=== PATIENT | female | born 1955 | race Caucasian/White ===

== ENCOUNTER 2019-11-25 07:48 | Outpatient (REF) | payer OTHER, SELFPAY ==
[2019-11-25 09:05] LABS: Anion Gap 10 (12-20); Blood Urea Nitrogen 29 mg/dL (9-16); Calcium 9.4 mg/dL (8.4-10.2); Carbon Dioxide 30 mmol/L (22-29); Chloride 104 mmol/L (96-108); Estimated Glomerular Filt Rate 33; Glucose Random 148 mg/dL (60-115); Potassium 4.3 mmol/l (3.3-5.1); Sodium 140 mmol/L (135-145)
[2019-11-25 09:12] LABS: Estimated Average Glucose 186 mg/dL; Hemoglobin A1c % 8.1 %
[2019-11-25 09:17] LABS: Creatinine Urine 70.08 mg/dL; Microalbum/Creatinine Ratio Ur 473.7 ug/mg cr
== END 2019-11-25 07:49 | disposition home or self-care (01) ==
LOC: HO.LAB 07:48
PROVIDERS: PCP Internal Medicine; Visit Provider Internal Medicine
DX: I12.9 Hypertensive chronic kidney disease with stage 1 through stage 4 chronic kidney disease, or unspecified chronic kidney disease (principal); E11.22 Type 2 diabetes mellitus with diabetic chronic kidney disease; N18.9 Chronic kidney disease, unspecified
CPT/HCPCS: 80048; 82043; 83036

== ENCOUNTER 2019-12-22 10:55 | Outpatient (REF) | payer OTHER, SELFPAY ==
--- NOTE | 2019-12-22 11:48 | XR_ITS ---
EXAMINATION: XR ANKLE, RIGHT CLINICAL INFORMATION: Right ankle pain. COMPARISON: None TECHNIQUE: AP, lateral, and mortise views of the right ankle. FINDINGS: The ankle mortise and subtalar joints are normal. There are small enthesophytes along the medial malleolus. No fracture or dislocation. There are moderate sized calcaneal heel and retrocalcaneal enthesophytes. The soft tissues are normal. XR/XR ankle RT 2V IMPRESSION: Moderate enthesophytes along the calcaneal heel and retrocalcaneal enthesophytes and small osteophytes along the medial malleolus. These are likely related to previous injury. No visible acute fracture, dislocation or subluxation.
[2019-12-22 13:48] LABS: Anion Gap 14 (12-20); Blood Urea Nitrogen 24 mg/dL (9-16); C Reactive Protein 0.09 mg/dL (< or = 0.50); Carbon Dioxide 28 mmol/L (22-29); Chloride 104 mmol/L (96-108); Estimated Glomerular Filt Rate 37; Glucose Random 106 mg/dL (60-115); Potassium 4.5 mmol/l (3.3-5.1); Sodium 141 mmol/L (135-145)
[2019-12-22 13:50] LABS: Uric Acid 6.5 mg/dL (2.4-5.7)
== END 2019-12-22 10:56 | disposition home or self-care (01) ==
LOC: HO.LAB 10:55
PROVIDERS: PCP Internal Medicine; Visit Provider Internal Medicine
DX: M25.571 Pain in right ankle and joints of right foot (principal); E11.22 Type 2 diabetes mellitus with diabetic chronic kidney disease; I12.9 Hypertensive chronic kidney disease with stage 1 through stage 4 chronic kidney disease, or unspecified chronic kidney disease; N18.9 Chronic kidney disease, unspecified
CPT/HCPCS: 73600; 80048; 84550; 86140

== ENCOUNTER 2020-03-26 08:16 | Outpatient (REF) | payer OTHER, SELFPAY ==
[2020-03-26 09:41] LABS: Anion Gap 12 (12-20); Blood Urea Nitrogen 26 mg/dL (9-16); Calcium 9.1 mg/dL (8.4-10.2); Carbon Dioxide 29 mmol/L (22-29); Chloride 103 mmol/L (96-108); Estimated Glomerular Filt Rate 37; Glucose Random 164 mg/dL (60-115); Potassium 4.7 mmol/L (3.3-5.1); Sodium 139 mmol/L (135-145)
[2020-03-26 09:59] LABS: Creatinine Urine 114.78 mg/dL; Microalbum/Creatinine Ratio Ur 418.1 ug/mg cr
[2020-03-26 10:22] LABS: Estimated Average Glucose 157 mg/dL; Hemoglobin A1c % 7.1 %
== END 2020-03-26 08:17 | disposition home or self-care (01) ==
LOC: HO.LAB 08:16
PROVIDERS: PCP Internal Medicine; Visit Provider Internal Medicine
DX: I12.9 Hypertensive chronic kidney disease with stage 1 through stage 4 chronic kidney disease, or unspecified chronic kidney disease (principal); E11.22 Type 2 diabetes mellitus with diabetic chronic kidney disease; N18.9 Chronic kidney disease, unspecified
CPT/HCPCS: 36415; 80048; 82043; 83036

== ENCOUNTER → 2020-04-25 11:05 | Outpatient (BNVA) | payer OTHER, SELFPAY | PROVIDERS: PCP Internal Medicine; Visit Provider Internal Medicine | DX: S69.92XA Unspecified injury of left wrist, hand and finger(s), initial encounter (principal); X50.0XXA Overexertion from strenuous movement or load, initial encounter | CPT/HCPCS: 29130; 73140; 99203 ==

== ENCOUNTER → 2020-05-02 09:02 | Outpatient (BNVA) | payer OTHER, SELFPAY | PROVIDERS: PCP Internal Medicine; Visit Provider Physician Assistant | DX: S63.635A Sprain of interphalangeal joint of left ring finger, initial encounter (principal); X58.XXXA Exposure to other specified factors, initial encounter | CPT/HCPCS: 99213 ==

== ENCOUNTER 2020-05-16 17:10 | Outpatient (REF) | payer OTHER, SELFPAY ==
--- NOTE | ~2020-05-16 | XR_ITS ---
EXAMINATION: XR HAND, LEFT CLINICAL INFORMATION: Pain COMPARISON: Previous x-ray 04/25/2020 TECHNIQUE: PA, lateral, and oblique views of the left hand. FINDINGS: Bone alignment is normal. No acute fracture or dislocation is seen. There is arthritis at the IP joints with joint space narrowing and osteophyte formation. There is a faint soft tissue calcification or ossification adjacent to the volar DIP joint of the fourth finger. This is unchanged from previous exam and may be related to old trauma. XR/XR hand LT min 3V IMPRESSION: Arthritis. No acute fracture or dislocation seen.
== END 2020-05-16 17:11 | disposition home or self-care (01) ==
LOC: HO.HOSX 17:10
PROVIDERS: Visit Provider Orthopaedic Surgery
DX: M79.642 Pain in left hand (principal)
CPT/HCPCS: 73130

== ENCOUNTER → 2020-05-17 09:15 | Outpatient (BNVA) | payer OTHER, SELFPAY | PROVIDERS: PCP Internal Medicine; Visit Provider Orthopaedic Surgery | DX: M79.642 Pain in left hand (principal) ==

== ENCOUNTER → 2020-06-07 10:22 | Outpatient (BNVA) | payer OTHER, SELFPAY | PROVIDERS: PCP Internal Medicine; Visit Provider Orthopaedic Surgery | DX: S63.285D Dislocation of proximal interphalangeal joint of left ring finger, subsequent encounter (principal) | CPT/HCPCS: 99212 ==

== ENCOUNTER 2020-07-08 14:30 | Outpatient (RCR) | payer OTHER, SELFPAY ==
--- NOTE | 2020-05-05 15:36 | MHC.OT.OEV ---
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 Referred to [facility], x-rays done and (-) for acute fracture, she was placed in splint and referred to OT. 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 *currently working from home due to Covid Quarantine, will return Tuesday 05/09 Living Situation, Family and/or Social Support: Lives alone Current Level of Function and Occupation Self Care, Employment, Leisure: Still Ind w/ daily activities, difficulty w/ bimanual tasks, unable to sweep Sleep: Difficulty with positioning comfortably Driving: WFL, uses dominant right hand primarily Pain Assessment Pain Score: 6 Pain Scale Used: Numeric (0 - 10) Pain Location and Description: 2/10 resting aching pain in Left D4 dorsal-lateral PIP 6/10 sharp shooting pain w/ touch or flexion Aggravating Factors: Touch, use, digit flexion Alleviating Factors: Heat packs Skin and Soft Tissue Assessment Comments: Small palpable soft tissue nodule over Left D4 lateral PIP Sensory Assessment Comments: Denies sensory changes Edema Assessment Comments: D4 PIP R 6.4 L 6.7 prox phal R 6.1 L 6.7 Dexterity Assessment Comments: Avoiding use of ring finger w/ activities AROM(PROM) Strength Wrist Flexion: Extension: Ulnar Deviation: Radial Deviation: Comments: WFL Flexion: Extension: Ulnar Deviation: Radial Deviation: Comments: Thumb Thumb CMC Flexion: Thumb MCP Flexion: Thumb IP Flexion: Radial Abduction: Palmar Abduction: Pelham (Kapandji 0-10): Comments: WFL Digits Index MCP: PIP: DIP: Long MCP: PIP: DIP: Ring MCP: PIP: L 80 DIP: L 20 Small MCP: PIP: DIP: Comments: Gross Grasp: Lateral Pinch: Two-Point Pinch: Three-Jaw Lane: Comments: Deferred Patient Education Primary Language: Swiss Flash Ranging Crewmember Required: No Current Knowledge: Understands information with skills for self-management Teaching Method: Verbal Education Needs Identified on Evaluation: ADL's Disease Information Equipment Use Pain Safety How did patient/family demonstrate learning? Patient demonstrates Patient verbalizes Barriers to Learning: None Readiness for Learning: Accepting Who was educated? Patient Comments: Use of giorgio strap, safety w/ D4 protection Plan of Care Assessment: 65 yo female presents s/p left ring finger strain while working with a student who grabbed and twisted her hand. She was seen in [facility], placed in a digit ext splint, but reports it has been uncomfortable due to blocking MCP flex and has not been wearing consistently. On assessment, she has pain w/ active movement of ring finger, full extension but limited flexion, gross grasp deferred. She has palpable soft tissue nodule just proximal to lateral D3 PIP, this OT is questioning a lateral collateral ligament tear. I have placed her in a D3-D4 giorgio strap to protect joint while allowing for gentle AROM. I have placed call to [facility] for further assessment and will hold further OT until follow-up. 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
--- NOTE | 2020-07-08 15:06 | MHC.OT.DC ---
[address] [phone] F: [phone] Occupational Therapy Discharge Note Provider: Saira Guerra PA-c Diagnosis: Left middle finger sprain Date of Surgery: Date of Evaluation: 05/05/20 Date of Discharge: 07/08/20 Treatments to Date: 13 Cancellations to Date: No Shows to Date: Discharge Status: Improved Function Independent with HEP Discharge Summary: Minerva has done well s/p left ringer finger PIP sprain. She continues to have some PIP and DIP stiffness, but mild funcitonal limitations. She has good understanding of HEP and is able to progress to self management. Electronically Signed By: Bonnie Borrego OTR/L Reviewed/agree with student documentation: N/A Therapist: Please Sign and return to therapist, thank you for your referral.
== END 2020-07-08 15:07 | disposition other institution (70) ==
LOC: HO.OT 14:30
PROVIDERS: PCP Internal Medicine; Visit Provider Physician Assistant
DX: S63.613A Unspecified sprain of left middle finger, initial encounter (principal)
CPT/HCPCS: 29130; 97035; 97110; 97140; 97166; 97760

== ENCOUNTER 2020-08-26 15:40 | Emergency (ER) | payer OTHER, SELFPAY ==
--- NOTE | ~2020-08-26 | CT_ITS ---
EXAMINATION: CT ABDOMEN AND PELVIS WITHOUT CONTRAST CLINICAL INFORMATION: Right-sided pain COMPARISON: No recent imaging TECHNIQUE: Multidetector volumetric imaging was performed from the superior aspect of the liver through the pubic symphysis. Sagittal and coronal reformatted images were obtained on the technologist's workstation. This CT examination was performed using dose optimization techniques as appropriate, variously including the following: *Automated exposure control *Adjustment of mA and/or kV according to patient size (this includes techniques or standardized protocols for targeted exams where dose is matched to indication/reason for exam; i.e. extremities or head) *Use of iterative reconstruction technique DLP: 761 mGy-cm FINDINGS: LUNG BASES: The visualized lung bases are unremarkable. LIVER, GALLBLADDER, AND BILIARY TREE: The liver is normal in size, shape, and attenuation. No focal hepatic lesion or biliary ductal dilatation is present. The gallbladder is unremarkable with no evidence of radiopaque gallstones, gallbladder wall thickening, or obvious pericholecystic inflammatory changes. PANCREAS: Unremarkable. SPLEEN: Unremarkable. ADRENAL GLANDS: Unremarkable. KIDNEYS AND URETERS: Right kidney is asymmetrically enlarged and edematous with perinephric stranding. Collecting system is notable distended down to the level the bladder. No definite stone is demonstrated. No gross bladder lesion is demonstrated although the bladder is limited in distention. No passed stone is demonstrated. No left-sided abnormality. BLADDER: As above GASTROINTESTINAL TRACT: The small and large bowel are unremarkable. The appendix is unremarkable. ABDOMINAL WALL: No significant hernia is appreciated. LYMPH NODES: Normal. VASCULAR: Unremarkable. PELVIC VISCERA: Uterus appears to surgically absent. OSSEOUS STRUCTURES: No sclerotic lesions. CT/CT abdomen pelvis wo con IMPRESSION: There are no acute bowel abnormalities. However, there is significant obstruction of the right urinary collecting system down to level of the bladder. There is no definite stone seen. Therefore an occult mass is suspected and should be excluded. Urologic assessment indicated.
[2020-08-26 15:44] VITALS: BP 150/77; PULSE 64; RESP 16; TEMP 36.6; O2SAT 95; BMI 31.9
--- NOTE | 2020-08-26 16:28 | ED.ABDPAIN ---
HPI - Abdominal Pain General Chief Complaint: Abdominal Pain Stated Complaint: ?appendicitis Time Seen by Provider: 08/26/20 16:28 Source: patient Mode of arrival: ambulatory Limitations: no limitations History of Present Illness HPI narrative: Patient with past medical history hypertension diabetes noticed pain in right upper quadrant radiating right flank and lower quadrant for last 2 days got worse today associated with nausea chills no fever no diarrhea no urinary complaints patient was seen by PCP was her to go to ER to rule out appendicitis patient never had similar pain in the past no history of kidney stone no diarrhea Related Data Home Medications Medication Instructions Recorded Confirmed amlodipine 1 tab PO DAILY 08/26/20 08/26/20 atorvastatin 1 tab PO BEDTIME 08/26/20 08/26/20 glipizide 1 tab PO DAILY 08/26/20 08/26/20 lisinopril 1 tab PO DAILY 08/26/20 08/26/20 Previous Rx's Medication Instructions Recorded cefuroxime axetil 500 mg PO BID 7 Days #14 tab 08/26/20 oxycodone 5 mg PO Q6H PRN #20 tab 08/26/20 Allergies Allergy/AdvReac Type Severity Reaction Status Date / Time No Known Allergies Allergy Verified 06/07/20 10:38 Review of Systems Review of Systems Constitutional : No Weight loss, No Fever, + Chills ENT/Mouth : No sore throat, No Rhinorrhea Eyes: No Eye Pain, No Swelling Cardiovascular : No Chest Pain, no palpitations Respiratory : No Cough, No Sputum, no shortness of breath Gastrointestinal :++Nausea, No Vomiting, No Diarrhea, ++ abdominal Pain, no black stools Genitourinary : No Dysuria, No Urinary Frequency Musculoskeletal : No joint pain, No Myalgias, No Joint Swelling Skin : No Skin Lesions, No rash Neuro : No Weakness, No Numbness, No Dizziness, No Headache Psych : No Anxiety/Panic, No Depression Heme/Lymph: No Bruising, No Lymphadenopathy Endocrine : No Polyuria, No Polydipsia All other systems reviewed and are negative Physical Exam Vital Signs: Vital Signs: Last Vital Signs Temp 97.8 F 08/26/20 21:14 Pulse 62 08/26/20 21:14 Resp 16 08/26/20 21:14 BP 180/88 H 08/26/20 21:14 Pulse Ox 99 08/26/20 21:14 Body Mass Index 31.9 Appearance: Alert. Oriented X3. No acute distress. Eyes: PERRLA, No Nystagmus ENT: Pharynx normal. Oral Mucosa moist Neck: Normal inspection. Neck supple. CVS: Normal heart rate and rhythm. Pulses normal. Respiratory: No respiratory distress. Equal air entry bilateral, no wheezing/rales/rhonchi Abdomen: Soft and tender right upper quadrant and right flank with guarding. Tenderness also in the right lower quadrant without rebound tenderness, Bowel sounds are present, no mass palpable, no CVA tenderness Skin: Skin warm and dry. Normal skin color. Normal skin turgor. Extremities: No lower extremity edema. No calf tenderness Neuro: Oriented X 3. No motor deficit. No sensory deficit.No cerebellar signs , cranial nerves II-XII intact MDM - Abdominal Pain MDM Narrative Medical decision making narrative: Patient's right sided nonobstructive hydronephrosis etiology not clear likely stricture case discussed with Dr. Reece advised to follow up as outpatient patient's creatinine is stable. Also patient has UTI will was given Rocephin in the ER discharged on Ceftin Differential Diagnosis Differential diagnosis: Likely abdominal pain Medical Records Attestation: I reviewed the patient's medical records. Lab Data Attestation: I reviewed the patient's lab results. Result diagrams: 08/26/20 16:38 08/26/20 16:37 Labs: Lab Results 08/26/20 08/26/20 08/26/20 Range/Units 16:37 16:37 16:38 WBC 9.2 (4.8-10.8) X10*3/uL RBC 4.87 (4.20-5.50) X10*6/uL Hgb 13.4 (12.0-16.0) g/dl Hct 39.8 (37-47) % MCV 81.7 (80-98) fL MCH 27.5 (27.0-33.0) pg MCHC 33.7 (31.0-35.0) g/dl RDW 12.9 (11.0-16.0) % Plt Count 322 (160-400) X10*3/uL MPV 8.6 L (9.4-12.3) fL Immature Gran % (Auto) 0.3 (0.0-0.4) % Neut % (Auto) 72.9 (45-73) % Lymph % (Auto) 16.2 L (20-40) % [place] % (Auto) 9.4 (2-11) % Eos % (Auto) 0.9 (0-4) % Baso % (Auto) 0.3 (0-2) % Lymph # (Auto) 1.5 (1.2-4.9) X10*3/uL [place] # (Auto) 0.9 (0.1-1.2) X10*3/uL Eos # (Auto) 0.1 (0.0-0.4) X10*3/uL Baso # (Auto) 0.0 (0.0-0.2) X10*3/uL Abs Immat Gran (auto) 0.03 (0.00-0.03) X10*3/uL Absolute Neuts (auto) 6.7 (2.0-8.3) X10*3/uL Absolute Nucleated RBC 0.000 (0.0-0.012) X10*3/uL Nucleated RBC % (auto) 0.0 (0.0-0.2) /100WBC Sodium 138 (135-145) mmol/L Potassium 4.4 (3.3-5.1) mmol/L Chloride 105 (96-108) mmol/L Carbon Dioxide 23 (22-29) mmol/L Anion Gap 14 (12-20) BUN 21 H (9-16) mg/dL Creatinine 1.35 (0.5-1.4) mg/dL Estim Creat Clear Calc 51.4 Estimated GFR 40 Random Glucose 196 H (60-115) mg/dL Lactic Acid 1.6 (0.5-2.0) mmol/L Calcium 9.4 (8.4-10.2) mg/dL Total Bilirubin 0.6 (0.0-1.0) mg/dL AST 20 (5-31) U/L ALT 20 (0-31) U/L Alkaline Phosphatase 82 (39-117) U/L Total Protein 7.9 (6.5-8.0) g/dL Albumin 4.3 (3.5-5.0) g/dL Lipase 30 (8-78) U/L Urine Color Urine Appearance Urine pH (5.0-8.0) Ur Specific Al[place] (1.005-1.025) Urine Protein (NEG-TRACE) MG/DL Urine Glucose (UA) (NEG) MG/DL Urine Ketones (NEG) MG/DL Urine Blood (NEG) Urine Nitrite (NEG) Ur Leukocyte Esterase (NEG) Urine RBC (0) /HPF Urine WBC (0-4) /HPF Ur Squamous Epith Cells /LPF Urine Bacteria /LPF COVID-19 (APRIL) (Negative) COVID-19 Clin Com 08/26/20 08/26/20 Range/Units 16:39 17:59 WBC (4.8-10.8) X10*3/uL RBC (4.20-5.50) X10*6/uL Hgb (12.0-16.0) g/dl Hct (37-47) % MCV (80-98) fL MCH (27.0-33.0) pg MCHC (31.0-35.0) g/dl RDW (11.0-16.0) % Plt Count (160-400) X10*3/uL MPV (9.4-12.3) fL Immature Gran % (Auto) (0.0-0.4) % Neut % (Auto) (45-73) % Lymph % (Auto) (20-40) % [place] % (Auto) (2-11) % Eos % (Auto) (0-4) % Baso % (Auto) (0-2) % Lymph # (Auto) (1.2-4.9) X10*3/uL [place] # (Auto) (0.1-1.2) X10*3/uL Eos # (Auto) (0.0-0.4) X10*3/uL Baso # (Auto) (0.0-0.2) X10*3/uL Abs Immat Gran (auto) (0.00-0.03) X10*3/uL Absolute Neuts (auto) (2.0-8.3) X10*3/uL Absolute Nucleated RBC (0.0-0.012) X10*3/uL Nucleated RBC % (auto) (0.0-0.2) /100WBC Sodium (135-145) mmol/L Potassium (3.3-5.1) mmol/L Chloride (96-108) mmol/L Carbon Dioxide (22-29) mmol/L Anion Gap (12-20) BUN (9-16) mg/dL Creatinine (0.5-1.4) mg/dL Estim Creat Clear Calc Estimated GFR Random Glucose (60-115) mg/dL Lactic Acid (0.5-2.0) mmol/L Calcium (8.4-10.2) mg/dL Total Bilirubin (0.0-1.0) mg/dL AST (5-31) U/L ALT (0-31) U/L Alkaline Phosphatase (39-117) U/L Total Protein (6.5-8.0) g/dL Albumin (3.5-5.0) g/dL Lipase (8-78) U/L Urine Color YELLOW Urine Appearance HAZY Urine pH 6.0 (5.0-8.0) Ur Specific Al[place] 1.015 (1.005-1.025) Urine Protein 2+ H (NEG-TRACE) MG/DL Urine Glucose (UA) NEG (NEG) MG/DL Urine Ketones NEG (NEG) MG/DL Urine Blood TRACE (NEG) Urine Nitrite NEG (NEG) Ur Leukocyte Esterase 1+ H (NEG) Urine RBC 1-4 (0) /HPF Urine WBC 15-29 H (0-4) /HPF Ur Squamous Epith Cells 2+ /LPF Urine Bacteria 1+ /LPF COVID-19 (APRIL) Negative (Negative) COVID-19 Clin Com See Note Discharge Plan Discharge Clinical Impression: Renal colic on right side Patient Disposition: Home, Self-Care Instructions: Urinary Tract Infection in Women (ED), Hydronephrosis (ED) Additional Instructions: Drink plenty of fluids Pain medication as prescribed follow-up with urologist on Saturday as scheduled Prescriptions: New oxycodone 5 mg tablet 5 mg PO Q6H PRN (Reason: Moderate Pain (Scale Score 5-6)) Qty: 20 RF: 0 cefuroxime axetil 500 mg tablet 500 mg PO BID 7 Days Qty: 14 RF: 0 No Action atorvastatin 40 mg tablet 1 tab PO BEDTIME RF: 0 glipizide 5 mg tablet extended release 24hr 1 tab PO DAILY RF: 0 amlodipine 5 mg tablet 1 tab PO DAILY RF: 0 lisinopril 10 mg tablet 1 tab PO DAILY RF: 0 Referrals: Peter Reece MD [Physician] - 3 days (on saturday 8 am) Interventions: ED Discharge Assessment Last Done: 08/26/20 21:18 Discharge Date/Time: 08/26/20 21:18 PMFSH Past Medical History Medical History High blood pressure Pre-diabetes Surgical History H/O: hysterectomy Social History Social History Alcohol intake: current Alcohol intake frequency: holidays/special occasions only Patient Tobacco Use Status: Never used Tobacco Smoked in Last 30 Days: No Use of substances other than those prescribed or required for medical reasons: No Advance Directives: No Advance Directives Information Provided: Yes Patient : No Current occupational status: employed 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
[2020-08-26 16:44] LABS: MANUAL DIFF FLAG NO
[2020-08-26 16:46] LABS: Basophils Percent Auto 0.3 % (0-2); Eosinophils Absolute Auto 0.1 X10*3/uL (0.0-0.4); Eosinophils Percent Auto 0.9 % (0-4); Hematocrit 39.8 % (37-47); Hemoglobin 13.4 g/dl (12.0-16.0); Imm Gran Abs Auto 0.03 X10*3/uL (0.00-0.03); Imm Gran Pct Auto 0.3 % (0.0-0.4); Lymphocytes Absolute Auto 1.5 X10*3/uL (1.2-4.9); Lymphocytes Percent Auto 16.2 % (20-40); Mean Corpuscular HGB Conc 33.7 g/dl (31.0-35.0); Mean Corpuscular Hemoglobin 27.5 pg (27.0-33.0); Mean Corpuscular Volume 81.7 fL (80-98); Mean Platelet Volume 8.6 fL (9.4-12.3); Monocytes Absolute Auto 0.9 X10*3/uL (0.1-1.2); Monocytes Percent Auto 9.4 % (2-11); Neutrophils Absolute Auto 6.7 X10*3/uL (2.0-8.3); Neutrophils Percent Auto 72.9 % (45-73); Platelet Count 322 X10*3/uL (160-400); Red Blood Count 4.87 X10*6/uL (4.20-5.50); Red Cell Distribution Width 12.9 % (11.0-16.0); White Blood Count 9.2 X10*3/uL (4.8-10.8)
[2020-08-26] MEDS: 0.9 % Sodium Chloride 1,000 ML 999 ML IVCONT (16:54)
[2020-08-26] MEDS: Morphine Sulfate 4 MG/ML CARTRIDGE IVPUSH (16:55)
[2020-08-26] MEDS: ondansetron HCL 4 MG/2 ML VIAL IVPUSH (16:55)
[2020-08-26 16:59] LABS: COVID-19 Test Negative (Negative)
[2020-08-26 17:14] LABS: Lactic Acid 1.6 mmol/L (0.5-2.0)
[2020-08-26 17:20] LABS: Alanine Aminotransferase 20 U/L (0-31); Albumin Level 4.3 g/dL (3.5-5.0); Alkaline Phosphatase 82 U/L (39-117); Anion Gap 14 (12-20); Aspartate Amino Transferase 20 U/L (5-31); Bilirubin Total 0.6 mg/dL (0.0-1.0); Blood Urea Nitrogen 21 mg/dL (9-16); Calcium 9.4 mg/dL (8.4-10.2); Carbon Dioxide 23 mmol/L (22-29); Chloride 105 mmol/L (96-108); Creatinine Clr Calc Pharmacy 51.4; Estimated Glomerular Filt Rate 40; Glucose Random 196 mg/dL (60-115); Lipase 30 U/L (8-78); Potassium 4.4 mmol/L (3.3-5.1); Sodium 138 mmol/L (135-145); Total Protein 7.9 g/dL (6.5-8.0)
[2020-08-26 17:31] VITALS: BP 180/102; PULSE 74; RESP 16; TEMP 36.2; O2SAT 96
[2020-08-26] MEDS: Ketorolac Tromethamine 30 MG/ML VIAL IVPUSH (17:56)
[2020-08-26 18:12] LABS: Glucose Urine UA NEG (NEG); Leukocyte Esterase Urine 1+ (NEG); Nitrite Urine NEG (NEG); Specific Gravity - Urine 1.015 (1.005-1.025); UACC Culture Trigger YES; Urine Blood TRACE (NEG); Urine Ketones NEG (NEG); Urine Protein 2+ MG/DL (NEG-TRACE)
[2020-08-26 18:25] LABS: Appearance Urine HAZY; Color Urine YELLOW
[2020-08-26 18:27] LABS: Bacteria Urine 1+ /LPF; Squamous Epithelial Cell Urine 2+ /LPF
[2020-08-26] MEDS: HYDROmorphone HCl 1 MG/ML SYRINGE IVPUSH (19:57)
[2020-08-26 20:00] VITALS: BP 169/84; PULSE 70; RESP 18; TEMP 36.9; O2SAT 100
[2020-08-26] MEDS: cefTRIAXone sodium 1 GM in 0.9 % Sodium Chloride 50 ML IV (20:02)
[2020-08-26 21:14] VITALS: BP 180/88; PULSE 62; RESP 16; TEMP 36.6; O2SAT 99
== END 2020-08-26 21:18 | disposition home or self-care (01) ==
PROVIDERS: Emergency Provider Internal Medicine; PCP Internal Medicine
DX: N23 Unspecified renal colic (principal); N39.0 Urinary tract infection, site not specified; E11.9 Type 2 diabetes mellitus without complications; I10 Essential (primary) hypertension; Z79.84 Long term (current) use of oral hypoglycemic drugs; Z79.899 Other long term (current) drug therapy; Z20.822 Contact with and (suspected) exposure to COVID-19
CPT/HCPCS: 36415; 74176; 80053; 81001; 81003; 83605; 83690; 85025; 87040; 87086; 87088; 87186; 87635; 96361; 96365; 96375; 99284; 99285; J0696; J1170; J1885; J2270; J2405

== ENCOUNTER → 2020-08-30 10:24 | Outpatient (BNVA) | payer OTHER, SELFPAY | PROVIDERS: PCP Internal Medicine ==

== ENCOUNTER 2021-01-23 13:30 | Outpatient (REF) | payer OTHER, SELFPAY ==
--- NOTE | ~2021-01-23 | MM_ITS ---
EXAMINATION: MM SCREENING DIGITAL BREAST TOMOSYNTHESIS, BILATERAL CLINICAL INFORMATION: Screening. Asymptomatic. The lifetime risk of breast cancer based on the Tyrer-Cuzick Model is 3%. COMPARISON: Outside mammography: 12/12/2019, 12/06/2018, 11/30/2017 ([place]). TECHNIQUE: Digital breast tomosynthesis is performed in both the craniocaudal and mediolateral oblique views along with computer-aided detection (CAD). Synthesized 2D images are generated from the tomosynthesis. Additional right exaggerated CC and left MLO views are provided. FINDINGS: There are scattered areas of fibroglandular density (ACR BI-RADS breast composition Category b). There are no significant masses, abnormal calcifications, or other abnormalities. Small dermal lesion again seen overlying the posterior inferior medial left breast. MM/MM tomosynthesis screening BI IMPRESSION: No mammographic evidence of malignancy. ASSESSMENT: BI-RADS 2: Benign RECOMMENDATION: Routine annual mammography screening. This patient's information was entered into a reminder system with a target due date for their next mammogram.
== END 2021-01-23 13:31 | disposition home or self-care (01) ==
LOC: HO.MAMMO 13:30
PROVIDERS: Visit Provider Internal Medicine
DX: Z12.31 Encounter for screening mammogram for malignant neoplasm of breast (principal)
CPT/HCPCS: 77063; 77067

== ENCOUNTER 2021-11-10 08:56 | Emergency (ER) | payer OTHER, SELFPAY ==
[2021-11-10 09:08] VITALS: BP 190/90; PULSE 100; RESP 16; TEMP 36.4; O2SAT 97; BMI 31.7
--- NOTE | 2021-11-10 13:45 | ED.WOUNDLAC ---
HPI - Wound/Laceration General Chief Complaint: Wound/Laceration Stated Complaint: lac. 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 She reports she is not up-to-date on tetanus. She denies any other symptoms complaints concerns or injuries at this time. She denies any bony tenderness, paresthesias, thoughts of foreign bodies. Onset (ago): minute(s) (Prior to arrival) Extremity Location: left: hand (Middle finger palmar aspect) Place: work Patient tetanus UTD: No Context: accidental Associated symptoms: none Treatments prior to arrival: bandage Related Data Home Medications Medication Instructions Recorded Confirmed amlodipine 5 mg tablet 1 tab PO DAILY 08/26/20 08/26/20 atorvastatin 40 mg tablet 1 tab PO BEDTIME 08/26/20 08/26/20 glipizide 5 mg tablet, extended 1 tab PO DAILY 08/26/20 08/26/20 release 24 hr lisinopril 10 mg tablet 1 tab PO DAILY 08/26/20 08/26/20 Previous Rx's Medication Instructions Recorded cefuroxime axetil 500 mg tablet 500 mg PO BID 7 days #14 tabs 08/26/20 oxycodone 5 mg tablet 5 mg PO Q6H PRN Moderate Pain 08/26/20 (Scale Score 5-6) #20 tabs ondansetron HCl 4 mg tablet 4 mg PO Q8H 1 week #21 tabs 08/30/20 (Zofran) sulfamethoxazole 800 1 tab PO BID 14 days #28 tabs 08/30/20 mg-trimethoprim 160 mg tablet Allergies Allergy/AdvReac Type Severity Reaction Status Date / Time No Known Allergies Allergy Verified 08/30/20 10:32 Review of Systems Review of Systems: Constitutional : No Fever, No Chills, Cardiovascular : No Chest Pain, No SOB Respiratory : No Dyspnea Gastrointestinal : No abdominal pain Musculoskeletal : No Joint Swelling Skin : positive skin laceration, No Foreign bodies, No rash, No surrounding erythema Neuro : No Weakness, No Numbness/tingling Psych : No SI/HI/thoughts of self injury Yes all other systems are reviewed and are negative [facility] Past Medical History Attestation statement: The following information was validated with the patient. 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 Blood pressure 190/90 Heart rate normal. Respiration rate normal. Temperature normal. Oxygen saturation normal. Appearance: Alert. Oriented X3. No acute distress. Head: Normal external exam. Normocephalic. Atraumatic. Eyes: PERRLA. EOMI. Conjunctiva and sclera normal. Eyelids normal. ENT: Pharynx normal. Uvula midline. Moist mucous membranes. Neck: Normal inspection. Neck supple. FROM. CVS: Normal heart rate and rhythm. Respiratory: No respiratory distress. Painless inspiration. Skin: Skin warm and dry. Normal skin color. Normal skin turgor. Patient with superficial 1 cm laceration to the palmar aspect of the middle finger. No foreign bodies or bony tenderness noted. No additional lacerations noted No rashes/lesions noted. Extremities: Extremities exhibit normal range of motion. Extremities nontender. Neuro: Oriented X 3. No motor deficit. No sensory deficit. Reflexes normal. Normal steady gait. No focal neuro deficits noted. Vascular: + radial pulses/+ 2 distal pedal pulses/+2 dorsalis pedis b/l. Normal cap refill. No cyanosis noted to upper extremity nails and lower extremity toes nails. Course Course Course Narrative: Patient now status post laceration repair with Dermabond. Patient tolerated procedure well. No complications. Tetanus updated at this time. No imaging indicated. Will DC home with instructions return if any new or worsening symptoms follow-up with PCP and were connection. Patient understands agrees with this plan. MDM - Wound/Laceration Medical Records Attestation: I reviewed the patient's medical records. Discharge Plan Discharge Clinical Impression: Laceration, Accident while engaged in work-related activity Patient Disposition: Home, Self-Care Instructions: Finger Laceration (ED) Prescriptions: No Action atorvastatin 40 mg tablet 1 tab PO BEDTIME glipizide 5 mg tablet extended release 24hr 1 tab PO DAILY amlodipine 5 mg tablet 1 tab PO DAILY lisinopril 10 mg tablet 1 tab PO DAILY oxycodone 5 mg tablet 5 mg PO Q6H PRN (Reason: Moderate Pain (Scale Score 5-6)) Qty: 20 0RF cefuroxime axetil 500 mg tablet 500 mg PO BID 7 Days Qty: 14 0RF sulfamethoxazole-trimethoprim 800-160 mg tablet 1 tab PO BID 14 Days Qty: 28 0RF ondansetron HCl [Zofran] 4 mg tablet 4 mg PO Q8H 7 Days Qty: 21 0RF Referrals: Nasim Ryan MD [Primary Care Provider] - 2 days Stand Alone Forms: Work/School Release
[2021-11-10 13:56] VITALS: BP 169/94; PULSE 88; RESP 18; TEMP 36.8; O2SAT 98
[2021-11-10] MEDS: Acetaminophen 325 MG TABLET 975 MG PO (14:05)
[2021-11-10] MEDS: Diphth,Pertus(ACell),Tet Adult 0.5 ML SYRINGE IM (14:06)
== END 2021-11-10 14:12 | disposition home or self-care (01) ==
PROVIDERS: Emergency Provider Emergency Medicine; PCP Internal Medicine
DX: S61.213A Laceration without foreign body of left middle finger without damage to nail, initial encounter (principal); W26.8XXA Contact with other sharp object(s), not elsewhere classified, initial encounter; Y93.89 Activity, other specified; Y92.219 Unspecified school as the place of occurrence of the external cause; Y99.0 Civilian activity done for income or pay
CPT/HCPCS: 12001; 90471; 90715; 99284

== ENCOUNTER → 2021-11-17 13:12 | Outpatient (BNVA) | payer OTHER, SELFPAY | PROVIDERS: PCP Internal Medicine; Visit Provider Internal Medicine | DX: S61.213A Laceration without foreign body of left middle finger without damage to nail, initial encounter (principal); W26.8XXA Contact with other sharp object(s), not elsewhere classified, initial encounter | CPT/HCPCS: 99203 ==

== ENCOUNTER → 2021-11-23 12:56 | Outpatient (BNVA) | payer OTHER, SELFPAY | PROVIDERS: PCP Internal Medicine; Visit Provider Physician Assistant | DX: S61.213D Laceration without foreign body of left middle finger without damage to nail, subsequent encounter (principal); W26.8XXD Contact with other sharp object(s), not elsewhere classified, subsequent encounter | CPT/HCPCS: 99213 ==

== ENCOUNTER 2022-01-13 10:28 | Outpatient (REF) | payer OTHER, SELFPAY ==
[2022-01-13 10:39] LABS: MANUAL DIFF FLAG NO
[2022-01-13 10:56] LABS: Basophils Absolute Auto 0.1 X10*3/uL (0.0-0.2); Basophils Percent Auto 0.8 % (0-2); Eosinophils Absolute Auto 0.3 X10*3/uL (0.0-0.4); Eosinophils Percent Auto 3.9 % (0-4); Hematocrit 42.7 % (37.0-47.0); Hemoglobin 14.5 g/dl (12.0-16.0); Imm Gran Abs Auto 0.02 X10*3/uL (0.00-0.03); Imm Gran Pct Auto 0.3 % (0.0-0.4); Lymphocytes Absolute Auto 2.7 X10*3/uL (1.2-4.9); Lymphocytes Percent Auto 42.2 % (20-40); Mean Corpuscular Hemoglobin 27.6 pg (27.0-33.0); Mean Corpuscular Volume 81.2 fL (80.0-98.0); Mean Platelet Volume 8.9 fL (9.4-12.3); Monocytes Absolute Auto 0.6 X10*3/uL (0.1-1.2); Monocytes Percent Auto 8.7 % (2-11); Neutrophils Absolute Auto 2.9 x10*3/uL (2.0-8.3); Neutrophils Percent Auto 44.1 % (45-73); Platelet Count 272 X10*3/uL (160-400); Red Blood Count 5.26 X10*6/uL (4.20-5.50); Red Cell Distribution Width 12.8 % (11.0-16.0); White Blood Count 6.5 X10*3/uL (4.8-10.8)
[2022-01-13 11:08] LABS: Estimated Average Glucose 226 mg/dL; Hemoglobin A1c % 9.5 %
[2022-01-13 11:26] LABS: Alanine Aminotransferase 31 U/L (0-31); Albumin Level 4.2 g/dL (3.5-5.0); Alkaline Phosphatase 62 U/L (39-117); Anion Gap 15 (12-20); Aspartate Amino Transferase 27 U/L (5-31); Bilirubin Total 0.7 mg/dL (0.0-1.0); Blood Urea Nitrogen 24 mg/dL (9-16); Calcium 9.7 mg/dL (8.4-10.2); Carbon Dioxide 24 mmol/L (22-29); Chloride 104 mmol/L (96-108); Cholesterol 196 mg/dL; Estimated Glomerular Filt Rate 41; Glucose Fasting 202 mg/dL (60-99); HDL Cholesterol 37 mg/dL; LDL Cholesterol Calculated 110 mg/dl; Potassium 4.2 mmol/L (3.3-5.1); Sodium 139 mmol/L (135-145); Total Protein 7.5 g/dL (6.5-8.0); Triglycerides 247 mg/dL
== END 2022-01-13 10:29 | disposition home or self-care (01) ==
LOC: HO.LAB 10:28
PROVIDERS: PCP Internal Medicine; Visit Provider Internal Medicine
DX: Z00.00 Encounter for general adult medical examination without abnormal findings (principal); E11.9 Type 2 diabetes mellitus without complications
CPT/HCPCS: 36415; 80053; 80061; 83036; 85025

== ENCOUNTER 2022-01-24 14:14 | Outpatient (REF) | payer OTHER, SELFPAY ==
--- NOTE | ~2022-01-24 | MM_ITS ---
EXAMINATION: MM SCREENING DIGITAL BREAST TOMOSYNTHESIS, BILATERAL CLINICAL INFORMATION: Screening. Asymptomatic. The lifetime risk of breast cancer based on the Tyrer-Cuzick Model is 3%. COMPARISON: Mammography: 01/23/2021, 12/12/2019, 12/06/2018 TECHNIQUE: Digital breast tomosynthesis is performed in both the craniocaudal and mediolateral oblique views along with computer-aided detection (CAD). Synthesized 2D images are generated from the tomosynthesis. FINDINGS: There are scattered areas of fibroglandular density (ACR BI-RADS breast composition Category b). There are no significant masses, abnormal calcifications, or other abnormalities. Parenchymal pattern is similar to prior exams. No developing density. No significant changes. MM/MM tomosynthesis screening BI IMPRESSION: No mammographic evidence of malignancy. ASSESSMENT: BI-RADS 1: Negative RECOMMENDATION: Routine annual mammography screening. This patient's information was entered into a reminder system with a target due date for their next mammogram.
== END 2022-01-24 14:15 | disposition home or self-care (01) ==
LOC: HO.MAMMO 14:14
PROVIDERS: PCP Internal Medicine; Visit Provider Internal Medicine
DX: Z12.31 Encounter for screening mammogram for malignant neoplasm of breast (principal)
CPT/HCPCS: 77063; 77067

== ENCOUNTER 2022-06-26 08:29 | Day surgery (SDC) | payer OTHER, SELFPAY ==
--- NOTE | 2022-06-25 15:12 | P.CONAN_ITS ---
Documented by User: Chanelle Landeros NP 06/25/22 15:13 HPI - Anesthesia Eval Consult details Narrative: 67yo F for Colonoscopy PMFSH Active Problems Active Problems: All Active Problems (Updated 06/25/22 @ 15:09 by Leona Blas RN) Dislocation of proximal interphalangeal joint of left ring finger (Acute) Pyelonephritis (Acute) Past Medical History Medical History (Updated 06/26/22 @ 09:42 by Ivelisse Calabrese RN) CKD (chronic kidney disease) stage 3, GFR 30-59 ml/min Diabetes mellitus, type 2 Elevated cholesterol High blood pressure Nephrolithiasis Pre-diabetes Surgical History Surgical History H/O: hysterectomy Hx of colonoscopy Social History Social History Alcohol intake: never Patient Tobacco Use Status: Never used Tobacco Use of substances other than those prescribed or required for medical reasons: No Are you DNR?: No Advance Directives: No Advance Directives Information Provided: Yes Current occupational status: employed 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 Meds Allergies Allergy/AdvReac Type Severity Reaction Status Date / Time No Known Allergies Allergy Verified 06/26/22 09:45 Home Medications Medication Instructions Recorded Confirmed Last Taken Type amlodipine 5 mg tablet 1 tab PO DAILY 08/26/20 06/26/22 Unknown History atorvastatin 40 mg tablet 1 tab PO BEDTIME 08/26/20 06/26/22 Unknown History glipizide 5 mg tablet, extended 1 tab PO DAILY 08/26/20 06/26/22 Unknown History release 24 hr cholecalciferol (vitamin D3) 50 50 mcg PO DAILY 06/25/22 06/26/22 Unknown History mcg (2,000 unit) tablet metformin 500 mg tablet,extended 500 mg PO BID 06/25/22 06/26/22 Unknown History release 24 hr lisinopril 20 mg tablet 20 mg PO DAILY 06/26/22 06/26/22 06/26/22 07:50 History Exam Exam Date and Time: June 25, 2022 1512 Assessment and Plan Assessment Anesthesia Assessment: Chart Reviewed Documented by User: Bradly Campos MD 06/26/22 17:28 HPI - Anesthesia Eval Consult details Narrative: 67yo F for Colonoscopy Patient denies any chest pain , SOB , functional status more than 4 mets . CKD , DM . Patient with some T wave inversions on the monitor . 12 lead EKG obtained , EKG reviewed with business information analyst /Banking Services Officer . Patient is completely asymptomatic . The EKG findings most likely secondary to some LVH . Dr Zimmer did a bedside ECHO which showed LVH without any other gross abnormalities . Case discussed with Dr Rizvi and the patient as well . Since patient has already done the prep ,this is a low risk procedure and patient is completely asymptomatic , we will proceed forward . Patient instructed to follow-up with primary care for further work-up . [facility] Past Medical History Medical History (Updated 06/26/22 @ 09:42 by Ivelisse Calabrese RN) CKD (chronic kidney disease) stage 3, GFR 30-59 ml/min Diabetes mellitus, type 2 Elevated cholesterol High blood pressure Nephrolithiasis Pre-diabetes Functional capacity: independent ambulation Family History Family history of problems with anesthesia: No Surgical History Surgical History H/O: hysterectomy Hx of colonoscopy History of Problems with Anesthesia: No Social History Social History Alcohol intake: never Patient Tobacco Use Status: Never used Tobacco Use of substances other than those prescribed or required for medical reasons: No Are you DNR?: No Advance Directives: No Advance Directives Information Provided: Yes Current occupational status: employed 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 Meds Allergies Allergy/AdvReac Type Severity Reaction Status Date / Time No Known Allergies Allergy Verified 06/26/22 09:45 Home Medications Medication Instructions Recorded Confirmed Last Taken Type amlodipine 5 mg tablet 1 tab PO DAILY 08/26/20 06/26/22 Unknown History atorvastatin 40 mg tablet 1 tab PO BEDTIME 08/26/20 06/26/22 Unknown History glipizide 5 mg tablet, extended 1 tab PO DAILY 08/26/20 06/26/22 Unknown History release 24 hr cholecalciferol (vitamin D3) 50 50 mcg PO DAILY 06/25/22 06/26/22 Unknown History mcg (2,000 unit) tablet metformin 500 mg tablet,extended 500 mg PO BID 06/25/22 06/26/22 Unknown History release 24 hr lisinopril 20 mg tablet 20 mg PO DAILY 06/26/22 06/26/22 06/26/22 07:50 History Exam Airway Mallampati Class: III TM Dist: >3cm Neck ROM: Full Loose/Missing/Broken Teeth: Yes (poor dentition overall ) Assessment and Plan Assessment Anesthesia Assessment: Anesthesia Plan Discussed Final Anesthetic Review Family History of Problems with Anesthesia: No History of Problems with Anesthesia: No NPO: Yes ASA Class: III Final Preanesthetic Review: Meds/Allgs Chart Reviewed, Consent Obtained/Reviewed and Anes Risks/Benef Reviewed Patient Risk: Intermediate Procedure Risk: Intermediate Anesthetic Plan Anesthetic Plan: MAC: Disposition: Standard PACU
--- NOTE | 2022-06-26 | ECG_ITS ---
Test Reason : T WAVE Blood Pressure : / mmHG Vent. Rate : 060 BPM Atrial Rate : 060 BPM P-R Int : 166 ms QRS Dur : 114 ms QT Int : 448 ms P-R-T Axes : 033 -20 147 degrees QTc Int : 448 ms Normal sinus rhythm Voltage criteria for left ventricular hypertrophy ( R in aVL , Sokolow-Kent , [place] product ) Septal infarct , age undetermined ST & Marked T wave abnormality, consider anterolateral ischemia Abnormal ECG When compared with ECG of 20-JAN-2010 15:43, QRS duration has increased Septal infarct is now Present ST now depressed in Lateral leads T wave inversion now evident in Anterolateral leads Referred By: Bradly Campos Electronically Signed By:COY REYES
[2022-06-26 09:48] VITALS: BMI 31.2
[2022-06-26 09:54] VITALS: BP 154/79; PULSE 63; RESP 15; TEMP 35.9; O2SAT 97
[2022-06-26] MEDS: Lactated Ringers 1,000 ML 100 ML IVCONT (10:14)
[2022-06-26 10:19] LABS: Glucose, Whole Blood 206 mg/dL (60-115)
--- NOTE | 2022-06-26 12:52 | P.BOP_ITS ---
Brief Operative Note Date of Service: 06/26/22 Pre-op diagnosis: screening Post-op diagnosis: same Procedure: colonoscopy Surgeon: Juan Rizvi Anesthesia: MAC Was an Sharepoint Solutions Developer used for this Procedure?: No Estimated blood loss (mL): 2 Pathology: other Condition: stable Disposition: PACU
[2022-06-26 12:55] VITALS: BP 96/63; PULSE 76; RESP 15; TEMP 36.3; O2SAT 97
[2022-06-26 13:10] VITALS: BP 115/75; PULSE 71; RESP 15; TEMP 36.3; O2SAT 96
--- NOTE | 2022-06-26 13:17 | OP_ITS ---
DATE OF SERVICE: 06/26/2022 SURGEON: Juan Rizvi MD INDICATIONS: Colon cancer screening. PREOPERATIVE DIAGNOSIS: POSTOPERATIVE DIAGNOSIS: PROCEDURE PERFORMED: Colonoscopy to the terminal ileum with snare polypectomy. ESTIMATED BLOOD LOSS: COMPLICATIONS: ANESTHESIA: Monitored anesthesia care. ASSISTANTS: SPECIMENS: DESCRIPTION OF PROCEDURE: A history and physical was performed. The risks and benefits of the procedure were explained to the patient. Informed consent was obtained. The patient was placed in the left lateral decubitus position. A digital rectal exam was performed and was found to be normal. The Olympus pediatric video colonoscope was introduced into the rectum and advanced to the cecum without difficulty. The cecum was identified by transillumination, palpation, and identification of ileocecal valve. Examination was performed. The scope was removed. She tolerated the procedure well and was returned to the recovery area in stable condition. FINDINGS: The terminal ileum was examined and appeared normal. The visualized colonic mucosa was normal. There was some liquid stool in the sigmoid and descending colon, which was washed and suctioned. This limited the sensitivity examination for detection of small polyps. In the cecum were 2 small polyps measuring less than 10 mm. These were removed with a combination of biopsy forceps and snare. In the right colon was a 6 mm polyp, which was removed with a snare. No other polyps were identified. Retroflexed examination showed moderate-sized internal hemorrhoids. IMPRESSION: Colon polyps. RECOMMENDATION: Follow up the biopsy results. MD SASKIA Cox/MODL / [id number]
== END 2022-06-26 13:44 | disposition home or self-care (01) ==
PROVIDERS: PCP Internal Medicine; Visit Provider Internal Medicine Gastroenterology
PROC: 0DJD8ZZ Inspection of Lower Intestinal Tract, Via Natural or Artificial Opening Endoscopic (ICD-10-PCS; CPT 45378; principal; 2022-06-26 10:10)
DX: Z12.11 Encounter for screening for malignant neoplasm of colon (principal); D12.0 Benign neoplasm of cecum; D12.2 Benign neoplasm of ascending colon; K64.8 Other hemorrhoids; I10 Essential (primary) hypertension; E78.00 Pure hypercholesterolemia, unspecified; E11.9 Type 2 diabetes mellitus without complications; N20.0 Calculus of kidney; Z79.84 Long term (current) use of oral hypoglycemic drugs; Z79.899 Other long term (current) drug therapy
CPT/HCPCS: 45385; 45380; 82947; 88305; 93005; J2250

== ENCOUNTER → 2022-07-10 12:12 | Outpatient (REF) | payer OTHER, SELFPAY ==
--- NOTE | 2022-07-10 12:24 | CA_ITS ---
Transthoracic Echocardiogram Patient (Last, First, Middle): Minerva Murray, Gender: Female Date of : 1955 Age: 67 Procedure Date: 07/10/2022 Procedure Type: Transthoracic Echocardiogram Location: OP Height: 172.72 cm Weight: 91.17 kg BSA: 2.05 m2 Heart Rate: bpm BP: 148 / 90 mmHg Treating Inspector: TO Referring MD: Nasim Ryan MD Symptoms: R94.31 ABNORMAL EKG HTN, NIDDM, CRI Study Quality: Fair/Contrast ECG Rhythm: Sinus Conclusions: - The left ventricular systolic function is normal. The visually estimated ejection fraction is between 65-70%. - No obvious valvular pathology seen on this study. - There is mild dilatation of the ascending aorta measuring 3.90 cm. Findings Procedure Information Contrast agent, definity, is being given per protocol without apparent complications. Left Ventricle Normal left ventricular cavity size. The left ventricular systolic function is normal. The visually estimated ejection fraction is between 65-70%. There is no evidence of regional wall motion abnormalities. E/E prime ratio is between 8 and 15 consistent with indeterminate filling pressures. Evidence suggests grade I (mild) diastolic dysfunction. There is mild septal asymmetric hypertrophy. Right Ventricle Normal right ventricular cavity size and systolic function. Atria Both atria are normal in size. Aortic Valve There is a normal trileaflet aortic valve. There is mild calcification of the aortic valve. There is no aortic valve stenosis. There is no aortic valve regurgitation. Mitral Valve The mitral valve appears normal. There is trace mitral valve regurgitation. There is no mitral valve stenosis. Pulmonic Valve The pulmonic valve is likely normal. Tricuspid Valve Normal tricuspid valve structure. There is mild tricuspid valve regurgitation. There is no evidence of pulmonary hypertension. Great Vessels There is mild dilatation of the ascending aorta measuring 3.90 cm. Venous The inferior vena cava is normal in size and collapses greater than 50% with inspiration. Pericardium/Pleural There is no evidence of pericardial effusion. Prior Study Comparison No prior study available for comparison. Recommendations, Care & Conclusions No obvious valvular pathology seen on this study. Measurements 2D Linear Measurements IVSd: 1.22 0.6-0.9/0.6-1.0 cm LVIDd: 4.16 3.9-5.3/4.2-5.9 cm LVIDd Index: 2.03 2.4-3.2/2.2-3.1 cm/m2 LVIDs: 2.87 2.0-3.6 cm LVPWd: 0.84 0.7-1.1 cm LA Diam: 3.40 2.7-3.8/3.0-4.0 cm LAIDs Index: 1.66 1.5-2.3 cm/m2 LV Mass: 175.52 67-162/88-224 g LV Mass Index: 85.62 43-95/49-115 g/m2 LVOT Diam: 2.10 3.0+(-)1.3 cm 2D Systolic Function EF 4C: 66.00 >55% EF 2C: 74.70 >55% EF BiP: 71.70 >55% Mitral Valve MV Pk E: 0.85 MV PK A: 0.89 MV Decel Time: 240.00 E/A: 1.00 E'Lateral: 5.66 E'Medial: 4.03 E/E' Med: 21.00 E/E' Lat: 15.00 PHT: 70.00 MVA PHT: 3.14 Decel Angelina: 3.54 Aortic Valve AoV Pk Jony: 1.87 AoV Mn Jony: 1.28 AoV VTI: 0.39 AoV Pk Grad: 14.00 Aov Mn Grad: 7.00 ELIJAH Cont.VTI: 2.40 LVOT LVOT Pk Jony: 1.12 LVOT Mn Jony: 0.76 LVOT VTI: 0.27 LVOT Pk Grad: 5.00 LVOT Mn Grad: 3.00 LVOT Diam: 2.10 LVOT Area: 3.46 Diastolic Function MV Pk E: 0.85 MV Pk A: 0.89 E/A: 1.00 E'Medial: 4.03 E/E' Med: 21.00 E' Laterial: 5.66 E/E' Lat: 15.00 Right Ventricle TAPSE (mm): 17.80 TVS' Jony: 12.20 Tricuspid Valve TR Pk Jony: 2.36 TR Pk Grad: 22.00 RA Press: 3.00 RVSP: 25.00 Great Vessels Aorta Sinus of Valsalva: 3.65 2.0-3.[address] [place]: 2.44 1.7-3.4 cm Ao Asc: 3.90 2.1-3.4 cm Updated in Other Vendor System with Status of Final Hank Rangel MD electronically signed on 07/11/2022 12:41:19 PM with status of Final
== END ==
LOC: HO.CARD 12:12
PROVIDERS: PCP Internal Medicine; Visit Provider Internal Medicine
DX: R94.31 Abnormal electrocardiogram [ECG] [EKG] (principal)
CPT/HCPCS: 93306; Q9957

== ENCOUNTER → 2023-01-30 14:15 | Outpatient (BNV) | payer MEDICARE, SELFPAY | PROVIDERS: PCP Internal Medicine; Visit Provider Radiology Diagnostic Radiology | DX: Z12.31 Encounter for screening mammogram for malignant neoplasm of breast (principal) | CPT/HCPCS: 77063; 77067 ==

== ENCOUNTER 2023-01-30 14:20 | Outpatient (REF) | payer MEDICARE, SELFPAY | END 2023-01-30 14:21 | disposition home or self-care (01) | LOC: HO.MAMMO 14:20 | PROVIDERS: PCP Internal Medicine; Visit Provider Internal Medicine | DX: Z12.31 Encounter for screening mammogram for malignant neoplasm of breast (principal) | CPT/HCPCS: 77063; 77067 ==

== ENCOUNTER 2023-08-14 09:50 | Outpatient (REF) | payer MEDICARE, SELFPAY ==
--- NOTE | ~2023-08-14 | XR_ITS ---
EXAMINATION: Bilateral knee series CLINICAL INFORMATION: Bilateral knee pain osteoarthritis COMPARISON: X-rays of the left knee February 2008 TECHNIQUE: 4 views of each knee FINDINGS: Right knee: Bones joints soft tissues normal without effusion. Left knee: Minimal marginal osteophytes but patellofemoral compartment without joint space narrowing. Medial lateral compartments normal. No effusion. XR/XR knee RT 4V IMPRESSION: RIGHT KNEE: Normal. LEFT KNEE: Minimal osteoarthritis.
--- NOTE | ~2023-08-14 | XR_ITS ---
EXAMINATION: Bilateral knee series CLINICAL INFORMATION: Bilateral knee pain osteoarthritis COMPARISON: X-rays of the left knee February 2008 TECHNIQUE: 4 views of each knee FINDINGS: Right knee: Bones joints soft tissues normal without effusion. Left knee: Minimal marginal osteophytes but patellofemoral compartment without joint space narrowing. Medial lateral compartments normal. No effusion. XR/XR knee LT 4V IMPRESSION: RIGHT KNEE: Normal. LEFT KNEE: Minimal osteoarthritis.
--- NOTE | ~2023-08-14 | XR_ITS ---
EXAMINATION: XR HAND, LEFT CLINICAL INFORMATION: Left hand pain COMPARISON: X-rays of the left hand April 2020 TECHNIQUE: PA, lateral, and oblique views of the left hand. FINDINGS: There is no fracture. First carpometacarpal joint there is mild to moderate osteoarthritis manifested by marginal osteophytes unchanged compared to prior. Interphalangeal joints: There is moderate to severe osteoarthritis of the second and fifth DIP joints manifested by prominent marginal osteophytes and severe joint space narrowing. Additional moderate osteoarthritis of the third DIP joint and IP joint of the thumb manifested by joint space narrowing marginal osteophytes. Additional mild osteoarthritis of fourth and fifth PIP joints manifested by small marginal osteophytes without joint space narrowing. The remaining bones joints and soft tissues unremarkable. XR/XR hand LT min 3V IMPRESSION: Varying degrees of osteoarthritis of the wrist and hand from mild to moderate to severe as detailed per joint above. No change compared with the x-rays April 2020 No acute abnormality
== END 2023-08-14 09:51 | disposition home or self-care (01) ==
LOC: HO.XRAY 09:50
PROVIDERS: PCP Internal Medicine; Visit Provider Internal Medicine
DX: M17.0 Bilateral primary osteoarthritis of knee (principal); M19.042 Primary osteoarthritis, left hand
CPT/HCPCS: 73130; 73564

== ENCOUNTER 2023-08-21 07:58 | Outpatient (REF) | payer MEDICARE, SELFPAY ==
[2023-08-21 11:10] LABS: MANUAL DIFF FLAG NO
[2023-08-21 11:28] LABS: Estimated Average Glucose 240 mg/dL
[2023-08-21 11:34] LABS: Basophils Absolute Auto 0.1 X10*3/uL (0.0-0.2); Basophils Percent Auto 0.8 % (0-2); Eosinophils Absolute Auto 0.2 X10*3/uL (0.0-0.4); Eosinophils Percent Auto 3.3 % (0-4); Hematocrit 40.2 % (37.0-47.0); Hemoglobin 13.9 g/dl (12.0-16.0); Imm Gran Abs Auto 0.01 X10*3/uL (0.00-0.03); Imm Gran Pct Auto 0.2 % (0.0-0.4); Lymphocytes Absolute Auto 2.3 X10*3/uL (1.2-4.9); Lymphocytes Percent Auto 36.6 % (20-40); Mean Corpuscular HGB Conc 34.6 g/dl (31.0-35.0); Mean Corpuscular Hemoglobin 27.5 pg (27.0-33.0); Mean Corpuscular Volume 79.6 fL (80.0-98.0); Mean Platelet Volume 9.4 fL (9.4-12.3); Monocytes Absolute Auto 0.7 X10*3/uL (0.1-1.2); Monocytes Percent Auto 10.3 % (2-11); Neutrophils Absolute Auto 3.1 x10*3/uL (2.0-8.3); Neutrophils Percent Auto 48.8 % (45-73); Platelet Count 253 X10*3/uL (160-400); Red Blood Count 5.05 X10*6/uL (4.20-5.50); Red Cell Distribution Width 13.1 % (11.0-16.0); White Blood Count 6.4 X10*3/uL (4.8-10.8)
[2023-08-21 11:36] LABS: Alanine Aminotransferase 27 U/L (0-31); Albumin Level 4.1 g/dL (3.5-5.0); Alkaline Phosphatase 71 U/L (39-117); Anion Gap 11 (12-20); Aspartate Amino Transferase 21 U/L (5-31); Bilirubin Total 0.8 mg/dL (0.0-1.0); Blood Urea Nitrogen 21 mg/dL (9-16); Calcium 9.6 mg/dL (8.4-10.2); Carbon Dioxide 26 mmol/L (22-29); Chloride 105 mmol/L (96-108); Cholesterol 184 mg/dL (<200); Estimated Glomerular Filt Rate 42; Glucose Fasting 232 mg/dL (60-99); HDL Cholesterol 37 mg/dL (>40); LDL Cholesterol Calculated 90 mg/dL (<100); Potassium 4.4 mmol/L (3.3-5.1); Sodium 138 mmol/L (135-145); Total Protein 7.5 g/dL (6.5-8.0); Triglycerides 287 mg/dL (<150)
[2023-08-21 11:43] LABS: Parathyroid Hormone Intact 53.4 pg/mL (8.7-77.1)
[2023-08-21 11:52] LABS: Vitamin D 25-OH Total 43.3 ng/mL (>30)
== END 2023-08-21 07:59 | disposition home or self-care (01) ==
LOC: HO.10HDL 07:58
PROVIDERS: Visit Provider Internal Medicine
DX: I12.9 Hypertensive chronic kidney disease with stage 1 through stage 4 chronic kidney disease, or unspecified chronic kidney disease (principal); E11.22 Type 2 diabetes mellitus with diabetic chronic kidney disease; N18.9 Chronic kidney disease, unspecified; E78.00 Pure hypercholesterolemia, unspecified
CPT/HCPCS: 36415; 80053; 80061; 82306; 83036; 83970; 85025

== ENCOUNTER 2023-11-09 08:36 | Inpatient (IN) | payer MEDICARE, SELFPAY ==
[2023-11-09] VITALS (10 sets, daily range): BP systolic 101–169; BP diastolic 57–93; PULSE 57–113; RESP 14–20; TEMP 36.6–36.8; O2SAT 95–99; BMI 30.1; BMI 30.2
--- NOTE | ~2023-11-09 | CT_ITS ---
EXAMINATION: CT ABDOMEN PELVIS WITHOUT IV CONTRAST CLINICAL INFORMATION: abd pain, ??appendicitis COMPARISON: Prior CT 2020 TECHNIQUE: Multidetector volumetric imaging was performed from the superior aspect of the liver through the pubic symphysis IV contrast administered. Sagittal and coronal reformatted images were obtained on the technologist's workstation. This CT examination was performed using dose optimization techniques as appropriate, variously including the following: *Automated exposure control *Adjustment of mA and/or kV according to patient size (this includes techniques or standardized protocols for targeted exams where dose is matched to indication/reason for exam; i.e. extremities or head) *Use of iterative reconstruction technique DLP: 620 mGy-cm FINDINGS: LOWER THORAX: Included lung bases are clear. HEPATOBILIARY: No focal hepatic lesions. No biliary ductal dilatation. GALLBLADDER: Gallbladder unremarkable. SPLEEN: Spleen is normal in size. PANCREAS: No focal mass or ductal dilatation. STOMACH AND GASTROINTESTINAL TRACT: Stomach is grossly unremarkable. There is no bowel distention or thickening. No CT evidence of appendicitis. ADRENALS: No adrenal nodules. KIDNEYS/URETERS: Moderate to severe left renal hydronephrosis and hydroureter, the left ureter is dilated throughout its length into the left ureterovesicular junction, no obstructing stone found, this could be sequela of recently passed stone versus obstructing lesion in the distal left ureter. Perinephric fat stranding of the left kidney likely sequela of severe obstruction/backflow. Right kidney is normal. Prior right hydronephrosis completely resolved. URINARY BLADDER: Partially decompressed. PELVIC VISCERA: Unremarkable PERITONEUM: No free air or fluid. LYMPH NODES: No lymphadenopathy. VASCULAR:Abdominal aorta normal in size, no aneurysm found. BONES, ABDOMINAL WALL AND SOFT TISSUES: Spondylosis of the thoracolumbar spine otherwise unremarkable. CT/CT abdomen pelvis wo IV con IMPRESSION: 1. Moderate to severe left renal hydronephrosis and hydroureter, the left ureter is dilated throughout its length into the left ureterovesicular junction, no obstructing stone found, this could be sequela of recently passed stone versus obstructing lesion in the distal left ureter. Perinephric fat stranding of the left kidney likely sequela of severe obstruction/backflow. Attention to follow-up recommended, consider outpatient follow-up urology consultation and or CT urogram or cystoscopy retrograde ureterography. 2. Prior right hydronephrosis completely resolved. Electronically signed by: Dannielle Mack MD 11/09/2023 12:54 PM EDT RP
--- NOTE | ~2023-11-09 | US_ITS ---
EXAMINATION: US RETROPERITONEAL LIMITED (RENAL ONLY) CLINICAL INFORMATION: Renal colic, hydronephrosis. COMPARISON: CT scan of abdomen and pelvis on 11/09/2023 TECHNIQUE: Real-time ultrasound examination of the retroperitoneum FINDINGS: RIGHT KIDNEY: 10.5 x 5.9 x 5.0 cm (SAG x AP x TRV). The kidney is normal in size, contour, and echogenicity. Renal cortical thickness is normal. No renal calculi or focal parenchymal lesions. There is mild right renal pelvi-caliectasis. LEFT KIDNEY: 11.1 x 6.0 x 5.6 cm (SAG x AP x TRV). The kidney is normal in size, contour, and echogenicity. Renal cortical thickness is normal. No renal calculi or focal parenchymal lesions. There is mild left hydronephrosis with echogenic thickened urothelium. BLADDER: Well distended and normal. Left ureteral jet is demonstrated; right is not. US/US renal BI IMPRESSION: 1. Interval decrease to Mild left hydronephrosis with echogenic thickened urothelium. 2. Unchanged Mild right renal pelvi-caliectasis. 3. Patent left ureters is demonstrated. Electronically signed by: Abril Diallo MD 11/12/2023 12:05 PM EDT
[2023-11-09 09:23] LABS: MANUAL DIFF FLAG NO
[2023-11-09 09:39] LABS: Alanine Aminotransferase 33 U/L (0-31); Alkaline Phosphatase 62 U/L (39-117); Anion Gap 14 (12-20); Aspartate Amino Transferase 36 U/L (5-31); Bilirubin Total 0.5 mg/dL (0.0-1.0); Blood Urea Nitrogen 20 mg/dL (9-16); Carbon Dioxide 23 mmol/L (22-29); Chloride 107 mmol/L (96-108); Creatinine Clr Calc Pharmacy 37.7; Estimated Glomerular Filt Rate 30; Glucose Random 215 mg/dL (60-115); Potassium 3.7 mmol/L (3.3-5.1); Sodium 140 mmol/L (135-145); Total Protein 7.6 g/dL (6.5-8.0)
--- NOTE | 2023-11-09 09:44 | PC.NURSE ---
Pt comes to ED today with c/o N/V/D starting this AM around 5:30a. Pt reports she was seen at [facility] from 11/04/23--11/06/23 for appendicitis and pyelonephritis. She was sent home with Rx that she has been taking despite side effects. VSS, afebrile, A&Ox3 20g LAC Pt is restless and struggles to be comfortable. blood labs drawn, results pending. Awaiting provider.
--- OUTSIDE RECORDS SUMMARY | 2023-11-09 09:44 | XMS_ITS ---
Author Organization [facility] Evin slater [place] Address [address] [place] [address] Care Team Providers Care Automotive Machinist Name Role Phone Nasim Ryan MD Primary Care Provider Unavaila Daniel Alanis Unavailable [phone] REASON FOR VISIT Surgeon Referral Encounters Encounter Location Date Provider Diagnosis [facility] [address] [place] [address] 06/25/2023 Daniel Sr PLAN OF TREATMENT No Information
--- OUTSIDE RECORDS SUMMARY | 2023-11-09 09:44 | XMS_ITS ---
Author Organization [facility] [place] [place] Address [address] [place] [address] Care Team Providers Care Jet Dyeing Machine Tender Name Role Phone Nasim Ryan MD Primary Care Provider Unavaila Daniel Alanis Unavailable [phone] REASON FOR VISIT NEOS Encounters Encounter Location Date Provider Diagnosis [facility] [address] [place] [address] 07/23/2023 Daniel Sr PLAN OF TREATMENT No Information
--- OUTSIDE RECORDS SUMMARY | 2023-11-09 09:45 | XMS_ITS ---
Author Organization [facility] Address [address] [place] [address] Care Team Providers Care Modern Dancer Name Role Phone Nasim Ryan MD Primary Care Provider Unavaila Juan Carpio Jr Unavailable REASON FOR VISIT screening Encounters Encounter Location Date Provider Diagnosis [facility] [address] [place], [place] [id number] 06/26/2022 Juan Rizvi Jr Encounter for screening colonoscopy Z12.11 and Colon polyps K63.5 ASSESSMENTS Encounter Date Diagnosis Assessment Notes Treatment Notes Treatment Clinical Notes 06/26/2022 Encounter for screening colonoscopy (ICD-10 - Z12.11) 06/26/2022 Colon polyps (ICD-10 - K63.5) PLAN OF TREATMENT No Information
--- OUTSIDE RECORDS SUMMARY | 2023-11-09 09:45 | XMS_ITS ---
Author Organization [facility] Address [address] [place] [address] Care Team Providers Care Yarn Mercerizer Operator Name Role Phone Nasim Ryan MD Primary Care Provider Unavaila Juan Carpio Jr [phone] REASON FOR VISIT pathology Encounters Encounter Location Date Provider Diagnosis [facility] [address] [place] [address] 07/05/2022 Juan Rizvi Jr PLAN OF TREATMENT No Information
--- OUTSIDE RECORDS SUMMARY | 2023-11-09 09:45 | XMS_ITS | Patient Health Record ---
[facility] Address [address] [place] [address] Care Team Providers Care Torch Solderer Name Role Phone Nasim Ryan MD Primary Care Provider Daniel Claire Unavailable [phone] ALLERGIES No Known Allergies REASON FOR REFERRAL No Information MEDICATIONS Medication SIG (Take, Route, Frequency, Duration) Notes Start Date End Date Status metFORMIN HCl 500 MG 1 tablet with a sarah l Orally Once a day Active Night Splint AFO - L1930 as directed 07/06/2022 Active Vitamin D3 Active Atorvastatin Calcium 40 MG 1 tablet Orally Once a day for 30 day(s) Active amLODIPine Besylate 5 MG 1 tablet Orally Once a day for 30 day(s) Active glipiZIDE ER 5 MG 1 tablet with food Orally Once a day for 30 day(s) Active Lisinopril 10 MG 1 tablet Orally Once a day for 30 day(s) Active Custom Orthotics as directed 07/06/2022 Active Night Splint AFO - L1930 as directed Active Physical Therapy . . . 2-3x/week for 3- 4 weeks 07/06/2022 Active Night Splint AFO - L1930 as directed Not-Taking IMMUNIZATIONS Vaccine Route Administration Date Status Comme nts Influenza Unknown 11/19/2019 Administered SOCIAL HISTORY Tobacco Use: Social History Observation Description Date Details (start date - stop date) Never Smoker NA - NA Sex Assigned At : Social History Observation Description Sex Assigned At Unknown Tobacco Use/Smoking Question Answer Notes Are you a: nonsmoker Additional Findings: Tobacco Non-User Current no n-smoker Alcohol Screen Question Answer Notes Did you have a drink contain ing alcohol in the past year? Yes How often did you have a dri nk containing alcohol in the past year? Monthly or less (1 point) How often did you have 6 or more drinks on one occasion in the past year? Less than monthly (1 point) Points 2 Interpretation Negative Tobacco use other than smoking: Question Answer Notes Are you an other tobacco user? No PROBLEMS Problem Type ICD Code Onset Dates Problem Status W/U Status Risk SNOMED Code Notes Problem Other hammer toe(s) (acquired), right foot (M20.41) Active confirmed Acquired hamme r toe of right foot (1746346702304578 ) Problem Other hammer toe(s) (acquired), left foot (M20.42) Active confirmed Acquired hamme r toe of left foot (0142951118914924 ) Problem Type 2 diabetes mellitus with diabetic polyneuropathy (E11.42) Active confirmed Polyneuropathy due to type 2 diabetes mellitus (589840602) Problem Type 2 diabetes mellitus without complication, without long-term current use of insulin (E11.9) Active confirmed [id number] Encounters Encounter Location Date Provider Diagnosis [facility] [address] [address] 06/25/2023 Daniel Sr [facility] [address] [address] 07/23/2023 Daniel Sr PLAN OF TREATMENT Pending Test Test Name Order Date X ray : Foot, left 3V 07/06/2022 [id number] SKIN LESIONS, 2 TO 4 08/25/19 23 Insurance Providers Payer Name Payer Address Payer Phone Subscriber Number Group Number Insured Name Patient Relationship to Insured Coverage Start Date Coverage End Date [facility] [address] [place] [address] [id number] Minerva Szymanski Self - patient is the insured [employer] [address] [facility] [place] [phone] [id number] Minerva Szymanski Self - patient is the insured 3 MEDICAL (GENERAL) HISTORY Medical History History ICD Code Back,Hip,and Knee pain Cholesterol Diabetic High blood pressure Kidney disease Chicken pox Surgical History Surgery Date(Month/Year) hysterectomy
--- OUTSIDE RECORDS SUMMARY | 2023-11-09 09:45 | XMS_ITS ---
[facility] [facility] [place] Address [address] [place] [address] Care Team Providers Care River Rafting Guide Name Role Phone Nasim Ryan MD Primary Care Provider Unavaila Daniel Alanis Unavailable [phone] REASON FOR VISIT Insurance change? Encounters Encounter Location Date [facility] [place] [address] [place] [address] 08/24/2022 Daniel Sr PLAN OF TREATMENT No Information
--- OUTSIDE RECORDS SUMMARY | 2023-11-09 09:46 | XMS_ITS | Patient Health Record ---
Author Organization [facility] Address [address] [place] [address] Care Team Providers Care Psychological Aide Name Role Phone Nasim Ryan MD Primary Care Provider Juan Almonte Jr Unavailable [phone] ALLERGIES No Known Allergies REASON FOR REFERRAL No Information MEDICATIONS Medication SIG (Take, Route, Frequency, Duration) Notes Start Date End Date Status glipiZIDE ER 5 MG Oral for 90 Active amLODIPine Besylate 5 MG Oral for 90 Active Vitamin D 50 MCG (1999) TAKE 1 TABLET BY MOUTH EVERY DAY Oral for 30 Active MiraLax (colon prep) 17 GM/SCOOP mixed with Gatorade or Crystal Light Orally begin at 5:00 p.m. the day before the procedure for 1 day 05/31/2022 Active Lisinopril 10 MG Oral for 90 A ctive Atorvastatin Calcium 40 MG TAKE 1 TABLET BY MOUTH EVERYDAY AT BEDTIME Oral for 90 Active metFORMIN HCl ER 500 MG TAKE 1 TABLET BY MOUTH TWICE A DAY Oral for 90 Active SOCIAL HISTORY Tobacco Use: Social History Observation Description Date Details (start date - stop date) Never Smoker NA - NA Sex Assigned At : Social History Observation Description Sex Assigned At Unknown Tobacco Use/Smoking Question Answer Notes Patient is a nonsmoker Alcohol Screen Question Answer Notes Did you have a drink contain ing alcohol in the past year? Yes How often did you have a dri nk containing alcohol in the past year? Never (0 point) How many drinks did you have on a typical day when you were drinking in the past year? 1 or 2 drinks (0 point) How often did you have 6 or more drinks on one occasion in the past year? Never (0 point) Points 0 Interpretation Negative PROBLEMS Problem Type ICD Code Onset Dates Problem Status W/U Status Risk SNOMED Code Notes Problem Colon cancer screening (Z12.11) Active confirmed 347187058 Problem [facility] (current) use of oral hypoglycemic drugs (Z79.84) Active confirmed 257975551210865 Problem Encounter for other preprocedural examination (Z01.818) Active confirmed 091472395 PLAN OF TREATMENT Future Test Test Name Order Date COLONOSCOPY 05/31/2022 Insurance Providers Payer Name Payer Address Payer Phone Subscriber Number Group Number Insured Name Patient Relationship to Insured Coverage Start Date Coverage End Date [facility] [address] [facility] DAVID STAUFFER [phone] [id number] ADRIA HOGAN Self - patient is the insured MEDICAL (GENERAL) HISTORY Medical History History ICD Code Nephrolithiasis Diabetes mellitus type 2 hypertension Elevated cholesterol Surgical History Surgery Date(Month/Year) hysterectomy
--- OUTSIDE RECORDS SUMMARY | 2023-11-09 09:46 | XMS_ITS ---
Author Organization [facility] Address [address] [place] [address] Care Team Providers Care Family Development Extension Specialist Name Role Phone Nasim Ryan MD Primary Care Provider Juan Almonte Jr Unavailable ALLERGIES No Known Allergies REASON FOR VISIT Patient presents today for a SCREENING COLON MEDICATIONS Medication SIG (Take, Route, Frequency, Duration) Notes Start Date End Date Status amLODIPine Besylate 5 MG Oral for 90 Active MiraLax (colon prep) 17 GM/SCOOP mixed [...] TWICE A DAY Oral for 90 Active glipiZIDE ER 5 MG Oral for 90 Active Vitamin D 50 MCG (2000 UT) TAKE 1 TABLET BY MOUTH EVERY DAY Oral for 30 Active SOCIAL HISTORY Tobacco Use: Social History [...] Problem Colon cancer screening (Z12.11) Active confirmed [id number] 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 (Z79.84) Active confirmed 261904478539294 Problem Encounter for other preprocedural examination (Z01.818) Active confirmed [id number] VITAL SIGNS BMI 30.56 kg/m2 05/31/2022 Blood pressure systolic 000 mm Hg 06/01/19 23 Blood pressure diastolic 00 mm Hg 023 Height 68 in 05/31/2022 Temperature 97.7 degrees Fahrenheit 06/01/19 23 Weight 201 lbs 05/31/2022 Encounters Encounter Location Date Provider Diagnosis [facility] [address] [place] [address] 05/31/2022 Juan Rizvi Jr Colon cancer screening Z12.11 ; Encounter for other preprocedural examination Z01.818 and 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 the day before the procedure for 1 day 05/31/2022 Treatment Notes Assessment Notes Colon cancer screening Colonoscopy mater ial was printed Future Test Test Name Order Date COLONOSCOPY 05/31/2022 Next Appt Details Follow Up: prn, Reason: Progress Notes * Examination Category Sub-Category Detail Notes General Examination GENERAL APPEARANCE: in no ac walter distress HEAD: normocephalic EYES: sclera non-icteric NECK/THYROID: no lymphadenopathy HEART: S1, S2 normal, no mu rmurs CHEST: normal shape and exp ansion LUNGS: clear to auscultatio n bilaterally ABDOMEN: soft, nontender, non distended, bowel sounds present, no organomegaly SKIN: anicteric EXTREMITIES: no clubbing, cyanosi s, or edema PSYCH: cognitive function i ntact ORAL CAVITY:
[2023-11-09 09:49] LABS: Basophils Percent Auto 0.5 % (0-2); Eosinophils Absolute Auto 0.1 X10*3/uL (0.0-0.4); Eosinophils Percent Auto 1.6 % (0-4); Hematocrit 40.9 % (37.0-47.0); Hemoglobin 13.8 g/dl (12.0-16.0); Imm Gran Abs Auto 0.03 X10*3/uL (0.00-0.03); Imm Gran Pct Auto 0.4 % (0.0-0.4); Lymphocytes Absolute Auto 1.8 X10*3/uL (1.2-4.9); Lymphocytes Percent Auto 24.2 % (20-40); Mean Corpuscular HGB Conc 33.7 g/dl (31.0-35.0); Mean Corpuscular Hemoglobin 27.2 pg (27.0-33.0); Mean Corpuscular Volume 80.7 fL (80.0-98.0); Mean Platelet Volume 8.7 fL (9.4-12.3); Monocytes Absolute Auto 0.7 X10*3/uL (0.1-1.2); Monocytes Percent Auto 9.2 % (2-11); Neutrophils Absolute Auto 4.8 x10*3/uL (2.0-8.3); Neutrophils Percent Auto 64.1 % (45-73); Platelet Count 286 X10*3/uL (160-400); Red Blood Count 5.07 X10*6/uL (4.20-5.50); Red Cell Distribution Width 13.4 % (11.0-16.0); White Blood Count 7.5 X10*3/uL (4.8-10.8)
--- NOTE | 2023-11-09 10:01 | MHC.EDTECH ---
Pt aware that we need urine sample, call lux within reach.
[2023-11-09 10:17] LABS: Appearance Urine Clear; Color Urine Yellow; Glucose Urine UA >=1000 mg/dL (Negative); Leukocyte Esterase Urine Negative (Negative); Nitrite Urine Negative (Negative); PH 5.5 (5.0-9.0); Specific Gravity - Urine 1.025 (1.005-1.025); UMIC TRIGGER UACC YES; Urine Blood Negative (Negative); Urine Ketones Negative (Negative); Urine Protein 300 (3+) mg/dL (Neg-Trace)
--- NOTE | 2023-11-09 10:50 | ED.NAVMDI ---
HPI - Nausea/Vomiting/Diarrhea General Chief complaint: Nausea/Vomiting/Diarrhea Stated complaint: n/v/d , LL pain going into back Time Seen by Provider: 11/09/23 10:40 Source: patient Mode of arrival: ambulatory Limitations: no limitations History of Present Illness ED Provider: DR. Fried HPI Narrative: 68-year-old female came in for evaluation of abdominal pain mostly in the left side radiating of to the left flank area, pain is constant for the past 2 days but it is getting worse now patient had recent hospitalization at [facility] patient was discharge with ciprofloxacin and Flagyl for a diagnosis of acute appendicitis and pyelonephritis patient did not have surgical intervention at [facility] for the acute appendicitis, record was requested from the hospital to review. Patient is complaining of nausea, vomiting, nonbloody watery diarrhea with abdominal pain, no fever, no chills. Past surgical history is significant for hysterectomy. Related Data Home Medications ?Medication ?Instructions ?Recorded ?Confirmed amlodipine 5 mg tablet 1 tab PO DAILY 08/26/20 06/26/22 atorvastatin 40 mg tablet 1 tab PO BEDTIME 08/26/20 06/26/22 glipizide 5 mg tablet, extended 1 tab PO DAILY 08/26/20 06/26/22 release 24 hr cholecalciferol (vitamin D3) 50 50 mcg PO DAILY 06/25/22 06/26/22 mcg (2,000 unit) tablet metformin 500 mg tablet,extended 500 mg PO BID 06/25/22 06/26/22 release 24 hr lisinopril 20 mg tablet 20 mg PO DAILY 06/26/22 06/26/22 Allergies Allergy/AdvReac Type Severity Reaction Status Date / Time No Known Allergies Allergy Verified 11/09/23 09:01 Review of Systems Review of Systems: All other systems are reviewed and are negative Constitutional: Reports as per HPI and Reports no additional constitutional complaints Eyes: Reports as per HPI and Reports no additional eye complaints Reports system reviewed and no additional complaints, except as documented Cardiovascular: Reports as per HPI and Reports no additional cardiovascular complaints Respiratory: Reports as per HPI and Reports no additional respiratory complaints Gastrointestinal: Reports as per HPI and Reports no additional gastrointestinal complaints Genitourinary: Reports no additional female genitourinary complaints Musculoskeletal: Reports no additional musculoskeletal complaints Skin/Breast: Reports system reviewed and no additional complaints, except as docu Psychiatric: Reports no additional psychiatric complaints Endocrine: Reports no additional endocrine complaints Hematologic/Lymphatic: Reports no additional hematologic/lymphatic complaints Allergic/Immunologic: Reports no additional allergic/immunologic complaints Reports system reviewed and no additional complaints, except as documented and Reports Abnormal speech present [facility] Past Medical History Medical History CKD (chronic kidney disease) stage 3, GFR 30-59 ml/min Elevated cholesterol Nephrolithiasis Diabetes mellitus, type 2 Pre-diabetes High blood pressure Surgical History Hx of colonoscopy H/O: hysterectomy Social History Social History Alcohol intake: never Patient Tobacco Use Status: Never used Tobacco Smoked in Last 30 Days: No Use of substances other than those prescribed or required for medical reasons: No Advance Directives: No Do you have a plan to hurt others: No Plan Current occupational status: employed 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 Blood pressure elevated. Heart rate normal. Respiratory rate normal. Temperature normal. Oxygen saturation normal. Appearance: Alert. Oriented X3. No acute distress. Head: Normal external exam. Normocephalic. Atraumatic. No Dumont signs noted. No raccoon eyes noted Eyes: PERRLA. EOMI. Conjunctiva and sclera normal. Eyelids normal. ENT: TM's Normal. Pharynx normal. Uvula midline. Moist mucous membranes. No trismus noted. No drooling noted. No muffled voice noted. Neck: Normal inspection. Neck supple. FROM. No adenopathy. Thyroid Normal. No meningeal signs. No neck mass noted. CVS: Normal heart rate and rhythm. Heart sound normal. No murmurs noted. Pulses normal throughout. Respiratory: No respiratory distress. Painless inspiration. Breath sounds normal. No wheezes/rales/rhonchi noted. Chest nontender. No accessory muscle usage noted or decreased air movement noted. Abdomen: Diffuse lower abdominal tenderness, no rebound tenderness, no guarding. Bowel sounds normal in all 4 quadrants. No distention noted. No organomegaly noted. No visible injury noted. Back: No CVA tenderness. Full range of motion noted. Skin: Skin warm and dry. Normal skin color. Normal skin turgor. No rashes/lesions/lacerations noted. Extremities: No lower extremity edema. Extremities exhibit normal range of motion. Extremities nontender. Neuro: Oriented X 3. Cranial nerve exam: II-XII are grossly intact No motor deficit. No sensory deficit. Reflexes normal. Course Reevaluation(s) Reevaluation #1: 68-year-old female came in for evaluation of intractable left side abdominal pain, recent hospitalization at [facility] for pyelonephritis and acute cholecystitis? still waiting on record that was requested from [facility]. 1.Patient had a CT and labs CT is remarkable for perinephric fat stranding and left hydronephrosis with no obstructive pathology case was discussed with from urology service who recommended to admit the patient for pain control and achy I to medical service and she will consult as an inpatient. 2. YOBANY , hydration, patient is still able to urinate. 3. Continue with IV Zosyn. 4. Dr. Garcia input is appreciated CT showed no acute appendicitis. 5. Patient require multiple doses of pain control for her abdominal pain. Time: 15:49 Medications Administered Discontinued Medications Generic Name Dose Route Start Last Admin Trade Name Rupa PRN Reason Stop Dose Admin Hydromorphone HCl 1 mg 11/09/23 13:19 11/09/23 13:34 Hydromorphone Hcl 1 Mg/Ml Syringe IVPUSH 11/09/23 13:20 1 mg ONCE ONE Administration Protocol Piperacillin Sod/Tazobactam 50 mls @ 100 mls/hr 11/09/23 10:53 11/09/23 13:35 Sod 3.375 gm/ Sodium Chloride IV 11/09/23 11:22 Infused ONCE ONE Infusion Ketorolac Tromethamine 15 mg 11/09/23 13:13 11/09/23 13:34 Ketorolac Tromethamine 15 Mg/Ml Vial IVPUSH 11/09/23 13:14 15 mg ONCE ONE Administration Morphine Sulfate 2 mg 11/09/23 10:47 11/09/23 11:02 Morphine Sulfate 2 Mg/Ml Cartridge IVPUSH 11/09/23 10:48 2 mg ONCE ONE Administration Protocol Ondansetron HCl 4 mg 11/09/23 10:47 11/09/23 11:02 Ondansetron Hcl 4 Mg/2 Ml Vial IVPUSH 11/09/23 10:48 4 mg ONCE ONE Administration Medical Decision Making Differential Diagnosis Differential Diagnoses: The differential diagnosis associated with the presentation includes ( Acute appendicitis, colitis, diverticulitis, obstructive uropathy, pyelonephritis, severe anemia, electrolyte derangement, YOBANY, intractable abdominal pain.) Admission/Observation Consideration of admission/observation: Escalation of care including admission/observation considered Consult Healthcare Provider Management of the patient was discussed with: Hospitalist ( Dr. Brumfield) and [place] Machine Operator ( Dr. Garcia, Dr. Hawkins) Lab Data MDM Lab Attestation statement: I reviewed the patient's lab results. 11/09/23 09:17 11/09/23 09:17 Labs: Lab Results 11/09/23 11/09/23 11/09/23 Range/Units 09:17 10:10 11:33 WBC 7.5 (4.8-10.8) X10*3/uL RBC 5.07 (4.20-5.50) X10*6/uL Hgb 13.8 (12.0-16.0) g/dl Hct 40.9 (37.0-47.0) % MCV 80.7 (80.0-98.0) fL MCH 27.2 (27.0-33.0) pg MCHC 33.7 (31.0-35.0) g/dl RDW 13.4 (11.0-16.0) % Plt Count 286 (160-400) X10*3/uL MPV 8.7 L (9.4-12.3) fL Immature Gran % (Auto) 0.4 (0.0-0.4) % Neut % (Auto) 64.1 (45-73) % Lymph % (Auto) 24.2 (20-40) % [place] % (Auto) 9.2 (2-11) % Eos % (Auto) 1.6 (0-4) % Baso % (Auto) 0.5 (0-2) % Lymph # (Auto) 1.8 (1.2-4.9) X10*3/uL [place] # (Auto) 0.7 (0.1-1.2) X10*3/uL Eos # (Auto) 0.1 (0.0-0.4) X10*3/uL Baso # (Auto) 0.0 (0.0-0.2) X10*3/uL Abs Immat Gran (auto) 0.03 (0.00-0.03) X10*3/uL Absolute Neuts (auto) 4.8 (2.0-8.3) x10*3/uL Absolute Nucleated RBC 0.000 (0.0-0.012) X10*3/uL Nucleated RBC % (auto) 0.0 (0.0-0.2) /100WBC Sodium 140 (135-145) mmol/L Potassium 3.7 (3.3-5.1) mmol/L Chloride 107 (96-108) mmol/L Carbon Dioxide 23 (22-29) mmol/L Anion Gap 14 (12-20) BUN 20 H (9-16) mg/dL Creatinine 1.72 H (0.5-1.4) mg/dL Estim Creat Clear Calc 37.7 Estimated GFR 30 Random Glucose 215 H (60-115) mg/dL Lactic Acid 1.2 (0.5-2.0) mmol/L Calcium 9.0 D (8.4-10.2) mg/dL Total Bilirubin 0.5 (0.0-1.0) mg/dL AST 36 H (5-31) U/L ALT 33 H (0-31) U/L Alkaline Phosphatase 62 (39-117) U/L Total Protein 7.6 (6.5-8.0) g/dL Albumin 4.0 (3.5-5.0) g/dL Urine Color Yellow Urine Appearance Clear Urine pH 5.5 (5.0-9.0) Ur Specific [place] 1.025 (1.005-1.025) Urine Protein 300 (3+) H (Neg-Trace) mg/dL Urine Glucose (UA) >=1000 H (Negative) mg/dL Urine Ketones Negative (Negative) mg/dL Urine Blood Negative (Negative) Urine Nitrite Negative (Negative) Ur Leukocyte Esterase Negative (Negative) Urine RBC 0-2 (0-2) /HPF Urine WBC 0-5 (0-5) /HPF Ur Squamous Epith Cells 3-5 (0-2) /HPF Urine Bacteria None Seen (None Seen) Hyaline Casts 3-5 (0-2) /LPF Independent Interpretation I performed an independent interpretation of an: CT Scan ( abdomen pelvis:1. Moderate to severe left renal hydronephrosis and hydroureter, the left ureter is dilated throughout its length into the left ureterovesicular junction, no obstructing stone found, this could be sequela of recently passed stone versus obstructing lesion in the distal left uret) Radiology Impression Discussion of test interpretation with radiology: I have reviewed the radiologist's reading. Discharge Plan Discharge Clinical Impression: Intractable abdominal pain, YOBANY (acute kidney injury), Hydronephrosis Patient Disposition: Admitted As Inpatient Print Language: Georgian
[2023-11-09] MEDS: Morphine Sulfate 2 MG/ML CARTRIDGE IVPUSH (11:02)
[2023-11-09] MEDS: ondansetron HCL 4 MG/2 ML VIAL IVPUSH (11:02)
[2023-11-09 11:27] LABS: Bacteria Urine None Seen (None Seen); RBC Urine 0-2 /HPF (0-2); WBC Urine 0-5 /HPF (0-5)
--- NOTE | 2023-11-09 11:36 | MHC.EDTECH ---
Blood cultures drawn, pt tolerated well, call lux within reach.
[2023-11-09] MEDS: Piperacillin Sodium/Tazobactam 3.375 GM in 0.9 % Sodium Chloride 50 ML IV (11:42)
[2023-11-09 12:00] LABS: Lactic Acid 1.2 mmol/L (0.5-2.0)
[2023-11-09] MEDS: Ketorolac Tromethamine 15 MG/ML VIAL IVPUSH (13:34)
[2023-11-09] MEDS: HYDROmorphone HCl 1 MG/ML SYRINGE IVPUSH (13:34)
--- NOTE | 2023-11-09 16:32 | PM.IMHP ---
History of Present Illness Date of Service: 11/09/23 Chief Complaint: Abdominal pain 68-year-old female with past medical history of type 2 diabetes mellitus, hypertension, history of prior right hydronephrosis recently discharged from [facility] 4 days ago after requiring admission for 2 days for lower abdominal pain and was told to have pyelonephritis/question appendicitis, and was discharged on Cipro 500 b.i.d. and Flagyl 500 q.8 hours, patient came to [facility] due to left lower quadrant abdominal pain radiating to left flank of 2 days' duration, without associated fevers, no chills, no nausea, no vomiting, no urinary urgency, no burning, this morning had diarrhea now resolved, also felt dizzy, workup in the emergency room showed elevated creatinine of 1.7 with with prior creatinine 1.27 in August of 2023, CT abdomen and pelvis showed moderate to severe left renal hydronephrosis and hydroureter, no obstructing stones found, question sequela of recently passed stone versus obstructive lesion in the distal left ureter, rico nephric fat stranding of the left kidney likely sequelae of severe obstruction/backflow, also noted to have prior right hydronephrosis completely resolved, CBC unremarkable, stable electrolytes, blood sugar in 200s, patient is being admitted to [facility] with a diagnosis of YOBANY likely due to left hydro nephrosis and hydroureter with possible obstruction.. Review of Systems Review of Systems: General no headache ,no fever chills. CVS no chest pain, no palpitation. Respiratory no cough, no sob Gastrointestinal no nausea no vomiting no urgency, increased frequency due to drinking fluids Musculoskeletal no pain All other system reviewed and are negative. [facility] Medical History CKD (chronic kidney disease) stage 3, GFR 30-59 ml/min Elevated cholesterol Nephrolithiasis Diabetes mellitus, type 2 Pre-diabetes High blood pressure Pertinent family history: No family history of premature coronary artery disease Surgical History Hx of colonoscopy H/O: hysterectomy Social History Alcohol intake: never Patient Tobacco Use Status: Never used Tobacco Smoked in Last 30 Days: No Use of substances other than those prescribed or required for medical reasons: No Advance Directives: No Do you have a plan to hurt others: No Plan Current occupational status: employed 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 Meds Allergies Allergy/AdvReac Type Severity Reaction Status Date / Time No Known Allergies Allergy Verified 11/09/23 09:01 Active Medications: Current Medications Acetaminophen (Acetaminophen 325 Mg Tablet) 650 mg PO Q6H PRN PRN Reason: Pain, Mild (Pain Scale 1-3), fever or headache Benzonatate (Benzonatate 100 Mg Capsule) 100 mg PO TID PRN PRN Reason: Cough Calcium Carbonate (Calcium Carbonate 750 Mg Tab.Chew) 750 mg PO Q4H PRN PRN Reason: Heartburn Sodium Chloride (Ns) 1,000 mls @ 100 mls/hr IVCONT .Q10H [facility] Ceftriaxone Sodium 1 gm/ (Sodium Chloride) 50 mls @ 100 mls/hr IV Q24H [facility] Magnesium Hydroxide (Milk Of Magnesia 30 Ml Oral.Susp) 30 ml PO DAILY PRN PRN Reason: Constipation Melatonin (Melatonin 3 Mg Tablet) 6 mg PO BEDTIME PRN PRN Reason: Insomnia Ondansetron HCl (Ondansetron Hcl 4 Mg/2 Ml Vial) 4 mg IVPUSH Q8H PRN PRN Reason: Nausea and Vomiting Sodium Chloride (0.9 % Sodium Chloride Flush 3 Ml Syringe) [address] [facility] Home Medications ?Medication ?Instructions ?Recorded ?Confirmed ?Last Taken ?Type amlodipine 5 mg tablet 1 tab PO DAILY 08/26/20 06/26/22 Unknown History atorvastatin 40 mg tablet 1 tab PO BEDTIME 08/26/20 06/26/22 Unknown History glipizide 5 mg tablet, extended 1 tab PO DAILY 08/26/20 06/26/22 Unknown History release 24 hr cholecalciferol (vitamin D3) 50 50 mcg PO DAILY 06/25/22 06/26/22 Unknown History mcg (2,000 unit) tablet ciprofloxacin HCl 500 mg tablet 500 mg PO Q12H 11/09/23 Unknown History empagliflozin 10 mg tablet 10 mg PO DAILY 11/09/23 Unknown History (Jardiance) lisinopril 30 mg tablet 30 mg PO DAILY 11/09/23 Unknown History metronidazole 500 mg tablet 500 mg PO TID 11/09/23 Unknown History Physical Exam Vital Signs and Narrative: Vital Signs: Last Vital Signs Temp 98.2 F 11/09/23 16:25 Pulse 62 11/09/23 16:25 Resp 16 11/09/23 16:25 BP 140/78 H 11/09/23 16:25 Pulse Ox 98 11/09/23 16:25 O2 Del Method Room Air 11/09/23 16:25 BMI result Body Mass Index 30.1 Const: Other: General awake alert x3, in no acute distress. Neck supple, no JVD. CVS regular rate rhythm, Respiratory lungs clear to auscultation, no respiratory distress, no wheeze, no rhonchi. Gastrointestinal abdomen soft, left lower quadrant tenderness to deep palpation, bowel sounds audible, no guarding , no rigidity. Extremities no edema. No CVA tenderness Neuro non focal Skin no rash Psych appropriate affect. Results Labs 11/09/23 09:17 11/09/23 09:17 Labs: Laboratory Results - last 24 hr 11/09/23 11/09/23 11/09/23 09:17 10:10 11:33 MCV 80.7 MCH 27.2 MCHC 33.7 RDW 13.4 Plt Count 286 MPV 8.7 L Immature Gran % (Auto) 0.4 Neut % (Auto) 64.1 Lymph % (Auto) 24.2 [place] % (Auto) 9.2 Eos % (Auto) 1.6 Baso % (Auto) 0.5 Lymph # (Auto) 1.8 [place] # (Auto) 0.7 Eos # (Auto) 0.1 Baso # (Auto) 0.0 Abs Immat Gran (auto) 0.03 Absolute Neuts (auto) 4.8 Absolute Nucleated RBC 0.000 Nucleated RBC % (auto) 0.0 Anion Gap 14 Estim Creat Clear Calc 37.7 Estimated GFR 30 Random Glucose 215 H Lactic Acid 1.2 Calcium 9.0 D Total Bilirubin 0.5 AST 36 H ALT 33 H Alkaline Phosphatase 62 Total Protein 7.6 Albumin 4.0 Urine Color Yellow Urine Appearance Clear Urine pH 5.5 Ur Specific Riley 1.025 Urine Protein 300 (3+) H Urine Glucose (UA) >=1000 H Urine Ketones Negative Urine Blood Negative Urine Nitrite Negative Ur Leukocyte Esterase Negative Urine RBC 0-2 Urine WBC 0-5 Ur Squamous Epith Cells 3-5 Urine Bacteria None Seen Hyaline Casts 3-5 Imaging Radiologist's Impressions: Impressions Abdomen/Pelvis CT 11/09/23 10:47 IMPRESSION: 1. Moderate to severe left renal hydronephrosis and hydroureter, the left ureter is dilated throughout its length into the left ureterovesicular junction, no obstructing stone found, this could be sequela of recently passed stone versus obstructing lesion in the distal left ureter. Perinephric fat stranding of the left kidney likely sequela of severe obstruction/backflow. Attention to follow-up recommended, consider outpatient follow-up urology consultation and or CT urogram or cystoscopy retrograde ureterography. 2. Prior right hydronephrosis completely resolved. Electronically signed by: Dannielle Mack MD 11/09/2023 12:54 PM EDT RP Assessment and Plan (1) Hydronephrosis: Status: Acute (2) YOBANY (acute kidney injury): Status: Acute (3) Intractable abdominal pain: Status: Acute Plan 68-year-old female with past medical history of diabetes mellitus, hypertension recently discharged from [facility] 4 days ago after requiring treatment for possible acute pyelonephritis/appendicitis presented with 2 days of left lower quadrant abdominal pain with radiation to left flank associated with urinary frequency likely due to increased fluid intake but with no dysuria no burning workup in the ER showed YOBANY and left hydronephrosis and hydroureter. YOBANY likely due to left hydronephrosis and hydroureter due to passing a stone versus obstruction No fevers, normal UA and CBC IV fluids Monitor BMP Urology consult Empiric IV ceftriaxone Hypertension Continue home dose of Norvasc , hold lisinopril for YOBANY follow BP Diabetes mellitus Hold Jardiance and glipizide since will be NPO after midnight for possible cystoscopy Place on insulin sliding scale/diabetic diet monitor point of care Hyperlipidemia continue statin Compression boots Full code In my clinical judgment patient will require 2 night inpatient hospitalization for management of YOBANY and expert consultation requiring possible cystoscopy. Quality Stroke Does the patient have a stroke diagnosis?: No VTE Prior VTE?: No VTE Risk Level:: Medical - moderate - high VTE Device Contraindication: N/A - Device Ordered VTE Drug Contraindication: Treatment Not Indicated
[2023-11-09] MEDS: 0.9 % Sodium Chloride 1,000 ML 100 ML IVCONT (17:07)
[2023-11-09] MEDS: cefTRIAXone sodium 1 GM in 0.9 % Sodium Chloride 50 ML IV (17:07)
--- NOTE | 2023-11-09 17:14 | PHA.MEDREC ---
Pharmacy Consult ? Medication Reconciliation Pharmacy has completed the medication reconciliation.
[2023-11-10] MEDS: 0.9 % Sodium Chloride 1,000 ML 100 ML IVCONT ×3 (02:42→23:55)
[2023-11-10 04:00] VITALS: BP 135/72; PULSE 56; RESP 16; TEMP 36; O2SAT 96
[2023-11-10 07:04] LABS: Hemoglobin 12.6 g/dl (12.0-16.0); Mean Corpuscular HGB Conc 33.2 g/dl (31.0-35.0); Mean Corpuscular Hemoglobin 27.2 pg (27.0-33.0); Mean Corpuscular Volume 82.1 fL (80.0-98.0); Mean Platelet Volume 8.7 fL (9.4-12.3); Platelet Count 251 X10*3/uL (160-400); Red Blood Count 4.63 X10*6/uL (4.20-5.50); Red Cell Distribution Width 13.6 % (11.0-16.0); White Blood Count 6.3 X10*3/uL (4.8-10.8)
[2023-11-10 07:22] LABS: Anion Gap 11 (12-20); Blood Urea Nitrogen 19 mg/dL (9-16); Calcium 8.7 mg/dL (8.4-10.2); Carbon Dioxide 23 mmol/L (22-29); Chloride 111 mmol/L (96-108); Creatinine Clr Calc Pharmacy 46.4; Estimated Glomerular Filt Rate 38; Glucose Random 128 mg/dL (60-115); Sodium 141 mmol/L (135-145)
[2023-11-10 08:03] VITALS: BP 119/70; PULSE 63; RESP 12; TEMP 36.1; O2SAT 94
--- NOTE | 2023-11-10 10:08 | MHC.CM.PN ---
IMM delivered. Patient lives in an apartment alone. Functionally independent. Denies use of DME or services. PCP Nasim Ryan MD No HCP. CM provided education and offered assistance. Patient declined, but did accept a blank HCP and plans to discuss w/ her sons. DP: Goal is home self care. Family to transport. Do not anticipate the need for services. CM will continue to follow.
[2023-11-10 11:45] LABS: Glucose, Whole Blood 134 mg/dL (60-115)
--- NOTE | 2023-11-10 11:45 | P.PNIM_ITS ---
Subjective Subjective Date of Service: 11/10/23 Interval History: Being followed for left hydronephrosis and hydroureter with YOBANY Left lower abdominal pain with radiation to groin resolved, no nausea, no vomiting, no abdominal pain, no urinary symptoms, no fever, no chills, no lightheadedness or dizziness offers no acute complaints, no acute events overnight. Review of Systems All other system reviewed and negative Physical Exam 2 Vital Signs: Vital Signs: Last Vital Signs Temp 96.9 F 11/10/23 08:03 Pulse 63 11/10/23 08:03 Resp 12 11/10/23 08:03 BP 119/70 11/10/23 08:03 Pulse Ox 94 11/10/23 08:03 O2 Del Method Room Air 11/10/23 08:03 BMI result Body Mass Index 30.2 Const: Other: General awake alert x3, in no acute distress. Neck supple, no JVD. CVS regular rate rhythm, Respiratory lungs clear to auscultation, no respiratory distress, no wheeze, no rhonchi. Gastrointestinal abdomen soft, non tender, bowel sounds audible, no guarding , no rigidity. Extremities no edema. No CVA tenderness Neuro non focal Skin no rash Psych appropriate affect. Objective Data Active Medications Acetaminophen (Acetaminophen 325 Mg Tablet) 650 mg PO Q6H PRN PRN Reason: Pain, Mild (Pain Scale 1-3), fever or headache Benzonatate (Benzonatate 100 Mg Capsule) 100 mg PO TID PRN PRN Reason: Cough Calcium Carbonate (Calcium Carbonate 750 Mg Tab.Chew) 750 mg PO Q4H PRN PRN Reason: Heartburn Sodium Chloride (Ns) 1,000 mls @ 100 mls/hr IVCONT .Q10H [facility] Last Admin: 11/10/23 02:42 Dose: 100 mls/hr Documented By: MALA Ceftriaxone Sodium 1 gm/ (Sodium Chloride) 50 mls @ 100 mls/hr IV Q24H [facility] Last Infusion: 11/09/23 18:38 Dose: Infused Documented By: RAIZA Magnesium Hydroxide (Milk Of Magnesia 30 Ml Oral.Susp) 30 ml PO DAILY PRN PRN Reason: Constipation Melatonin (Melatonin 3 Mg Tablet) 6 mg PO BEDTIME PRN PRN Reason: Insomnia Ondansetron HCl (Ondansetron Hcl 4 Mg/2 Ml Vial) 4 mg IVPUSH Q8H PRN PRN Reason: Nausea and Vomiting Sodium Chloride (0.9 % Sodium Chloride Flush 3 Ml Syringe) 3 ml IVFLUSH QSHIFT [facility]INI Last Admin: 11/10/23 08:16 Dose: Not Given Documented By: JIM Non-Admin Reason: IV Running Labs 11/10/23 05:49 11/10/23 05:49 Labs: Laboratory Results - last 24 hr 11/09/23 11/10/23 11/10/23 11:33 05:49 11:37 MCV 82.1 MCH 27.2 MCHC 33.2 RDW 13.6 Plt Count 251 MPV 8.7 L Absolute Nucleated RBC 0.000 Nucleated RBC % (auto) 0.0 Anion Gap 11 L Estim Creat Clear Calc 46.4 Estimated GFR 38 POC Glucose 134 H Random Glucose 128 H Lactic Acid 1.2 Calcium 8.7 Assessment and Plan (1) Hydronephrosis: Status: Acute (2) YOBANY (acute kidney injury): Status: Acute (3) Intractable abdominal pain: Status: Acute Plan 68-year-old female with past medical history of diabetes mellitus, hypertension recently discharged from [facility] 4 days ago after requiring treatment for possible acute pyelonephritis/appendicitis presented with 2 days of left lower quadrant abdominal pain with radiation to left flank associated with urinary frequency likely due to increased fluid intake but with no dysuria no burning workup in the ER showed YOBANY and left hydronephrosis and hydroureter. YOBANY likely due to left hydronephrosis and hydroureter ? due to passing a stone versus obstruction No fevers, normal UA and CBC, blood cultures x2 pending. CT abdomen and pelvis showed Moderate to severe left renal hydronephrosis and hydroureter, the left ureter is dilated throughout its length into the left ureterovesicular junction, no obstructing stone found. Renal function improved creatinine 1.72-1.4,cont. IV fluids Monitor BMP Urology consult for possible cystoscopy, NPO after midnight. Empiric IV ceftriaxone Hypertension Continue home dose of Norvasc 5mg , hold lisinopril 30mg for YOBANY, follow BP Diabetes mellitus Hold Jardiance and glipizide 5mg since will be NPO after midnight for possible cystoscopy Place on insulin sliding scale/diabetic diet , blood sugar 134, monitor point of care Hyperlipidemia continue statin Compression boots Full code In my clinical judgment patient will require continued inpatient hospitalization for management of YOBANY and expert consultation requiring possible cystoscopy. Quality Stroke Does the patient have a stroke diagnosis?: No VTE Prior VTE?: No VTE Risk Level:: Medical - moderate - high VTE Device Contraindication: N/A - Device Ordered VTE Drug Contraindication: Treatment Not Indicated
[2023-11-10 15:18] VITALS: BP 139/74; PULSE 67; RESP 16; TEMP 36.2; O2SAT 97
[2023-11-10 16:11] LABS: Glucose, Whole Blood 195 mg/dL (60-115)
[2023-11-10] MEDS: Insulin Lispro 100 UNIT/ML 3 ML VIAL SUBCUT (16:56)
[2023-11-10] MEDS: cefTRIAXone sodium 1 GM in 0.9 % Sodium Chloride 50 ML IV (16:57)
[2023-11-10 20:00] VITALS: BP 152/81; PULSE 66; RESP 15; TEMP 36.2; O2SAT 98
[2023-11-10 20:13] LABS: Glucose, Whole Blood 148 mg/dL (60-115)
[2023-11-10] MEDS: Atorvastatin Calcium 40 MG TABLET PO (22:11)
[2023-11-10] MEDS: 0.9 % Sodium Chloride Flush 3 ML SYRINGE IVFLUSH (23:55)
[2023-11-11 04:00] VITALS: BP 135/67; PULSE 50; RESP 15; TEMP 36; O2SAT 96
[2023-11-11 07:03] VITALS: BP 167/84; PULSE 52; RESP 16; TEMP 36.9; O2SAT 97
[2023-11-11 07:19] LABS: Glucose, Whole Blood 152 mg/dL (60-115)
[2023-11-11 07:27] LABS: Anion Gap 13 (12-20); Blood Urea Nitrogen 17 mg/dL (9-16); Calcium 8.6 mg/dL (8.4-10.2); Carbon Dioxide 22 mmol/L (22-29); Chloride 113 mmol/L (96-108); Creatinine Clr Calc Pharmacy 52.8; Estimated Glomerular Filt Rate 44; Glucose Random 131 mg/dL (60-115); Sodium 144 mmol/L (135-145)
--- NOTE | 2023-11-11 08:20 | P.CNUR_ITS ---
History of Present Illness Consult details Consult date: 11/11/23 Narrative: 68-year-old female came in for evaluation of abdominal pain mostly in the left side radiating of to the left flank area, pain is constant for the past 2 days but it is getting worse now patient had recent hospitalization at [facility] patient CTAP --Left hydronephrosis no stone. Review of Systems 2 Review of Systems: Yes all other systems are reviewed and are negative Constitutional: Constitutional: Reports no additional constitutional complaints Eyes: Eyes: Reports no additional eye complaints ENT: Reports system reviewed and no additional complaints, except as documented Cardiovascular: Cardiovascular: Reports no additional cardiovascular complaints Respiratory: Respiratory: Reports no additional respiratory complaints Gastrointestinal: Gastrointestinal: Reports no additional gastrointestinal complaints Genitourinary: Genitourinary: Reports as per HPI Musculoskeletal: Musculoskeletal: Reports no additional musculoskeletal complaints Integumentary/Breasts: Skin/Breast: Reports system reviewed and no additional complaints, except as docu Neurologic: Reports system reviewed and no additional complaints, except as documented Psychiatric: Psychiatric: Reports no additional psychiatric complaints Endocrine: Endocrine: Reports no additional endocrine complaints Hematologic/Lymphatic: Hematologic/Lymphatic: Reports no additional hematologic/lymphatic complaints Allergic/Immunologic: Allergic/Immunologic: Reports no additional allergic/immunologic complaints PMFSH Past Medical History Medical History CKD (chronic kidney disease) stage 3, GFR 30-59 ml/min Elevated cholesterol Nephrolithiasis Diabetes mellitus, type 2 Pre-diabetes High blood pressure Surgical History Surgical History Hx of colonoscopy H/O: hysterectomy Social History Social History Household Members: Family Housing: House Are you a primary child day care provider to a significant other at home: No Do you presently have visiting nurse or other home services: No Alcohol intake: never Patient Tobacco Use Status: Never used Tobacco e-Cigarette/Vaping Use: Never Used Second Hand Smoke Exposure: No service: No Current occupational status: employed 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 Meds Allergies Allergy/AdvReac Type Severity Reaction Status Date / Time No Known Allergies Allergy Verified 11/12/23 15:17 Active Medications: Current Medications Acetaminophen (Acetaminophen 325 Mg Tablet) 650 mg PO Q6H PRN PRN Reason: Pain, Mild (Pain Scale 1-3), fever or headache Amlodipine Besylate (Amlodipine Besylate 5 Mg Tablet) 5 mg PO DAILY [facility]; Protocol Atorvastatin Calcium (Atorvastatin Calcium 40 Mg Tablet) 40 mg PO BEDTIME [facility] Last Admin: 11/10/23 22:11 Dose: 40 mg Benzonatate (Benzonatate 100 Mg Capsule) 100 mg PO TID PRN PRN Reason: Cough Calcium Carbonate (Calcium Carbonate 750 Mg Tab.Chew) 750 mg PO Q4H PRN PRN Reason: Heartburn Glucose (Glucose Gel 15 Gm Gel..Gram.) 15 gm PO Q15M PRN; Protocol PRN Reason: per Hypoglycemia Standing Ord. Sodium Chloride (Ns) 1,000 mls @ 80 mls/hr IVCONT .[id number] [facility] Last Admin: 11/10/23 23:55 Dose: 100 mls/hr Ceftriaxone Sodium 1 gm/ (Sodium Chloride) 50 mls @ 100 mls/hr IV Q24H [facility]1983 Last Infusion: 11/10/23 18:03 Dose: Infused Dextrose (D10) 250 mls @ 750 mls/hr IV Q15M PRN; Protocol PRN Reason: per Hypoglycemia Standing Ord. Insulin Human Lispro (Insulin Lispro 100 Unit/Ml 3 Ml Vial) 0 unit SUBCUT QIDACHS [facility], [facility]1983; Protocol Last Admin: 11/10/23 21:53 Dose: Not Given Magnesium Hydroxide (Milk Of Magnesia 30 Ml Oral.Susp) 30 ml PO DAILY PRN PRN Reason: Constipation Melatonin (Melatonin 3 Mg Tablet) 6 mg PO BEDTIME PRN PRN Reason: Insomnia Ondansetron HCl (Ondansetron Hcl 4 Mg/2 Ml Vial) 4 mg IVPUSH Q8H PRN PRN Reason: Nausea and Vomiting Sodium Chloride (0.9 % Sodium Chloride Flush 3 Ml Syringe) [facility] Last Admin: 11/10/23 23:55 Dose: 3 ml Home Medications ?Medication ?Instructions ?Recorded ?Confirmed ?Last Taken ?Type amlodipine 5 mg tablet 1 tab PO DAILY 08/26/20 11/09/23 11/08/23 History atorvastatin 40 mg tablet 1 tab PO BEDTIME 08/26/20 11/09/23 11/08/23 History glipizide 5 mg tablet, extended 1 tab PO DAILY 08/26/20 11/09/23 11/08/23 History release 24 hr cholecalciferol (vitamin D3) 50 50 mcg PO DAILY 06/25/22 11/09/23 11/08/23 History mcg (2,000 unit) tablet ciprofloxacin HCl 500 mg tablet 500 mg PO Q12H 11/09/23 11/09/23 11/08/23 History empagliflozin 10 mg tablet 10 mg PO DAILY 11/09/23 11/09/23 11/08/23 History (Jardiance) lisinopril 30 mg tablet 30 mg PO DAILY 11/09/23 11/09/23 11/08/23 History metronidazole 500 mg tablet 500 mg PO TID 11/09/23 11/09/23 11/08/23 History Physical Exam 2 Vital Signs: Vital Signs: Last Vital Signs Temp 98.5 F 11/11/23 07:03 Pulse 52 11/11/23 07:03 Resp 16 11/11/23 07:03 BP 167/84 H 11/11/23 07:03 Pulse Ox 97 11/11/23 07:03 O2 Del Method Room Air 11/11/23 07:03 BMI result Body Mass Index 30.2 Const: General: cooperative, healthy appearing and no acute distress O rientation/consciousness: patient oriented x3 HEENT: Head: Yes normal to inspection, Yes normocephalic and Yes atraumatic Eyes: Conjunctivae: conjunctivae normal Neck: Neck: Yes normal visual inspection and Yes trachea midline Chest: Chest palpation & inspection: normal inspection of the chest Resp: Effort & Inspection: normal respiratory effort Cardio: Rate: regular rate GI: Inspection: Yes normal to inspection Palpation (GI): Soft to palpation Skin: General skin exam: no rashes or lesions noted Neuro: General: patient oriented x3 Extrem: General: No edema Psych: Appearance: grossly normal Results Labs 11/10/23 05:49 11/12/23 05:19 Labs: Abnormal lab results 11/10/23 11/10/23 11/10/23 Range/Units 11:37 16:01 20:03 Chloride (96-108) mmol/L BUN (9-16) mg/dL POC Glucose 134 H 195 H 148 H (60-115) mg/dL Random Glucose (60-115) mg/dL 11/11/23 11/11/23 Range/Units 05:46 07:08 Chloride 113 H (96-108) mmol/L BUN 17 H (9-16) mg/dL POC Glucose 152 H (60-115) mg/dL Random Glucose 131 H (60-115) mg/dL BMP 11/11/23 05:46 Sodium 144 Potassium 4.0 Chloride 113 H Carbon Dioxide 22 BUN 17 H Creatinine 1.23 Calcium 8.6 Urine 11/09/23 Range/Units 10:10 Urine Color Yellow Urine Appearance Clear Urine pH 5.5 (5.0-9.0) Ur Specific [place] 1.025 (1.005-1.025) Urine Protein 300 (3+) H (Neg-Trace) mg/dL Urine Glucose (UA) >=1000 H (Negative) mg/dL All other labs normal. Assessment and Plan (1) Hydronephrosis: Status: Acute (2) YOBANY (acute kidney injury): Status: Acute (3) Pyelonephritis: Status: Acute Plan Clinically improving, Cont IV abx x 24 hours she will need fu renal sono as an outpt in 6 weeks. If pain worsens will place left ureteral stent Procedures Date of Service Date of Service: 11/12/23
[2023-11-11] MEDS: 0.9 % Sodium Chloride Flush 3 ML SYRINGE IVFLUSH (08:25)
[2023-11-11 08:26] VITALS: BP 150/89
[2023-11-11] MEDS: amLODIPine Besylate 5 MG TABLET PO (08:26)
[2023-11-11 11:03] LABS: Glucose, Whole Blood 154 mg/dL (60-115)
[2023-11-11] MEDS: 0.9 % Sodium Chloride 1,000 ML 100 ML IVCONT ×2 (11:36→20:50)
[2023-11-11] MEDS: Insulin Lispro 100 UNIT/ML 3 ML VIAL SUBCUT ×2 (11:44→20:32)
--- NOTE | 2023-11-11 14:06 | HO.PM.IMPN ---
Subjective Subjective Date of Service: 11/11/23 Interval History: LLQ/L flank pain resolved; no hematuria; no N/V; SCr improved Review of Systems Review of Systems: Yes all other systems are reviewed and are negative Physical Exam Vital Signs: Vital Signs: Last Vital Signs Temp 98.5 F 11/11/23 07:03 Pulse 52 11/11/23 07:03 Resp 16 11/11/23 07:03 BP 150/89 H 11/11/23 08:26 Pulse Ox 97 11/11/23 07:03 O2 Del Method Room Air 11/11/23 07:03 BMI result Body Mass Index 30.2 Gen: in no acute distress HEENT: sclera anicteric, moist mucus membranes Neck: supple Lungs: clear to auscultation bilaterally Heart: regular rate and rhythm, no murmurs Abd: soft, non-tender, non-distended Ext: no edema Skin: warm/well-perfused Neuro: alert and oriented x3, no focal findings Psych: appropriate affect Objective Data Active Medications Acetaminophen (Acetaminophen 325 Mg Tablet) 650 mg PO Q6H PRN PRN Reason: Pain, Mild (Pain Scale 1-3), fever or headache Amlodipine Besylate (Amlodipine Besylate 5 Mg Tablet) 5 mg PO DAILY [facility]; Protocol Last Admin: 11/11/23 08:26 Dose: 5 mg Documented By: CASS Atorvastatin Calcium (Atorvastatin Calcium 40 Mg Tablet) 40 mg PO BEDTIME [facility] Last Admin: 11/10/23 22:11 Dose: 40 mg Documented By: LAYLA Benzonatate (Benzonatate 100 Mg Capsule) 100 mg PO TID PRN PRN Reason: Cough Calcium Carbonate (Calcium Carbonate 750 Mg Tab.Chew) 750 mg PO Q4H PRN PRN Reason: Heartburn Glucose (Glucose Gel 15 Gm Gel..Gram.) 15 gm PO Q15M PRN; Protocol PRN Reason: per Hypoglycemia Standing Ord. Sodium Chloride (Ns) 1,000 mls @ 80 mls/hr IVCONT .[id number] [facility] Last Admin: 11/11/23 11:36 Dose: 100 mls/hr Documented By: CASS Ceftriaxone Sodium 1 gm/ (Sodium Chloride) 50 mls @ 100 mls/hr IV Q24H [facility] Last Infusion: 11/10/23 18:03 Dose: Infused Documented By: JIM Dextrose (D10) 250 mls @ 750 mls/hr IV Q15M PRN; Protocol PRN Reason: per Hypoglycemia Standing Ord. Insulin Human Lispro (Insulin Lispro 100 Unit/Ml 3 Ml Vial) 0 unit SUBCUT QIDACHS [facility]; Protocol Last Admin: 11/11/23 11:44 Dose: 2 unit Documented By: CASS Magnesium Hydroxide (Milk Of Magnesia 30 Ml Oral.Susp) 30 ml PO DAILY PRN PRN Reason: Constipation Melatonin (Melatonin 3 Mg Tablet) 6 mg PO BEDTIME PRN PRN Reason: Insomnia Ondansetron HCl (Ondansetron Hcl 4 Mg/2 Ml Vial) 4 mg IVPUSH Q8H PRN PRN Reason: Nausea and Vomiting Sodium Chloride (0.9 % Sodium Chloride Flush 3 Ml Syringe) [facility] Last Admin: 11/11/23 08:25 Dose: 3 ml Documented By: CASS Labs 11/10/23 05:49 11/11/23 05:46 Labs: Laboratory Results - last 24 hr 11/10/23 11/10/23 11/11/23 16:01 20:03 05:46 Hold Purple Top SEE NOTE Anion Gap 13 Estim Creat Clear Calc 52.8 Estimated GFR 44 POC Glucose 195 H 148 H Random Glucose 131 H Calcium 8.6 11/11/23 11/11/23 07:08 10:54 Hold Purple Top Anion Gap Estim Creat Clear Calc Estimated GFR POC Glucose 152 H 154 H Random Glucose Calcium Microbiology Microbiology Results: Microbiology 11/09/23 11:33 Blood Culture - Preliminary Blood - Venous No growth after 48 hours. 11/09/23 11:33 Blood Culture - Preliminary Blood - Venous No growth after 48 hours. Assessment and Plan (1) Hydronephrosis: Status: Acute (2) YOBANY (acute kidney injury): Status: Acute (3) Intractable abdominal pain: Status: Acute Plan d3 68yo F with DM2, HTN recently discharged from [facility] 4d prior to presentation on ciprofloxacin + metronidazole for possible acute pyelonephritis vs appendicitis presented with 2d of LLQ pain radiating to L falnk pain and found to have YOBANY with L hydroureteronephrosis L hydroureteronephrosis - likely due to passed stone; discussed with Urology; no operative intervention planned; needs outpt f/u in 6 wk with repeat US recent pyleonephritis - continue ceftriaxone d3, follow BCx, UCx not sent from ED[facility] SCr improved; likely passed stone; recheck BMP in AM; lisinopril still on hold, continue IV fluids HTN - continue amlodipine DM2 - hold OHGs, continue manuela-dose lispro HLD - statin VTE ppx - SCDs dispo - eventual home In my clinical judgment, the patient requires continued inpatient hospitalization for the following reasons: IV ABX, IV fluids Total time managing care of this patient today: 35 minutes. Quality Stroke Does the patient have a stroke diagnosis?: No VTE Prior VTE?: No VTE Risk Level:: Medical - moderate - high VTE Device Contraindication: N/A - Device Ordered VTE Drug Contraindication: Treatment Not Indicated
[2023-11-11] MEDS: ondansetron HCL 4 MG/2 ML VIAL IVPUSH (14:35)
[2023-11-11] MEDS: Morphine Sulfate 2 MG/ML CARTRIDGE IVPUSH ×2 (14:49→20:49)
[2023-11-11 14:58] LABS: C Reactive Protein 0.61 mg/dL (< or = 0.50)
[2023-11-11 15:20] VITALS: BP 142/76; PULSE 58; RESP 20; TEMP 36.5; O2SAT 100
--- NOTE | 2023-11-11 15:24 | PC.NURSE ---
1430- Patient reporting sudden 10/10 sharp L flank pain, with nausea. Zofran given per EMAR. Patient currently has no meds ordered for severe pain. Dr. Barrera made aware. Morphine ordered and given per EMAR. Oncoming nurse updated.
[2023-11-11] MEDS: cefTRIAXone sodium 1 GM in 0.9 % Sodium Chloride 50 ML IV (15:37)
[2023-11-11 16:19] LABS: Glucose, Whole Blood 136 mg/dL (60-115)
[2023-11-11] MEDS: HYDROmorphone HCl 0.5 MG/0.5 ML SYRINGE IVPUSH (18:12)
[2023-11-11 18:59] VITALS: BP 177/83; PULSE 66; RESP 20; TEMP 36.8; O2SAT 96
[2023-11-11 20:05] LABS: Glucose, Whole Blood 204 mg/dL (60-115)
[2023-11-11] MEDS: Atorvastatin Calcium 40 MG TABLET PO (20:32)
[2023-11-12] VITALS (11 sets, daily range): BP systolic 94–180; BP diastolic 54–85; PULSE 54–72; RESP 13–20; TEMP 36.1–37.1; O2SAT 94–98
[2023-11-12] MEDS: HYDROmorphone HCl 1 MG/ML SYRINGE IVPUSH ×3 (01:15→14:06)
[2023-11-12 06:14] LABS: Anion Gap 13 (12-20); Blood Urea Nitrogen 17 mg/dL (9-16); Calcium 8.9 mg/dL (8.4-10.2); Carbon Dioxide 22 mmol/L (22-29); Chloride 111 mmol/L (96-108); Creatinine Clr Calc Pharmacy 39.4; Estimated Glomerular Filt Rate 31; Glucose Random 131 mg/dL (60-115); Sodium 142 mmol/L (135-145)
[2023-11-12] MEDS: 0.9 % Sodium Chloride 1,000 ML 100 ML IVCONT (06:41)
[2023-11-12 07:29] LABS: Glucose, Whole Blood 135 mg/dL (60-115)
[2023-11-12] MEDS: 0.9 % Sodium Chloride Flush 3 ML SYRINGE IVFLUSH (08:00)
[2023-11-12] MEDS: amLODIPine Besylate 5 MG TABLET PO (08:01)
[2023-11-12 11:05] LABS: Glucose, Whole Blood 158 mg/dL (60-115)
--- NOTE | 2023-11-12 11:50 | P.PNIM_ITS ---
Subjective Subjective Date of Service: 11/12/23 Interval History: c/o worsening L flank + groin pain requiring IV hydromorphone; SCr also worse Review of Systems Review of Systems: Yes all other systems are reviewed and are negative Physical Exam 2 Vital Signs: Vital Signs: Last Vital Signs Temp 98.1 F 11/12/23 07:24 Pulse 66 11/12/23 07:24 Resp 18 11/12/23 07:24 BP 132/74 11/12/23 07:24 Pulse Ox 95 11/12/23 07:24 O2 Del Method Room Air 11/12/23 07:24 BMI result Body Mass Index 30.2 Gen: in no acute distress HEENT: sclera anicteric, moist mucus membranes Neck: supple Lungs: clear to auscultation bilaterally Heart: regular rate and rhythm, no murmurs Abd: soft, non-tender, non-distended : L CVA and groin tenderness Ext: no edema Skin: warm/well-perfused Neuro: alert and oriented x3, no focal findings Psych: appropriate affect Objective Data Active Medications Acetaminophen (Acetaminophen 325 Mg Tablet) 650 mg PO Q6H PRN PRN Reason: Pain, Mild (Pain Scale 1-3), fever or headache Amlodipine Besylate (Amlodipine Besylate 5 Mg Tablet) 5 mg PO DAILY [facility]; Protocol Last Admin: 11/12/23 08:01 Dose: 5 mg Documented By: JOSTIN Atorvastatin Calcium (Atorvastatin Calcium 40 Mg Tablet) 40 mg PO BEDTIME [facility] Last Admin: 11/11/23 20:32 Dose: 40 mg Documented By: DEBBIE Benzonatate (Benzonatate 100 Mg Capsule) 100 mg PO TID PRN PRN Reason: Cough Calcium Carbonate (Calcium Carbonate 750 Mg Tab.Chew) 750 mg PO Q4H PRN PRN Reason: Heartburn Glucose (Glucose Gel 15 Gm Gel..Gram.) 15 gm PO Q15M PRN; Protocol PRN Reason: per Hypoglycemia Standing Ord. Hydromorphone HCl (Hydromorphone Hcl 1 Mg/Ml Syringe) 1 mg IVPUSH Q4H PRN; Protocol PRN Reason: pain,severe Last Admin: 11/12/23 08:01 Dose: 1 mg Documented By: JOSTIN Sodium Chloride (Ns) 1,000 mls @ 80 mls/hr IVCONT .[id number] [facility] Last Infusion: 11/12/23 07:50 Dose: 0 mls/hr Documented By: JOSTIN Ceftriaxone Sodium 1 gm/ (Sodium Chloride) 50 mls @ 100 mls/hr IV Q24H [facility] Last Infusion: 11/11/23 16:30 Dose: Infused Documented By: DEBBIE Dextrose (D10) 250 mls @ 750 mls/hr IV Q15M PRN; Protocol PRN Reason: per Hypoglycemia Standing Ord. Insulin Human Lispro (Insulin Lispro 100 Unit/Ml 3 Ml Vial) 0 unit SUBCUT QIDACHS [facility]; Protocol Last Admin: 11/12/23 07:45 Dose: Not Given Documented By: JOSTIN Non-Admin Reason: No Insulin Coverage Magnesium Hydroxide (Milk Of Magnesia 30 Ml Oral.Susp) 30 ml PO DAILY PRN PRN Reason: Constipation Melatonin (Melatonin 3 Mg Tablet) 6 mg PO BEDTIME PRN PRN Reason: Insomnia Morphine Sulfate (Morphine Sulfate 2 Mg/Ml Cartridge) 2 mg IVPUSH Q6H PRN; Protocol PRN Reason: Pain, Severe (Pain Scale 7-10) Last Admin: 11/11/23 20:49 Dose: 2 mg Documented By: DEBBIE Ondansetron HCl (Ondansetron Hcl 4 Mg/2 Ml Vial) 4 mg IVPUSH Q8H PRN PRN Reason: Nausea and Vomiting Last Admin: 11/11/23 14:35 Dose: 4 mg Documented By: CASS Sodium Chloride (0.9 % Sodium Chloride Flush 3 Ml Syringe) [facility] Last Admin: 11/12/23 08:00 Dose: 3 ml Documented By: JOSTIN Labs 11/10/23 05:49 11/12/23 05:19 Labs: Laboratory Results - last 24 hr 11/11/23 11/11/23 11/11/23 05:46 16:14 20:01 Anion Gap Estim Creat Clear Calc Estimated GFR POC Glucose 136 H 204 H Random Glucose Calcium C-Reactive Protein 0.61 H 11/12/23 11/12/23 11/12/23 05:19 07:22 10:59 Anion Gap 13 Estim Creat Clear Calc 39.4 Estimated GFR 31 POC Glucose 135 H 158 H Random Glucose 131 H Calcium 8.9 C-Reactive Protein Microbiology Microbiology Results: Microbiology 11/09/23 11:33 Blood Culture - Preliminary Blood - Venous No growth after 48 hours. 11/09/23 11:33 Blood Culture - Preliminary Blood - Venous No growth after 48 hours. Assessment and Plan (1) Hydronephrosis: Status: Acute (2) YOBANY (acute kidney injury): Status: Acute (3) Intractable abdominal pain: Status: Acute Plan d4 68yo F with DM2, HTN recently discharged from [facility] 4d prior to presentation on ciprofloxacin + metronidazole for possible acute pyelonephritis vs appendicitis presented with 2d of LLQ pain radiating to L falnk pain and found to have YOBANY with L hydroureteronephrosis L hydroureteronephrosis - given recurrent pain, made NPO and Urology may take to OR today; stat renal US ordered recent pyleonephritis - continue ceftriaxone d4, follow BCx, UCx not sent from ED, try to get microbiology records from [facility] postrenal YOBANY - SCr improved then worse; lisinopril still on hold, continue IV fluids; address obstructive cause as above HTN - continue amlodipine DM2 - hold OHGs, continue manuela-dose lispro HLD - statin VTE ppx - SCDs dispo - eventual home In my clinical judgment, the patient requires continued inpatient hospitalization for the following reasons: IV ABX, IV fluids, operative intervention Total time managing care of this patient today: 35 minutes. Quality Stroke Does the patient have a stroke diagnosis?: No VTE Prior VTE?: No VTE Risk Level:: Medical - moderate - high VTE Device Contraindication: N/A - Device Ordered VTE Drug Contraindication: Treatment Not Indicated
[2023-11-12] MEDS: ondansetron HCL 4 MG/2 ML VIAL IVPUSH (14:14)
[2023-11-12] MEDS: cefTRIAXone sodium 1 GM in 0.9 % Sodium Chloride 50 ML IV (16:12)
[2023-11-12 16:19] LABS: Glucose, Whole Blood 117 mg/dL (60-115)
--- NOTE | 2023-11-12 16:26 | HO.ANESPROP2 ---
HPI - Anesthesia Eval Consult details Narrative: Left ureter stone PMFSH Active Problems Active Problems: All Active Problems Hydronephrosis (Acute) YOBANY (acute kidney injury) (Acute) Intractable abdominal pain (Acute) Pyelonephritis (Acute) Dislocation of proximal interphalangeal joint of left ring finger (Acute) Past Medical History Medical History CKD (chronic kidney disease) stage 3, GFR 30-59 ml/min Elevated cholesterol Nephrolithiasis Diabetes mellitus, type 2 Pre-diabetes High blood pressure Family History Family history of problems with anesthesia: No Surgical History Surgical History Hx of colonoscopy H/O: hysterectomy History of Problems with Anesthesia: No Social History Social History Household Members: Family Housing: House Are you a primary health care law specialist to a significant other at home: No Do you presently have visiting nurse or other home services: No Alcohol intake: never Patient Tobacco Use Status: Never used Tobacco e-Cigarette/Vaping Use: Never Used Second Hand Smoke Exposure: No service: No Current occupational status: employed 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 Meds Allergies Allergy/AdvReac Type Severity Reaction Status Date / Time No Known Allergies Allergy Verified 11/12/23 15:17 Active Medications: Current Medications Acetaminophen (Acetaminophen 325 Mg Tablet) 650 mg PO Q6H PRN PRN Reason: Pain, Mild (Pain Scale 1-3), fever or headache Amlodipine Besylate (Amlodipine Besylate 5 Mg Tablet) 5 mg PO DAILY NINI; Protocol Last Admin: 11/12/23 08:01 Dose: 5 mg Atorvastatin Calcium (Atorvastatin Calcium 40 Mg Tablet) 40 mg PO BEDTIME NINI Last Admin: 11/11/23 20:32 Dose: 40 mg Benzonatate (Benzonatate 100 Mg Capsule) 100 mg PO TID PRN PRN Reason: Cough Calcium Carbonate (Calcium Carbonate 750 Mg Tab.Chew) 750 mg PO Q4H PRN PRN Reason: Heartburn Glucose (Glucose Gel 15 Gm Gel..Gram.) 15 gm PO Q15M PRN; Protocol PRN Reason: per Hypoglycemia Standing Ord. Hydromorphone HCl (Hydromorphone Hcl 1 Mg/Ml Syringe) 1 mg IVPUSH Q4H PRN; Protocol PRN Reason: pain,severe Last Admin: 11/12/23 14:06 Dose: 1 mg Sodium Chloride (Ns) 1,000 mls @ 80 mls/hr IVCONT .[id number] [facility] Last Infusion: 11/12/23 07:50 Dose: 0 mls/hr Ceftriaxone Sodium 1 gm/ (Sodium Chloride) 50 mls @ 100 mls/hr IV Q24H [facility] Last Admin: 11/12/23 16:12 Dose: 100 mls/hr Dextrose (D10) 250 mls @ 750 mls/hr IV Q15M PRN; Protocol PRN Reason: per Hypoglycemia Standing Ord. Cefazolin Sodium/Dextrose (Ancef) 2 gm in 50 mls @ 100 mls/hr IV PREOP ONE Stop: 11/12/23 16:36 Insulin Human Lispro (Insulin Lispro 100 Unit/Ml 3 Ml Vial) 0 unit SUBCUT QIDACHS [facility]; Protocol Last Admin: 11/12/23 14:10 Dose: Not Given Magnesium Hydroxide (Milk Of Magnesia 30 Ml Oral.Susp) 30 ml PO DAILY PRN PRN Reason: Constipation Melatonin (Melatonin 3 Mg Tablet) 6 mg PO BEDTIME PRN PRN Reason: Insomnia Morphine Sulfate (Morphine Sulfate 2 Mg/Ml Cartridge) 2 mg IVPUSH Q6H PRN; Protocol PRN Reason: Pain, Severe (Pain Scale 7-10) Last Admin: 11/11/23 20:49 Dose: 2 mg Ondansetron HCl (Ondansetron Hcl 4 Mg/2 Ml Vial) 4 mg IVPUSH Q8H PRN PRN Reason: Nausea and Vomiting Last Admin: 11/12/23 14:14 Dose: 4 mg Sodium Chloride (0.9 % Sodium Chloride Flush 3 Ml Syringe) 3 ml [facility]USH [facility] Last Admin: 11/12/23 08:00 Dose: 3 ml Home Medications ?Medication ?Instructions ?Recorded ?Confirmed ?Last Taken ?Type amlodipine 5 mg tablet 1 tab PO DAILY 08/26/20 11/09/23 11/08/23 History atorvastatin 40 mg tablet 1 tab PO BEDTIME 08/26/20 11/09/23 11/08/23 History glipizide 5 mg tablet, extended 1 tab PO DAILY 08/26/20 11/09/23 11/08/23 History release 24 hr cholecalciferol (vitamin D3) 50 50 mcg PO DAILY 06/25/22 11/09/23 11/08/23 History mcg (2,000 unit) tablet ciprofloxacin HCl 500 mg tablet 500 mg PO Q12H 11/09/23 11/09/23 11/08/23 History empagliflozin 10 mg tablet 10 mg PO DAILY 11/09/23 11/09/23 11/08/23 History (Jardiance) lisinopril 30 mg tablet 30 mg PO DAILY 11/09/23 11/09/23 11/08/23 History metronidazole 500 mg tablet 500 mg PO TID 11/09/23 11/09/23 11/08/23 History Exam Height,Weight and Vital Signs: Height 5 ft 8 in Weight 90.1 kg Last Vital Signs Temp 98.7 F 11/12/23 15:20 Pulse 70 11/12/23 15:20 Resp 16 11/12/23 15:20 BP 148/85 H 11/12/23 15:20 Pulse Ox 96 11/12/23 15:20 O2 Del Method Room Air 11/12/23 15:20 Pertinent Lab Results Pertinent Lab Results: Laboratory Tests 11/09/23 11/09/23 11/09/23 09:17 10:10 11:33 WBC 7.5 RBC 5.07 Hgb 13.8 Hct 40.9 MCV 80.7 MCH 27.2 MCHC 33.7 RDW 13.4 Plt Count 286 MPV 8.7 L Immature Gran % (Auto) 0.4 Neut % (Auto) 64.1 Lymph % (Auto) 24.2 [place] % (Auto) 9.2 Eos % (Auto) 1.6 Baso % (Auto) 0.5 Lymph # (Auto) 1.8 [place] # (Auto) 0.7 Eos # (Auto) 0.1 Baso # (Auto) 0.0 Abs Immat Gran (auto) 0.03 Absolute Neuts (auto) 4.8 Absolute Nucleated RBC 0.000 Nucleated RBC % (auto) 0.0 Hold Purple Top Sodium 140 Potassium 3.7 Chloride 107 Carbon Dioxide 23 Anion Gap 14 BUN 20 H Creatinine 1.72 H Estim Creat Clear Calc 37.7 Estimated GFR 30 POC Glucose Random Glucose 215 H Lactic Acid 1.2 Calcium 9.0 D Total Bilirubin 0.5 AST 36 H ALT 33 H Alkaline Phosphatase 62 C-Reactive Protein Total Protein 7.6 Albumin 4.0 Urine Color Yellow Urine Appearance Clear Urine pH 5.5 Ur Specific [place] 1.025 Urine Protein 300 (3+) H Urine Glucose (UA) >=1000 H Urine Ketones Negative Urine Blood Negative Urine Nitrite Negative Ur Leukocyte Esterase Negative Urine RBC 0-2 Urine WBC 0-5 Ur Squamous Epith Cells 3-5 Urine Bacteria None Seen Hyaline Casts 3-5 11/10/23 11/10/23 11/10/23 05:49 11:37 16:01 WBC 6.3 RBC 4.63 Hgb 12.6 Hct 38.0 MCV 82.1 MCH 27.2 MCHC 33.2 RDW 13.6 Plt Count 251 MPV 8.7 L Immature Gran % (Auto) Neut % (Auto) Lymph % (Auto) [place] % (Auto) Eos % (Auto) Baso % (Auto) Lymph # (Auto) [place] # (Auto) Eos # (Auto) Baso # (Auto) Abs Immat Gran (auto) Absolute Neuts (auto) Absolute Nucleated RBC 0.000 Nucleated RBC % (auto) 0.0 Hold Purple Top Sodium 141 Potassium 4.0 Chloride 111 H Carbon Dioxide 23 Anion Gap 11 L BUN 19 H Creatinine 1.40 Estim Creat Clear Calc 46.4 Estimated GFR 38 POC Glucose 134 H 195 H Random Glucose 128 H Lactic Acid Calcium 8.7 Total Bilirubin AST ALT Alkaline Phosphatase C-Reactive Protein Total Protein Albumin Urine Color Urine Appearance Urine pH Ur Specific [place] Urine Protein Urine Glucose (UA) Urine Ketones Urine Blood Urine Nitrite Ur Leukocyte Esterase Urine RBC Urine WBC Ur Squamous Epith Cells Urine Bacteria Hyaline Casts 11/10/23 11/11/23 11/11/23 20:03 05:46 07:08 WBC RBC Hgb Hct MCV MCH MCHC RDW Plt Count MPV Immature Gran % (Auto) Neut % (Auto) Lymph % (Auto) [place] % (Auto) Eos % (Auto) Baso % (Auto) Lymph # (Auto) [place] # (Auto) Eos # (Auto) Baso # (Auto) Abs Immat Gran (auto) Absolute Neuts (auto) Absolute Nucleated RBC Nucleated RBC % (auto) Hold Purple Top SEE NOTE Sodium 144 Potassium 4.0 Chloride 113 H Carbon Dioxide 22 Anion Gap 13 BUN 17 H Creatinine 1.23 Estim Creat Clear Calc 52.8 Estimated GFR 44 POC Glucose 148 H 152 H Random Glucose 131 H Lactic Acid Calcium 8.6 Total Bilirubin AST ALT Alkaline Phosphatase C-Reactive Protein 0.61 H Total Protein Albumin Urine Color Urine Appearance Urine pH Ur Specific [place] Urine Protein Urine Glucose (UA) Urine Ketones Urine Blood Urine Nitrite Ur Leukocyte Esterase Urine RBC Urine WBC Ur Squamous Epith Cells Urine Bacteria Hyaline Casts 11/11/23 11/11/23 11/11/23 10:54 16:14 20:01 WBC RBC Hgb Hct MCV MCH MCHC RDW Plt Count MPV Immature Gran % (Auto) Neut % (Auto) Lymph % (Auto) [place] % (Auto) Eos % (Auto) Baso % (Auto) Lymph # (Auto) [place] # (Auto) Eos # (Auto) Baso # (Auto) Abs Immat Gran (auto) Absolute Neuts (auto) Absolute Nucleated RBC Nucleated RBC % (auto) Hold Purple Top Sodium Potassium Chloride Carbon Dioxide Anion Gap BUN Creatinine Estim Creat Clear Calc Estimated GFR POC Glucose 154 H 136 H 204 H Random Glucose Lactic Acid Calcium Total Bilirubin AST ALT Alkaline Phosphatase C-Reactive Protein Total Protein Albumin Urine Color Urine Appearance Urine pH Ur Specific [place] Urine Protein Urine Glucose (UA) Urine Ketones Urine Blood Urine Nitrite Ur Leukocyte Esterase Urine RBC Urine WBC Ur Squamous Epith Cells Urine Bacteria Hyaline Casts 11/12/23 11/12/23 11/12/23 05:19 07:22 10:59 WBC RBC Hgb Hct MCV MCH MCHC RDW Plt Count MPV Immature Gran % (Auto) Neut % (Auto) Lymph % (Auto) [place] % (Auto) Eos % (Auto) Baso % (Auto) Lymph # (Auto) [place] # (Auto) Eos # (Auto) Baso # (Auto) Abs Immat Gran (auto) Absolute Neuts (auto) Absolute Nucleated RBC Nucleated RBC % (auto) Hold Purple Top Sodium 142 Potassium 4.0 Chloride 111 H Carbon Dioxide 22 Anion Gap 13 BUN 17 H Creatinine 1.65 H Estim Creat Clear Calc 39.4 Estimated GFR 31 POC Glucose 135 H 158 H Random Glucose 131 H Lactic Acid Calcium 8.9 Total Bilirubin AST ALT Alkaline Phosphatase C-Reactive Protein Total Protein Albumin Urine Color Urine Appearance Urine pH Ur Specific [place] Urine Protein Urine Glucose (UA) Urine Ketones Urine Blood Urine Nitrite Ur Leukocyte Esterase Urine RBC Urine WBC Ur Squamous Epith Cells Urine Bacteria Hyaline Casts 11/12/23 16:15 WBC RBC Hgb Hct MCV MCH MCHC RDW Plt Count MPV Immature Gran % (Auto) Neut % (Auto) Lymph % (Auto) [place] % (Auto) Eos % (Auto) Baso % (Auto) Lymph # (Auto) [place] # (Auto) Eos # (Auto) Baso # (Auto) Abs Immat Gran (auto) Absolute Neuts (auto) Absolute Nucleated RBC Nucleated RBC % (auto) Hold Purple Top Sodium Potassium Chloride Carbon Dioxide Anion Gap BUN Creatinine Estim Creat Clear Calc Estimated GFR POC Glucose 117 H Random Glucose Lactic Acid Calcium Total Bilirubin AST ALT Alkaline Phosphatase C-Reactive Protein Total Protein Albumin Urine Color Urine Appearance Urine pH Ur Specific [place] Urine Protein Urine Glucose (UA) Urine Ketones Urine Blood Urine Nitrite Ur Leukocyte Esterase Urine RBC Urine WBC Ur Squamous Epith Cells Urine Bacteria Hyaline Casts Airway Mallampati Class: II TM Dist: >3cm Neck ROM: Full Loose/Missing/Broken Teeth: No Heart: RRR Lungs: CTA Assessment and Plan Assessment Anesthesia Assessment: Anesthesia Plan Discussed Final Anesthetic Review Family History of Problems with Anesthesia: No History of Problems with Anesthesia: No NPO: Yes ASA Class: III and Emergency Final Preanesthetic Review: No Changes in Pt Med Stat, Meds/Allgs Chart Reviewed, Consent Obtained/Reviewed and Anes Risks/Benef Reviewed Patient Risk: Intermediate Procedure Risk: Low Anesthetic Plan Anesthetic Plan: GA Disposition: Standard PACU
[2023-11-12] MEDS: Lactated Ringers 1,000 ML 20 ML IVCONT ×2 (17:02→19:42)
--- NOTE | 2023-11-12 17:51 | W.PM.OPN ---
Operative Note Operative Note Date of Service: 11/12/23 Narrative: PreOperative Diagnosis:?? Left hydronephrosis hydroureter Post Operative Diagnosis:?? ?Left hydronephrosis hydroureter Procedure: Cystoscopy, left retrograde left stent insertion, size 6 Macedonian by 22-32 Surgeon:?Dr Beena Wright Anesthesia:? General Indications for procedure: Persistent Left flank pain Procedure: After informed consent was verified the patient was brought to the operating placed on the OR table in supine position.? General Anesthesia was administered per protocol.? The patient was placed in lithotomy position, prepped and draped in the usual sterile fashion.? Safety pause time-out and side of surgery confirmed.? Antibiotics confirmed. A 22 Macedonian cystoscope was inserted transurethrally, The bladder was visualized.? Both ureteric orifices were in normal position. The?left ureteric orifice was cannulated? and a retrograde examination was performed, A hydrophilic guidewire was placed up to the level of the renal pelvis under fluoroscopy. A 6 fr by 22-32 cm ureteral stent was passed over the guide wire under fluoroscopic guidance. The guide wire was removed. The bladder was emptied.? The rigid cystoscope was removed. ? The patient tolerated the procedure well and was brought to the recovery room in stable condition. Complications: None Drains: Ureteral stent as dictated above
[2023-11-12 18:25] LABS: Glucose, Whole Blood 138 mg/dL (60-115)
[2023-11-12 20:56] LABS: Glucose, Whole Blood 186 mg/dL (60-115)
[2023-11-12] MEDS: Insulin Lispro 100 UNIT/ML 3 ML VIAL SUBCUT (21:37)
[2023-11-12] MEDS: Atorvastatin Calcium 40 MG TABLET PO (21:37)
[2023-11-13] VITALS (9 sets, daily range): BP systolic 128–145; BP diastolic 68–83; PULSE 52–68; RESP 16–18; TEMP 36–36.3; O2SAT 94–96
[2023-11-13] MEDS: Acetaminophen 325 MG TABLET 650 MG PO ×2 (06:16→14:27)
[2023-11-13 06:34] LABS: Anion Gap 13 (12-20); Blood Urea Nitrogen 15 mg/dL (9-16); Calcium 9.3 mg/dL (8.4-10.2); Carbon Dioxide 24 mmol/L (22-29); Chloride 108 mmol/L (96-108); Creatinine Clr Calc Pharmacy 46.1; Estimated Glomerular Filt Rate 37; Glucose Random 136 mg/dL (60-115); Potassium 3.7 mmol/L (3.3-5.1); Sodium 141 mmol/L (135-145)
[2023-11-13 07:22] LABS: Glucose, Whole Blood 143 mg/dL (60-115)
[2023-11-13] MEDS: amLODIPine Besylate 5 MG TABLET PO (07:38)
[2023-11-13 08:12] LABS: C Reactive Protein 0.79 mg/dL (< or = 0.50)
--- NOTE | 2023-11-13 09:36 | P.PNIM_ITS ---
Subjective Subjective Date of Service: 11/13/23 Interval History: POD1 some soreness in groin but not really in pain no N/V no fever Review of Systems Review of Systems: Yes all other systems are reviewed and are negative Physical Exam 2 Vital Signs: Vital Signs: Last Vital Signs Temp 97.1 F 11/13/23 07:19 Pulse 53 11/13/23 07:19 Resp 18 11/13/23 07:19 BP 128/72 11/13/23 07:19 Pulse Ox 96 11/13/23 07:19 O2 Del Method Room Air 11/13/23 07:19 O2 Flow Rate 6 11/12/23 17:47 BMI result Body Mass Index 30.2 Gen: in no acute distress HEENT: sclera anicteric, moist mucus membranes Neck: supple Lungs: clear to auscultation bilaterally Heart: regular rate and rhythm, no murmurs Abd: soft, non-tender, non-distended : no CVA tenderness Ext: no edema Skin: warm/well-perfused Neuro: alert and oriented x3, no focal findings Psych: appropriate affect Objective Data Active Medications Acetaminophen (Acetaminophen 325 Mg Tablet) 650 mg PO Q6H PRN PRN Reason: Pain, Mild (Pain Scale 1-3), fever or headache Last Admin: 11/13/23 06:16 Dose: 650 mg Documented By: MALA Amlodipine Besylate (Amlodipine Besylate 5 Mg Tablet) 5 mg PO DAILY [facility]; Protocol Last Admin: 11/13/23 07:38 Dose: 5 mg Documented By: JORGE Atorvastatin Calcium (Atorvastatin Calcium 40 Mg Tablet) 40 mg PO BEDTIME [facility] Last Admin: 11/12/23 21:37 Dose: 40 mg Documented By: MALA Benzonatate (Benzonatate 100 Mg Capsule) 100 mg PO TID PRN PRN Reason: Cough Calcium Carbonate (Calcium Carbonate 750 Mg Tab.Chew) 750 mg PO Q4H PRN PRN Reason: Heartburn Glucose (Glucose Gel 15 Gm Gel..Gram.) 15 gm PO Q15M PRN; Protocol PRN Reason: per Hypoglycemia Standing Ord. Hydromorphone HCl (Hydromorphone Hcl 1 Mg/Ml Syringe) 1 mg IVPUSH Q4H PRN; Protocol PRN Reason: pain,severe Last Admin: 11/12/23 14:06 Dose: 1 mg Documented By: JOSTIN Ceftriaxone Sodium 1 gm/ (Sodium Chloride) 50 mls @ 100 mls/hr IV Q24H [facility] Last Infusion: 11/12/23 16:44 Dose: Infused Documented By: VIRAL Dextrose (D10) 250 mls @ 750 mls/hr IV Q15M PRN; Protocol PRN Reason: per Hypoglycemia Standing Ord. Lactated Ringer's (Lr) 1,000 mls @ 20 mls/hr IVCONT .Q24H [facility] Last Admin: 11/12/23 19:42 Dose: 20 mls/hr Documented By: MALA Insulin Human Lispro (Insulin Lispro 100 Unit/Ml 3 Ml Vial) 0 unit SUBCUT QIDACHS [facility]; Protocol Last Admin: 11/13/23 07:28 Dose: Not Given Documented By: JORGE Non-Admin Reason: No Insulin Coverage Magnesium Hydroxide (Milk Of Magnesia 30 Ml Oral.Susp) 30 ml PO DAILY PRN PRN Reason: Constipation Melatonin (Melatonin 3 Mg Tablet) 6 mg PO BEDTIME PRN PRN Reason: Insomnia Morphine Sulfate (Morphine Sulfate 2 Mg/Ml Cartridge) 2 mg IVPUSH Q6H PRN; Protocol PRN Reason: Pain, Severe (Pain Scale 7-10) Last Admin: 11/11/23 20:49 Dose: 2 mg Documented By: DEBBIE Naloxone HCl (Naloxone Hcl 0.4 Mg/Ml Vial) 0.04 mg IVPUSH Q5M PRN PRN Reason: Excessive sedation or RR < 8 Ondansetron HCl (Ondansetron Hcl 4 Mg/2 Ml Vial) 4 mg IVPUSH Q8H PRN PRN Reason: Nausea and Vomiting Last Admin: 11/12/23 14:14 Dose: 4 mg Documented By: JOSTIN Sodium Chloride (0.9 % Sodium Chloride Flush 3 Ml Syringe) 3 ml IVFLUSH QSHIFT [facility] Last Admin: 11/13/23 07:16 Dose: Not Given Documented By: JORGE Non-Admin Reason: IV Running Labs 11/10/23 05:49 11/13/23 05:33 Labs: Laboratory Results - last 24 hr 11/12/23 11/12/23 11/12/23 10:59 16:15 18:21 Hold Purple Top Anion Gap Estim Creat Clear Calc Estimated GFR POC Glucose 158 H 117 H 138 H Random Glucose Calcium C-Reactive Protein 11/12/23 11/13/23 11/13/23 20:53 05:33 07:18 Hold Purple Top SEE NOTE Anion Gap 13 Estim Creat Clear Calc 46.1 Estimated GFR 37 POC Glucose 186 H 143 H Random Glucose 136 H Calcium 9.3 C-Reactive Protein 0.79 H Assessment and Plan (1) Hydronephrosis: Status: Acute (2) YOBANY (acute kidney injury): Status: Acute (3) Intractable abdominal pain: Status: Acute Plan 5d4 68yo F with DM2, HTN recently discharged from [facility] 4d prior to presentation on ciprofloxacin + metronidazole for possible acute pyelonephritis vs appendicitis presented with 2d of LLQ pain radiating to L falnk pain and found to have YOBANY with L hydroureteronephrosis L hydroureteronephrosis - POD1 cystoscopy, left retrograde, left stent insertion; needs Urology outpt f/u recent pyleonephritis - continue ceftriaxone d5, follow BCx, UCx not sent from ED, try to get microbiology records from [facility] postrenal YOBANY - SCr improved then worse and now improved again; lisinopril still on hold, continue IV fluids; recheck BMP in AM HTN - continue amlodipine DM2 - hold OHGs, continue manuela-dose lispro HLD - statin VTE ppx - SCDs dispo - eventual home In my clinical judgment, the patient requires continued inpatient hospitalization for the following reasons: IV ABX, IV fluids, postop care, YOBANY Total time managing care of this patient today: 35 minutes. Quality Stroke Does the patient have a stroke diagnosis?: No VTE Prior VTE?: No VTE Risk Level:: Medical - moderate - high VTE Device Contraindication: N/A - Device Ordered VTE Drug Contraindication: Treatment Not Indicated
--- NOTE | 2023-11-13 11:01 | MHC.CM.PN ---
Per MD rounds patient not medically cleared for dc. Potential dc tomorrow, home self care. CM will continue to follow.
[2023-11-13 11:32] LABS: Glucose, Whole Blood 190 mg/dL (60-115)
[2023-11-13] MEDS: Insulin Lispro 100 UNIT/ML 3 ML VIAL SUBCUT ×2 (12:02→21:40)
[2023-11-13 13:55] LABS: CDiff Gene PCR NEGATIVE (Negative)
[2023-11-13] MEDS: Loperamide HCl 2 MG CAPSULE PO (14:24)
[2023-11-13 15:55] LABS: Glucose, Whole Blood 133 mg/dL (60-115)
[2023-11-13] MEDS: cefTRIAXone sodium 1 GM in 0.9 % Sodium Chloride 50 ML IV (16:00)
[2023-11-13 20:27] LABS: Glucose, Whole Blood 210 mg/dL (60-115)
[2023-11-13] MEDS: Atorvastatin Calcium 40 MG TABLET PO (21:40)
[2023-11-14] VITALS: BP 137/66; PULSE 60; RESP 16; TEMP 36.4; O2SAT 94
[2023-11-14 04:00] VITALS: BP 124/71; PULSE 59; RESP 18; TEMP 36.1; O2SAT 96
[2023-11-14 07:14] VITALS: BP 122/62; PULSE 54; RESP 16; TEMP 36.4; O2SAT 95
[2023-11-14 07:18] LABS: Glucose, Whole Blood 152 mg/dL (60-115)
[2023-11-14 07:20] LABS: Anion Gap 13 (12-20); Blood Urea Nitrogen 18 mg/dL (9-16); Calcium 9.3 mg/dL (8.4-10.2); Carbon Dioxide 25 mmol/L (22-29); Chloride 109 mmol/L (96-108); Creatinine Clr Calc Pharmacy 49.6; Estimated Glomerular Filt Rate 41; Glucose Random 150 mg/dL (60-115); Potassium 3.9 mmol/L (3.3-5.1); Sodium 143 mmol/L (135-145)
[2023-11-14] MEDS: Insulin Lispro 100 UNIT/ML 3 ML VIAL SUBCUT ×2 (07:49→12:11)
[2023-11-14] MEDS: amLODIPine Besylate 5 MG TABLET PO (07:49)
--- NOTE | 2023-11-14 11:09 | MHC.CM.PN ---
Per MD rounds patient medically cleared for dc home self care. IMM delivered. Patient's family member will transport home ~12pm. RN aware.
[2023-11-14 11:11] LABS: Glucose, Whole Blood 154 mg/dL (60-115)
[2023-11-14 11:50] VITALS: BP 137/81; PULSE 62; RESP 16; TEMP 36.1; O2SAT 94
--- NOTE | 2023-11-14 12:22 | P.DS_ITS ---
DS: Providers Provider Date of Service: 11/14/23 Date of admission: 11/09/23 16:27 Date of discharge: 11/14/23 Primary care physician: Nasim Ryan MD Consults: 11/09/23 16:30 Consult to Urology Routine Consulting Provider: [facility] Reason for consultation: left hydronephrosis Has provider been notified: No DS: Diagnosis Discharge Diagnosis (1) Hydronephrosis: Status: Acute (2) YOBANY (acute kidney injury): Status: Acute (3) Intractable abdominal pain: Status: Acute DS: Summary Hospital Course Hospital Course: From the history and physical by the admitting hospitalist, Phillip Cabrera, 11/09/23: 68-year-old female with past medical history of type 2 diabetes mellitus, hy pertension, history of prior right hydronephrosis recently discharged from [facility] 4 days ago after requiring admission for 2 days for lower abdominal pain and was told to have pyelonephritis/question appendicitis, and was discharged on Cipro 500 b.i.d. and Flagyl 500 q.8 hours, patient came to [facility] due to left lower quadrant abdominal pain radiating to left flank of 2 days' duration, without associated fevers, no chills, no nausea, no vomiting, no urinary urgency, no burning, this morning had diarrhea now resolved, also felt dizzy, workup in the emergency room showed elevated creatinine of 1.7 with with prior creatinine 1.27 in August of 2023, CT abdomen and pelvis showed moderate to severe left renal hydronephrosis and hydroureter, no obstructing stones found, question sequela of recently passed stone versus obstructive lesion in the distal left ureter, rico nephric fat stranding of the left kidney likely sequelae of severe obstruction/backflow, also noted to have prior right hydronephrosis completely resolved, CBC unremarkable, stable electrolytes, blood sugar in 200s, patient is being admitted to [facility] with a diagnosis of YOBANY likely due to left hydro nephrosis and hydroureter with possible obstruction. 68yo F with DM2, HTN recently discharged from [facility] 4d prior to presentation on ciprofloxacin + metronidazole for possible acute pyelonephritis vs appendicitis, but ultimately likely pyelonephritis [urine culture from [facility] reviewed and grew thomason-sensitive E. coli]. She presented with 2d of LLQ pain radiating to L flnk pain and found to have YOBANY with L hydroureteronephrosis. She was admitted to the medical-surgical unit and treated with IV ceftriaxone. Blood cultures negative. Urology was consulted and she underwent cystoscopy, left retrograde, and left stent insertion on 11/12/23. She will need outpatient Urology followup with repeat imaging to be ordered in clinic. YOBANY improved after the procedure. Lisinopril had been held and was resumed at lowered dosing [10 mg/d rather then 30 mg/d] upon discharge. BMP will be repeated in 1 week. Status at Discharge Overall status at discharge: patient is not back to baseline Time Attestation Discharge Coordination Time (in mins): 45 Quality: Safe Use of Opioids Does Pt have an Active Cancer Diagnosis on the Problem List?: No Quality: Stroke Does the patient have a stroke diagnosis?: No Physical Exam Vital Signs: Vital Signs: Last Vital Signs Temp 96.9 F 11/14/23 11:50 Pulse 62 11/14/23 11:50 Resp 16 11/14/23 11:50 BP 137/81 11/14/23 11:50 Pulse Ox 94 11/14/23 11:50 O2 Del Method Room Air 11/14/23 11:50 O2 Flow Rate 6 11/12/23 17:47 BMI result Body Mass Index 30.2 Gen: in no acute distress HEENT: sclera anicteric, moist mucus membranes Neck: supple Lungs: clear to auscultation bilaterally Heart: regular rate and rhythm, no murmurs Abd: soft, non-tender, non-distended Ext: no edema Skin: warm/well-perfused Neuro: alert and oriented x3, no focal findings Psych: appropriate affect DS: Data Data Completed and Pending Completed studies during hospitalization [Text1]: Laboratory Results WBC 6.3 X10*3/uL (4.8-10.8) 11/10/23 05:49 RBC 4.63 X10*6/uL (4.20-5.50) 11/10/23 05:49 Hgb 12.6 g/dl (12.0-16.0) 11/10/23 05:49 Hct 38.0 % (37.0-47.0) 11/10/23 05:49 MCV 82.1 fL (80.0-98.0) 11/10/23 05:49 MCH 27.2 pg (27.0-33.0) 11/10/23 05:49 MCHC 33.2 g/dl (31.0-35.0) 11/10/23 05:49 RDW 13.6 % (11.0-16.0) 11/10/23 05:49 Plt Count 251 X10*3/uL (160-400) 11/10/23 05:49 MPV 8.7 fL (9.4-12.3) L 11/10/23 05:49 Immature Gran % (Auto) 0.4 % (0.0-0.4) 11/09/23 09:17 Neut % (Auto) 64.1 % (45-73) 11/09/23 09:17 Lymph % (Auto) 24.2 % (20-40) 11/09/23 09:17 Iroquois % (Auto) 9.2 % (2-11) 11/09/23 09:17 Eos % (Auto) 1.6 % (0-4) 11/09/23 09:17 Baso % (Auto) 0.5 % (0-2) 11/09/23 09:17 Lymph # (Auto) 1.8 X10*3/uL (1.2-4.9) 11/09/23 09:17 Iroquois # (Auto) 0.7 X10*3/uL (0.1-1.2) 11/09/23 09:17 Eos # (Auto) 0.1 X10*3/uL (0.0-0.4) 11/09/23 09:17 Baso # (Auto) 0.0 X10*3/uL (0.0-0.2) 11/09/23 09:17 Abs Immat Gran (auto) 0.03 X10*3/uL (0.00-0.03) 11/09/23 09:17 Absolute Neuts (auto) 4.8 x10*3/uL (2.0-8.3) 11/09/23 09:17 Absolute Nucleated RBC 0.000 X10*3/uL (0.0-0.012) 11/10/23 05:49 Nucleated RBC % (auto) 0.0 /100WBC (0.0-0.2) 11/10/23 05:49 Hold Purple Top SEE NOTE 11/13/23 05:33 Sodium 143 mmol/L (135-145) 11/14/23 07:00 Potassium 3.9 mmol/L (3.3-5.1) 11/14/23 07:00 Chloride 109 mmol/L (96-108) H 11/14/23 07:00 Carbon Dioxide 25 mmol/L (22-29) 11/14/23 07:00 Anion Gap 13 (12-20) 11/14/23 07:00 BUN 18 mg/dL (9-16) H 11/14/23 07:00 Creatinine 1.31 mg/dL (0.5-1.4) 11/14/23 07:00 Estim Creat Clear Calc 49.6 11/14/23 07:00 Estimated GFR 41 11/14/23 07:00 POC Glucose 154 mg/dL (60-115) H 11/14/23 11:06 Random Glucose 150 mg/dL (60-115) H 11/14/23 07:00 Lactic Acid 1.2 mmol/L (0.5-2.0) 11/09/23 11:33 Calcium 9.3 mg/dL (8.4-10.2) 11/14/23 07:00 Total Bilirubin 0.5 mg/dL (0.0-1.0) 11/09/23 09:17 AST 36 U/L (5-31) H 11/09/23 09:17 ALT 33 U/L (0-31) H 11/09/23 09:17 Alkaline Phosphatase 62 U/L (39-117) 11/09/23 09:17 C-Reactive Protein 0.79 mg/dL (< or = 0.50) H 11/13/23 05:33 Total Protein 7.6 g/dL (6.5-8.0) 11/09/23 09:17 Albumin 4.0 g/dL (3.5-5.0) 11/09/23 09:17 Urine Color Yellow 11/09/23 10:10 Urine Appearance Clear 11/09/23 10:10 Urine pH 5.5 (5.0-9.0) 11/09/23 10:10 Ur Specific Gentry 1.025 (1.005-1.025) 11/09/23 10:10 Urine Protein 300 (3+) mg/dL (Neg-Trace) H 11/09/23 10:10 Urine Glucose (UA) >=1000 mg/dL (Negative) H 11/09/23 10:10 Urine Ketones Negative mg/dL (Negative) 11/09/23 10:10 Urine Blood Negative (Negative) 11/09/23 10:10 Urine Nitrite Negative (Negative) 11/09/23 10:10 Ur Leukocyte Esterase Negative (Negative) 11/09/23 10:10 Urine RBC 0-2 /HPF (0-2) 11/09/23 10:10 Urine WBC 0-5 /HPF (0-5) 11/09/23 10:10 Ur Squamous Epith Cells 3-5 /HPF (0-2) 11/09/23 10:10 Urine Bacteria None Seen (None Seen) 11/09/23 10:10 Hyaline Casts 3-5 /LPF (0-2) 11/09/23 10:10 C. difficile Tox B Gene NEGATIVE (Negative) 11/13/23 12:33 Impressions Abdomen/Pelvis CT 11/09/23 10:47 IMPRESSION: 1. Moderate to severe left renal hydronephrosis and hydroureter, the left ureter is dilated throughout its length into the left ureterovesicular junction, no obstructing stone found, this could be sequela of recently passed stone versus obstructing lesion in the distal left ureter. Perinephric fat stranding of the left kidney likely sequela of severe obstruction/backflow. Attention to follow-up recommended, consider outpatient follow-up urology consultation and or CT urogram or cystoscopy retrograde ureterography. 2. Prior right hydronephrosis completely resolved. Electronically signed by: Dannielle Mack MD 11/09/2023 12:54 PM EDT RP Renal Ultrasound 11/12/23 10:38 IMPRESSION: 1. Interval decrease to Mild left hydronephrosis with echogenic thickened urothelium. 2. Unchanged Mild right renal pelvi-caliectasis. 3. Patent left ureters is demonstrated. Electronically signed by: Abril Diallo MD 11/12/2023 12:05 PM EDT RP Discharge Plan Discharge Anticipated Discharge Date/Time: 11/14/23 12:17 Patient Disposition: Home, Self-Care Discharge Diagnosis: hydroureteronephrosis pyleonephritis Referrals: Banuelos-Shruthi,Corlis, MD [Physician] - 2 Weeks Nasim Ryan MD [Primary Care Provider] - 1 Week Discharge Medications: New cefuroxime axetil 500 mg tablet 500 mg PO BID Qty: 10 0RF lisinopril 10 mg tablet 10 mg PO DAILY Qty: 30 0RF Rx Instructions: replaces prior dose of 30 mg daily Continued atorvastatin 40 mg tablet 1 tab PO BEDTIME glipizide 5 mg tablet extended release 24hr 1 tab PO DAILY amlodipine 5 mg tablet 1 tab PO DAILY cholecalciferol (vitamin D3) 50 mcg (2,000 unit) tablet 50 mcg PO DAILY Jardiance 10 mg tablet 10 mg PO DAILY Discontinued metronidazole 500 mg tablet 500 mg PO TID Rx Instructions: END DATE: 11/19/23 ciprofloxacin HCl 500 mg tablet 500 mg PO Q12H Rx Instructions: END DATE: 11/19/23 lisinopril 30 mg tablet 30 mg PO DAILY Discharge Orders: Discharge Order (Routine); Ordered 11/14/23 Ordered By: Daniella Barrera Diet: Diabetic diet Activity on Discharge: As tolerated Stand Alone Forms: Patient Portal Discharge page Print Language: Estonian Other Ambulatory Orders: Basic Metabolic Panel (Routine) Timeframe: 1 Week Facility: [facility] - Location: Laboratory Ordered By: Daniella Barrera Care Plan Goals: kidney health Health Concerns: hydroureteronephrosis pyleonephritis Plan of Treatment: take cefuroxime axetil 500 mg twice daily for 5 days; stop antibiotics from [facility] [ciprofloxacin and metronidazole] decrease lisinopril from 30 to 10 mg daily for now repeat labs [BMP, non-fasting] in 1 week follow up with [facility] Urology in 2-3 weeks Please follow up with your primary care doctor within 1 week. Return to the hospital if you experience recurrent or worsening symptoms. Assessment: See Discharge Summary.
== END 2023-11-14 13:47 | disposition home or self-care (01) | DRG 661 ==
LOC: HO.ED 15:49 → HO.EDOVER 16:34 → HO.S3 19:27
PROVIDERS: Urology; Admitting Provider Hospitalist; Emergency Provider Emergency Medicine; PCP Internal Medicine; Visit Provider Family Medicine
PROC: 0TJB8ZZ Inspection of Bladder, Via Natural or Artificial Opening Endoscopic (ICD-10-PCS; CPT 52005; principal; 2023-11-12 15:00)
DX: N13.6 Pyonephrosis (principal); I12.9 Hypertensive chronic kidney disease with stage 1 through stage 4 chronic kidney disease, or unspecified chronic kidney disease; N17.9 Acute kidney failure, unspecified; N18.30 Chronic kidney disease, stage 3 unspecified; E11.22 Type 2 diabetes mellitus with diabetic chronic kidney disease; E78.5 Hyperlipidemia, unspecified; Z79.84 Long term (current) use of oral hypoglycemic drugs; Z79.899 Other long term (current) drug therapy
CPT/HCPCS: 36415; 74176; 76775; 80048; 80053; 81001; 82947; 83605; 85025; 85027; 86140; 87040; 87493; 99285; C2617; J0696; J1170; J1885; J2270; J2405; J2543; J2704; J3010; J7120; Q9967

== ENCOUNTER → 2023-11-09 16:27 | Outpatient (BNV) | payer MEDICARE, SELFPAY | PROVIDERS: Admitting Provider Hospitalist; Emergency Provider Emergency Medicine; PCP Internal Medicine; Visit Provider Hospitalist | DX: N17.9 Acute kidney failure, unspecified (principal); N13.30 Unspecified hydronephrosis; R10.9 Unspecified abdominal pain | CPT/HCPCS: 99223; 99232; 99233; 99239 ==

== ENCOUNTER → 2023-11-09 16:27 | Outpatient (BNV) | payer MEDICARE, SELFPAY | PROVIDERS: Admitting Provider Hospitalist; Emergency Provider Emergency Medicine; PCP Internal Medicine; Visit Provider Urology | DX: N13.30 Unspecified hydronephrosis (principal); N13.4 Hydroureter | CPT/HCPCS: 52332; 74420; 99222 ==

== ENCOUNTER 2023-11-20 08:39 | Outpatient (REF) | payer MEDICARE, SELFPAY ==
[2023-11-20 10:06] LABS: Estimated Average Glucose 177 mg/dL; Hemoglobin A1C 216.9639 umol/L; Hemoglobin A1c % 7.8 % (<6.0); Total Hemoglobin (HGBA1C) 3535.2727 umol/L
[2023-11-20 10:17] LABS: Alanine Aminotransferase 22 U/L (0-31); Albumin Level 4.1 g/dL (3.5-5.0); Alkaline Phosphatase 61 U/L (39-117); Anion Gap 14 (12-20); Aspartate Amino Transferase 19 U/L (5-31); Bilirubin Total 0.8 mg/dL (0.0-1.0); Blood Urea Nitrogen 19 mg/dL (9-16); Calcium 9.9 mg/dL (8.4-10.2); Carbon Dioxide 26 mmol/L (22-29); Chloride 107 mmol/L (96-108); Cholesterol 174 mg/dL (<200); Estimated Glomerular Filt Rate 46; Glucose Fasting 113 mg/dL (60-99); HDL Cholesterol 37 mg/dL (>40); LDL Cholesterol Calculated 88 mg/dL (<100); Sodium 143 mmol/L (135-145); Total Protein 7.9 g/dL (6.5-8.0); Triglycerides 247 mg/dL (<150)
== END 2023-11-20 08:40 | disposition home or self-care (01) ==
LOC: HO.LAB 08:39
PROVIDERS: PCP Internal Medicine; Visit Provider Internal Medicine
DX: E11.9 Type 2 diabetes mellitus without complications (principal); I10 Essential (primary) hypertension; E78.00 Pure hypercholesterolemia, unspecified
CPT/HCPCS: 36415; 80053; 80061; 83036

== ENCOUNTER 2023-12-13 09:01 | Outpatient (AMB) | payer MEDICARE, SELFPAY ==
--- NOTE | 2023-12-13 09:10 | MHC.OFFVIS ---
Intake Visit Reasons: Cysto stent removal Intake Note: Patient is present for Cystoscopy/Stent Removal Urology Medication:none Antibiotic Allergy:none Blood Thinner:none Lot:[id number] Exp:12/22/26 Greenhouse Specialist Required: No Allergies No Known Allergies Allergy (Verified 12/13/23 09:12) HPI Comments Details: Minerva is a 68 year old female who was initially evaluated in the [facility] in consultation due to left flank pain, left hydronephrosis and left pyelonephritis. Left ureteral stent was placed. She states she has had recurrent UTI's and pyelo in the past. Cystoscopy left ureteral stent removed without difficulty. Plan renal US in 3 months. [facility] Medical History CKD (chronic kidney disease) stage 3, GFR 30-59 ml/min Elevated cholesterol Nephrolithiasis Diabetes mellitus, type 2 Pre-diabetes High blood pressure Surgical History Hx of colonoscopy H/O: hysterectomy Social History Household Members: Family Housing: House Are you a primary child care nurse to a significant other at home: No Do you presently have visiting nurse or other home services: No Alcohol intake: never Patient Tobacco Use Status: Never used Tobacco e-Cigarette/Vaping Use: Never Used Second Hand Smoke Exposure: No service: No Current occupational status: employed 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 Review of Systems Const All systems reviewed & are unremarkable except as noted in HPI and below Reports no additional complaints Eyes Reports no additional complaints ENT Reports no additional complaints Card Reports no additional complaints Resp Reports no additional complaints GI Reports no additional complaints Reports as per HPI Musc Reports no additional complaints Skin/Breast Reports system reviewed and no additional complaints, except as documented Neuro Reports no additional complaints Psych Reports no additional complaints Endo Reports no additional complaints Saud/Lymph Reports no additional complaints Aller/Immun Reports no additional complaints Office Procedures Cystoscopy Consent Discussed risk and benefit or proposed procedure with the patient. Information consent for procedure given to the patient. Discussed technical aspects, risks, benefits and alternatives in full. Addressed all of the patient's questions and concerns regarding the procedure. The patient demonstrated knowledge and understanding. They wish to proceed with this procedure. Preparation The patient was prepped in the usual manner. A lead ruby on rails developer was present and in the room. Genitalia was prepped with betadine solution in a sterile manner. Lidocaine Jelly 2% was placed into the urethra and 16Fr flexible Olympus cystoscope was inserted into the meatus after adequate lubrication. Procedure Time out per protocol performed. Bladder Inspection Cystoscopy findings: mild edema ureteral orifice which is expected, distal end of ureteral stent visualized. The grasping forceps were used and the stent was removed without difficulty. [id number] with stent removal DISPOSABLE SCOPE URO-G FLEXIBLE SCOPE Procedure code (CPT) selection complete Office Meds lidocaine HCl 2 % mucosal jelly in applicator Performing Provider: Beena Wright MD Performing Location[facility] Administered by: Rudy Giron LPN on 12/13/23 09:22 Dose Route Admin Location Dispensed Lot Number Expiration Date [facility][NOTE 3] Behavioral Health Technician 10 mL intra-urethral 10 mL naproxen 500 mg tablet Performing Provider: Beena Wright MD Performing Location: [facility] Administered by: Rudy Giron LPN on 12/13/23 09:22 Dose Route Admin Location Dispensed Lot Number Expiration Date [facility][NOTE 3] Behavioral Health Technician 500 mg PO 1 tab ciprofloxacin HCl 500 mg tablet Performing Provider: Beena Wright MD Performing Location: [facility] Administered by: Rudy Giron LPN on 12/13/23 09:22 Dose Route Admin Location Dispensed Lot Number Expiration Date [place] Behavioral Health Technician 500 mg PO 1 tab Results AMB Urinalysis, Automated UA Leukoctes 0 Elizabeth/uL Last Edit by DORINDA Holbrook on 12/13/23 09:22 UA Nitrite Negative Last Edit by DORINDA Holbrook on 12/13/23 09:22 UA Urobilinogen 0.2 mg/dL Last Edit by DORINDA Holbrook on 12/13/23 09:22 UA Protein 30 mg/dL Last Edit by DORINDA Holbrook on 12/13/23 09:22 UA pH 6.0 Last Edit by DORINDA Holbrook on 12/13/23 09:22 UA Blood 80 Moustapha/uL Last Edit by DORINDA Holbrook on 12/13/23 09:22 UA Specific Sanibel 1.015 Last Edit by DORINDA Holbrook on 12/13/23 09:22 UA Ketone Negative Last Edit by DORINDA Holbrook on 12/13/23 09:22 UA Bilirubin 0 mg/dL Last Edit by DORINDA Holbrook on 12/13/23 09:22 UA Glucose 0 mg/dL Last Edit by DORINDA Holbrook on 12/13/23 09:22 Results Reviewed Results Reviewed: Laboratory Last Values Urine pH (Auto) 6.0 12/13/23 09:21 Specific Sanibel (Auto) 1.015 12/13/23 09:21 Urine Protein (Auto) 30 mg/dL 12/13/23 09:21 Glucose (UA)(Auto) 0 mg/dL 12/13/23 09:21 Urine Ketones (Auto) Negative 12/13/23 09:21 Urine Blood (Auto) 80 Moustapha/uL 12/13/23 09:21 Urine Nitrite (Auto) Negative 12/13/23 09:21 Urine Bilirubin (Auto) 0 mg/dL 12/13/23 09:21 Urine Urobilinogen (Auto) 0.2 mg/dL 12/13/23 09:21 Leukocyte Esterase (Auto) 0 Elizabeth/uL 12/13/23 09:21 Date of Service: 11/09/23 EXAMINATION: CT ABDOMEN PELVIS WITHOUT IV CONTRAST CLINICAL INFORMATION: abd pain, ??appendicitis COMPARISON: Prior CT 2020 TECHNIQUE: Multidetector volumetric imaging was performed from the superior aspect of the liver through the pubic symphysis IV contrast administered. Sagittal and coronal reformatted images were obtained on the technologist's workstation. This CT examination was performed using dose optimization techniques as appropriate, variously including the following: *Automated exposure control *Adjustment of mA and/or kV according to patient size (this includes techniques or standardized protocols for targeted exams where dose is matched to indication/reason for exam; i.e. extremities or head) *Use of iterative reconstruction technique DLP: 620 mGy-cm FINDINGS: LOWER THORAX: Included lung bases are clear. HEPATOBILIARY: No focal hepatic lesions. No biliary ductal dilatation. GALLBLADDER: Gallbladder unremarkable. SPLEEN: Spleen is normal in size. PANCREAS: No focal mass or ductal dilatation. STOMACH AND GASTROINTESTINAL TRACT: Stomach is grossly unremarkable. There is no bowel distention or thickening. No CT evidence of appendicitis. ADRENALS: No adrenal nodules. KIDNEYS/URETERS: Moderate to severe left renal hydronephrosis and hydroureter, the left ureter is dilated throughout its length into the left ureterovesicular junction, no obstructing stone found, this could be sequela of recently passed stone versus obstructing lesion in the distal left ureter. Perinephric fat stranding of the left kidney likely sequela of severe obstruction/backflow. Right kidney is normal. Prior right hydronephrosis completely resolved. URINARY BLADDER: Partially decompressed. PELVIC VISCERA: Unremarkable PERITONEUM: No free air or fluid. LYMPH NODES: No lymphadenopathy. VASCULAR:Abdominal aorta normal in size, no aneurysm found. BONES, ABDOMINAL WALL AND SOFT TISSUES: Spondylosis of the thoracolumbar spine otherwise unremarkable. IMPRESSION: 1. Moderate to severe left renal hydronephrosis and hydroureter, the left ureter is dilated throughout its length into the left ureterovesicular junction, no obstructing stone found, this could be sequela of recently passed stone versus obstructing lesion in the distal left ureter. Perinephric fat stranding of the left kidney likely sequela of severe obstruction/backflow. Attention to follow-up recommended, consider outpatient follow-up urology consultation and or CT urogram or cystoscopy retrograde ureterography. 2. Prior right hydronephrosis completely resolved. Assessment & Plan Assessment & Plan (1) Hydronephrosis: Code(s): N13.30 - Unspecified hydronephrosis Category: Medical (2) Pyelonephritis: Code(s): N12 - Tubulo-interstitial nephritis, not specified as acute or chronic Category: Medical Plan Left ureteral stent removed today. FU renal US in 3 months Orders: Orders AMB Urinalysis Automated Today Z13.9 - Encounter for screening, unspecified AMB Cystoscopy Today N12 - Tubulo-interstitial nephritis, not specified as acute or chronic, N13.30 - Unspecified hydronephrosis US renal BI 3 Months N12 - Tubulo-interstitial nephritis, not specified as acute or chronic, N13.30 - Unspecified hydronephrosis Urine Culture Today N39.0 - Urinary tract infection, site not specified Patient Instructions: The patient had an opportunity to ask questions regarding treatment plan. The patient expressed understanding and agreement with the above treatment plan. The patient is aware they should contact our office by phone for worsening of their current condition or the appearance of new symptoms. Compliance is encouraged with any medications and followup testing that is ordered. It is a privilege to be allowed the opportunity to participate in the urologic care of your patient. If you have any questions or concerns regarding treatment for the above conditions please do not hesitate to contact me. The office telephone contact is [phone]. This note is constructed in part using voice recognition software. While every effort has been made to ensure accuracy clothes model errors may have been included. Yours sincerely, Beena Wright MD Coding Level of Care Code Est Pt Level 3 (82077) Diagnoses Hydronephrosis N13.30 Pyelonephritis N12 CPT Codes Cystoscopy - CPT: 68296-Snxrgogzso with stent removal ([id number])
== END 2023-12-13 10:06 | disposition home or self-care (01) ==
PROVIDERS: PCP Internal Medicine; Visit Provider Urology
DX: N13.30 Unspecified hydronephrosis (principal); N12 Tubulo-interstitial nephritis, not specified as acute or chronic; Z96.0 Presence of urogenital implants; Z13.9 Encounter for screening, unspecified
CPT/HCPCS: 52310

== ENCOUNTER 2023-12-13 09:01 | Outpatient (REF) | payer MEDICARE, SELFPAY | END 2023-12-13 09:02 | disposition home or self-care (01) | LOC: HO.LNP 09:01 | PROVIDERS: PCP Internal Medicine; Visit Provider Urology | DX: N39.0 Urinary tract infection, site not specified (principal); N13.30 Unspecified hydronephrosis; N12 Tubulo-interstitial nephritis, not specified as acute or chronic; Z13.9 Encounter for screening, unspecified | CPT/HCPCS: 52310; 81003; 87086 ==

== ENCOUNTER 2024-02-05 10:38 | Outpatient (REF) | payer MEDICARE, SELFPAY | END 2024-02-05 10:39 | disposition home or self-care (01) | LOC: HO.MAMMO 10:38 | PROVIDERS: PCP Internal Medicine; Visit Provider Internal Medicine | DX: Z12.31 Encounter for screening mammogram for malignant neoplasm of breast (principal) | CPT/HCPCS: 77063; 77067 ==

== ENCOUNTER → 2024-02-05 11:00 | Outpatient (BNV) | payer MEDICARE, SELFPAY | PROVIDERS: PCP Internal Medicine; Visit Provider Internal Medicine | DX: Z12.31 Encounter for screening mammogram for malignant neoplasm of breast (principal) | CPT/HCPCS: 77063; 77067 ==

== ENCOUNTER 2024-03-02 09:52 | Outpatient (REF) | payer MEDICARE, SELFPAY ==
--- NOTE | ~2024-03-02 | US_ITS ---
CLINICAL HISTORY: N13.30 - Unspecified hydronephrosis US renal with Color Doppler Comparison: None Findings: Right kidney normal size and mildly echogenic, 11.1 cm length. No hydronephrosis calculus or mass. Normal color flow. Left kidney normal size and mildly echogenic, 11.8 cm length. No hydronephrosis calculus or mass. Normal color flow. Incidental parapelvic cyst measuring 9 x 9 x 9 mm. Impression: 1. Slightly echogenic renal cortex reflecting nonspecific medical renal disease. No nephrolithiasis or hydronephrosis. Incidental parapelvic cyst on the left. This document has been electronically signed by: Lionel Krause MD on 03/03/2024 12:58:21
== END 2024-03-02 09:53 | disposition home or self-care (01) ==
LOC: HO.HMGCX 09:52
PROVIDERS: PCP Internal Medicine; Visit Provider Urology
DX: N13.30 Unspecified hydronephrosis (principal); N12 Tubulo-interstitial nephritis, not specified as acute or chronic
CPT/HCPCS: 76775

== ENCOUNTER → 2024-03-02 09:57 | Outpatient (BNV) | payer MEDICARE, SELFPAY | PROVIDERS: PCP Internal Medicine; Visit Provider Radiology Diagnostic Radiology | DX: N13.30 Unspecified hydronephrosis (principal) | CPT/HCPCS: 76775 ==

== ENCOUNTER → 2024-03-13 10:10 | Outpatient (BNVA) | payer MEDICARE, SELFPAY | PROVIDERS: PCP Internal Medicine; Visit Provider Urology | DX: Z87.442 Personal history of urinary calculi (principal); Z87.448 Personal history of other diseases of urinary system | CPT/HCPCS: 81003; 99212 ==

== ENCOUNTER 2024-04-30 14:59 | Outpatient (REF) | payer MEDICARE, SELFPAY ==
--- NOTE | ~2024-04-30 | XR_ITS ---
EXAMINATION: XR SHOULDER 2 OR MORE VIEWS LEFT HISTORY: M25.512 - Pain in left shoulder COMPARISON: There are no prior studies available for comparison. FINDINGS: Four views of the left shoulder are submitted. Osseous mineralization is normal. There is no fracture or dislocation. The glenohumeral and acromioclavicular joint spaces are maintained. There is a soft tissue calcification adjacent to the inferior glenoid. XR/XR shoulder LT min 2V IMPRESSION: Soft tissue calcification adjacent to the inferior glenoid. Otherwise unremarkable examination of the left shoulder. Electronically signed by: Herb Jacobs MD 05/01/2024 08:43 AM EDT
--- OUTSIDE RECORDS SUMMARY | 2024-04-30 18:45 | XMS_ITS | Patient Health Record ---
[facility] Address [address] [place] [address] Care Team Providers Care Pie Maker Machine Name Role Phone Nasim Ryan MD Primary Care Provider Daniel Claire Unavailable [phone] Allergies No Known Allergies Reason For Referral No Information Medications Medication SIG (Take, Route, Frequency, Duration) Notes [...] Splint AFO - L1930 as directed Not-Taking Immunizations Vaccine Route Administration Date Status Comme nts Influenza Unknown 11/19/2019 Administered Social History Tobacco Use: Social History Observation Description Date Details (start date - stop date) Never Smoker NA - NA Tobacco Use/Smoking Question Answer Notes Are you [...] Are you an other tobacco user? No Problems Problem Type SNOMED Code ICD Code Onset Dates Problem Status W/U Status Risk Notes Problem Acquired hammer toe of right foot (9363764636778672 ) Other hammer toe(s) (acquired), right foot (M20.41) Active confirmed Problem Acquired hammer toe of left foot (4802530968502563 ) Other hammer toe(s) (acquired), left foot (M20.42) Active confirmed Problem Polyneuropathy due to type 2 diabetes mellitus (099441127) Type 2 diabetes mellitus with diabetic polyneuropathy (E11.42) Active confirmed Problem [id number] Type 2 diabetes mellitus without complication, without long-term current use of insulin (E11.9) Active confirmed Encounters Encounter Location Date Provider Diagnosis [facility] [address] 06/25/2023 Daniel Sr [facility] [address] 07/23/2023 Daniel Sr Plan Of Treatment Pending Test Test Name Order Date X ray : Foot, left 3V 07/06/2022 [id number] SKIN LESIONS, 2 TO 4 08/25/19 23 Insurance Providers Payer Name Payer Address Payer Phone Subscriber Number Group Number Insured Name Patient Relationship to Insured Coverage Start Date Coverage End Date [facility] [address] [place] [address] [id number] Minerva Szymanski Self - patient is the insured [employer] [address] [place] [phone] [id number] Minerva Szymanski Self - patient is the insured 3 Medical (General) History Medical History History ICD Code Back,Hip,and Knee pain Cholesterol Diabetic High blood pressure Kidney disease Chicken pox Surgical History Surgery Date(Month/Year) hysterectomy
--- OUTSIDE RECORDS SUMMARY | 2024-04-30 18:45 | XMS_ITS | Clinical Summary ---
Author Organization [facility] Address [address] [facility] [address] [place] [address] Phone Care Team Providers Care Door Repairman Name Role Phone Nasim Ryan MD Primary Care Provider [phone] Allergies No known active allergies Medications amLODIPine (NORVASC) 5 MG tablet Take 5 mg by mouth 1 (one) time each day Active Aspirin Buf,CaCarb-MgCar b-MgO, 81 MG tablet Take 81 mg by mouth 2 (two) times a week 11/15/2015 Active atorvastatin (LIPITOR) 40 MG tablet Take 40 mg by mouth 1 (one) time each day Active glipiZIDE (GLUCOTROL XL) 2.5 MG 24 hr tablet Take 5 mg by mouth 1 (one) time each day Active metFORMIN (GLUCOPHAGE) 500 MG tablet Take 1 tablet by mouth 1 (one) time each day Active metoprolol tartrate (LOPRESSOR) 25 MG tablet Take 1 tablet by mouth 1 (one) time each day Active cholecalciferol (VITAMIN D-3) 50 MCG (2000 UT) tablet TAKE 1 TABLET BY MOUTH EVERY DAY NOT COVERED 90 tablet 1 05/22/2022 Active lisinopril (PRINIVIL,ZESTRI L) 30 MG tablet TAKE 1 TABLET BY MOUTH 1 TIME EACH DAY. 90 tablet 3 11/07/2023 Active Active Problems Problem Noted Date Diagnosed Date Overweight 07/19/2020 Stage 3b chronic kidney disease 06/07/2020 Hypertensive disorder 06/07/2020 Hypertensive heart and renal disease with (congestive) heart failure 06/07/2020 Proteinuria 06/07/2020 Renal disorder due to type 2 diabetes mellitus 0 06/07/2020 Dyslipidemia 02/24/2015 Resolved Problems Problem Noted Date Diagnosed Date Resolved Date Serum creatinine above reference range 06/07/2020 07/19/2020 Body mass index 30+ - obesity 10/27/2018 07/19/2020 Immunizations Name Administration Dates Next Due Influenza TIV (IM) 11/15/2015,11/22/2014 Influenza, MDCK, Quadrivalent, with preservative 11/29/2016 Pneumococcal Conjugate 13-Valent 11/15/2015 Tdap 10/07/2012 Family History Relation Status Comments Father Unknown Mother Unknown Social History Tobacco Use Types Packs/Day Years Used Date Smoking Tobacco: Unknown Smokeless Tobacco: Never Comments Unknown Sex and Gender Information Value Date Recorded Sex Assigned at Not on file Legal Sex Female 5:11 PM EST Gender Identity Not on file Sexual Orientation Not on file Last Filed Vital Signs Vital Sign Reading Time Taken Comments Blood Pressure 134/72 07/23/2023 9:01 AM EDT Pulse 68 07/23/2023 9:01 AM EDT Temperature - - Respiratory Rate - - Oxygen Saturation 96% 07/23/2023 9:01 AM EDT Inhaled Oxygen Concentration - - Weight 94.6 kg (208 lb 9.6 oz) 07/23/2023 9:01 A M EDT Height 172.7 cm (5' 8 ) 06/12/2022 8:13 AM EDT Body Mass Index 31.72 06/12/2022 8:13 AM EDT Plan of Treatment Health Maintenance Due Date Last Done Comments Breast Cancer Screening 1955 Colorectal Cancer Screening: Annual FOBT 2006 Colorectal Cancer Screening: Colonoscopy 2006 Colorectal Cancer Screening: Sigmoidoscopy 2006 Pneumococcal Vaccine: 65+ Years (2 of 2 - PPSV23 or PCV20) 01/10/2016 11/15/2015 Diabetes: Ophthalmology Exam 03/18/2020 Diabetes: Pedal Pulse Checked 03/18/2020 Diabetes: Sensory Foot Exam 03/18/2020 Diabetes: Visual Foot Exam 03/18/2020 Diabetes: Hemoglobin A1C 09/04/2022 023, 08/18/2021 Influenza Vaccine (#1) 2023 7, 11/15/2015, 11/22/2014 Hepatitis B Vaccine Aged Out No longe r eligible based on patient's age to complete this topic Procedures Procedure Name Priority Date/Time Associated Diagnosis Comments HEMOGLOBIN A1C Routine 06/05/2022 8:31 AM EDT Stage 3b chronic kidney disease (HCC) Other hyperlipidemia Hypertensive disorder Hypertensive heart and renal disease with (congestive) heart failure (HCC) Renal disorder due to type 2 diabetes mellitus <Diabetic nephropathy> (HCC) Persistent proteinuria Overweight from Last 3 Months or Most Recently Relevant to Health Maintenance Results * (ABNORMAL) Hemoglobin A1c (06/05/2022 8:31 AM EDT) Hemoglobin A1C 8.5(H) (4.0-5.6) % [facility] Comment: MONITORING: In known diabetic patients, hemoglobin A1c targets should be discussed with health care provider. DIAGNOSTIC USE: ??The [place] Diabetes Association (ADA) and the World Health Organization (WHO) recommend the use of HbA1c to diagnose diabetes using a threshold of 6.5%. Patients who have an HbA1c between 5.7% and 6.4% are considered at increased risk for developing diabetes in the future. CAUTION: Falsely low HbA1c results may be observed in patients with hemolytic anemia, homozygous forms of abnormal hemoglobin (e.g. SS, CC, SC), , recent blood loss or hemoglobin F greater than 7%. Fructosamine may be used as an alternate test in these cases. REFERENCE: ADA: Standards of Medical Care in Diabetes 2020, The Journal of Clinical and Applied Research and Education Volume 43, Supplement 1 Testing performed or reported by [facility], a Service of [facility], [address] [place] [address] Vamsi Magaña MD, Dance Teacher [facility]# [id number] Blood (Blood, Venous) 06/05/2022 8:31 AM EDT 06/05/2022 8:33 AM EDT us Michael Barnes MD LAB BLOOD ORDERABLES Final Re sult [facility] from Last 3 Months or Most Recently Relevant to Health Maintenance Insurance MEDIC[facility] MEDIC[facility] Care Teams Door Repairman Relationship Specialty Start Date End Date Nasim Ryan MD [address] [place] [address] [address] [place] MENDOZA PCP - General 02/29/20
--- OUTSIDE RECORDS SUMMARY | 2024-04-30 18:45 | XMS_ITS | Encounter Summary ---
Author Organization [facility] Address [address] [place] [address] Phone Care Team Providers Care Construction Economist Name Role Phone Nasim Ryan MD Primary Care Provider [phone] Encounter Details Date Type Department Care Team ([facility] Contact Info) Description 06/12/2022 Telephone [facility] [address] [place] [address] Caro Rios Social History Tobacco Use Types Packs/Day Years Used Date Smoking Tobacco: Unknown Smokeless Tobacco: Never Comments Unknown Sex and Gender Information Value Date Recorded Sex Assigned at Not on file Legal Sex Female 5:11 PM EST Gender Identity Not on file Sexual Orientation Not on file documented as of this encounter Miscellaneous Notes * Telephone Encounter - Caro Rios - 06/12/2022 10:10 AM EDT Please call Inessa from [facility] on [facility], , she says she has a couple of questions she needs to run by you. documented in this encounter Plan of Treatment Not on file documented as of this encounter Visit Diagnoses Not on filedocumented in this encounter Care Teams Construction Economist Relationship Specialty Start Date End Date Nasim Ryan MD [address] [facility] [address] [place] PCP - General 02/29/20 documented as of this encounter
--- OUTSIDE RECORDS SUMMARY | 2024-04-30 18:46 | XMS_ITS | Clinical Summary ---
Author Organization [facility] it Address [address] [place] [address] Care Team Providers Care Profiling Machine Set Up Operator Tool Name Role Phone Nasim Ryan MD Primary Care Provider [phone] Surgical History Surgery Date Site/Laterality Comments OTHER SURGICAL HISTORY PROCEDURE: HISTORICAL VAGINAL HYSTERECTOMY WITH BSO Medical History Medical History Date Comments Type 2 diabetes mellitus wit h renal manifestations ([facility]/HCC) 07/23/2014 DX:Type 2 diabetes mellitus with renal manifestations ([facility]) Proteinuria 09/09/2018 DX:Proteinuria CKD (chronic kidney disease) stage 3, GFR 30-59 ml/min (CMS/HCC) 03/19/2014 DX:CKD (chronic kidney dise ase) stage 3, GFR 30-59 ml/min ([facility]) HTN (hypertension) 03/19/2014 DX:HTN (hyper tension) Hyperlipidemia 02/24/2015 DX:Hyperlipidemi a LVH (left ventricular hypertrophy) 03/19/2014 DX:LVH (left ventricular hypertrophy); COMMENT: Normal EF and negative nuclear Syphilis contact, treated 07/21/2014 DX:Syp hilis contact, treated; COMMENT: Treated during her 20s after with several months of injected penicillin Venous insufficiency (chroni c) (peripheral) 07/21/2014 DX:Venous insufficiency (chr onic) (peripheral) Obesity (BMI 30-39.9) 10/27/2018 DX:Obesity (BMI 30-39.9) Family History Medical History Relation Name Comments Breast cancer Neg Hx Relation Name Status Comments Brother 1 Alive Brother 2 Alive Brother 3 Alive stomach cancer Brother 4 Alive CAD Father CVA, DM Mother htn, DM, blood clots, dementia Sister 1 Alive Sister 2 Alive Sister 3 Alive Sister 4 Alive Son 1 Alive Son 2 Alive brain tumor Social History Tobacco Use Types Packs/Day Years Used Date Smoking Tobacco: Never Smokeless Tobacco: Never Alcohol Use Standard Drinks/Week Comments No 0 (1 standard drink = 0.6 oz pur e alcohol) Comments Unknown Sex and Gender Information Value Date Recorded Sex Assigned at Not on file Legal Sex Female 4:54 AM EST Gender Identity Not on file Sexual Orientation Not on file Obstetrics History Plan of Treatment Health Maintenance Due Date Last Done Comments Diabetes: Annual GFR (Glomerular Filtration Rate) 1957 Diabetes: Annual Foot Exam 1967 Diabetes: Annual Retina Eye Exam 1967 Zoster Vaccines (1 of 2) 2007 Pneumococcal Vaccine: 50+ Years (2 of 2 - PPSV23) 11/14/2016 11/15/2015 RSV Immunization Patients 60+ Years Old (1 - Risk 60-74 years 1-dose series) 2017 Breast Cancer Screening 12/11/2021 12/12/19, 12/06/2018, 11/30/2017, Additional history exists Cholesterol Screening (Lipid Panel) 01/21/2022 Colorectal Cancer Screening: Colonoscopy 01/21/2022 Depression Screening 01/21/2022 Hepatitis C Screening 01/21/2022 Osteoporosis Screening (Bone Density Screening) 01/21/2022 Social Influencers of Health Screening 01/21/2022 Diabetes: Annual Urine Albumin-Creatinine Ratio (uACR) 02/03/2022 Diabetes: Blood Sugar Control Test (HGBA1C) 02/03/2022 Hypertension/CHF/CAD Annual BMP Blood Test 02/03/2022 Falls Risk Assessment 2022 DTaP,Tdap,and Td Vaccines (2 - Td or Tdap) 10/07/2022 10/07/2012 COVID-19 Vaccine ( season) 2023 Influenza Vaccine (#1) 2023 7, 11/15/2015, 11/22/2014 HIB Vaccines Aged Out No longer eligi ble based on patient's age to complete this topic HPV Vaccines Aged Out No longer eligi ble based on patient's age to complete this topic Hepatitis A Vaccines Aged Out No long er eligible based on patient's age to complete this topic Hepatitis B Vaccines Aged Out No long er eligible based on patient's age to complete this topic IPV Vaccines Aged Out No longer eligi ble based on patient's age to complete this topic MMR Vaccines Aged Out No longer eligi ble based on patient's age to complete this topic Meningococcal ACWY Vaccine Aged Out N o longer eligible based on patient's age to complete this topic Meningococcal B Vacine Aged Out No lo nger eligible based on patient's age to complete this topic RSV Immunization Patients Under 20 months Aged Out No longer eligible based on patient's age to complete this topic Varicella Vaccines Aged Out No longer eligible based on patient's age to complete this topic Procedures Procedure Name Priority Date/Time Associated Diagnosis Comments SCR MAMMO BI INCL CAD Routine 12/12/2019 9:42 AM EDT Encounter for screening mammogram for malignant neoplasm of breast from Last 3 Months or Most Recently Relevant to Health Maintenance Results * SCR MAMMO BI INCL CAD (12/12/2019 9:42 AM EDT) Anatomical Region Laterality Modality Radiographic Jo ging 12/06/2018 9:47 AM EDT Narrative 12/14/2019 5:00 PM EDT This is a summary report. The complete report is available in the patient's medical record. If you cannot access the medical record, please contact the sending organization for a detailed fax or copy. Exam: Screening mammogram Findings: Digital bilateral full-field screening mammography is performed and interpreted with the aid of computer-aided detection. ??Comparison is made with 12/06/2018 and as far back as 10/12/2013. Breast parenchyma is composed of scattered fibroglandular densities. ??No new suspicious mass, architectural distortion, or suspicious calcifications. Impression: No mammographic evidence of malignancy. BI-RADS 1 - negative Procedure Note Tegan Vincent MD - 02/06/2022 This is a summary report. The complete report is available in thepatient's medical record. If you cannot access the medical record, pleasecontact the sending organization for a detailed fax or copy. Exam: Screening mammogram Findings: Digital bilateral full-field screening mammography is performedand interpreted with the aid of computer-aided detection. Comparison ismade with 12/06/2018 and as far back as 10/12/2013. Breast parenchyma is composed of scattered fibroglandular densities. Nonew suspicious mass, architectural distortion, or suspiciouscalcifications. Impression: No mammographic evidence of malignancy. BI-RADS 1 - negative us Nasim Ryan MD IMG XR PROCEDURES Final Resul t from Last 3 Months or Most Recently Relevant to Health Maintenance Care Teams Profiling Machine Set Up Operator Tool Relationship Specialty Start Date End Date Nasim Ryan MD [address] [place] [address] Dr Alexys [place] PCP - General 11/12/23
--- OUTSIDE RECORDS SUMMARY | 2024-04-30 18:46 | XMS_ITS | Encounter Summary ---
Author Organization [facility] Address [address] [place] [address] Phone Care Team Providers Care Regulatory Compliance Specialist Name Role Phone Nasim Ryan MD Primary Care Provider [phone] Encounter Details Date Type Department Care Team (Late st Contact Info) Description 06/12/2022 Telephone [facility] [address] [place] [address] Caro Rios Social History Tobacco [...] Telephone Encounter - Caro Rios - 06/12/2022 9:30 AM EDT Pt says that her Lisinopril was sent to the wrong pharmacy, she is requesting the script tot be sent to [facility] in [place]. documented in this encounter Plan of Treatment Not on file documented as of this encounter Visit Diagnoses Not on filedocumented in this encounter Care Teams Regulatory Compliance Specialist Relationship Specialty Start Date End Date Nasim Ryan MD [address] [place] PCP - General 02/29/20 documented as of this encounter
--- OUTSIDE RECORDS SUMMARY | 2024-04-30 18:46 | XMS_ITS ---
Author Organization [facility] Melody [facility]on [place] Address [address] [place] [address] Care Team Providers Care Strategy Intern Name Role Phone Nasim Ryan MD Primary Care Provider Daniel Claire [phone] REASON FOR VISIT Surgeon Referral Encounters Encounter Location Date Provider Diagnosis [facility] [address] [place] [address] 06/25/2023 Daniel Sr Plan Of Treatment No Information Progress Notes * Minerva MURRAYDOB: [birth year] (68 yo F)Acc No.[id number]:06/25/2023 Patient:?Trevor Minerva :1955???Age:68 Y???Sex:Female Address:[address] [place] [address], [address], [place] [address] * true * Date:? Generated for Waynei zoya/Sheyla/eTransmitting on:?04/30/2024 06:45 PM EDT
--- OUTSIDE RECORDS SUMMARY | 2024-04-30 18:46 | XMS_ITS | Patient Health Record ---
Author Organization [facility] Address [address] [place] [address] Care Team Providers Care Pediatric Dietician Name Role Phone Nasim Ryan MD Primary Care Provider Juan Almonte Jr Unavailable Allergies No Known Allergies Reason For Referral [...] TWICE A DAY Oral for 90 Active Social History Tobacco Use: Social History Observation Description Date Details (start date - stop date) Never Smoker NA - NA Tobacco Use/Smoking Question Answer Notes Patient is [...] Never (0 point) Points 0 Interpretation Negative Problems Problem Type SNOMED Code ICD Code Onset Dates Problem Status W/U Status Risk Notes Problem 918869079 Colon cancer screening (Z12.11) Active confirmed Problem 687886802 Encounter for other preprocedural examination (Z01.818) Active confirmed Problem [id number] USP (current) use of oral hypoglycemic drugs (Z79.84) Active confirmed Plan Of Treatment Future Test Test Name Order Date COLONOSCOPY 05/31/2022 Insurance Providers Payer Name Payer Address Payer Phone Subscriber Number Group Number Insured Name Patient Relationship to Insured Coverage Start Date Coverage End Date [facility] [address] [facility] [place], [place] [phone] [id number] ADRIA HOGAN Self - patient is the insured Medical (General) History Medical History History ICD Code Nephrolithiasis Diabetes mellitus type 2 hypertension Elevated cholesterol Surgical History Surgery Date(Month/Year) hysterectomy
--- OUTSIDE RECORDS SUMMARY | 2024-04-30 18:46 | XMS_ITS ---
Author Organization [facility]ody [facility] [place] Address [address] [place] [address] Care Team Providers Care Ip Attorney Name Role Phone Nasim Ryan MD Primary Care Provider Daniel Claire [phone] REASON FOR VISIT NEOS Encounters Encounter Location Date Provider Diagnosis [facility] [address] [place] [address] 07/23/2023 Daniel Sr Plan Of Treatment No Information Progress Notes * Minerva MURRAYDOB: [birth year] (68 yo F)Acc No.[id number]:07/23/2023 Patient:?Trevor Minerva :1955???Age:68 Y???Sex:Female Address:[address] [place] [address], [address], [place] [address] * true * Date:? Generated for Waynei zoya/Sheyla/eTransmitting on:?04/30/2024 06:45 PM EDT
== END 2024-04-30 15:00 | disposition home or self-care (01) ==
LOC: HO.XRAY 14:59
PROVIDERS: PCP Internal Medicine; Visit Provider Internal Medicine
DX: M25.512 Pain in left shoulder (principal)
CPT/HCPCS: 73030

== ENCOUNTER → 2024-04-30 15:05 | Outpatient (BNV) | payer MEDICARE, SELFPAY | PROVIDERS: PCP Internal Medicine; Visit Provider Radiology Diagnostic Radiology | DX: M61.412 Other calcification of muscle, left shoulder (principal) | CPT/HCPCS: 73030 ==

== ENCOUNTER 2024-05-15 09:54 | Outpatient (AMB) | payer MEDICARE, SELFPAY ==
--- NOTE | 2024-05-15 09:56 | MHC.PC.OV ---
Vital Signs 05/15/24 10:01 Height 5 ft 8 in Weight 205 lb BMI 31.2 BP 128/78 Respiration 14 Pulse 72 Pulse Source Pulse Oximeter Temp 97.8 F Temp Source Temporal Artery Scan Pulse Oximetry (%) 97 Oxygen Delivery Method Room Air Intake Visit Reasons: Routine Customer Support Engineer Required: No Accompanied by: Self / Same As Patient Allergies No Known Allergies Allergy (Verified 05/15/24 09:57) Tobacco use date assessed: 05/15/24 Fall risk assessment: No Falls in past year Last assessed Fall Risk: 05/15/24 Dental Screening Dental Screen Date: 05/15/24 Did you have a dental visit in the last 12 months?: No Did you have a dental problem in the last 6 months where you did not have access to dental care?: No HPI HPI Comments History of Present Illness Details The patient is a 69 year old female with a past medical history of diabetes, hypertension, hyperlipidemia, nephrolithiasis presenting for follow up. Last seen by pcp in Nov for hopsital follow up from hydronephrosis Left shoulder pain-increasing pain. Limited range of motion. Pain from base of left neck through the shoulder joint and into the tricep. Worsens with abduction. Xray normal with exception of small calcification DM: On glipizide 5mg ER, stopped jardiance due to yeast infection and hospitalization. Metformin caused headaches. Last A1C was 7.8%. She is overdue. CV: On atorvastatin, amlodipine. 128/78. Denies chest pain, dizziness Urology: 12/13/23--History of left hydronephrosis and left pyelonephritis. Left ureteral stent was placed. She states she has had recurrent UTI's and pyelo in the past. Cystoscopy left ureteral stent removed without difficulty. Plan renal US in 3 months. Sometimes has left nipple discomfort -skin irritation and has had intermittent clear discharge. Her mammo is UTD and was normal. Mammo 01/2024 Colonoscopy 06/2022-Dr Dmitri JENKINS CONSTITUTIONAL: Denies weight loss, fever and chills. HEENT: Denies changes in vision and hearing. RESPIRATORY: Denies SOB and cough. CV: Denies palpitations and CP GI: Denies abdominal pain, nausea, vomiting and diarrhea. : Denies dysuria and urinary frequency. MSK: Denies new myalgia and joint pain. SKIN: Denies rash and pruritus. NEUROLOGICAL: Denies headache PSYCHIATRIC: Denies recent changes in mood. PHYSICAL EXAM: GENERAL: Alert and oriented x 3. NAD EYES: EOMI. Anicteric. HENT: Moist mucous membranes. No scleral icterus. No cervical lymphadenopathy. LUNGS: Clear to auscultation bilaterally. CARDIOVASCULAR: Regular rate and rhythm. No murmur. No JVD. ABDOMEN: Soft, non-tender +bs EXTREMITIES: No edema. Non-tender. SKIN: No rashes or lesions. Warm. NEUROLOGIC: No focal neurological deficits. CN II-XII grossly intact PSYCHIATRIC: Cooperative. Appropriate mood and affect [facility] Medical History CKD (chronic kidney disease) stage 3, GFR 30-59 ml/min Elevated cholesterol Nephrolithiasis Diabetes mellitus, type 2 Pre-diabetes High blood pressure Surgical History Hx of colonoscopy H/O: hysterectomy Family History Father Heart problem Stroke Mother Diabetes Kidney problem Social History Household Members: Family Housing: Condominium Are you a primary home care aide to a significant other at home: No Do you presently have visiting nurse or other home services: No Alcohol intake: never Patient Tobacco Use Status: Never used Tobacco e-Cigarette/Vaping Use: Never Used Second Hand Smoke Exposure: No service: No Current occupational status: retired 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 1. Little interest or pleasure in doing things: not at all 2. Feeling down, depressed, or hopeless: not at all 3. Trouble falling or staying asleep, or sleeping too much: not at all 4. Feeling tired or having little energy: not at all 5. Poor appetite or overeating: not at all 6. Feeling bad about yourself - or that you are a failure or have let yourself or your family down: not at all 7. Trouble concentrating on things, such as reading the newspaper or watching television: not at all 8. Moving or speaking so slowly that other people could have noticed. Or the opposite - being so fidgety or restless that you have been moving around a lot more than usual: not at all 9. Thoughts that you would be better off or of hurting yourself in some way: not at all Total score: 0 Depression Screening Interpretation: Negative Depression Screening Done: Yes 28908 - PHQ-9 Billing: Yes Source: Developed by Drs. Herb Patton, Margy Palmer, Ren Bowen and colleagues, with an educational brenda from [employer]. Thrive Questionnaire Date Thrive assessed: 05/15/24 I am a: Patient What is your living situation today?: I have a steady place to live Within the past 12 months, did the food you bought not last and you didn't have the money to get more?: Never true Within the past 12 months, did you worry whether your food would run out before you got money to buy more?: Never true Do you have trouble paying for medicines?: No Do you have trouble getting transportation to medical appointments?: No Do you have trouble paying your heating and electricity bill?: No Do you have trouble taking care of your child, family member or friend?: No Do you have trouble with day-to-day activities such as bathing, preparing meals, shopping, managing finances, etc.?: No Are you currently unemployed and looking for a job?: No Are you interested in more education?: No THRIVE Score: 0 AUDIT C Alcohol Use Questionnaire (AUDIT-C) 1. How often do you have a drink containing alcohol?: Never 3. How often do you have six or more drinks on one occasion?: Never Total Score: 0 TIAN-7 AMB Questionnaire TIAN-7 Date TIAN - 7 assessed: 05/15/24 Feeling nervous, anxious, or on edge: 0 = Not at all Not being able to stop or control worryin = Not at all Worrying too much about different things: 0 = Not at all Trouble relaxin = Not at all Being so restless that it is hard to sit still: 0 = Not at all Becoming easily annoyed or irritable: 0 = Not at all Feeling afraid as if something awful might happen: 0 = Not at all Total TIAN-7 score (0-4 normal; 5-9 mild; 10-14 moderate; 15-21 severe): 0 Source: Developed by Drs. Herb Patton, Margy Palmer, Ren Bowen and colleagues, with an educational brenda from [employer]. Physical exam (Primary Care) Vital Signs: Last Vital Signs Temp 97.8 F 05/15/24 10:01 Pulse 72 05/15/24 10:01 Resp 14 05/15/24 10:01 BP 128/78 05/15/24 10:01 Pulse Ox 97 05/15/24 10:01 Oxygen Delivery Method Room Air 05/15/24 10:01 BMI result Body Mass Index 31.2 Tobacco/Smoking Status: Tobacco use Status Tobacco use date assessed 05/15/24 05/15/24 10:07 Patient Tobacco Use Status Never used Tobacco 05/15/24 10:07 e-Cigarette/Vaping Use Never Used 05/15/24 10:07 PHQ-9: PHQ-9 Score PHQ-9: Total score 0 05/15/24 10:27 Depression Screening Interpretation: Negative Thrive Assessment: Date of Thrive Assessment Date Thrive assessed 05/15/24 05/15/24 10:07 Coding Level of Care Code New Pt Level 4 (64802) Complex EM visit Add On G2211 Diagnoses Type 2 diabetes mellitus with hyperglycemia, without long-term current use of insulin E11.65 Diabetes mellitus oracle endeca consultant insulin use: without mcfp use Diabetes mellitus complication status: with hyperglycemia Acute pain of left shoulder M25.512 Chronicity: acute Additional Codes PHQ-9 - 69734 - PHQ-9 Billing: Yes ([id number]) Assessment & Plan Assessment & Plan (1) Diabetes mellitus, type 2: Code(s): E11.9 - Type 2 diabetes mellitus without complications Category: Medical Qualifiers: Diabetes mellitus oracle endeca consultant insulin use: without oracle endeca consultant use Diabetes mellitus complication status: with hyperglycemia Qualified Code(s): E11.65 - Type 2 diabetes mellitus with hyperglycemia (2) Left shoulder pain: Code(s): M25.512 - Pain in left shoulder Category: Medical Qualifiers: Chronicity: acute Qualified Code(s): M25.512 - Pain in left shoulder Plan Establish care Past medical, surgical, social, family history reviewed Due for A1C. Recent hyperglycemia Hearing loss-referral placed Left shoulder pain-ortho referrral placed. Orders: Orders Comprehensive Met. Panel 05/15/24 E11.9 - Type 2 diabetes mellitus without complications, N64.52 - Nipple discharge TSH reflex Free T4 05/15/24 E11.9 - Type 2 diabetes mellitus without complications, N64.52 - Nipple discharge Prolactin 05/15/24 E11.9 - Type 2 diabetes mellitus without complications, N64.52 - Nipple discharge Hemoglobin A1c 05/15/24 E11.9 - Type 2 diabetes mellitus without complications, N64.52 - Nipple discharge Referrals Speech and Hearing Referral H91.90 - Unspecified hearing loss, unspecified ear, M25.512 - Pain in left shoulder Orthopedics Referral M25.512 - Pain in left shoulder Medications: New prednisone 40 mg (2 x 20 mg) PO DAILY 10 tabs 0RF diclofenac sodium 1% (Voltaren Arthritis Pain) apply to single elbow, wrist or hand; for hand includes palm/fingers/back of hand 2 grams topical QID 100 grams 3RF
[2024-05-15 10:01] VITALS: BP 128/78; PULSE 72; RESP 14; TEMP 36.6; O2SAT 97; BMI 31.2
== END 2024-05-15 10:46 | disposition home or self-care (01) ==
LOC: HO.HMCHD 09:55
PROVIDERS: PCP Internal Medicine; Visit Provider Internal Medicine
DX: E11.65 Type 2 diabetes mellitus with hyperglycemia (principal); M25.512 Pain in left shoulder

== ENCOUNTER → 2024-05-15 09:54 | Outpatient (BNVA) | payer MEDICARE, SELFPAY | PROVIDERS: PCP Internal Medicine; Visit Provider Internal Medicine | DX: E11.65 Type 2 diabetes mellitus with hyperglycemia (principal); M25.512 Pain in left shoulder; N64.59 Other signs and symptoms in breast; I10 Essential (primary) hypertension; Z79.899 Other long term (current) drug therapy | CPT/HCPCS: 96127; 99202 ==

== ENCOUNTER 2024-05-15 10:47 | Outpatient (REF) | payer MEDICARE, SELFPAY ==
[2024-05-15 13:48] LABS: Estimated Average Glucose 249 mg/dL; Hemoglobin A1c % 10.3 % (<6.0); Total Hemoglobin (HGBA1C) 3662.4355 umol/L
[2024-05-15 14:07] LABS: TSH reflex Free T4 1.49 uIU/mL (0.32-4.0)
[2024-05-15 14:20] LABS: Alanine Aminotransferase 43 U/L (0-31); Albumin Level 4.1 g/dL (3.5-5.0); Alkaline Phosphatase 89 U/L (39-117); Anion Gap 11 (12-20); Aspartate Amino Transferase 29 U/L (5-31); Bilirubin Total 0.7 mg/dL (0.0-1.0); Blood Urea Nitrogen 25 mg/dL (9-16); Calcium 9.5 mg/dL (8.4-10.2); Carbon Dioxide 25 mmol/L (22-29); Chloride 102 mmol/L (96-108); Estimated Glomerular Filt Rate 32; Glucose Random 444 mg/dL (60-115); Potassium 4.4 mmol/L (3.3-5.1); Sodium 134 mmol/L (135-145); Total Protein 7.8 g/dL (6.5-8.0)
[2024-05-16 05:59] LABS: Prolactin 5.2 ng/mL
== END 2024-05-15 10:48 | disposition home or self-care (01) ==
LOC: HO.10HDL 10:47
PROVIDERS: Visit Provider Internal Medicine
DX: E11.65 Type 2 diabetes mellitus with hyperglycemia (principal); M25.512 Pain in left shoulder; N64.52 Nipple discharge; I10 Essential (primary) hypertension; Z79.899 Other long term (current) drug therapy
CPT/HCPCS: 36415; 80053; 83036; 84146; 84443; 96127; 99202

== ENCOUNTER 2024-06-24 08:39 | Outpatient (REF) | payer MEDICARE, SELFPAY ==
--- OUTSIDE RECORDS SUMMARY | 2024-06-24 08:56 | XMS_ITS ---
Author Organization [facility] Melody bryon Benton Address [address] [place] [address] Care Team Providers Care Freelance Director Name Role Phone Nasim Ryan MD Primary Care Provider Daniel Claire [phone] REASON FOR VISIT Surgeon Referral Encounters Encounter Location Date Provider Diagnosis [facility] [address] [place] [address] 06/25/2023 Daniel Sr Plan Of Treatment No Information Progress Notes * Minerva MURRAYDOB: [birth year] (68 yo F)Acc No.[id number]:06/25/2023 Patient:?Trevor Minerva :1955???Age:68 Y???Sex:Female Address:[address] [place] [address], [address], [place] [address] * true * Date:? Generated for Waynei zoya/Sheyla/eTransmitting on:?06/24/2024 08:56 AM EDT
--- OUTSIDE RECORDS SUMMARY | 2024-06-24 08:56 | XMS_ITS | Encounter Summary ---
Author Organization [facility] Address [address] [place] [address] Phone Care Team Providers Care Core Man Name Role Phone Nasim Ryan MD Primary Care Provider [phone] Encounter Details Date Type Department Care Team ([facility] Contact Info) Description 06/12/2022 Telephone [facility] [address] [place] [address] Caro Rios Social History Tobacco [...] 10:10 AM EDT Please call Inessa from [facility] on [facility], , she says she has a couple of questions she needs to run by you. documented in this encounter Plan of Treatment Not on file documented as of this encounter Visit Diagnoses Not on filedocumented in this encounter Care Teams Core Man Relationship Specialty Start Date End Date Nasim Ryan MD [address] [place] PCP - General 02/29/20 documented as of this encounter
--- OUTSIDE RECORDS SUMMARY | 2024-06-24 08:56 | XMS_ITS | Encounter Summary ---
Author Organization [facility] Address [address] [place] [address] Phone Care Team Providers Care Creative Writing Professor Name Role Phone Nasim Ryan MD Primary Care Provider [phone] Encounter Details Date Type Department Care Team (Late st Contact Info) Description 06/12/2022 Telephone [facility] [address] [place] [address] Caro Rios Social History Tobacco [...] requesting the script tot be sent to [facility] in [place]. documented in this encounter Plan of Treatment Not on file documented as of this encounter Visit Diagnoses Not on filedocumented in this encounter Care Teams Creative Writing Professor Relationship Specialty Start Date End Date Nasim Ryan MD [address] [place] PCP - General 02/29/20 documented as of this encounter
--- OUTSIDE RECORDS SUMMARY | 2024-06-24 08:56 | XMS_ITS | Clinical Summary ---
Author Organization [facility] it Address [address] [place] [address] Care Team Providers Care Building Custodian Name Role Phone Nasim Ryan MD Primary Care Provider [phone] Surgical History Surgery Date Site/Laterality Comments OTHER SURGICAL HISTORY PROCEDURE: HISTORICAL VAGINAL HYSTERECTOMY WITH BSO Medical History Medical History Date Comments Type 2 diabetes mellitus wit h renal manifestations (CMS/HCC V24, CMS/HCC V28) 07/23/2014 DX:Type 2 diabetes mellitus with renal manifestations (HCC) Proteinuria 09/09/2018 DX:Proteinuria CKD (chronic kidney disease) stage 3, GFR 30-59 ml/min (CMS/HCC V24, CMS/HCC V28) 03/19/2014 DX:CKD (chronic kidney disea se) stage 3, GFR 30-59 ml/min ([facility]) HTN (hypertension) 03/19/2014 DX:HTN (hyper tension) [...] 2 - PPSV23) 11/14/2016 11/15/2015 RSV Immunization Adult Patients (1 - Risk 60-74 years 1-dose series) [...] COVID-19 Vaccine ( season) 2023 Influenza Vaccine (Season Ended) 2024 11/29/2016, 11/15/2015, 11/22/2014 HIB Vaccines Aged Out No [...] age to complete this topic Meningococcal B Vaccine Aged Out No l onger eligible based on patient's age to complete [...] Recently Relevant to Health Maintenance Care Teams Building Custodian Relationship Specialty Start Date End Date Nasim Ryan MD [address] [place] [address] Dr [place], [place] PCP - General 11/12/23
--- OUTSIDE RECORDS SUMMARY | 2024-06-24 08:56 | XMS_ITS | Clinical Summary ---
Author Organization [facility] Address [address] [facility] [place] [address] Phone Care Team Providers Care Roller Skate Repairer Name Role Phone Nasim Ryan MD Primary Care Provider [phone] Allergies No known active allergies Medications amLODIPine [...] index 30+ - obesity 10/27/2018 07/19/2020 Immunizations Immunization Administration Dates Next Due Influenza TIV (IM) [...] Colorectal Cancer Screening: Sigmoidoscopy 2006 Pneumococcal Vaccine: 50+ Years (2 of 2 - PPSV23) 01/10/2016 11/15/2015 Diabetes: Ophthalmology Exam 03/18/2020 Diabetes: Pedal Pulse Checked 03/18/2020 Diabetes: Sensory Foot Exam 03/18/2020 Diabetes: Visual Foot Exam 03/18/2020 Diabetes: Hemoglobin A1C 09/04/2022 023, 08/18/2021 Influenza Vaccine (Season Ended) 2024 11/29/2016, 11/15/2015, 11/22/2014 Pneumococcal Vaccine: Peds ( 0 to 5 Years) and At-Risk Patients (6 to 49 Years) Discontinued 11/15/2015 Hepatitis B Vaccine Aged Out No longe [...] AM EDT) Hemoglobin A1C 8.5(H) (4.0-5.6) % [facility] Comment: MONITORING: In known diabetic patients, hemoglobin A1c targets should be discussed with health care provider. DIAGNOSTIC USE: ??The [place] Diabetes Association (ADA) and the World Health [...] Supplement 1 Testing performed or reported by [facility], a Service of [facility], [address] [place] [address] Vamsi Magaña MD, Preventive Medicine Officer [facility]# [id number] Blood (Blood, Venous) 06/05/2022 8:31 AM EDT 06/05/2022 8:33 AM EDT us Michael Barnes MD LAB BLOOD ORDERABLES Final Re sult [facility] from Last 3 Months or Most Recently Relevant to Health Maintenance Insurance Medicare [facility] Medicare [facility] Care Teams Roller Skate Repairer Relationship Specialty Start Date End Date Nasim Ryan MD [address] [place] PCP - General 02/29/20
--- OUTSIDE RECORDS SUMMARY | 2024-06-24 08:56 | XMS_ITS | Patient Health Record ---
[facility] Address [address] [place] [address] Care Team Providers Care Wafer Abrading Machine Tender Name Role Phone Nasim Ryan MD Primary Care Provider Daniel Claire Unavailable [phone] Allergies No Known Allergies Reason For Referral [...] Problem Acquired hammer toe of right foot (857171688187 9105) Other hammer toe(s) (acquired), right foot (M20.41) Active confirmed Problem Acquired hammer toe of left foot ([id number] 9103) Other hammer toe(s) (acquired), left foot (M20.42) Active confirmed Problem Type 2 diabetes mellitus with diabetic polyneuropathy (E11.42) Active confirmed Problem [id number] Type 2 diabetes mellitus without complication, without long-term current use of insulin (E11.9) Active confirmed Encounters Encounter Location Date Provider Diagnosis [facility] [address] [address] 06/25/2023 Daniel Sr [facility] [address] [address] 07/23/2023 Daniel Sr Plan Of Treatment Pending Test Test Name Order Date X ray : Foot, left 3V 07/06/2022 [id number] SKIN LESIONS, 2 TO 4 08/25/19 23 Insurance Providers Payer Name Payer Address Payer Phone Subscriber Number Group Number Insured Name Patient Relationship to Insured Coverage Start Date Coverage End Date [facility] [address] [place] [address] [id number] Minerva Szymanski Self - patient is the insured [employer] [address] [place] [address] [id number] Minerva Szymanski Self - patient is the insured 3 Medical (General) History Medical History History ICD Code Back,Hip,and Knee pain Cholesterol Diabetic High blood pressure Kidney disease Chicken pox Surgical History Surgery Date(Month/Year) hysterectomy
--- OUTSIDE RECORDS SUMMARY | 2024-06-24 08:56 | XMS_ITS ---
Author Organization [facility] Melody bryon [place] Address [address] [place] [address] Care Team Providers Care Global Process Owner Name Role Phone Nasim Ryan MD Primary Care Provider Daniel Claire [phone] REASON FOR VISIT NEOS Encounters Encounter Location Date Provider Diagnosis [facility] [address] [place] [address] 07/23/2023 Daniel Sr Plan Of Treatment No Information Progress Notes * Minerva MURRAYDOB: [birth year] (68 yo F)Acc No.[id number]:07/23/2023 Patient:?Trevor Minerva :1955???Age:68 Y???Sex:Female Address:[address] [place] [address], [address], [place] [address] * true * Date:? Generated for Waynei zoya/Sheyla/eTransmitting on:?06/24/2024 08:56 AM EDT
--- OUTSIDE RECORDS SUMMARY | 2024-06-24 08:57 | XMS_ITS | Patient Health Record ---
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) use of oral hypoglycemic drugs (Z79.84) Active confirmed Plan Of Treatment Future Test Test Name Order Date COLONOSCOPY 05/31/2022 Insurance Providers Payer Name Payer Address Payer Phone Subscriber Number Group Number Insured Name Patient Relationship to Insured Coverage Start Date Coverage End Date [facility] [address] [facility] [place] [phone] [id number] ADRIA HOGAN Self - patient is the insured Medical (General) History Medical History History ICD Code Nephrolithiasis Diabetes mellitus type 2 hypertension Elevated cholesterol Surgical History Surgery Date(Month/Year) hysterectomy
== END 2024-06-24 08:40 | disposition home or self-care (01) ==
LOC: HO.SH 08:39
PROVIDERS: Visit Provider Internal Medicine
DX: Z01.118 Encounter for examination of ears and hearing with other abnormal findings (principal); H90.3 Sensorineural hearing loss, bilateral
CPT/HCPCS: 92557; 92567

== ENCOUNTER 2024-06-26 13:58 | Outpatient (AMB) | payer MEDICARE, SELFPAY ==
[2024-06-26 10:49] VITALS: BP 130/78; PULSE 67; RESP 16; TEMP 36.7; O2SAT 97; BMI 32.1
--- NOTE | 2024-06-26 10:49 | MHC.PC.OV ---
Vital Signs 06/26/24 10:49 Height 5 ft 8 in Weight 211 lb BMI 32.1 BP 130/78 Respiration 16 Pulse 67 Pulse Source Pulse Oximeter Temp 98.0 F Temp Source Oral Pulse Oximetry (%) 97 Oxygen Delivery Method Room Air Intake Visit Reasons: 4 Week F/U Towel Sorter Required: No Accompanied by: Self / Same As Patient Allergies No Known Allergies Allergy (Verified 06/26/24 10:49) Tobacco use date assessed: 06/26/24 Fall risk assessment: No Falls in past year Last assessed Fall Risk: 06/26/24 Dental Screening Dental Screen Date: 06/26/24 Did you have a dental visit in the last 12 months?: No Did you have a dental problem in the last 6 months where you did not have access to dental care?: No Was dental information given to patient?: Patient has dentist HPI HPI Comments History of Present Illness Details The patient is a 69 year old female with a past medical history of diabetes, hypertension, hyperlipidemia, nephrolithiasis presenting for follow up. Last A1C at the end of April was quite elevated at 10.2%. She was started on actos 30mg and continued on glipizide. Previously intolerance jardiance, metformin. Blood sugars have improved from the 200s down to 120-150. We planned on also starting ozempic but the copay was unaffordable. Left shoulder pain-increasing pain. Limited range of motion. Pain from base of left neck through the shoulder joint and into the tricep. Worsens with abduction. Xray normal with exception of small calcification CV: On atorvastatin, amlodipine. 128/78. Denies chest pain, dizziness Urology: 12/13/23--History of left hydronephrosis and left pyelonephritis. Left ureteral stent was placed. She states she has had recurrent UTI's and pyelo in the past. Cystoscopy left ureteral stent removed without difficulty. Plan renal US in 3 months. Mammo 01/2024 Colonoscopy 06/2022-Dr Dmitri JENKINS CONSTITUTIONAL: Denies weight loss, fever and chills. HEENT: Denies changes in vision and hearing. RESPIRATORY: Denies SOB and cough. CV: Denies palpitations and CP GI: Denies abdominal pain, nausea, vomiting and diarrhea. : Denies dysuria and urinary frequency. MSK: Denies new myalgia and joint pain. SKIN: Denies rash and pruritus. NEUROLOGICAL: Denies headache PSYCHIATRIC: Denies recent changes in mood. PHYSICAL EXAM: GENERAL: Alert and oriented x 3. NAD EYES: EOMI. Anicteric. HENT: Moist mucous membranes. No scleral icterus. No cervical lymphadenopathy. LUNGS: Clear to auscultation bilaterally. CARDIOVASCULAR: Regular rate and rhythm. No murmur. No JVD. ABDOMEN: Soft, non-tender +bs EXTREMITIES: No edema. Non-tender. SKIN: No rashes or lesions. Warm. NEUROLOGIC: No focal neurological deficits. CN II-XII grossly intact PSYCHIATRIC: Cooperative. Appropriate mood and affect [facility] Medical History CKD (chronic kidney disease) stage 3, GFR 30-59 ml/min Elevated cholesterol Nephrolithiasis Diabetes mellitus, type 2 Pre-diabetes High blood pressure Surgical History Hx of colonoscopy (~06/26/22) H/O: hysterectomy Family History Father Heart problem Stroke Mother Diabetes Kidney problem Social History Household Members: Family [facility] Are you a primary care management assistant to a significant other at home: No Do you presently have visiting nurse or other home services: No Alcohol intake: never Patient Tobacco Use Status: Never used Tobacco e-Cigarette/Vaping Use: Never Used Second Hand Smoke Exposure: No service: No Current occupational status: retired 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 1. Little interest or pleasure in doing things: not at all 2. Feeling down, depressed, or hopeless: not at all 3. Trouble falling or staying asleep, or sleeping too much: not at all 4. Feeling tired or having little energy: not at all 5. Poor appetite or overeating: not at all 6. Feeling bad about yourself - or that you are a failure or have let yourself or your family down: not at all 7. Trouble concentrating on things, such as reading the newspaper or watching television: not at all 8. Moving or speaking so slowly that other people could have noticed. Or the opposite - being so fidgety or restless that you have been moving around a lot more than usual: not at all 9. Thoughts that you would be better off or of hurting yourself in some way: not at all Total score: 0 Depression Screening Interpretation: Negative Depression Screening Done: Yes 86108 - PHQ-9 Billing: Yes Source: Developed by Drs. Herb Patton, Margy Palmer, Ren Bowen and colleagues, with an educational brenda from [employer]. Thrive Questionnaire Date Thrive assessed: 06/26/24 I am a: Patient Within the past 12 months, did the food you bought not last and you didn't have the money to get more?: Never true Within the past 12 months, did you worry whether your food would run out before you got money to buy more?: Never true Do you have trouble paying for medicines?: No Do you have trouble getting transportation to medical appointments?: No Do you have trouble paying your heating and electricity bill?: No Do you have trouble taking care of your child, family member or friend?: No Do you have trouble with day-to-day activities such as bathing, preparing meals, shopping, managing finances, etc.?: No Are you currently unemployed and looking for a job?: No Are you interested in more education?: No THRIVE Score: 0 AUDIT C Alcohol Use Questionnaire (AUDIT-C) 1. How often do you have a drink containing alcohol?: Never 3. How often do you have six or more drinks on one occasion?: Never Total Score: 0 TIAN-7 AMB Questionnaire TIAN-7 Date TIAN - 7 assessed: 06/26/24 Feeling nervous, anxious, or on edge: 0 = Not at all Not being able to stop or control worryin = Not at all Worrying too much about different things: 0 = Not at all Trouble relaxin = Not at all Being so restless that it is hard to sit still: 0 = Not at all Becoming easily annoyed or irritable: 0 = Not at all Feeling afraid as if something awful might happen: 0 = Not at all Total TIAN-7 score (0-4 normal; 5-9 mild; 10-14 moderate; 15-21 severe): 0 Source: Developed by Drs. Herb Patton, Margy Palmer, Ren Bowen and colleagues, with an educational brenda from [employer]. Physical exam (Primary Care) Vital Signs: Last Vital Signs Temp 98.0 F 06/26/24 10:49 Pulse 67 06/26/24 10:49 Resp 16 06/26/24 10:49 BP 130/78 06/26/24 10:49 Pulse Ox 97 06/26/24 10:49 Oxygen Delivery Method Room Air 06/26/24 10:49 BMI result Body Mass Index 32.1 Tobacco/Smoking Status: Tobacco use Status Tobacco use date assessed 06/26/24 06/26/24 10:51 Patient Tobacco Use Status Never used Tobacco 06/26/24 10:51 e-Cigarette/Vaping Use Never Used 06/26/24 10:51 PHQ-9: PHQ-9 Score PHQ-9: Total score 0 06/26/24 14:35 Depression Screening Interpretation: Negative Thrive Assessment: Date of Thrive Assessment Date Thrive assessed 06/26/24 06/26/24 10:51 Coding Level of Care Code Est Pt Level 4 (19870) Diagnoses Type 2 diabetes mellitus with hyperglycemia, without long-term current use of insulin E11.65 Diabetes mellitus intermediate card tender insulin use: without shelter use Diabetes mellitus complication status: with hyperglycemia Additional Codes PHQ-9 - 03468 - PHQ-9 Billing: Yes ([id number]) Assessment & Plan Assessment & Plan (1) Diabetes mellitus, type 2: Code(s): E11.9 - Type 2 diabetes mellitus without complications Category: Medical Qualifiers: Diabetes mellitus intermediate card tender insulin use: without intermediate card tender use Diabetes mellitus complication status: with hyperglycemia Qualified Code(s): E11.65 - Type 2 diabetes mellitus with hyperglycemia Plan Improving glycemic control Continue current medications until next A1C at end of August. She will have labs prior to visit. She will follow up then or sooner as needed Orders: Orders Lipid Panel 5 Weeks E11.65 - Type 2 diabetes mellitus with hyperglycemia, N18.30 - Chronic kidney disease, stage 3 unspecified Hemoglobin A1c 5 Weeks E11.65 - Type 2 diabetes mellitus with hyperglycemia, N18.30 - Chronic kidney disease, stage 3 unspecified Comprehensive Met. Panel 5 Weeks E11.65 - Type 2 diabetes mellitus with hyperglycemia, N18.30 - Chronic kidney disease, stage 3 unspecified Referrals Ear/Nose/Throat Referral H91.90 - Unspecified hearing loss, unspecified ear
--- OUTSIDE RECORDS SUMMARY | 2024-06-26 14:01 | XMS_ITS | Encounter Summary ---
Author Organization [facility] Address [address] [place] [address] Care Team Providers Care Wealth Management Advisor Name Role Phone Gerard Mcdermott MD Primary Care Provider Un available Frieda Beckford DO Primary Care Pro vider Unavailable Community, Pcp Primary Care Provider Unavailabl e Nasim Ryan MD Primary Care Provider Unava ilable Encounter Details Date Type Department Care Team Description 03/20/2016 Orders Only Adult Medicine [address] [address] Gerard Mcdermott MD Social History Tobacco Use Types Packs/Day Years Used Date Smoking Tobacco: Never Alcohol Use Standard Drinks/Week Comments No 0 (1 standard drink = 0.6 oz pur e alcohol) Sex Assigned at Date Recorded Not on file documented as of this encounter Plan of Treatment Not on file documented as of this encounter Visit Diagnoses Not on filedocumented in this encounter Care Teams Wealth Management Advisor Relationship Specialty Start Date End Date Gerard Mcdermott MD PCP - General Internal Medicine 10/26/15 9 Frieda Beckford DO PCP - General Internal Medicine 09/19/18 12/07/21 [facility], Pcp PCP - General Internal Medicine 12/08/21 11/11/23 Nasim Ryan MD PCP - General Internal Medicine 11/12/23 documented as of this encounter
--- OUTSIDE RECORDS SUMMARY | 2024-06-26 14:01 | XMS_ITS | Encounter Summary ---
Author Organization [facility] Address [address] [place] [address] Care Team Providers Care Transplanter Orchid Name Role Phone Community, Pcp Primary Care Provider Unavailgarcia e Frieda Beckford DO Primary Care Pro vider Unavailable Gerard Mcdermott MD Primary Care Provider Un available Frieda Beckford DO Primary Care Pro vider Unavailable [facility], Pcp Primary Care Provider Nasim Mireles MD Primary Care Provider Unava ilable Reason for Visit * Reason Comments E-prescribe Rx Request Encounter Details Date Type Department Care Team Description 06/14/2015 Refill Adult Medicine [address] [address] Name, MD Chucho E-prescribe Rx Request Social History Tobacco Use Types Packs/Day Years Used Date Smoking Tobacco: Never Alcohol Use Standard Drinks/Week Comments No 0 (1 standard drink = 0.6 oz pur e alcohol) Sex Assigned at Date Recorded Not on file documented as of this encounter Miscellaneous Notes * Telephone Encounter - Angela Rodriguez - 06/14/2015 10:42 AM EDT documented in this encounter Plan of Treatment Not on file documented as of this encounter Visit Diagnoses Not on filedocumented in this encounter Care Teams Transplanter Orchid Relationship Specialty Start Date End Date Community, Pcp PCP - General Internal Medicine 06/14/15 08/02/15 Frieda Beckford DO PCP - General Internal Medicine 08/03/15 10/25/15 Gerard Mcdermott MD PCP - General Internal Medicine 10/26/15 9 Frieda Beckford DO PCP - General Internal Medicine 09/19/18 12/07/21 [facility], Pcp PCP - General Internal Medicine 12/08/21 11/11/23 Nasim Ryan MD PCP - General Internal Medicine 11/12/23 documented as of this encounter
--- OUTSIDE RECORDS SUMMARY | 2024-06-26 14:01 | XMS_ITS | Encounter Summary ---
Author Organization [facility] Address [address] [place] [address] Phone Care Team Providers Care Regulatory Submissions Specialist Name Role Phone Nasim Ryan MD Primary Care Provider [phone] Encounter Details Date Type Department Care Team (Late st Contact Info) Description 06/12/2022 Telephone [facility] [address] [place] [address] Caro Rios Social History Tobacco [...] requesting the script tot be sent to [facility] in [place]. documented in this encounter Plan of Treatment Not on file documented as of this encounter Visit Diagnoses Not on filedocumented in this encounter Care Teams Regulatory Submissions Specialist Relationship Specialty Start Date End Date Nasim Ryan MD [address] [place] PCP - General 02/29/20 documented as of this encounter
--- OUTSIDE RECORDS SUMMARY | 2024-06-26 14:01 | XMS_ITS | Encounter Summary ---
Author Organization [facility] Address [address] [place] [address] Care Team Providers Care Optoelectronics Engineer Name Role Phone Gerard Mcdermott MD Primary Care Provider Un available Krakowichar Colasacco, Frieda DO Primary Care Pro vider Unavailable Community, Pcp Primary Care Provider Nasim Mireles MD Primary Care Provider Unava ilable Encounter Details Date Type Department Care Team Description 05/26/2018 Orders Only Adult Medicine [address] [address] Gerard Mcdermott MD Type 2 diabetes mellitus with stage 3 chronic kidney disease, without long-term current use of insulin (HCC) (Primary Dx) Social History Tobacco Use Types Packs/Day Years Used Date Smoking Tobacco: Never Smokeless Tobacco: Never Alcohol Use Standard Drinks/Week Comments No 0 (1 standard drink = 0.6 oz pur e alcohol) Sex Assigned at Date Recorded Not on file documented as of this encounter Plan of Treatment Not on file documented as of this encounter Results * (ABNORMAL) HEMOGLOBIN A1C (10/27/2018 10:08 AM EDT) GLYCATED HEMOGLOBIN A1C 8.2(H) <6.5 % 10/27/2018 3:36 PM EDT [facility] ESTIMATED AVERAGE GLUCOSE 189 mg/dL 10/27/2018 3:36 PM EDT [facility] 10/27/2018 10:0 8 AM EDT 10/27/2018 10:08 AM EDT Gerard Mcdermott MD LAB [facility] [employer] * (ABNORMAL) BASIC METABOLIC PANEL (10/27/2018 10:08 AM EDT) GLUCOSE 191(H) 70 - 100 mg/dL 10/27/2018 2:00 PM EDT [facility] Comment:Reference range appl icable to fasting specimens only Blood Urea Nitrogen 18 5 - 25 mg/dL 10/27/2018 2:00 PM EDT [facility] CREAT 1.35(H) 0.5 - 1.1 mg/dL 10/27/2018 2:00 PM EDT [facility] GLOMERULAR FILTRATION RATE 40 10/27/2018 2:00 PM EDT [facility] Comment: If patient is -[place], multiply result by 1.21 Chronic Kidney Disease: < 60 ml/min/1.73 square meters Kidney Failure: < 15 ml/min/1.73 square meters NA 138 133 - 145 mmol/L 10/27/2018 2:00 PM EDT [facility] K 3.7 3.5 - 5.5 mmol/L 10/27/2018 2:00 PM EDT [facility] CL 102 96 - 110 mmol/L 10/27/2018 2:00 PM EDT [facility] CARBON DIOXIDE (CO2) 29 21 - 32 mmol/L 10/27/2018 2:00 PM EDT [facility] ANION GAP 7 3 - 11 10/27/2018 2:00 PM EDT [facility] CALCIUM 9.3 8.5 - 10.5 mg/dL 10/27/2018 2:00 PM EDT [facility] 10/27/2018 10:0 8 AM EDT 10/27/2018 10:08 AM EDT Gerard Mcdermott MD LAB [facility] Absolute Antibody documented in this encounter Visit Diagnoses Diagnosis Type 2 diabetes mellitus with stage 3 chronic kidney disease, without long-term current use of insulin (HCC)- Primary documented in this encounter Care Teams Optoelectronics Engineer Relationship Specialty Start Date End Date Gerard Mcdermott MD PCP - General Internal Medicine 10/26/15 9 Frieda Beckford DO PCP - General Internal Medicine 09/19/18 12/07/21 [facility], Pcp PCP - General Internal Medicine 12/08/21 11/11/23 Nasim Ryan MD PCP - General Internal Medicine 11/12/23 documented as of this encounter
--- OUTSIDE RECORDS SUMMARY | 2024-06-26 14:01 | XMS_ITS ---
Author Organization [facility] Address [address] [place] [address] Care Team Providers Care Market Basket Maker Name Role Phone Nasim Ryan MD Primary Care Provider Daniel Claire [phone] REASON FOR VISIT NEOS Encounters Encounter Location Date Provider Diagnosis [facility] [address] [place] [address] 07/23/2023 Daniel Sr Plan Of Treatment No Information Progress Notes * Minerva MURRAYDOB: [birth year] (68 yo F)Acc No.[id number]:07/23/2023 Patient:?Trevor Minerva :1955???Age:68 Y???Sex:Female Address:[address] [place] [address], [address], [place] [address] * true * Date:? Generated for Waynei zoya/Sheyla/eTransmitting on:?06/26/2024 02:01 PM EDT
--- OUTSIDE RECORDS SUMMARY | 2024-06-26 14:01 | XMS_ITS | Encounter Summary ---
Author Organization [facility] Address [address] [place] [address] Phone Care Team Providers Care Barmaid Name Role Phone Nasim Ryan MD Primary Care Provider [phone] Encounter Details Date Type Department Care Team ([facility] Contact Info) Description 06/12/2022 Telephone [facility] [address] [place] [address] Caro Rios Social History Tobacco [...] 10:10 AM EDT Please call Inessa from [facility] on [facility], , she says she has a couple of questions she needs to run by you. documented in this encounter Plan of Treatment Not on file documented as of this encounter Visit Diagnoses Not on filedocumented in this encounter Care Teams Barmaid Relationship Specialty Start Date End Date Nasim Ryan MD [address] [place] PCP - General 02/29/20 documented as of this encounter
--- OUTSIDE RECORDS SUMMARY | 2024-06-26 14:01 | XMS_ITS | Patient Health Record ---
Author Organization [facility] Address [address] [place] [address] Care Team Providers Care Package Yarns Drying Machine Operator Name Role Phone Nasim Ryan MD [...] Problem Status W/U Status Risk Notes Problem [id number] Colon cancer screening (Z12.11) Active confirmed Problem 670908458 Encounter for other preprocedural examination (Z01.818) Active confirmed Problem [id number] technician terminal and repeater (current) use of oral hypoglycemic drugs (Z79.84) Active confirmed Plan Of Treatment Future Test Test Name Order Date COLONOSCOPY 05/31/2022 Insurance Providers Payer Name Payer Address Payer Phone Subscriber Number Group Number Insured Name Patient Relationship to Insured Coverage Start Date Coverage End Date [facility] [address] [facility] [place], [place] [phone] [id number] ADRIA HOGAN Self - patient is the insured Medical (General) History Medical History History ICD Code Nephrolithiasis Diabetes mellitus type 2 hypertension Elevated cholesterol Surgical History Surgery Date(Month/Year) hysterectomy
--- OUTSIDE RECORDS SUMMARY | 2024-06-26 14:01 | XMS_ITS | Patient Health Record ---
[facility] Address [address] [place] [address] Care Team Providers Care Biofuels Plant Operations Engineer Name Role Phone Nasim Ryan MD Primary Care Provider Daniel Claire Unavailable [phone] Allergies No Known Allergies Reason For Referral [...] Problem Acquired hammer toe of right foot (6756417137407396 ) Other hammer toe(s) (acquired), right foot (M20.41) Active confirmed Problem Acquired hammer toe of left foot (8884820164985477 ) Other hammer toe(s) (acquired), left foot (M20.42) Active confirmed Problem Polyneuropathy due to type 2 diabetes mellitus (052216109) Type 2 diabetes mellitus with diabetic polyneuropathy (E11.42) Active confirmed Problem 552899260 Type 2 diabetes mellitus without complication, without long-term current use of insulin (E11.9) Active confirmed Encounters Encounter Location Date Provider Diagnosis [facility] [address] [place] [address] 07/23/2023 Daniel Sr Plan Of Treatment Pending Test Test Name Order Date X ray : Foot, left 3V 07/06/2022 [id number] SKIN LESIONS, 2 TO 4 08/25/19 23 Insurance Providers Payer Name Payer Address Payer Phone Subscriber Number Group Number Insured Name Patient Relationship to Insured Coverage Start Date Coverage End Date [facility] [address] [place] [address] [id number] Minerva Szymanski Self - patient is the insured [employer] [address] [place] [address] [id number] Minerva Szymanski Self - patient is the insured 3 Medical (General) History Medical History History ICD Code Back,Hip,and Knee pain Cholesterol Diabetic High blood pressure Kidney disease Chicken pox Surgical History Surgery Date(Month/Year) hysterectomy
--- OUTSIDE RECORDS SUMMARY | 2024-06-26 14:01 | XMS_ITS | Clinical Summary ---
Author Organization [facility] Address [address] [facility] [address] [place] [address] Phone Care Team Providers Care Medical Records Secretary Name Role Phone Nasim Ryan MD Primary Care Provider [phone] Allergies No known active allergies Medications amLODIPine [...] AM EDT) Hemoglobin A1C 8.5(H) (4.0-5.6) % [facility] Comment: MONITORING: In known diabetic patients, hemoglobin A1c targets should be discussed with health care provider. DIAGNOSTIC USE: ??The [place] Diabetes Association (ADA) and the World Health [...] Supplement 1 Testing performed or reported by [facility], a Service of [facility], [address] [place] [address] Vamsi Magaña MD, Manager [employer] [facility]# [id number] Blood (Blood, Venous) 06/05/2022 8:31 AM EDT 06/05/2022 8:33 AM EDT us Michael Barnes MD LAB BLOOD ORDERABLES Final Re sult [facility] from Last 3 Months or Most Recently Relevant to Health Maintenance Insurance Medicare [facility] Medicare [facility] Care Teams Medical Records Secretary Relationship Specialty Start Date End Date Nasim Ryan MD [address] [place] PCP - General 02/29/20
--- OUTSIDE RECORDS SUMMARY | 2024-06-26 14:01 | XMS_ITS | Encounter Summary ---
Author Organization [facility] Address [address] [place] [address] Care Team Providers Care Casino Gaming Worker Name Role Phone Gerard Mcdermott MD Primary Care Provider Un available Francisco Beckfordabemaribell HICKS Primary Care Pro vider Unavailable Community, Pcp Primary Care Provider Nasim Mireles MD Primary Care Provider Unava ilable Reason for Visit * Reason Onset Date Comments Prior Authorization 03/21/2016 Encounter Details Date Type Department Care Team Description 03/21/2016 Telephone Adult Medicine [address] [address] Gerard Mcdermott MD Prior Authorization Social History Tobacco Use Types Packs/Day Years Used Date Smoking Tobacco: Never Alcohol Use Standard Drinks/Week Comments No 0 (1 standard drink = 0.6 oz pur e alcohol) Sex Assigned at Date Recorded Not on file documented as of this encounter Miscellaneous Notes * Telephone Encounter - Andreina Villa M.A. - 03/27/2016 10:01 AM EST Msg for pt that a change in her med was done due to non coverage of the januvia She will need to try metformin first, script for metformin has been sent to pharmacy * Telephone Encounter - Gerard Mcdermott MD - 03/26/2016 4:52 PM EST Please ask patient to start metformin ER 1g daily, thank you. * Telephone Encounter - Andreina Villa M.A. - 03/26/2016 4:47 PM EST Telma has been denied Pt must try and fail metformin or a metformin containing product [place] [phone] Prior Auth pool Andreina Villa M.A. Regional Prior Authorizations Ext [id number] * Telephone Encounter - Inessa Rehman M.A. - 03/22/2016 1:48 PM EST Prior authorization done today on cover my meds * Telephone Encounter - Margoth Miles - 03/21/2016 11:29 AM EST Pre Authorization for Medication Does the patient already have this medication?NO Is this a Cover My Meds request: [place] of Medication Januvia Dose of Medication 25 mg tablets How does patient take this med? orally What other dosage or similar medication have you tried in the past for this problem Patients current medical insurance [facility] What Prescription Plan does the patient have? hne Prescription Plan Tel # from back of prescription ID card [phone] What is the patients Prescription Plan ID #? [id number] What Pharmacy does the patient use? [facility] Payor: [facility] / Plan: O $20 [place] / Product Type: HMO [id number] documented in this encounter Plan of Treatment Not on file documented as of this encounter Visit Diagnoses Not on filedocumented in this encounter Care Teams Casino Gaming Worker Relationship Specialty Start Date End Date Gerard Mcdermott MD PCP - General Internal Medicine 10/26/15 9 [place] Colasacco, Frieda, DO PCP - General Internal Medicine 09/19/18 12/07/21 [facility], Pcp PCP - General Internal Medicine 12/08/21 11/11/23 Nasim Ryan MD PCP - General Internal Medicine 11/12/23 documented as of this encounter
--- OUTSIDE RECORDS SUMMARY | 2024-06-26 14:01 | XMS_ITS | Encounter Summary ---
Author Organization [facility] Address [address] [place] [address] Care Team Providers Care Distribution Engineering Technologist Name Role Phone Gerard Mcdermott MD Primary Care Provider Un available Frieda Beckford DO Primary Care Pro vider Unavailable Community, Pcp Primary Care Provider [facility] Nasim Ryan MD Primary Care Provider Unava ilable Encounter Details Date Type Department Care Team Description 12/25/2016 Release of Information Medical Records [address] [place] [id number] Abstract, Provider Social History Tobacco Use Types Packs/Day Years Used Date Smoking Tobacco: Never Alcohol Use Standard Drinks/Week Comments No 0 (1 standard drink = 0.6 oz pur e alcohol) Sex Assigned at Date Recorded Not on file documented as of this encounter Plan of Treatment Not on file documented as of this encounter Visit Diagnoses Not on filedocumented in this encounter Care Teams Distribution Engineering Technologist Relationship Specialty Start Date End Date Gerard Mcdermott MD PCP - General Internal Medicine 10/26/15 9 Frieda Beckford DO PCP - General Internal Medicine 09/19/18 12/07/21 [facility], Pcp PCP - General Internal Medicine 12/08/21 11/11/23 Nasim Ryan MD PCP - General Internal Medicine 11/12/23 documented as of this encounter
--- OUTSIDE RECORDS SUMMARY | 2024-06-26 14:02 | XMS_ITS | Encounter Summary ---
Author Organization [facility] Address [address] [place] [address] Care Team Providers Care Inspector And Sorter Name Role Phone Name, Chucho JEFF Primary Care Provider Unavailabl e Community, Pcp Primary Care Provider Unavailabl e Frieda Beckford DO Primary Care Pro vider Unavailable Gerard Mcdermott MD Primary Care Provider Un available TodkoFrieda De La Rosa DO Primary Care Pro vider Unavailable Community, Pcp Primary Care Provider Unavailabl e Nasim Ryan MD Primary Care Provider Unava ilable Encounter Details Date Type Department Care Team Description 03/10/2014 Hospital Medical Records [address] [place] [address] Thang Floyd MD [address] [place] [address] Social History Tobacco Use Types Packs/Day Years [...] on filedocumented in this encounter Care Teams Inspector And Sorter Relationship Specialty Start Date End Date Name, MD Chucho PCP - General Internal Medicine 06/26/12 06/13/15 Community, Pcp PCP - General Internal Medicine 06/14/15 08/02/15 Frieda Beckford DO PCP - General Internal Medicine 08/03/15 10/25/15 Gerard Mcdermott MD PCP - General Internal Medicine 10/26/15 9 Frieda Beckford DO PCP - General Internal Medicine 09/19/18 12/07/21 [facility], Pcp PCP - General Internal Medicine 12/08/21 11/11/23 Nasim Ryan MD PCP - General Internal Medicine 11/12/23 documented as of this encounter
--- OUTSIDE RECORDS SUMMARY | 2024-06-26 14:02 | XMS_ITS | Encounter Summary ---
Author Organization [facility] Address [address] [place] [address] Care Team Providers Care Bindery Cutter Operator Name Role Phone [facility], Pcp Primary Care Provider UnavailIsael Randle Primary Care Provider [phone] Ling oMrgan NP Primary Care Provider Malinda Savage MD Primary Care Provider Un available Name, Chucho JEFF Primary Care Provider Unavailabl e [facility], Pcp Primary Care Provider Unavailabl e [place] Colasacco, Frieda DO Primary Care Pro vider Unavailable Gerard Mcdermott MD Primary Care Provider Un available [place] Colasacco, Frieda DO Primary Care Pro vider Unavailable [facility], Pcp Primary Care Provider Nasim Mireles MD Primary Care Provider Unava ilable Reason for Visit * Reason Comments Unit Supervisor Feedback [facility] Encounter Details Date Type Department Care Team Description 11/05/2003 Telephone Adult Medicine [facility] [address] [place] [address] Isael Canchola [address] [place] [address] [id number] Unit Supervisor Feedback ([facility]) Social History Tobacco Use Types Packs/Day Years Used Date Smoking Tobacco: Never Assessed Sex Assigned at Date Recorded Not on file documented as of this encounter Miscellaneous Notes * Telephone Encounter - 11/05/2003 3:03 PM EDTCALL RECEIVED. Contact: DOCUMENTING SENT LETTER TO PATIENT TO BOOK OWN APPT WITH [facility] AND GET BACK TO US WITH PROVIDER AND DATE TO PROCESS REFERRAL DX CALLUS LITTLE TOE LEFT documented in this encounter Plan of Treatment Not on file documented as of this encounter Visit Diagnoses Not on filedocumented in this encounter Care Teams Bindery Cutter Operator Relationship Specialty Start Date End Date Community, Pcp PCP - General 03/09/06 11/05/11 Isael Canchola [address] [place] [address] PCP - General 09/13/03 03/08/06 Ling Morgan NP [address] [place] [address] PCP - General Internal Medicine 11/06/11 04/07/12 Tay, Malinda Linda MD [address] [place] [address] PCP - General Pediatrics 04/08/12 06/25/12 Carole, MD Chucho [address] [place] [address] PCP - General Internal Medicine 06/26/12 06/13/15 [facility], Pcp [address] [place] [address] PCP - General Internal Medicine 06/14/15 08/02/15 Frieda Beckford, DO [address] [place] [address] PCP - General Internal Medicine 08/03/15 10/25/15 Gerard Mcdermott MD [address] [place] [address] PCP - General Internal Medicine 10/26/15 09/18/18 Frieda Beckford, DO [address] [place] [address] PCP - General Internal Medicine 09/19/18 12/07/21 [facility], Pcp [address] [place] [address] PCP - General Internal Medicine 12/08/21 11/11/23 Nasim Ryan MD [address] [place] [address] PCP - General Internal Medicine 11/12/23 documented as of this encounter
--- OUTSIDE RECORDS SUMMARY | 2024-06-26 14:02 | XMS_ITS | Clinical Summary ---
Author Organization [employer] [facility] it Address [address] [place] [address] Care Team Providers Care Value Stream Manager Name Role Phone Nasim Ryan MD Primary Care Provider [phone] Surgical History Surgery Date Site/Laterality Comments OTHER SURGICAL HISTORY PROCEDURE: HISTORICAL VAGINAL HYSTERECTOMY WITH BSO Medical History Medical History Date Comments Type 2 diabetes mellitus wit h renal manifestations (CMS/HCC V24, CMS/HCC V28) 07/23/2014 DX:Type 2 diabetes mellitus with renal manifestations ([facility]) Proteinuria 09/09/2018 DX:Proteinuria CKD (chronic kidney disease) stage 3, GFR 30-59 ml/min (CMS/HCC V24, CMS/HCC V28) 03/19/2014 DX:CKD (chronic kidney disea se) stage 3, GFR 30-59 ml/min ([facility]) HTN (hypertension) 03/19/2014 DX:HTN (hyper tension) Hyperlipidemia [...] Recently Relevant to Health Maintenance Care Teams Value Stream Manager Relationship Specialty Start Date End Date Nasim Ryan MD [address] [place] [address] Dr [address] [place], [place] PCP - General 11/12/23
--- OUTSIDE RECORDS SUMMARY | 2024-06-26 14:02 | XMS_ITS | Encounter Summary ---
Author Organization [facility] Address [address] [place] [address] Care Team Providers Care Winder Tender Name Role Phone Community, Pcp Primary Care Provider Unavailabl Isael Cornejo Primary Care Provider [phone] Ling Morgan NP Primary Care Provider UnavailMalinda Duggan MD Primary Care Provider Un available Name, Chucho JEFF Primary Care Provider Unavailabl e [place], Pcp Primary Care Provider Unavailabl e [place] Colasacco, Frieda DO Primary Care Pro vider Unavailable Gerard Mcdermott MD Primary Care Provider Un available [place] Colasacco, Frieda DO Primary Care Pro vider Unavailable [facility], Pcp Primary Care Provider Unavailabl e Nasim Ryan MD Primary Care Provider Unava ilable Encounter Details Date Type Department Care Team Description 08/15/2004 Orders Only Medical [address] [place] [address] Audelia Robles [address] [place] [address] ABDOMINAL PAIN, UNSPECIFIED SITE (Primary Dx) Social History Tobacco Use Types Packs/Day Years Used Date Smoking Tobacco: Never Assessed Sex Assigned at Date Recorded Not on file documented as of this encounter Plan of Treatment Scheduled Orders Name Type Priority Associated Diagnoses Orde r Schedule CBC WITH [place]FF[place] Lab Routine Abdominal Pain, Unspecified Site Ordered: 08/15/2004 VENIPUNCTURE Lab Routine Abdominal Pain, Unspecified Site Ordered: 08/15/2004 documented as of this encounter Procedures Procedure Name Priority Date/Time Associated Diagnosis Comments WET [facility] Routine 08/15/2004 12 :18 PM EDT Abdominal Pain, Unspecified Site documented in this encounter Results * WET [place] (08/15/2004 12:18 PM EDT) WET PREP FOR TRICH,CLUE & YST WET PREP RESULT NO CLUE CELLS PRESENT YEAST PRESENT, NO TRICHOMONAS SEEN [facility] [employer] 08/15/2004 12:1 8 PM EDT 08/15/2004 12:18 PM EDT Audelia Robles LAB [facility] [employer] documented in this encounter Visit Diagnoses Diagnosis Abdominal pain, unspecified site- Primary documented in this encounter Care Teams Winder Tender Relationship Specialty Start Date End Date Community, Pcp PCP - General 03/09/06 11/05/11 Isael Canchola [address] [place], [place] [id number] PCP - General 09/13/03 03/08/06 Ling Morgan NP [address] [place] [address] PCP - General Internal Medicine 11/06/11 04/07/12 Tay, Malinda Linda MD [address] [place] [address] PCP - General Pediatrics 04/08/12 06/25/12 Carole, MD Chucho [address] [place] [address] PCP - General Internal Medicine 06/26/12 06/13/15 [facility], Pcp [address] [place] [address] PCP - General Internal Medicine 06/14/15 08/02/15 Frieda Beckford DO [address] [place] [address] PCP - General Internal Medicine 08/03/15 10/25/15 Gerard Mcdermott MD [address] [place] [address] PCP - General Internal Medicine 10/26/15 09/18/18 Frieda Beckford DO [address] [place] [address] PCP - General Internal Medicine 09/19/18 12/07/21 [facility], Pcp [address] [place] [address] PCP - General Internal Medicine 12/08/21 11/11/23 Nasim Ryan MD [address] [place] [address] PCP - General Internal Medicine 11/12/23 documented as of this encounter
--- OUTSIDE RECORDS SUMMARY | 2024-06-26 14:02 | XMS_ITS ---
Author Organization [facility] [place] Address [address] [place] [address] Care Team Providers Care Echo Vasc Tech Name Role Phone Nasim Ryan MD Primary Care Provider Daniel Claire [phone] REASON FOR VISIT Surgeon Referral Encounters Encounter Location Date Provider Diagnosis [facility] [address] [place] [address] 06/25/2023 Daniel Sr Plan Of Treatment No Information Progress Notes * Minerva MURRAYDOB: [birth year] (68 yo F)Acc No.[id number]:06/25/2023 Patient:?Trevor Minerva :1955???Age:68 Y???Sex:Female Address:[address] [place] [address], [address], [place] [address] * true * Date:? Generated for Waynei zoya/Sheyla/eTransmitting on:?06/26/2024 02:01 PM EDT
== END 2024-06-26 14:52 | disposition home or self-care (01) ==
LOC: HO.HMCHD 13:58
PROVIDERS: PCP Internal Medicine; Visit Provider Internal Medicine
DX: E11.65 Type 2 diabetes mellitus with hyperglycemia (principal)

== ENCOUNTER → 2024-06-26 13:58 | Outpatient (BNVA) | payer MEDICARE, SELFPAY | PROVIDERS: PCP Internal Medicine; Visit Provider Internal Medicine | DX: E11.65 Type 2 diabetes mellitus with hyperglycemia (principal); E11.22 Type 2 diabetes mellitus with diabetic chronic kidney disease; I12.9 Hypertensive chronic kidney disease with stage 1 through stage 4 chronic kidney disease, or unspecified chronic kidney disease; E78.5 Hyperlipidemia, unspecified; N18.30 Chronic kidney disease, stage 3 unspecified; Z87.442 Personal history of urinary calculi | CPT/HCPCS: 96127; 99212 ==

== ENCOUNTER 2024-06-30 09:52 | Outpatient (AMB) | payer MEDICARE, SELFPAY ==
--- NOTE | 2024-06-30 10:17 | MHC.OFFVIS ---
Intake Visit Reasons: 15w/[facility] Intake Note: Patient is Present for a 15 week follow up/[facility] Medication: None Antibiotic Allergies: None Blood Thinners: None Orchid Grower Required: No Accompanied by: Self / Same As Patient Allergies No Known Allergies Allergy (Verified 06/30/24 10:18) Medication List - Last Reconciled 06/30/24 by Beena Wright MD amlodipine 1 tab PO DAILY atorvastatin 1 tab PO BEDTIME cholecalciferol (vitamin D3) 50 mcg PO DAILY diclofenac sodium 1% (Voltaren Arthritis Pain) 2 grams topical QID glipizide ER 1 tab PO DAILY lisinopril 10 mg PO DAILY pioglitazone 30 mg PO DAILY pyridoxine (vitamin B6) 100 mg PO DAILY HPI Comments Details: 06/30/24--Minerva is here for follow-up. History of kidney stones and pyelonephritis. Comorbidity-diabetes. Denies irritative voiding symptoms. Discussed 24 hour urine results collected: 04/17/2024 Total volume 1.52 L, Calcium 66 mg; Oxalate 26 mg, Citrate 154 mg, Sodium 120. Instructed on importance of fluid intake. Continue vitamin B6 100 mg daily add citrate to her diet. I have discussed diet modification to decrease risk of forming more kidney stones. I have discussed low oxalate diet and specific foods to avoid including certain green leafy vegetables, chocalate, nuts, tea, beets, rubarb; low sodium, decreased use of animal protein and the importance of hydration drinking up to 2-2.5 liters of fluids and use of adding lemon to water to increase citrate in the diet. A pamphlet is also provided today. 30 minutes spent in review of records pertaining to this visit and including [id number] discussion with the patient and documentation of this visit. Plan follow-up in 1 year, monitor kidneys. renal ultrasound 03/13/24--Minerva this here in follow-up. I have reviewed renal ultrasound 03/02/2024 hydronephrosis is resolved ultrasound mild changes suggestive of medical renal disease. No parenchymal lesions or renal calculi noted. Minerva has history of kidney stones I have discussed checking 24 hour urine collection. We have discussed diet she has green leafy vegetables nuts Reece's that she uses daily in her diet we will start her on vitamin B6 100 mg daily and check a 24 hour urine collection. 03/02/24--Slightly echogenic renal cortex reflecting nonspecific medical renal disease. No nephrolithiasis or hydronephrosis. Incidental parapelvic cyst on the left. 12/13/23--Minerva is a 68 year old female who was initially evaluated in the [facility] in consultation due to left flank pain, left hydronephrosis and left pyelonephritis. Left ureteral stent was placed. She states she has had recurrent UTI's and pyelo in the past. Cystoscopy left ureteral stent removed without difficulty. Plan renal US in 3 months. [facility] Medical History CKD (chronic kidney disease) stage 3, GFR 30-59 ml/min Elevated cholesterol Nephrolithiasis Diabetes mellitus, type 2 Pre-diabetes High blood pressure Surgical History Hx of colonoscopy (~06/26/22) H/O: hysterectomy Family History Father Heart problem Stroke Mother Diabetes Kidney problem Social History Household Members: [facility] Are you a primary rn acute care to a significant other at home: No Do you presently have visiting nurse or other home services: No Alcohol intake: never Patient Tobacco Use Status: Never used Tobacco e-Cigarette/Vaping Use: Never Used Second Hand Smoke Exposure: No service: No Current occupational status: retired 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 Cognitive needs: No Hearing needs: No Vision needs: Yes (reading glasses) Review of Systems Const All systems reviewed & are unremarkable except as noted in HPI and below Reports no additional complaints Eyes Reports no additional complaints ENT Reports no additional complaints Card Reports no additional complaints Resp Reports no additional complaints GI Reports no additional complaints Reports as per HPI Musc Reports no additional complaints Skin/Breast Reports system reviewed and no additional complaints, except as documented Neuro Reports no additional complaints Psych Reports no additional complaints Endo Reports no additional complaints Saud/Lymph Reports no additional complaints Aller/Immun Reports no additional complaints Results Reviewed Results Reviewed: Date of Service: 03/02/24 CLINICAL HISTORY: N13.30 - Unspecified hydronephrosis US renal with Color Doppler Comparison: None Findings: Right kidney normal size and mildly echogenic, 11.1 cm length. No hydronephrosis calculus or mass. Normal color flow. Left kidney normal size and mildly echogenic, 11.8 cm length. No hydronephrosis calculus or mass. Normal color flow. Incidental parapelvic cyst measuring 9 x 9 x 9 mm. Impression: 1. Slightly echogenic renal cortex reflecting nonspecific medical renal disease. No nephrolithiasis or hydronephrosis. Incidental parapelvic cyst on the left. Date of Service: 11/09/23 EXAMINATION: CT ABDOMEN PELVIS WITHOUT IV CONTRAST CLINICAL INFORMATION: abd pain, ??appendicitis COMPARISON: Prior CT 2020 TECHNIQUE: Multidetector volumetric imaging was performed from the superior aspect of the liver through the pubic symphysis IV contrast administered. Sagittal and coronal reformatted images were obtained on the technologist's workstation. This CT examination was performed using dose optimization techniques as appropriate, variously including the following: *Automated exposure control *Adjustment of mA and/or kV according to patient size (this includes techniques or standardized protocols for targeted exams where dose is matched to indication/reason for exam; i.e. extremities or head) *Use of iterative reconstruction technique DLP: 620 mGy-cm FINDINGS: LOWER THORAX: Included lung bases are clear. HEPATOBILIARY: No focal hepatic lesions. No biliary ductal dilatation. GALLBLADDER: Gallbladder unremarkable. SPLEEN: Spleen is normal in size. PANCREAS: No focal mass or ductal dilatation. STOMACH AND GASTROINTESTINAL TRACT: Stomach is grossly unremarkable. There is no bowel distention or thickening. No CT evidence of appendicitis. ADRENALS: No adrenal nodules. KIDNEYS/URETERS: Moderate to severe left renal hydronephrosis and hydroureter, the left ureter is dilated throughout its length into the left ureterovesicular junction, no obstructing stone found, this could be sequela of recently passed stone versus obstructing lesion in the distal left ureter. Perinephric fat stranding of the left kidney likely sequela of severe obstruction/backflow. Right kidney is normal. Prior right hydronephrosis completely resolved. URINARY BLADDER: Partially decompressed. PELVIC VISCERA: Unremarkable PERITONEUM: No free air or fluid. LYMPH NODES: No lymphadenopathy. VASCULAR:Abdominal aorta normal in size, no aneurysm found. BONES, ABDOMINAL WALL AND SOFT TISSUES: Spondylosis of the thoracolumbar spine otherwise unremarkable. IMPRESSION: 1. Moderate to severe left renal hydronephrosis and hydroureter, the left ureter is dilated throughout its length into the left ureterovesicular junction, no obstructing stone found, this could be sequela of recently passed stone versus obstructing lesion in the distal left ureter. Perinephric fat stranding of the left kidney likely sequela of severe obstruction/backflow. Attention to follow-up recommended, consider outpatient follow-up urology consultation and or CT urogram or cystoscopy retrograde ureterography. 2. Prior right hydronephrosis completely resolved. Assessment & Plan Assessment & Plan (1) History of kidney stones: Code(s): Z87.442 - Personal history of urinary calculi Category: Medical (2) History of pyelonephritis: Code(s): Z87.448 - Personal history of other diseases of urinary system Category: Medical Plan Follow-up in 1 year, renal ultrasound, continue Vit B6 100 mg daily Patient Instructions: The patient had an opportunity to ask questions regarding treatment plan. The patient expressed understanding and agreement with the above treatment plan. The patient is aware they should contact our office by phone for worsening of their current condition or the appearance of new symptoms. Compliance is encouraged with any medications and followup testing that is ordered. It is a privilege to be allowed the opportunity to participate in the urologic care of your patient. If you have any questions or concerns regarding treatment for the above conditions please do not hesitate to contact me. The office telephone contact is [phone]. This note is constructed in part using voice recognition software. While every effort has been made to ensure accuracy technical maintenance specialist errors may have been included. Yours sincerely, Beena Wright MD Coding Level of Care Code Est Pt Level 4 (08128) Diagnoses History of kidney stones Z87.442 History of pyelonephritis Z87.448
--- OUTSIDE RECORDS SUMMARY | 2024-06-30 10:42 | XMS_ITS | Clinical Summary ---
Author Organization [facility] Address [address] [place] [address] Care Team Providers Care Distribution Operations Supervisor Name Role Phone Nasim Ryan MD Primary Care Provider Antonio illizeth Allergies No known active allergies Medications Medication Sig Dispensed Refills Start Date End Date Status Cholecalciferol (VITAMIN D) 2000 UNITS Cap Take 1 Cap by mouth daily. 30 Cap 0 07/29/2014 Active glucose blood test strips (FREESTYLE LITE) strip 1 Strip by Does not apply route 2 times daily. 100 Each 1 08/19/2014 Active FREESTYLE LANCETS Misc 1 Each by Does not apply route 2 times daily. 100 Each 1 08/19/2014 Active aspirin 81 MG tabletIndications:Essen tial hypertension Take 1 Tab by mouth daily. 30 Tab 5 11/15/2015 Active atorvastatin (LIPITOR) 40 MG tablet take 1 tablet by mouth once daily 30 Tab 4 03/18/2018 Active lisinopril (PRINIVIL,ZESTRIL) 5 MG tablet take 1 tablet by mouth once daily 30 Tab 4 03/18/2018 Active metoprolol (LOPRESSOR) 25 MG tablet take 1 tablet by mouth twice a day 60 Tab 3 04/04/2018 Active amlodipine (NORVASC) 10 MG tablet Take 1 Tab by mouth daily. 30 Tab 2 05/14/2018 Active metformin (GLUCOPHAGE-XR) 500 MG 24 hr tablet Take 4 Tabs by mouth daily (with breakfast). 120 Tab 2 05/26/2018 Active Active Problems Patient Care Coordination No te Formatting of this note is d ifferent from the original. Checking Your Blood Sugars Please check your blood sugars every day. Please check your sugars at the following times of day: before breakfast and before bedtime Your Blood Sugar Goals Pre Meal: 90-130 2 hours after meals: 110-160 Bedtime: 110-150 Use the Results ?? Bring your glucometer to every appointment ?? Write your fingerstick blood sugars down on a log sheet or record book. Bring them to your appointment ?? Look for patterns in the numbers. The results help you and your provider make decisions about your diabetes treatment plan. Your Results and your Goals Your Result / Date of Completion Your Goal / How Often to Assess Component Value Date HGBA1C 7.1 11/12/2015 Less than 7% --- 2-4 times per year BP Readings from Last 1 Encounters: 11/15/15 148/90 Less than 140/90 --- once per year Component Value Date MALBCR 89.5 02/19/2015 Less than 30 --- once per year Component Value Date LDL 95 11/20/2014 Less than 100 --- once per year Wt Readings from Last 1 Encounters: 11/15/15 209 lb 8 oz (95.029 kg) Your goal weight by next visit: 200lb --- reassess 2-4 times a year Health Maintenance Due Topic Date Due ? ? Diabetes: Annual Eye Exam 1975 ? ? Diabetes: Annual Foot Exam 1975 ? ? Diabetes: Annual Care Plan 1975 ? ? Pneumovax For High Risk Patients (1) 1975 ? ? Influenza (#1 of 1) 10/20/2015 Your Action Plan Start/adjust diabetic medications as directed. Check blood glucose as directed and write down all results. Review blood pressure medications Make appointment to see your eye doctor Check feet for sores every day Continue to work on weight loss with a goal of losing 2-4 pounds per month Avoid walking in bare or stocking feet due to the numbness in your feet Increase physical activity Contact me if you experience any barriers to care such as inability to purchase your medication, difficulty getting to your appointments or difficulty understanding your care plan Please get your pneumonia shot Please get your yearly flu shot When to Call your Healthcare Provider If your blood sugar falls below 70 and you do not know why or you become unconscious If you are sick and unable to take liquids because or nausea or vomiting If you have a fever over 101 If your blood sugar is 300 or higher on greater than 3 separate occasions during the same week If you are just unsure what to do Educational Resources [place] Diabetes Association (www.diabetes.org) Centers for Disease Control and Prevention (www.cdc.gov/diabetes) This care plan was created in collaboration with Minerva Murray on 11/15/2015 Problem Noted Date Obesity (BMI 30-39.9) 10/27/2018 Proteinuria 09/09/2018 Hyperlipidemia 02/24/2015 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 07/23/2014 Syphilis contact, treated 07/21/2014 Overview: Treated during her 20s after with several months of injected penicillin Venous insufficiency (chronic) (peripher al) 07/21/2014 HTN (hypertension) 03/19/2014 LVH (left ventricular hypertrophy) 03/19 Overview: Normal EF and negative nuclear CKD (chronic kidney disease) stage 3, GF R 30-59 ml/min 03/19/2014 Resolved Problems Problem Noted Date Resolved Date Question of Heart failure with preserved ejectio n fraction 08/10/2014 11/29/2016 Atypical chest pain 08/10/2014 03/23/2016 Neuropathy 07/21/2014 11/29/2016 Back pain 06/26/2012 09/09/2018 Immunizations Name Administration Dates Next Due Influenza (> 6 Months) 11/15/2015,11/22/2014 Influenza Vaccine-quadrivalent 4 Years Plus 11/18 Pneumococcal Conjugate PCV-13 11/15/2015 Tdap 10/07/2012 Family History Medical History Relation Name Comments CA Breast Negative Hx Relation Name Status Comments Brother 1 [...] Assigned at Date Recorded Not on file Last Filed Vital Signs Vital Sign Reading Time Taken Comments Blood Pressure 136/72 10/27/2018 9:43 AM EDT Pulse 74 10/27/2018 9:43 AM EDT Temperature 36.9 ??C (98.5 ??F) 10/27/2018 9:43 AM ED T Respiratory Rate 16 10/27/2018 9:43 AM EDT Oxygen Saturation - - Inhaled Oxygen Concentration - - Weight 93.1 kg (205 lb 3.2 oz) 10/27/2018 9:43 A M EDT Height 172.7 cm (5' 8 ) 10/27/2018 9:43 AM EDT Body Mass Index 31.2 10/27/2018 9:43 AM EDT Plan of Treatment Health Maintenance Due Date Last Done Comments Covid-19 Vaccine (#1) 1955 SHINGLES VACCINE (1 of 2) 2007 DIABETES: BLOOD SUGAR CONTRO L TEST (HGBA1C) 01/26/2019 10/27/2018, 05/18/2018, 02/17/2018, Additional history exists DIABETES/HEART DISEASE: ZHANNA AL CHOLESTEROL (LDL) 02/17/2019 02/17/2018, 03/19/2016, 11/20/2014, Additional history exists DIABETES: ANNUAL FOOT EXAM 05/15/201905/14, 11/29/2016, 11/15/2015 DIABETES: ANNUAL URINE PROTE IN TEST (MICROALBUMIN) 05/19/2019 05/18/2018, 03/19/2016, 02/19/2015, Additional history exists DIABETES: ANNUAL EYE EXAM 10/08/2019 10/07/2018, MAMMOGRAM 12/11/2020 12/12/2019, 11/18, 11/30/2017, Additional history exists COLON CANCER SCREENING 06/26/2021 2 (External Completion) BONE DENSITY SCREENING 2022 PNEUMOCOCCAL VACCINE (2 - PP SV23 or PCV20) 2022 11/15/2015 DTAP/TDAP/TD (2 - Td or Tdap) 10/07/2022 10/07/2012 BMI CHECK/ADVISE 02/19/2024 10/27/2018, , 02/13/2017, Additional history exists INFLUENZA (Season Ended) 2024 017, 11/15/2015, 11/22/2014 HEPATITIS C SCREENING Completed 10/09/2012 Insurance Payer Benefit Plan / Group Subscriber ID Effective Dates Phone Address Type [facility] 67 $15/25 SENIOR FFS [id number] 2007-Prese nt BCBS [address] [place] [address] MEDICARE [id number] ICE MEDICARE-AR MEDICARE-AR [id number] 2022-Prese nt [id number] [address] [place] [address] MEDICARE [id number] ICE [place]/INDEM [place] MEDEX (MCARE SUPP) [place] [id number] 2022-Prese nt [address] [place] [address] MEDICARE [id number] ICE MED[place] MEDICARE-[place] [id number] 2023-Prese nt [address] [place] [address] MEDICARE [id number] [place]/HMO FFS MEDEX CHOICE [id number] 2023-Prese nt [address] [place] [address] HMO Oxu-dhl-Ooeg ice Care Teams Distribution Operations Supervisor Relationship Specialty Start Date End Date Nasim Ryan MD PCP - General Internal Medicine 11/12/23
--- OUTSIDE RECORDS SUMMARY | 2024-06-30 10:42 | XMS_ITS | Patient Health Record ---
Author Organization [facility] Address [address] [place] [address] Care Team Providers Care Mangle Roll Operator Name Role Phone Nasim Ryan MD [...] Problem Status W/U Status Risk Notes Problem 550386125 Colon cancer screening (Z12.11) Active confirmed Problem 820952795 Encounter for other preprocedural examination (Z01.818) Active confirmed Problem [id number] FDC (current) use of oral hypoglycemic drugs (Z79.84) Active confirmed Plan Of Treatment Future Test Test Name Order Date COLONOSCOPY 05/31/2022 Insurance Providers Payer Name Payer Address Payer Phone Subscriber Number Group Number Insured Name Patient Relationship to Insured Coverage Start Date Coverage End Date [facility] [address] [facility], [place] [phone] [id number] ADRIA HOGAN Self - patient is the insured Medical (General) History Medical History History ICD Code Nephrolithiasis Diabetes mellitus type 2 hypertension Elevated cholesterol Surgical History Surgery Date(Month/Year) hysterectomy
--- OUTSIDE RECORDS SUMMARY | 2024-06-30 10:42 | XMS_ITS | Encounter Summary ---
Author Organization [facility] Address [address] [place] [address] Care Team Providers Care Psychiatric Attendant Name Role Phone Gerard Mcdermott MD Primary Care Provider Un available Albaro Abbotto Frieda DO Primary Care Pro vider Unavailable Community, Pcp Primary Care Provider Nasim Mireles MD Primary Care Provider Unava ilable Reason for Visit * Reason Comments E-prescribe Rx Request Encounter Details Date Type Department Care Team Description 04/02/2018 Refill Adult Medicine [address] [address] Albino Le PA-C [address] [place] [address] E-prescribe Rx Request Social History Tobacco Use Types Packs/Day Years Used Date Smoking Tobacco: Never Smokeless Tobacco: Never Alcohol Use Standard Drinks/Week Comments No 0 (1 standard drink = 0.6 oz pur e alcohol) Sex Assigned at Date Recorded Not on file documented as of this encounter Miscellaneous Notes * Telephone Encounter - Albino Le PA-C - 04/04/2018 1:03 PM EST Ok to fill. Antoinette Garnett * Telephone Encounter - Jessica Horta M.A. - 04/04/2018 10:10 AM EST Lab Results Component Value Date NA 141 02/17/2018 K 3.9 02/17/2018 CO2 26.0 02/17/2018 CL 100 02/17/2018 BUN 19 02/17/2018 CREAT 1.6 02/17/2018 GLU 179 02/17/2018 CA 9.6 02/17/2018 GFR 35 02/17/2018 Lab Results Component Value Date HGBA1C 6.5 02/17/2018 MALBUR 487.5 03/19/2016 MALBCR 369.3 03/19/2016 CHOL 254 02/17/2018 LDL 158 02/17/2018 HDL 51 02/17/2018 TRIG 225 02/17/2018 GLU 179 02/17/2018 CREAT 1.6 02/17/2018 * Telephone Encounter - Megan Marquez - 04/02/2018 9:33 AM EST Patient would like script to be: E-PRESCRIBED/FAXED TO PHARMACY WHEN WAS THE PATIENT'S LAST APPOINTMENT IN ADULT MEDICINE? 02/17/18 WHEN WAS THE LAST TIME THE PATIENT SAW THEIR PCP? 11/29/16 Does patient have an upcoming appointment? Yes 05/14/18 (THE MEDICATION REQUESTED IS ON THE MED LIST ABOVE) All of the medications requested were on the CURRENT MEDS list Did you check the Pharmacy information above?: YES Patient wants: 30 -day supply Is this a mail order prescription request ? NO If the refill is from a FAXED refill request what is the RX # listed on the fax? N/A Patients current insurance carrier is: Payor: [employer] / Plan: PPO $20 [place] [id number] / Product Type: MEDICARE SUPPLEMENTAL documented in this encounter Plan of Treatment Not on file documented as of this encounter Visit Diagnoses Not on filedocumented in this encounter Care Teams Psychiatric Attendant Relationship Specialty Start Date End Date Gerard Mcdermott MD PCP - General Internal Medicine 10/26/15 9 Frieda Beckford DO PCP - General Internal Medicine 09/19/18 12/07/21 [facility], Pcp PCP - General Internal Medicine 12/08/21 11/11/23 Nasim Ryan MD PCP - General Internal Medicine 11/12/23 documented as of this encounter
--- OUTSIDE RECORDS SUMMARY | 2024-06-30 10:42 | XMS_ITS | Clinical Summary ---
Author Organization [facility] Address [address] [facility] [address] [place] [address] Phone Care Team Providers Care Fire Prevention Forester Name Role Phone Nasim Ryan MD Primary Care Provider [phone] Allergies No known active allergies Medications amLODIPine [...] AM EDT) Hemoglobin A1C 8.5(H) (4.0-5.6) % [facility] Comment: MONITORING: In known diabetic patients, hemoglobin A1c targets should be discussed with health care provider. DIAGNOSTIC USE: ??The [place] Diabetes Association (ADA) and the World Health [...] Supplement 1 Testing performed or reported by [facility], a Service of [facility], [address] [place] [address] Vamsi Magaña MD, Psych Rn [facility]# [id number] Blood (Blood, Venous) 06/05/2022 8:31 AM EDT 06/05/2022 8:33 AM EDT us Michael Barnes MD LAB BLOOD ORDERABLES Final Re sult [facility] from Last 3 Months or Most Recently Relevant to Health Maintenance Insurance Medicare [facility] Medicare [facility] Care Teams Fire Prevention Forester Relationship Specialty Start Date End Date Nasim Ryan MD [address] [place] MENDOZA PCP - General 02/29/20
--- OUTSIDE RECORDS SUMMARY | 2024-06-30 10:42 | XMS_ITS | Encounter Summary ---
Author Organization [facility] Address [address] [place] [address] Care Team Providers Care Gas Plant Specialist Name Role Phone Gerard Mcdermott MD Primary Care Provider Un available Francisco Beckfordabemaribell HICKS Primary Care Pro vider Unavailable Community, Pcp Primary Care Provider Nasim Mireles MD Primary Care Provider Unava ilable Reason for Visit * Reason Onset Date Comments Prior Authorization 03/21/2016 Encounter Details Date Type Department Care Team Description 03/21/2016 Telephone Adult Medicine [address] [address] Gerard Mcdermott MD Prior Authorization Social History [...] containing product [place] back to p [id number] Prior Auth pool Andreina Villa M[facility] Prior Authorizations Ext [id number] * Telephone Encounter - Inessa Rehman M.A. - 03/22/2016 1:48 PM EST Prior authorization done today on cover my meds * Telephone Encounter - Margoth Miles - 03/21/2016 11:29 AM EST Pre Authorization for Medication Does the patient already have this medication?NO Is this a Cover My Meds request: [place] of Medication Januvia Dose of Medication 25 mg tablets How does patient take this med? orally What other dosage or similar medication have you tried in the past for this problem Patients current medical insurance [facility] What Prescription Plan does the patient have? hne Prescription Plan Tel # from back of prescription ID card [phone] What is the patients Prescription Plan ID #? [id number] What Pharmacy does the patient use? [facility] Payor: [facility] / Plan: O $20 [place] 1 / Product Type: HMO [id number] documented in this encounter Plan of Treatment Not on file documented as of this encounter Visit Diagnoses Not on filedocumented in this encounter Care Teams Gas Plant Specialist Relationship Specialty Start Date End Date Gerard Mcdermott MD PCP - General Internal Medicine 10/26/15 9 [place] Colasacco, Frieda, DO PCP - General Internal Medicine 09/19/18 12/07/21 [facility], Pcp PCP - General Internal Medicine 12/08/21 11/11/23 Nasim Ryan MD PCP - General Internal Medicine 11/12/23 documented as of this encounter
--- OUTSIDE RECORDS SUMMARY | 2024-06-30 10:42 | XMS_ITS | Encounter Summary ---
Author Organization [facility] Address [address] [place] [address] Phone Care Team Providers Care Wall Attendant Name Role Phone Nasim Ryan MD Primary Care Provider [phone] Encounter Details Date Type Department Care Team (Late st Contact Info) Description 06/12/2022 Telephone [facility] [address] [place] [address] Caro Rios Social History Tobacco [...] requesting the script tot be sent to [facility] in [place]. documented in this encounter Plan of Treatment Not on file documented as of this encounter Visit Diagnoses Not on filedocumented in this encounter Care Teams Wall Attendant Relationship Specialty Start Date End Date Nasim Ryan MD [address] [place] PCP - General 02/29/20 documented as of this encounter
--- OUTSIDE RECORDS SUMMARY | 2024-06-30 10:42 | XMS_ITS | Patient Health Record ---
Author [facility] Address [address] [place] [address] Care Team Providers Care Email Production Specialist Name Role Phone Nasim Ryan MD Primary Care Provider Daniel Claire Unavailable [phone] Allergies No Known Allergies Reason For Referral [...] Problem Acquired hammer toe of right foot (472314949051 9105) Other hammer toe(s) (acquired), right foot (M20.41) Active confirmed Problem Acquired hammer toe of left foot (978688300021 9103) Other hammer toe(s) (acquired), left foot (M20.42) Active confirmed Problem Type 2 diabetes mellitus with diabetic polyneuropathy (E11.42) Active confirmed Problem 039987786 Type 2 diabetes mellitus without complication, without long-term current use of insulin (E11.9) Active confirmed Encounters Encounter Location Date Provider Diagnosis [facility] [place] [address] [place] [address] 07/23/2023 Daniel Sr Plan Of Treatment Pending Test Test Name Order Date X ray : Foot, left 3V 07/06/2022 [id number] SKIN LESIONS, 2 TO 4 08/25/19 23 Insurance Providers Payer Name Payer Address Payer Phone Subscriber Number Group Number Insured Name Patient Relationship to Insured Coverage Start Date Coverage End Date [facility] [address] [place] [address] [id number] Minerva Szymanski Self - patient is the insured Medicare [employer] [address] [place] [address] [id number] Minerva Szymanski Self - patient is the insured 3 Medical (General) History Medical History History ICD Code Back,Hip,and Knee pain Cholesterol Diabetic High blood pressure Kidney disease Chicken pox Surgical History Surgery Date(Month/Year) hysterectomy
--- OUTSIDE RECORDS SUMMARY | 2024-06-30 10:42 | XMS_ITS | Encounter Summary ---
Author Organization [facility] Address [address] [place] [address] Care Team Providers Care Auto Parts Counter Person Name Role Phone Community, Pcp Primary Care Provider Unavailgarcia e Frieda Beckford DO Primary Care Pro vider Unavailable Gerard Mcdermott MD Primary Care Provider Un available Frieda Beckford DO Primary Care Pro vider Unavailable [facility], Pcp Primary Care Provider Nasim Mireles MD Primary Care Provider Unava ilable Reason for Visit * Reason Comments E-prescribe Rx Request Encounter Details Date Type Department Care Team Description 06/14/2015 Refill Adult Medicine [address] [address] Name, MD Chucho E-prescribe Rx Request Social [...] on filedocumented in this encounter Care Teams Auto Parts Counter Person Relationship Specialty Start Date End Date Community, Pcp PCP - General Internal Medicine 06/14/15 08/02/15 Frieda Beckford DO PCP - General Internal Medicine 08/03/15 10/25/15 Gerard Mcdermott MD PCP - General Internal Medicine 10/26/15 9 Frieda Beckford DO PCP - General Internal Medicine 09/19/18 12/07/21 [facility], Pcp PCP - General Internal Medicine 12/08/21 11/11/23 Nasim Ryan MD PCP - General Internal Medicine 11/12/23 documented as of this encounter
--- OUTSIDE RECORDS SUMMARY | 2024-06-30 10:42 | XMS_ITS | Encounter Summary ---
Author Organization [facility] Address [address] [place] [address] Phone Care Team Providers Care Computer Artist Name Role Phone Nasim Ryan MD Primary Care Provider [phone] Encounter Details Date Type Department Care Team ([facility] Contact Info) Description 06/12/2022 Telephone [facility] [address] [place] [address] Caro Rios Social History Tobacco [...] 10:10 AM EDT Please call Inessa from [facility] on [facility], , she says she has a couple of questions she needs to run by you. documented in this encounter Plan of Treatment Not on file documented as of this encounter Visit Diagnoses Not on filedocumented in this encounter Care Teams Computer Artist Relationship Specialty Start Date End Date Nasim Ryan MD [address] [place] PCP - General 02/29/20 documented as of this encounter
--- OUTSIDE RECORDS SUMMARY | 2024-06-30 10:42 | XMS_ITS ---
Author Organization [facility] Address [address] [place] [address] Care Team Providers Care Liquid Natural Gas Plant Operator Name Role Phone Nasim Ryan MD Primary Care Provider Daniel Claire [phone] REASON FOR VISIT NEOS Encounters Encounter Location Date Provider Diagnosis [facility] [address] [place] [address] 07/23/2023 Daniel Sr Plan Of Treatment No Information Progress Notes * Minerva MURRAYDOB: [birth year] (68 yo F)Acc No.[id number]:07/23/2023 Patient:?Trevor Minerva :1955???Age:68 Y???Sex:Female Address:[address] [place] [address], [address], [place] [address] * true * Date:? Generated for Waynei zoya/Sheyla/eTransmitting on:?06/30/2024 10:42 AM EDT
--- OUTSIDE RECORDS SUMMARY | 2024-06-30 10:43 | XMS_ITS | Encounter Summary ---
Author Organization [facility] Address [address] [place] [address] Care Team Providers Care Linter Tender Name Role Phone Chucho Lam MD Primary Care Provider Unavailabl e Community, Pcp Primary Care Provider Unavailabl e [place] Colasacco, Frieda DO Primary Care Pro vider Unavailable Gerard Mcdermott MD Primary Care Provider Un available [place] Colasacco, Frieda DO Primary Care Pro vider Unavailable Community, Pcp Primary Care Provider Unavailabl e Nasim Ryan MD Primary Care Provider Unava ilable Reason for Visit * Reason Onset Date Comments Work note 03/19/2014 Encounter Details Date Type Department Care Team Description 03/19/2014 Telephone Adult [address] [address] Chucho Lam MD Work note Social History Tobacco Use Types Packs/Day Years Used Date Smoking Tobacco: Never Alcohol Use Standard Drinks/Week Comments No 0 (1 standard drink = 0.6 oz pur e alcohol) Sex Assigned at Date Recorded Not on file documented as of this encounter Miscellaneous Notes * Telephone Encounter - Verna Christensen M.A. - 03/23/2014 3:01 PM EST Letter mailed today to patients home. * Telephone Encounter - Chucho Lam MD - 03/23/2014 9:30 AM EST done * Telephone Encounter - Alia Saravia - 03/19/2014 4:36 PM EST Chucho Lam gave patient a note during office visit 03/19/14 but it had incorrect dates listed. Patient would like the start date to be the day after she got out of the hospital. Work note is for: Return to Work Note Has patient been seen for the reason they were absent from work? Yes For what medical reason was/is patient out of work?: urgency If Yes, by whom?: Chucho Lam Date patient seen: 03/19/14 What dates does the patient need the note to cover: Beginning date: 03/10/14 End Date: 03/21/14 If note for return to work, what is return date: 03/22/14 If note is to return to work, are there restrictions? No. If yes, list: na Patient would like note to be: Placed in patient machine pecan picker documented in this encounter Plan of Treatment Not on file documented as of this encounter Visit Diagnoses Not on filedocumented in this encounter Care Teams Linter Tender Relationship Specialty Start Date End Date Name, MD Chucho PCP - General Internal Medicine 06/26/12 06/13/15 [facility], Pcp PCP - General Internal Medicine 06/14/15 08/02/15 Frieda Beckford DO PCP - General Internal Medicine 08/03/15 10/25/15 Gerard Mcdermott MD PCP - General Internal Medicine 10/26/15 9 Frieda Beckford DO PCP - General Internal Medicine 09/19/18 12/07/21 Community, Pcp PCP - General Internal Medicine 12/08/21 11/11/23 Nasim Ryan MD PCP - General Internal Medicine 11/12/23 documented as of this encounter
--- OUTSIDE RECORDS SUMMARY | 2024-06-30 10:43 | XMS_ITS | Encounter Summary ---
Author Organization [facility] Address [address] [place] [address] Care Team Providers Care Workforce Advisor Name Role Phone Name, Chucho JEFF Primary Care Provider Unavailabl e Community, Pcp Primary Care Provider Unavailabl e Stephania Beckfordla DO Primary Care Pro vider Unavailable Gerard Mcdermott MD Primary Care Provider Un available TodkoFrancisco De La Rosaabela DO Primary Care Pro vider Unavailable Community, Pcp Primary Care Provider Unavailabl e Nasim Ryan MD Primary Care Provider Unava ilable Encounter Details Date Type Department Care Team Description 03/10/2014 Hospital Medical Records [address] [place] [address] Thang Floyd MD [address] [place] [address] Social History Tobacco Use Types Packs/Day Years [...] on filedocumented in this encounter Care Teams Workforce Advisor Relationship Specialty Start Date End Date Name, MD Chucho PCP - General Internal Medicine 06/26/12 06/13/15 Community, Pcp PCP - General Internal Medicine 06/14/15 08/02/15 Frieda Beckford DO PCP - General Internal Medicine 08/03/15 10/25/15 Gerard Mcdermott MD PCP - General Internal Medicine 10/26/15 9 Frieda Beckford DO PCP - General Internal Medicine 09/19/18 12/07/21 [facility], Pcp PCP - General Internal Medicine 12/08/21 11/11/23 Nasim Ryan MD PCP - General Internal Medicine 11/12/23 documented as of this encounter
--- OUTSIDE RECORDS SUMMARY | 2024-06-30 10:43 | XMS_ITS | Clinical Summary ---
Author Organization [facility] it Address [address] [place] [address] Care Team Providers Care English Language Arts Teacher Name Role Phone Nasim Ryan MD Primary Care Provider [phone] Surgical History Surgery Date Site/Laterality Comments OTHER SURGICAL HISTORY PROCEDURE: HISTORICAL VAGINAL HYSTERECTOMY WITH BSO Medical History Medical History Date Comments Type 2 diabetes mellitus wit h renal manifestations (CMS/HCC V24, CMS/HCC V28) 07/23/2014 DX:Type 2 diabetes mellitus with renal manifestations ([facility]) Proteinuria 09/09/2018 DX:Proteinuria CKD (chronic kidney disease) stage 3, GFR 30-59 ml/min (CMS/HCC V24, CMS/HCC V28) 03/19/2014 DX:CKD (chronic kidney disea se) stage 3, GFR 30-59 ml/min ([facility]) HTN (hypertension) 03/19/2014 DX:HTN (hyper tension) Hyperlipidemia [...] Recently Relevant to Health Maintenance Care Teams English Language Arts Teacher Relationship Specialty Start Date End Date Nasim Ryan MD [address] [place] [address] Dr Ferguson [place], [place] PCP - General 11/12/23
--- OUTSIDE RECORDS SUMMARY | 2024-06-30 10:43 | XMS_ITS | Encounter Summary ---
Author Organization [facility] Address [address] [place] [address] Care Team Providers Care Chlorinator Operator Name Role Phone Gerard Mcdermott MD Primary Care Provider Un available Krakowichar Colasacco, Frieda DO Primary Care Pro vider Unavailable Community, Pcp Primary Care Provider Nasim Mireles MD Primary Care Provider Unava ilable Encounter Details Date Type Department Care Team Description 05/26/2018 Orders Only Adult Medicine [address] [address] Gerard Mcdermott MD Type 2 diabetes mellitus [...] AM EDT Gerard Mcdermott MD LAB [facility] * (ABNORMAL) BASIC METABOLIC PANEL (10/27/2018 10:08 [...] EDT [facility] Comment: If patient is -E[place]ian, multiply result by 1.21 Chronic Kidney Disease: [...] AM EDT Gerard Mcdermott MD LAB [facility] documented in this encounter Visit Diagnoses Diagnosis Type 2 diabetes mellitus with stage 3 chronic kidney disease, without long-term current use of insulin (HCC)- Primary documented in this encounter Care Teams Chlorinator Operator Relationship Specialty Start Date End Date Gerard Mcdermott MD PCP - General Internal Medicine 10/26/15 9 Frieda Beckford DO PCP - General Internal Medicine 09/19/18 12/07/21 [facility], Pcp PCP - General Internal Medicine 12/08/21 11/11/23 Nasim Ryan MD PCP - General Internal Medicine 11/12/23 documented as of this encounter
--- OUTSIDE RECORDS SUMMARY | 2024-06-30 10:43 | XMS_ITS | Encounter Summary ---
Author Organization [facility] Address [address] [place] [address] Care Team Providers Care Financial Aid Name Role Phone Name, Chucho JEFF Primary Care Provider Unavailabl e Community, Pcp Primary Care Provider Unavailabl e Francisco Beckfordabela DO Primary Care Pro vider Unavailable Gerard Mcdermott MD Primary Care Provider Un available TodkoFrancisco De La Rosaabela DO Primary Care Pro vider Unavailable Community, Pcp Primary Care Provider Unavailabl e Nasim Ryan MD Primary Care Provider Unava ilable Encounter Details Date Type Department Care Team Description 03/09/2014 Hospital Medical Records [address] [place] [address] Thang Floyd MD [address] [place] [address] Social History Tobacco Use Types Packs/Day Years [...] on filedocumented in this encounter Care Teams Financial Aid Relationship Specialty Start Date End Date Name, MD Chucho PCP - General Internal Medicine 06/26/12 06/13/15 Community, Pcp PCP - General Internal Medicine 06/14/15 08/02/15 Frieda Beckford DO PCP - General Internal Medicine 08/03/15 10/25/15 Gerard Mcdermott MD PCP - General Internal Medicine 10/26/15 9 Frieda Beckford DO PCP - General Internal Medicine 09/19/18 12/07/21 [facility], Pcp PCP - General Internal Medicine 12/08/21 11/11/23 Nasim Ryan MD PCP - General Internal Medicine 11/12/23 documented as of this encounter
--- OUTSIDE RECORDS SUMMARY | 2024-06-30 10:43 | XMS_ITS | Encounter Summary ---
Author Organization [facility] Address [address] [place] [address] Care Team Providers Care Marine Radio Installer And Servicer Name Role Phone Name, Chucho JEFF Primary [...] Date Type Department Care Team Description 03/09/2014 [facility] Medical Records [address] [place] [address] [place] Wolff Social History Tobacco Use Types Packs/Day Years [...] on filedocumented in this encounter Care Teams Marine Radio Installer And Servicer Relationship Specialty Start Date End Date Name, MD Chucho PCP - General Internal Medicine 06/26/12 06/13/15 [place], Pcp PCP - General Internal Medicine 06/14/15 [...]
--- OUTSIDE RECORDS SUMMARY | 2024-06-30 10:43 | XMS_ITS ---
Author Organization [facility] Melody bryon [place] Address [address] [place] [address] Care Team Providers Care Assistant Speech Language Pathologist Name Role Phone Nasim Ryan MD Primary Care Provider Daniel Claire [phone] REASON FOR VISIT Surgeon Referral Encounters Encounter Location Date Provider Diagnosis [facility] [address] [place] [address] 06/25/2023 Daniel Sr Plan Of Treatment No Information Progress Notes * Minerva MURRAYDOB: [birth year] (68 yo F)Acc No.[id number]:06/25/2023 Patient:?TrevorSusanaMinerva :1955???Age:68 Y???Sex:Female Address:[address] [place] [address], [address], [place] [address] * true * Date:? Generated for Waynei zoya/Sheyla/eTransmitting on:?06/30/2024 10:42 AM EDT
== END 2024-06-30 11:17 | disposition home or self-care (01) ==
LOC: HO.HUSH 09:53
PROVIDERS: PCP Internal Medicine; Visit Provider Urology
DX: Z87.442 Personal history of urinary calculi (principal); Z87.448 Personal history of other diseases of urinary system; Z13.9 Encounter for screening, unspecified
CPT/HCPCS: 99214

== ENCOUNTER → 2024-06-30 09:52 | Outpatient (BNVA) | payer MEDICARE, SELFPAY | PROVIDERS: PCP Internal Medicine; Visit Provider Urology | DX: Z87.442 Personal history of urinary calculi (principal); Z87.448 Personal history of other diseases of urinary system | CPT/HCPCS: 81003; 99212 ==

== ENCOUNTER 2024-07-15 12:14 | Outpatient (AMB) | payer MEDICARE, SELFPAY ==
--- NOTE | 2024-07-15 12:27 | A.OFFVIS_ITS ---
Vital Signs 07/15/24 12:31 Height 5 ft 8 in Weight 211 lb BMI 32.1 Intake Visit Reasons: Left shoulder pain and weakness Intake Note: Minerva is a 69 year old right hand dominant female who presents with complaints of progressively worsening left shoulder pain and weakness. The patient states that she injured her shoulder several months ago while lifting a heavy object. Since that time her symptoms have gotten worse. The patient has difficulty lifting her left hand to shoulder height. She has tried Tylenol, anti- inflammatory medicines and lidocaine patches which gave her minimal relief. She denies any numbness or tingling in either upper extremity. She has failed the last 6 weeks of conservative treatment. She has done physical therapy exercises which aggravated her pain. Allergies No Known Allergies Allergy (Verified 07/15/24 12:31) Medication List - Last Reconciled 07/15/24 by Darrell Figueroa MD amlodipine 1 tab PO DAILY atorvastatin 1 tab PO BEDTIME cholecalciferol (vitamin D3) 50 mcg PO DAILY diclofenac sodium 1% (Voltaren Arthritis Pain) 2 grams topical QID glipizide ER 1 tab PO DAILY lisinopril 10 mg PO DAILY pioglitazone 30 mg PO DAILY pyridoxine (vitamin B6) 100 mg PO DAILY PFSH Medical History CKD (chronic kidney disease) stage 3, GFR 30-59 ml/min Elevated cholesterol Nephrolithiasis Diabetes mellitus, type 2 Pre-diabetes High blood pressure Surgical History Hx of colonoscopy (~06/26/22) H/O: hysterectomy Family History Father Heart problem Stroke Mother Diabetes Kidney problem Social History Household Members: Family Housing: Condominium Are you a primary manager home healthcare to a significant other at home: No Do you presently have visiting nurse or other home services: No Alcohol intake: never Patient Tobacco Use Status: Never used Tobacco e-Cigarette/Vaping Use: Never Used Second Hand Smoke Exposure: No service: No Current occupational status: retired 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 Cognitive needs: No Hearing needs: No Vision needs: Yes (reading glasses) Physical Exam Vital Signs: BMI result Body Mass Index 32.1 Const Other: Well-nourished well-developed very friendly female awake alert and oriented x3 in no acute distress Extrem Other: Bilateral upper extremity examination shows good capillary refill, no skin lesions noted, normal sensation light touch Left shoulder examination shows decreased range of motion when compared to her right shoulder, 4+ out of 5 strength with supraspinatus testing, positive impingement signs, tenderness over her acromioclavicular joint, no instability Results Reviewed Results Reviewed: X-rays of the patient's left shoulder show severe acromioclavicular joint narrowing, a type 2 acromion, no acute bony abnormalities Assessment & Plan Assessment & Plan (1) Rotator cuff insufficiency of left shoulder: Code(s): M25.312 - Other instability, left shoulder Category: Medical Plan Ms. Murray presents with progressively worsening left shoulder pain and weakness due to impingement syndrome and possible rotator cuff tearing. Thus, I will send the patient for an MRI of her left shoulder for further evaluation. I will see her back once the MRI is completed to discuss the findings and treatment options. Feel free to call me at any time should questions regarding her orthopedic management arise. Thank you very much for asking me to see this very friendly patient. I spent 22 minutes in reviewing the patient's records and imaging studies, seeing the patient and documenting in the medical record. Orders: Orders MR shoulder LT wo con Today M25.312 - Other instability, left shoulder Coding Level of Care Code New Pt Level 3 (85345) Complex EM visit Add On G2211 Diagnoses Rotator cuff insufficiency of left shoulder M25.312
[2024-07-15 12:31] VITALS: BMI 32.1
--- OUTSIDE RECORDS SUMMARY | 2024-07-15 12:57 | XMS_ITS | Encounter Summary ---
Author Organization [facility] Address [address] [place] [address] Phone Care Team Providers Care Chief Catalyst Operator Name Role Phone Nasim Ryan MD Primary Care Provider [phone] Encounter Details Date Type Department Care Team ([facility] Contact Info) Description 06/12/2022 Telephone [facility] [address] [place] [address] Caro Rios Social History Tobacco [...] 10:10 AM EDT Please call Inessa from [facility] on [facility], , she says she has a couple of questions she needs to run by you. documented in this encounter Plan of Treatment Not on file documented as of this encounter Visit Diagnoses Not on filedocumented in this encounter Care Teams Chief Catalyst Operator Relationship Specialty Start Date End Date Nasim Ryan MD [address] [place] PCP - General 02/29/20 documented as of this encounter
== END 2024-07-15 12:38 | disposition home or self-care (01) ==
LOC: HO.HOS 12:15
PROVIDERS: PCP Internal Medicine; Visit Provider Orthopaedic Surgery
DX: M25.312 Other instability, left shoulder (principal)
CPT/HCPCS: 99203; G2211

== ENCOUNTER → 2024-07-15 12:14 | Outpatient (BNVA) | payer MEDICARE, SELFPAY | PROVIDERS: PCP Internal Medicine; Visit Provider Orthopaedic Surgery | DX: M25.312 Other instability, left shoulder (principal); M25.512 Pain in left shoulder | CPT/HCPCS: 99202 ==

== ENCOUNTER 2024-07-19 14:32 | Outpatient (REF) | payer MEDICARE, SELFPAY ==
--- NOTE | ~2024-07-19 | MR_ITS ---
EXAMINATION: MRI shoulder without contrast, left TECHNIQUE: Multiplanar multisequence imaging through an upper extremity joint without contrast. INDICATION: Left shoulder instability, left shoulder pain for 2 months, worsening, radiating into the C-spine, decreased range of motion, swelling PRIOR: X-ray June 30, 2024 FINDINGS: Rotator Cuff: There is a partial thickness tear involving the bursal side of supraspinatus tendon at the footprint extending through more than half of the tendon thickness. There is also approximately 1 cm of delamination extending into the tendon. On the prior x-ray, there is faint amorphous calcific density projecting just cephalad to the greater tuberosity likely representing hydroxyapatite deposition within supraspinatus tendon. Rotator cuff is intact otherwise. Labrum: The superior labrum is irregular and frayed. There is subtle linear fluid signal tracking into the junction of glenoid articular cartilage and posterior labrum at 3-4:00. Long biceps tendon: The long biceps tendon is intact and not displaced from the groove. Acromioclavicular joint: There are mild hypertrophic changes involving the AC joint. There is trace fluid within the anterior aspect of the AC joint. There is trace fluid in the subacromial subdeltoid bursa. Axillary pouch: The axillary pouch is intact. Articular cartilage: There is mild thinning of articular cartilage in the posterior glenoid and medial humeral head. Bones/Marrow: There are no marrow replacing lesions. Soft tissues: There is no fatty streaking or muscle atrophy. MR/MR shoulder LT wo con IMPRESSION: There is a deep bursal sided tear of supraspinatus tendon at the footprint with 1 cm delamination extending into the tendon. Calcific tendinitis: There is faint amorphous calcific density visible on the x-ray performed 2.5 months earlier that is not well demonstrated on this MRI. The superior labrum is degenerated and frayed. Additionally, there is a small focal area of delamination or fissuring at the junction of glenoid articular cartilage and posterior labrum at 3-4:00. Mild glenohumeral degenerative changes with mild thinning (grade 2 chondromalacia) of the articular cartilage of the posterior glenoid and medial humeral head. Electronically signed by: Sreedhar Mack MD 07/20/2024 11:56 AM EDT
== END 2024-07-19 14:33 | disposition home or self-care (01) ==
LOC: HO.MRI 14:32
PROVIDERS: PCP Internal Medicine; Visit Provider Orthopaedic Surgery
DX: M25.312 Other instability, left shoulder (principal)
CPT/HCPCS: 73221

== ENCOUNTER → 2024-07-19 14:45 | Outpatient (BNV) | payer MEDICARE, SELFPAY | PROVIDERS: PCP Internal Medicine; Visit Provider Radiology Diagnostic Radiology | DX: M19.012 Primary osteoarthritis, left shoulder (principal); S46.012A Strain of muscle(s) and tendon(s) of the rotator cuff of left shoulder, initial encounter | CPT/HCPCS: 73221 ==

== ENCOUNTER 2024-07-23 08:15 | Outpatient (AMB) | payer MEDICARE, SELFPAY ==
--- OUTSIDE RECORDS SUMMARY | 2024-07-23 08:24 | XMS_ITS | Encounter Summary ---
Author Organization [facility] Address [address] [place] [address] Care Team Providers Care Auxiliary Engineer Name Role Phone Community, Pcp Primary Care Provider Unavailgarcia e Frieda Beckford DO Primary Care Pro vider Unavailable Gerard Mcdermott MD Primary Care Provider Un available Frieda Beckford DO Primary Care Pro vider Unavailable [facility], Pcp Primary Care Provider Nasim Mireles MD Primary Care Provider Unava ilable Reason for Visit * Reason Comments E-prescribe Rx Request Encounter Details Date Type Department Care Team Description 06/14/2015 Refill Adult Medicine [address] [address] Name, MD Chucho E-prescribe Rx Request Social [...] on filedocumented in this encounter Care Teams Auxiliary Engineer Relationship Specialty Start Date End Date Community, [...]
--- NOTE | 2024-07-23 08:28 | A.OFFVIS_ITS ---
Vital Signs 07/23/24 08:29 Height 5 ft 8 in Weight 211 lb BMI 32.1 Intake Visit Reasons: MRI Review left shoulder Intake Note: Minerva is a 69 year old right hand dominant female who presents with complaints of progressively worsening left shoulder pain and stiffness. She describes her pain as sharp and severe in nature. Her pain has gotten worse over the last year in spite of continued non operative treatments. She has done physical therapy exercises which aggravated her pain. She has also tried Tylenol and anti-inflammatory medicines which gave her minimal relief. She did have a cortisone injection given into her right knee in the past which gave her no relief. At this point her left shoulder pain and stiffness or interfering with her activities of daily living and her ability to sleep well through the night. Allergies No Known Allergies Allergy (Verified 07/15/24 12:31) Medication List - Last Reconciled 07/23/24 by Darrell Figueroa MD amlodipine 1 tab PO DAILY atorvastatin 1 tab PO BEDTIME cholecalciferol (vitamin D3) 50 mcg PO DAILY diclofenac sodium 1% (Voltaren Arthritis Pain) 2 grams topical QID glipizide ER 1 tab PO DAILY lisinopril 10 mg PO DAILY pioglitazone 30 mg PO DAILY pyridoxine (vitamin B6) 100 mg PO DAILY [facility] Medical History CKD (chronic kidney disease) stage 3, GFR 30-59 ml/min Elevated cholesterol Nephrolithiasis Diabetes mellitus, type 2 Pre-diabetes High blood pressure Surgical History Hx of colonoscopy (~06/26/22) H/O: hysterectomy Family History Father Heart problem Stroke Mother Diabetes Kidney problem Social History Household Members: Family Housing: Condominium Are you a primary primary care physician to a significant other at home: No Do you presently have visiting nurse or other home services: No Alcohol intake: never Patient Tobacco Use Status: Never used Tobacco e-Cigarette/Vaping Use: Never Used Second Hand Smoke Exposure: No service: No Current occupational status: retired 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 Cognitive needs: No Hearing needs: No Vision needs: Yes (reading glasses) Physical Exam Vital Signs: BMI result Body Mass Index 32.1 Const Other: Well-nourished well-developed very friendly female awake alert and oriented x3 in no acute distress Extrem Other: Bilateral upper extremity examination shows good capillary refill, no skin lesions noted, normal sensation light touch Left shoulder examination shows decreased active and passive range of motion when compared to her right shoulder, 4+ out of 5 strength with supraspinatus testing, positive impingement signs, tenderness over her acromioclavicular joint, no instability Results Reviewed Results Reviewed: MRI of the patient's left shoulder show severe acromioclavicular joint narrowing, a type 2 acromion, signal change within the supraspinatus tendon most likely due to adhesive capsulitis Assessment & Plan Assessment & Plan (1) Impingement syndrome of left shoulder: Code(s): M75.42 - Impingement syndrome of left shoulder Category: Medical Plan Ms. Murray presents with left shoulder pain and stiffness due to impingement syndrome, acromioclavicular joint arthritis and adhesive capsulitis. I had a lengthy discussion with the patient regarding the treatment options. At this point she has failed continued non operative treatments. The risks and benefits of left shoulder arthroscopic surgery were discussed at length with the patient. The patient wishes to proceed with surgery. Surgery will involve left shoulder arthroscopic distal clavicle excision, left shoulder arthroscopic acromioplasty, left shoulder arthroscopic capsular release and left shoulder manipulation under anesthesia. The patient will be scheduled for next available date. She will follow-up as instructed. Feel free to call me at any time should questions regarding her orthopedic management arise. I spent 21 minutes in reviewing the patient's records and imaging studies, seeing the patient and documenting in the medical record. Coding Level of Care Code Est Pt Level 3 (52490) Complex EM visit Add On G2211 Diagnoses Impingement syndrome of left shoulder M75.42
[2024-07-23 08:29] VITALS: BMI 32.1
== END 2024-07-23 08:43 | disposition home or self-care (01) ==
LOC: HO.HOS 08:16
PROVIDERS: PCP Internal Medicine; Visit Provider Orthopaedic Surgery
DX: M75.42 Impingement syndrome of left shoulder (principal)
CPT/HCPCS: 99214; G2211

== ENCOUNTER → 2024-07-23 08:15 | Outpatient (BNVA) | payer MEDICARE, SELFPAY | PROVIDERS: PCP Internal Medicine; Visit Provider Orthopaedic Surgery | DX: M75.42 Impingement syndrome of left shoulder (principal); M25.512 Pain in left shoulder; M25.612 Stiffness of left shoulder, not elsewhere classified | CPT/HCPCS: 99212 ==

== ENCOUNTER 2024-07-29 07:21 | Outpatient (REF) | payer MEDICARE, SELFPAY ==
[2024-07-29 08:31] LABS: Estimated Average Glucose 180 mg/dL; Hemoglobin A1c % 7.9 % (<6.0)
[2024-07-29 09:02] LABS: Alanine Aminotransferase 29 U/L (0-31); Albumin Level 4.3 g/dL (3.5-5.0); Alkaline Phosphatase 50 U/L (39-117); Anion Gap 9 (12-20); Aspartate Amino Transferase 31 U/L (5-31); Bilirubin Total 0.5 mg/dL (0.0-1.0); Blood Urea Nitrogen 28 mg/dL (9-16); Calcium 9.3 mg/dL (8.4-10.2); Carbon Dioxide 27 mmol/L (22-29); Chloride 109 mmol/L (96-108); Cholesterol 211 mg/dL (<200); Estimated Glomerular Filt Rate 36; Glucose Random 103 mg/dL (60-115); HDL Cholesterol 42 mg/dL (>40); LDL Cholesterol Calculated 122 mg/dL (<100); Sodium 141 mmol/L (135-145); Total Protein 7.5 g/dL (6.5-8.0); Triglycerides 235 mg/dL (<150)
== END 2024-07-29 07:22 | disposition home or self-care (01) ==
LOC: HO.LAB 07:21
PROVIDERS: Family Medicine; PCP Internal Medicine; Visit Provider Internal Medicine
DX: E11.65 Type 2 diabetes mellitus with hyperglycemia (principal); E11.22 Type 2 diabetes mellitus with diabetic chronic kidney disease; N18.30 Chronic kidney disease, stage 3 unspecified
CPT/HCPCS: 36415; 80053; 80061; 83036

== ENCOUNTER 2024-08-20 11:21 | Outpatient (AMB) | payer MEDICARE, SELFPAY ==
--- NOTE | 2024-08-20 11:24 | MHC.PC.OV ---
Vital Signs 08/20/24 11:26 08/20/24 11:27 08/20/24 11:29 Height 5 ft 8 in Weight 212 lb BP 124/72 Blood Pressure Location Rt brachial Position Sitting Pulse 60 Pulse Source Pulse Oximeter Temp 97.4 F Temp Source Temporal Artery Scan Pulse Oximetry (%) 99 Oxygen Delivery Method Room Air Intake Visit Reasons: 8 Week F/U Environmental Geologist Required: No Accompanied by: Self / Same As Patient Allergies No Known Allergies Allergy (Verified 08/20/24 11:24) Tobacco use date assessed: 06/26/24 Dental Screening Dental Screen Date: 06/26/24 HPI HPI Comments History of Present Illness Details The patient is a 69 year old female with a past medical history of diabetes, hypertension, hyperlipidemia, nephrolithiasis, left shoulder impingement presenting for preoperative clearance. Upcoming left shoulder surgery with Dr Figueroa at the end of this month under general anesthesia. Non insulin diabetes-A1C 7.9%. Glucose control is optimal at present CKD stage 3 is stable No significant cardiopulmonary disease No issues with anesthesia in the past Walks frequently without symptoms. No chest pain, no shortness of breath Diabetes: A1C 7.9% Porfirio down from April at 10.2%. She was started on actos 30mg and continued on glipizide. Her fasting glucose is between 100-120. Previously intolerance jardiance, metformin. We planned on also starting ozempic but the copay was unaffordable. CKD stage 3-stable. CV: On atorvastatin, amlodipine. Blood pressure is well controlled. Denies chest pain, dizziness Urology: 12/13/23--History of left hydronephrosis and left pyelonephritis. Left ureteral stent was placed. She states she has had recurrent UTI's and pyelo in the past. Cystoscopy left ureteral stent removed without difficulty. Plan renal US in 3 months. Mammo 01/2024 Colonoscopy 06/2022-Dr Dmitri JENKINS see HPI PHYSICAL EXAM: GENERAL: Alert and oriented x 3. NAD EYES: EOMI. Anicteric. HENT: Moist mucous membranes. No scleral icterus. No cervical lymphadenopathy. LUNGS: Clear to auscultation bilaterally. CARDIOVASCULAR: Regular rate and rhythm. No murmur. No JVD. ABDOMEN: Soft, non-tender +bs EXTREMITIES: No edema. Non-tender. SKIN: No rashes or lesions. Warm. NEUROLOGIC: No focal neurological deficits. CN II-XII grossly intact PSYCHIATRIC: Cooperative. Appropriate mood and affect [facility] Medical History CKD (chronic kidney disease) stage 3, GFR 30-59 ml/min Elevated cholesterol Nephrolithiasis Diabetes mellitus, type 2 Pre-diabetes High blood pressure Surgical History Hx of colonoscopy (~06/26/22) H/O: hysterectomy Family History Father Heart problem Stroke Mother Diabetes Kidney problem Social History Household Members: Family Housing: Condominium Are you a primary home health care respiratory therapist to a significant other at home: No Do you presently have visiting nurse or other home services: No Alcohol intake: never Patient Tobacco Use Status: Never used Tobacco e-Cigarette/Vaping Use: Never Used Second Hand Smoke Exposure: No service: No Current occupational status: retired 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 Herb Patton, Margy Palmer, Ren Bowen and colleagues, with an educational brenda from [employer]. Physical exam (Primary Care) Vital Signs: Last Vital Signs Temp 97.4 F 08/20/24 11:29 Pulse 60 08/20/24 11:29 BP 124/72 08/20/24 11:29 Pulse Ox 99 08/20/24 11:29 Oxygen Delivery Method Room Air 08/20/24 11:29 Tobacco/Smoking Status: Tobacco use Status Tobacco use date assessed 06/26/24 08/20/24 11:32 Patient Tobacco Use Status Never used Tobacco 08/20/24 11:32 e-Cigarette/Vaping Use Never Used 08/20/24 11:32 Thrive Assessment: Date of Thrive Assessment Date Thrive assessed 06/26/24 08/20/24 11:32 Coding Level of Care Code Est Pt Level 4 (07579) Diagnoses Preop cardiovascular exam Z01.810 Type 2 diabetes mellitus with hyperglycemia, without long-term current use of insulin E11.65 Diabetes mellitus terminal gauger insulin use: without terminal gauger use Diabetes mellitus complication status: with hyperglycemia Stage 3 chronic kidney disease, unspecified whether stage 3a or 3b CKD N18.30 Chronic kidney disease stage 3 subtype: unspecified whether 3a or 3b Assessment & Plan Assessment & Plan (1) Preop cardiovascular exam: Code(s): Z01.810 - Encounter for preprocedural cardiovascular examination (2) Diabetes mellitus, type 2: Code(s): E11.9 - Type 2 diabetes mellitus without complications Category: Medical Qualifiers: Diabetes mellitus terminal gauger insulin use: without half-way use Diabetes mellitus complication status: with hyperglycemia Qualified Code(s): E11.65 - Type 2 diabetes mellitus with hyperglycemia (3) CKD (chronic kidney disease) stage 3, GFR 30-59 ml/min: Code(s): N18.30 - Chronic kidney disease, stage 3 unspecified Category: Medical Qualifiers: Chronic kidney disease stage 3 subtype: unspecified whether 3a or 3b Qualified Code(s): N18.30 - Chronic kidney disease, stage 3 unspecified Plan Preop exam Diabetes is adequately controlled CKD stage 3 is stable METS>/=4 EKG reviewed She can proceed with planned surgery without additional testing Orders: Orders Hemoglobin A1c 2 Months E11.65 - Type 2 diabetes mellitus with hyperglycemia Comprehensive Met. Panel 2 Months E11.65 - Type 2 diabetes mellitus with hyperglycemia Lipid Panel 2 Months E11.65 - Type 2 diabetes mellitus with hyperglycemia
[2024-08-20 11:29] VITALS: BP 124/72; PULSE 60; TEMP 36.3; O2SAT 99
--- OUTSIDE RECORDS SUMMARY | 2024-08-20 12:09 | XMS_ITS | Encounter Summary ---
Author Organization [facility] Address [address] [place] [address] Phone Care Team Providers Care Refrigeration System Installer Name Role Phone Nasim Ryan MD Primary Care Provider [phone] Encounter Details Date Type Department Care Team (Late st Contact Info) Description 06/12/2022 Telephone [facility] [address] [place] [address] Caro Rios Social History Tobacco [...] the script tot be sent to [facility] in [place]. documented in this encounter Plan of Treatment Not on file documented as of this encounter Visit Diagnoses Not on filedocumented in this encounter Care Teams Refrigeration System Installer Relationship Specialty Start Date End Date Nasim Ryan MD [address] [place] PCP - General 02/29/20 documented as of this encounter
--- OUTSIDE RECORDS SUMMARY | 2024-08-20 12:09 | XMS_ITS | Encounter Summary ---
Author Organization [facility] Address [address] [place] [address] Care Team Providers Care Grocery Store Associate Name Role Phone Community, Pcp Primary Care Provider Unavailgarcia e Frieda Beckford DO Primary Care Pro vider Unavailable Gerard Mcdermott MD Primary Care Provider Un available Frieda Beckford DO Primary Care Pro vider Unavailable [facility], Pcp Primary Care Provider Nasim Mireles MD Primary Care Provider Unava ilable Reason for Visit * Reason Comments E-prescribe Rx Request Encounter Details Date Type Department Care Team Description 06/14/2015 Refill Adult Medicine [address] [address] Name, MD Chucho E-prescribe Rx Request Social [...] on filedocumented in this encounter Care Teams Grocery Store Associate Relationship Specialty Start Date End Date Community, Pcp PCP - General Internal Medicine 06/14/15 08/02/15 Frieda Beckford DO PCP - General Internal Medicine 08/03/15 10/25/15 Gerard Mcdermott MD PCP - General Internal Medicine 10/26/15 9 Frieda Beckford DO PCP - General Internal Medicine 09/19/18 12/07/21 [facility], Pcp PCP - General Internal Medicine 12/08/21 11/11/23 Nasim Ryan MD PCP - General Internal Medicine 11/12/23 documented as of this encounter
--- OUTSIDE RECORDS SUMMARY | 2024-08-20 12:09 | XMS_ITS | Patient Health Record ---
Author Organization [facility] Address [address] [place] [address] Care Team Providers Care Ancillary Services Manager Therapy Name Role Phone Nasim Ryan MD Primary Care Provider Daniel Claire Unavailable [phone] Allergies No Known Allergies Reason For Referral No Information Medications Medication SIG (Take, Route, Frequency, Duration) Notes Start Date End Date Status metFORMIN HCl 500 MG 1 tablet with a sarah l Orally Once a day Active Night Splint AFO - L1930 as directed 07/06/2022 Active Vitamin D3 Active Atorvastatin Calcium 40 MG 1 tablet Orally Once a day; Duration: 30 day(s) Active amLODIPine Besylate 5 MG 1 tablet Orally Once a day; Duration: 30 day(s) Active glipiZIDE ER 5 MG 1 tablet with food Orally Once a day; Duration: 30 day(s) Active Lisinopril 10 MG 1 tablet Orally Once a day; Duration: 30 day(s) Active Custom Orthotics as directed 07/06/2022 Active Night Splint AFO - L1930 as directed Active Physical Therapy . . . 2-3x/week; Duration: 3-4 weeks 07/06/2022 Active Night Splint AFO - [...] Problem Acquired hammer toe of right foot (8995341477075219 ) Other hammer toe(s) (acquired), right foot (M20.41) Active confirmed Problem Acquired hammer toe of left foot (3751135134469018 ) Other hammer toe(s) (acquired), left foot (M20.42) Active confirmed Problem Polyneuropathy due to type 2 diabetes mellitus (868205583) Type 2 diabetes mellitus with diabetic polyneuropathy (E11.42) Active confirmed Problem Type II diabetes mellitus without complication (886944140) Type 2 diabetes mellitus without complication, without long-term current use of insulin (E11.9) Active confirmed Plan Of Treatment Pending Test Test Name Order Date X ray : Foot, left 3V 07/06/2022 [id number] SKIN LESIONS, 2 TO 4 08/25/19 23 Insurance Providers Payer Name Payer Address Payer Phone Subscriber Number Group Number Insured Name Patient Relationship to Insured Coverage Start Date Coverage End Date [facility] [address] [place] [address] [id number] Minerva Szymanski Self - patient is the insured [employer] [address] [place] [address] [id number] Minerva Szymanski Self - patient is the insured 3 Medical (General) History Medical History History ICD Code Back,Hip,and Knee pain Cholesterol Diabetic High blood pressure Kidney disease Chicken pox Surgical History Surgery Date(Month/Year) hysterectomy
--- OUTSIDE RECORDS SUMMARY | 2024-08-20 12:09 | XMS_ITS | Patient Health Record ---
Author Organization [facility] Address [address] [place] [address] Care Team Providers Care Director Of Professional Services Name Role Phone Nasim Ryan MD Primary Care Provider Juan Almonte Jr Unavailable [phone] Allergies No Known Allergies Reason For Referral [...] Problem Status W/U Status Risk Notes Problem [id number] Colon cancer screening (Z12.11) Active confirmed Problem 598433173 Encounter for other preprocedural examination (Z01.818) Active confirmed Problem [id number] penitentiary (current) use of oral hypoglycemic drugs (Z79.84) Active confirmed Plan Of Treatment Future Test Test Name Order Date COLONOSCOPY 05/31/2022 Insurance Providers Payer Name Payer Address Payer Phone Subscriber Number Group Number Insured Name Patient Relationship to Insured Coverage Start Date Coverage End Date [facility] [address] [facility] [place], [place] [phone] [id number] ADRIA HOGAN Self - patient is the insured Medical (General) History Medical History History ICD Code Nephrolithiasis Diabetes mellitus type 2 hypertension Elevated cholesterol Surgical History Surgery Date(Month/Year) hysterectomy
== END 2024-08-20 13:43 | disposition home or self-care (01) ==
LOC: HO.HMCHD 11:22
PROVIDERS: PCP Internal Medicine; Visit Provider Internal Medicine
DX: Z01.810 Encounter for preprocedural cardiovascular examination (principal); E11.65 Type 2 diabetes mellitus with hyperglycemia; N18.30 Chronic kidney disease, stage 3 unspecified

== ENCOUNTER → 2024-08-20 11:21 | Outpatient (BNVA) | payer MEDICARE, SELFPAY | PROVIDERS: PCP Internal Medicine; Visit Provider Internal Medicine | DX: Z01.810 Encounter for preprocedural cardiovascular examination (principal); E11.65 Type 2 diabetes mellitus with hyperglycemia; E11.22 Type 2 diabetes mellitus with diabetic chronic kidney disease; I12.9 Hypertensive chronic kidney disease with stage 1 through stage 4 chronic kidney disease, or unspecified chronic kidney disease; N18.30 Chronic kidney disease, stage 3 unspecified; Z79.84 Long term (current) use of oral hypoglycemic drugs; Z79.899 Other long term (current) drug therapy | CPT/HCPCS: 99212 ==

== ENCOUNTER 2024-09-03 09:58 | Outpatient (AMB) | payer MEDICARE, SELFPAY ==
[2024-09-03 10:05] VITALS: BP 142/82; PULSE 66; O2SAT 98; BMI 32.2
--- NOTE | 2024-09-03 10:05 | A.OFFVIS_ITS ---
Vital Signs 09/03/24 10:05 Height 5 ft 8 in Weight 212 lb BMI 32.2 BP 142/82 H Blood Pressure Location Rt brachial Position Sitting Pulse 66 Pulse Source Pulse Oximeter Pulse Oximetry (%) 98 Oxygen Delivery Method Room Air Intake Visit Reasons: Pre-Lt Shld 09/11/24 Intake Note: Minerva is a 69 year old right hand dominant female who presents with complaints of progressively worsening left shoulder pain and stiffness. She describes her pain as sharp and severe in nature. Her pain has gotten worse over the last year in spite of continued non operative treatments. She has done physical therapy exercises which aggravated her pain. She has also tried Tylenol and anti-inflammatory medicines which gave her minimal relief. She did have a cortisone injection given into her right knee in the past which gave her no relief. At this point her left shoulder pain and stiffness or interfering with her activities of daily living and her ability to sleep well through the night. Allergies No Known Allergies Allergy (Verified 09/03/24 10:06) Medication List - Last Reconciled 09/03/24 by Darrell Figueroa MD amlodipine 5 mg PO DAILY atorvastatin 1 tab PO BEDTIME cholecalciferol (vitamin D3) 50 mcg PO DAILY diclofenac sodium 1% (Voltaren Arthritis Pain) 2 grams topical QID PRN glipizide ER 1 tab PO DAILY lisinopril 10 mg PO DAILY pioglitazone 30 mg PO DAILY pyridoxine (vitamin B6) 100 mg PO DAILY PFSH Medical History Arthritis CKD (chronic kidney disease) stage 3, GFR 30-59 ml/min Elevated cholesterol Nephrolithiasis Diabetes mellitus, type 2 Pre-diabetes High blood pressure Surgical History Hx of cystoscopy Hx of colonoscopy (~06/26/22) H/O: hysterectomy Family History Father Heart problem Stroke Mother Diabetes Kidney problem Social History Household Members: Family Housing: Condominium Are you a primary plant care worker to a significant other at home: No Do you presently have visiting nurse or other home services: No Alcohol intake: never Patient Tobacco Use Status: Never used Tobacco e-Cigarette/Vaping Use: Never Used Second Hand Smoke Exposure: No service: No Current occupational status: retired 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 Cognitive needs: No Hearing needs: No Vision needs: Yes (reading glasses) Physical Exam Vital Signs: Last Vital Signs Pulse 66 09/03/24 10:05 BP 142/82 H 09/03/24 10:05 Pulse Ox 98 09/03/24 10:05 Oxygen Delivery Method Room Air 09/03/24 10:05 BMI result Body Mass Index 32.2 Const Other: Well-nourished well-developed very friendly female awake alert and oriented x3 in no acute distress Extrem Other: Left shoulder examination shows decreased active and passive range motion when compared to her right shoulder, 4+ out of 5 strength with supraspinatus testing, positive impingement signs, tenderness over her acromioclavicular joint, no instability Results Reviewed Results Reviewed: MRI of the patient's left shoulder show severe acromioclavicular joint narrowing, a type 2 acromion, signal change within the supraspinatus tendon due to adhesive capsulitis Assessment & Plan Assessment & Plan (1) Impingement syndrome of left shoulder: Code(s): M75.42 - Impingement syndrome of left shoulder Category: Medical Plan Ms. Murray presents with progressively worsening left shoulder pain and stiffness due to impingement syndrome, acromioclavicular joint arthritis and adhesive capsulitis. I had a lengthy discussion with the patient regarding the treatment options. At this point she has failed continued non operative collin atments. The risks and benefits of left shoulder surgery were discussed at length with the patient. The patient wishes to proceed. Surgery will involve left shoulder arthroscopic distal clavicle excision, left shoulder arthroscopic acromioplasty, left shoulder arthroscopic capsular release and left shoulder manipulation under anesthesia. The patient will be given a prescription for pain medicine at the time of her surgery. She will follow up as instructed. Feel free to call me at any time should questions regarding her orthopedic management arise. I spent 22 minutes in reviewing the patient's records and imaging studies, seeing the patient and documenting in the medical record. Coding Level of Care Code Est Pt Level 3 (12691) Complex EM visit Add On G2211 Diagnoses Impingement syndrome of left shoulder M75.42
--- OUTSIDE RECORDS SUMMARY | 2024-09-03 10:23 | XMS_ITS | Encounter Summary ---
Author Organization [facility] Address [address] [place] [address] Care Team Providers Care Cement Conveyor Operator Name Role Phone Community, Pcp Primary Care Provider Unavailgarcia e Frieda Beckford DO Primary Care Pro vider Unavailable Gerard Mcdermott MD Primary Care Provider Un available Frieda Beckford DO Primary Care Pro vider Unavailable [facility], [facility]cp Primary Care Provider Nasim Mireles MD Primary Care Provider Unava ilable Reason for Visit * Reason Comments E-prescribe Rx Request Encounter Details Date Type Department Care Team Description 06/14/2015 Refill Adult Medicine [address] [address] Name, MD Chucho E-prescribe Rx Request Social [...] on filedocumented in this encounter Care Teams Cement Conveyor Operator Relationship Specialty Start Date End Date Community, Pcp PCP - General Internal Medicine 06/14/15 08/02/15 Frieda Beckford DO PCP - General Internal Medicine 08/03/15 10/25/15 Gerard Mcdermott MD PCP - General Internal Medicine 10/26/15 9 Frieda Beckford DO PCP - General Internal Medicine 09/19/18 12/07/21 [facility] Pcp PCP - General Internal Medicine 12/08/21 11/11/23 Nasim Ryan MD PCP - General Internal Medicine 11/12/23 documented as of this encounter
--- OUTSIDE RECORDS SUMMARY | 2024-09-03 10:24 | XMS_ITS | Patient Health Record ---
Author Organization [facility] Address [address] [place] [address] Care Team Providers Care Cutter Helper Name Role Phone Connor (RETIRED) Nasim JEFF Primary Care Provide r Unavailable Juan Rizvi Jr Unavailable Allergies No Known Allergies Reason For Referral No Information Medications Medication SIG (Take, Route, Frequency, Duration) Notes Start Date End Date Status glipiZIDE ER 5 MG Oral for 90 Active amLODIPine Besylate 5 MG Oral for 90 Active Vitamin D 50 MCG (1999 [place]) TAKE 1 TABLET BY MOUTH EVERY [...] Problem Status W/U Status Risk Notes Problem 241011221 Colon cancer screening (Z12.11) Active confirmed Problem 380351300 Encounter for other preprocedural examination (Z01.818) Active confirmed Problem [id number] author agent (current) use of oral hypoglycemic drugs (Z79.84) Active confirmed Plan Of Treatment Future Test Test Name Order Date COLONOSCOPY 05/31/2022 Insurance Providers Payer Name Payer Address Payer Phone Subscriber Number Group Number Insured Name Patient Relationship to Insured Coverage Start Date Coverage End Date [facility] [address] [facility] [address] [id number] ADRIA HOGAN Self - patient is the insured Medical (General) History Medical History History ICD Code Nephrolithiasis Diabetes mellitus type 2 hypertension Elevated cholesterol Surgical History Surgery Date(Month/Year) hysterectomy
--- OUTSIDE RECORDS SUMMARY | 2024-09-03 10:24 | XMS_ITS | Patient Health Record ---
[facility] Address [address] [place] [address] Care Team Providers Care Silversmith Apprentice Name Role Phone Nasim Ryan MD Primary Care Provider Daniel Claire Unavailable [phone] Allergies No Known Allergies Reason For Referral [...] Problem Acquired hammer toe of right foot (4442423686161292 ) Other hammer toe(s) (acquired), right foot (M20.41) Active confirmed Problem Acquired hammer toe of left foot (5883045020721778 ) Other hammer toe(s) (acquired), left foot (M20.42) Active confirmed Problem Polyneuropathy due to type 2 diabetes mellitus (512632485) Type 2 diabetes mellitus with diabetic polyneuropathy (E11.42) Active confirmed Problem Type II diabetes mellitus without complication (445540909) Type 2 diabetes mellitus without complication, without long-term current use of insulin (E11.9) Active confirmed Plan Of Treatment Pending Test Test Name Order Date X ray : Foot, left 3V 07/06/2022 [id number] SKIN LESIONS, 2 TO 4 08/25/19 23 Insurance Providers Payer Name Payer Address Payer Phone Subscriber Number Group Number Insured Name Patient Relationship to Insured Coverage Start Date Coverage End Date [facility] [address] [place] [address] [id number] Minerva Szymanski Self - patient is the insured Medicare [employer] [address] [place] [address] [id number] Minerva Szymanski Self - patient is the insured 3 Medical (General) History Medical History History ICD Code Back,Hip,and Knee pain Cholesterol Diabetic High blood pressure Kidney disease Chicken pox Surgical History Surgery Date(Month/Year) hysterectomy
--- OUTSIDE RECORDS SUMMARY | 2024-09-03 10:24 | XMS_ITS | Clinical Summary ---
Author Organization [facility] it Address [address] [place] [address] Care Team Providers Care Engineering Technical Writer Name Role Phone Nasim Ryan MD Primary Care Provider Surgical History Surgery Date Site/Laterality Comments OTHER SURGICAL HISTORY PROCEDURE: HISTORICAL VAGINAL HYSTERECTOMY WITH BSO Medical History Medical History Date Comments Type 2 diabetes mellitus wit h renal manifestations (CMS/HCC V24, CMS/HCC V28) 07/23/2014 DX:Type 2 diabetes mellitus with renal manifestations ([facility]) Proteinuria 09/09/2018 DX:Proteinuria CKD (chronic kidney disease) stage 3, GFR 30-59 ml/min (CMS/HCC V24, CMS/HCC V28) 03/19/2014 DX:CKD (chronic kidney disea se) stage 3, GFR 30-59 ml/min ([facility]) HTN (hypertension) 03/19/2014 DX:HTN (hyper tension) [...] Panel) 01/21/2022 Colorectal Cancer Screening: Colonoscopy 01/21/2022 Hepatitis C Screening 01/21/2022 Osteoporosis Screening (Bone Density Screening) 01/21/2022 Social Influencers of Health Screening 01/21/2022 Diabetes: Annual Urine Albumin-Creatinine Ratio (uACR) 02/03/2022 Diabetes: Blood Sugar Control Test (HGBA1C) 02/03/2022 Hypertension/CHF/CAD Annual BMP Blood Test 02/03/2022 Falls Risk Assessment 2022 DTaP,Tdap,and Td Vaccines (2 - Td or Tdap) 10/07/2022 10/07/2012 COVID-19 Vaccine ( - season) 2023 Depression Screening 02/19/2024 Influenza Vaccine (#1) 2024 7, 11/15/2015, 11/22/2014 HIB Vaccines Aged Out [...] with the aid of computer-aided detection. Comparison is made with 12/06/2018 and as far back as 10/12/2013. Breast parenchyma is composed of scattered fibroglandular densities. No new suspicious mass, architectural distortion, or suspicious [...] Recently Relevant to Health Maintenance Care Teams Engineering Technical Writer Relationship Specialty Start Date End Date Nasim Ryan MD [address] [place] [address] Dr Ferguson [place] PCP - General 11/12/23
--- OUTSIDE RECORDS SUMMARY | 2024-09-03 10:24 | XMS_ITS | Encounter Summary ---
Author Organization [facility] Address [address] [place] [address] Phone Care Team Providers Care Manager Student Services Name Role Phone Nasim Ryan MD Primary Care Provider [phone] Encounter Details Date Type Department Care Team (Late st Contact Info) Description 06/12/2022 Telephone [facility] [address] [place] [address] Crao Rios Social History Tobacco Use Types Packs/Day [...] requesting the script tot be sent to [facility] in [place]. documented in this encounter Plan of Treatment Not on file documented as of this encounter Visit Diagnoses Not on filedocumented in this encounter Care Teams Manager Student Services Relationship Specialty Start Date End Date Nasim Ryan MD [address] [place] PCP - General 02/29/20 documented as of this encounter
== END 2024-09-03 10:30 | disposition home or self-care (01) ==
LOC: HO.HOS 09:59
PROVIDERS: PCP Internal Medicine; Visit Provider Orthopaedic Surgery
DX: M75.42 Impingement syndrome of left shoulder (principal)
CPT/HCPCS: 99024

== ENCOUNTER → 2024-09-03 09:58 | Outpatient (BNVA) | payer MEDICARE, SELFPAY | PROVIDERS: PCP Internal Medicine; Visit Provider Orthopaedic Surgery | DX: M75.42 Impingement syndrome of left shoulder (principal) | CPT/HCPCS: 99212 ==

== ENCOUNTER 2024-09-11 06:51 | Day surgery (SDC) | payer MEDICARE, SELFPAY ==
[2024-08-28 09:34] VITALS: BMI 31.9
--- NOTE | 2024-08-31 15:12 | HO.ANESPROP2 ---
Documented by User: Chanelle Landeros NP 08/31/24 15:15 HPI - Anesthesia Eval Consult details Narrative: 69yo F for Left Shoulder Arthroscopy, distal clavicle excision, acromioplasty, capsular release and manipulation, 09/11/24 Medically optimized per PCP PMFSH Active Problems Active Problems: All Active Problems Impingement syndrome of left shoulder (Acute) Rotator cuff insufficiency of left shoulder (Acute) Hearing loss (Acute) Nipple discharge (Acute) Left shoulder pain (Acute) History of pyelonephritis (Acute) History of kidney stones (Acute) Hydronephrosis (Acute) Pyelonephritis (Acute) Dislocation of proximal interphalangeal joint of left ring finger (Acute) CKD (chronic kidney disease) stage 3, GFR 30-59 ml/min (Acute) Diabetes mellitus, type 2 (Acute) Past Medical History Medical History Arthritis CKD (chronic kidney disease) stage 3, GFR 30-59 ml/min Elevated cholesterol Nephrolithiasis Diabetes mellitus, type 2 Pre-diabetes High blood pressure Family History Family History Father Heart problem Stroke Mother Diabetes Kidney problem Family history of problems with anesthesia: No Surgical History Surgical History Hx of cystoscopy Hx of colonoscopy (~06/26/22) H/O: hysterectomy History of Problems with Anesthesia: No Social History Social History Household Members: Family Housing: Condominium Are you a primary healthcare manager to a significant other at home: No Do you presently have visiting nurse or other home services: No Alcohol intake: never Patient Tobacco Use Status: Never used Tobacco e-Cigarette/Vaping Use: Never Used Second Hand Smoke Exposure: No Use of substances other than those prescribed or required for medical reasons: No Have you been hit, kicked, punched, or otherwise hurt by someone within the past year? 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 Cognitive needs: No Hearing needs: No Vision needs: Yes (reading glasses) Meds Allergies Allergy/AdvReac Type Severity Reaction Status Date / Time No Known Allergies Allergy Verified 09/11/24 06:59 Home Medications ?Medication ?Instructions ?Recorded ?Confirmed ?Last Taken ?Type atorvastatin 40 mg tablet 1 tab PO BEDTIME 08/26/20 09/11/24 11/08/23 History glipizide 5 mg tablet, extended 1 tab PO DAILY 08/26/20 09/11/24 09/10/24 History release 24 hr cholecalciferol (vitamin D3) 50 50 mcg PO DAILY 06/25/22 09/11/24 11/08/23 History mcg (2,000 unit) tablet diclofenac sodium 1 % topical gel 2 g topical QID PRN Pain 08/28/24 09/11/24 Unknown History (Voltaren Arthritis Pain) Exam Height,Weight and Vital Signs: Height 5 ft 8 in Weight 95.254 kg Pertinent Lab Results Pertinent Lab Results: Laboratory Tests 11/10/23 07/29/24 05:49 07:29 WBC 6.3 Hgb 12.6 Hct 38.0 Plt Count 251 Sodium 141 Potassium 4.0 Chloride 109 H Carbon Dioxide 27 BUN 28 H Creatinine 1.45 H Narrative Narrative: EKG 08/2024 Assessment and Plan Assessment Anesthesia Assessment: Chart Reviewed Final Anesthetic Review Family History of Problems with Anesthesia: No History of Problems with Anesthesia: No Documented by User: Daina Putnam MD 09/11/24 08:13 [facility] Past Medical History Medical History Arthritis CKD (chronic kidney disease) stage 3, GFR 30-59 ml/min Elevated cholesterol Nephrolithiasis Diabetes mellitus, type 2 Pre-diabetes High blood pressure Family History Family History Father Heart problem Stroke Mother Diabetes Kidney problem Surgical History Surgical History Hx of cystoscopy Hx of colonoscopy (~06/26/22) H/O: hysterectomy Social History Social History Household Members: Family Housing: Condominium Are you a primary healthcare manager to a significant other at home: No Do you presently have visiting nurse or other home services: No Alcohol intake: never Patient Tobacco Use Status: Never used Tobacco e-Cigarette/Vaping Use: Never Used Second Hand Smoke Exposure: No Use of substances other than those prescribed or required for medical reasons: No Have you been hit, kicked, punched, or otherwise hurt by someone within the past year? 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 Cognitive needs: No Hearing needs: No Vision needs: Yes (reading glasses) Meds Allergies Allergy/AdvReac Type Severity Reaction Status Date / Time No Known Allergies Allergy Verified 09/11/24 06:59 Home Medications ?Medication ?Instructions ?Recorded ?Confirmed ?Last Taken ?Type atorvastatin 40 mg tablet 1 tab PO BEDTIME 08/26/20 09/11/24 11/08/23 History glipizide 5 mg tablet, extended 1 tab PO DAILY 08/26/20 09/11/24 09/10/24 History release 24 hr cholecalciferol (vitamin D3) 50 50 mcg PO DAILY 06/25/22 09/11/24 11/08/23 History mcg (2,000 unit) tablet diclofenac sodium 1 % topical gel 2 g topical QID PRN Pain 08/28/24 09/11/24 Unknown History (Voltaren Arthritis Pain) Exam Airway Mallampati Class: II TM Dist: >3cm Heart: rrr Lungs: cta Assessment and Plan Assessment Anesthesia Assessment: Anesthesia Plan Discussed Final Anesthetic Review NPO: Yes ASA Class: III Final Preanesthetic Review: No Changes in Pt Med Stat, Meds/Allgs Chart Reviewed, Consent Obtained/Reviewed and Anes Risks/Benef Reviewed Patient Risk: Intermediate Procedure Risk: Intermediate Anesthetic Plan Anesthetic Plan: GA, Regional Block and Agree w/ Assess. and Plan Disposition: Standard PACU
[2024-09-11] VITALS (9 sets, daily range): BP systolic 117–144; BP diastolic 60–77; PULSE 59–84; RESP 16; TEMP 36.1–36.6; O2SAT 92–99; BMI 32.5
[2024-09-11 07:15] LABS: Glucose, Whole Blood 94 mg/dL (60-115)
[2024-09-11] MEDS: Lactated Ringers 1,000 ML 100 ML IVCONT (07:29)
--- NOTE | 2024-09-11 10:21 | P.BOP_ITS ---
Brief Operative Note Date of Service: 09/11/24 Pre-op diagnosis: Left shoulder impingement syndrome, left shoulder acromioclavicular joint arthritis, left shoulder adhesive capsulitis Post-op diagnosis: same Procedure: Left shoulder arthroscopic distal clavicle excision, left shoulder arthroscopic acromioplasty, left shoulder arthroscopic capsular release, left shoulder manipulation under anesthesia Implants: None Surgeon: Darrell Figueroa MD Anesthesia: GETA and regional Was an Freight Receiver used for this Procedure?: No Estimated blood loss (mL): 10 Pathology: none sent Condition: stable Disposition: PACU
--- NOTE | 2024-09-11 10:22 | P.OP_ITS ---
Operative Note Operative Note Date of Service: 09/11/24 Narrative: After the patient was identified as Minerva Murray and her left shoulder was initialed by myself the patient was brought to the holding area where a left shoulder interscalene regional block was performed by the anesthesiologist in routine fashion. The patient was then brought to the operating room where general anesthesia was induced by the anesthesiologist in routine fashion. The patient was given 2 g of IV Ancef preoperatively for infection prophylaxis. Examination under anesthesia of the patient's left shoulder showed decreased range of motion when compared to the right shoulder. The patient's left should er had forward flexion to 140 degrees compared to 170 degrees, external rotation to 30 degrees compared to 60 degrees, and internal rotation to 50 degrees compared to 60 degrees. The patient was gently positioned in the beach chair position with all bony prominences well padded. The patient's left shoulder region and upper extremity were prepped and draped in sterile fashion. A formal time-out was completed. A #11 scalpel blade was used to make a posterior portal 2 cm inferior and 1 cm medial to the posterolateral corner of the acromion. Blunt trocar technique was used to enter the glenohumeral joint in routine fashion. An anterior portal was made just lateral to the coracoid process after proper positioning was confirmed using a spinal needle. Diagnostic arthroscopy showed minimal degenerative changes of the glenoid and humeral head articular surfaces. There was no evidence of rotator cuff tearing. There was no evidence of injury to the biceps tendon or its insertion onto the glenoid. There was inflammation of the anterior joint capsule consistent with adhesive capsulitis. The ArthroCare Wand was then used to perform an anterior capsular release between the inferior border of the biceps tendon and the superior border of the subscapularis tendon. The arthroscope was then placed from the posterior portal into the subacromial space. A lateral portal was made 2 fingerbreadths lateral to the anterior lateral corner of the acromion. The ArthroCare Wand was used to ablate soft tissues along the undersurface of the acromion as well as to excise the coracoacromial ligament. There was a sharp spur along the undersurface of the acromion which was removed using the hooded bur. The arthroscope was then placed into the lateral portal and the acromioplasty was completed with the bur in the posterior portal using the posterior aspect of the acromion as a cutting block. The ArthroCare Wand was then brought in through the anterior portal and was used to ablate soft tissues along the acromioclavicular joint and distal clavicle. The posterior and superior ligamentous structures were left intact. A distal clavicle excision of 8 mm was performed using the hooded bur. Any remaining bursal tissue was removed using the arthroscopic shaver. The subacromial space was irrigated and then drained. All arthroscopic instruments were removed. A gentle manipulation under anesthesia was then performed. Full passive range of motion was easily attained. The 3 portals were closed with 3-0 nylon interrupted suture. The subacromial space was injected with Marcaine. Dry sterile dressing was placed over all incisions. The patient's left upper extremity was placed into a sling. The patient was awoken and extubated in the operating room. The patient was transferred to the recovery room in stable condition.
== END 2024-09-11 12:16 | disposition home or self-care (01) ==
PROVIDERS: PCP Internal Medicine; Visit Provider Orthopaedic Surgery
PROC: (CPT 29805; principal; 2024-09-11 09:00)
DX: M75.42 Impingement syndrome of left shoulder (principal); M75.02 Adhesive capsulitis of left shoulder; M25.512 Pain in left shoulder; M19.012 Primary osteoarthritis, left shoulder; M25.612 Stiffness of left shoulder, not elsewhere classified; E11.22 Type 2 diabetes mellitus with diabetic chronic kidney disease; E11.65 Type 2 diabetes mellitus with hyperglycemia; N18.30 Chronic kidney disease, stage 3 unspecified; I12.9 Hypertensive chronic kidney disease with stage 1 through stage 4 chronic kidney disease, or unspecified chronic kidney disease; E78.00 Pure hypercholesterolemia, unspecified; Z79.84 Long term (current) use of oral hypoglycemic drugs; Z79.899 Other long term (current) drug therapy; N20.0 Calculus of kidney; Z98.890 Other specified postprocedural states
CPT/HCPCS: 29824; 29825; 29826; 82947; J0131; J0165; J0665; J0690; J0696; J1100; J2003; J2250; J2405; J2704; J2795; J3010

== ENCOUNTER → 2024-09-11 06:51 | Outpatient (BNV) | payer MEDICARE, SELFPAY | PROVIDERS: PCP Internal Medicine; Visit Provider Orthopaedic Surgery | DX: M75.42 Impingement syndrome of left shoulder (principal); M19.012 Primary osteoarthritis, left shoulder; M75.02 Adhesive capsulitis of left shoulder | CPT/HCPCS: 29824; 29826 ==

== ENCOUNTER 2024-09-24 09:15 | Outpatient (AMB) | payer MEDICARE, SELFPAY ==
--- NOTE | 2024-09-23 20:44 | MHC.OFFVIS ---
Intake Visit Reasons: PO-Lt Shld 09/11/24 Intake Note: Minerva is a 69 year old female who presents today for a post operative visit after undergoing a left shoulder arthroscopy, DOS 09/11/24, performed by Dr. Figueroa. Patient reports that she is doing well, states some discomfort. She has no concerns today. Allergies No Known Allergies Allergy (Verified 09/24/24 09:21) Medication List - Last Reconciled 09/24/24 by Elaine Mccormick PA-C amlodipine 5 mg PO DAILY atorvastatin 1 tab PO BEDTIME cholecalciferol (vitamin D3) 50 mcg PO DAILY diclofenac sodium 1% (Voltaren Arthritis Pain) 2 grams topical QID PRN glipizide ER 1 tab PO DAILY lisinopril 10 mg PO DAILY pioglitazone 30 mg PO DAILY pyridoxine (vitamin B6) 100 mg PO DAILY HPI HPI PO-Lt Shld 09/11/24 DR: Details: 69-year-old female presents to the office today for a follow-up status post left shoulder arthroscopy on 09/11/[address] Figueroa. She states she is doing well, mild stiffness but otherwise no concerns. [facility] Medical History Arthritis CKD (chronic kidney disease) stage 3, GFR 30-59 ml/min Elevated cholesterol Nephrolithiasis Diabetes mellitus, type 2 Pre-diabetes High blood pressure Surgical History Hx of cystoscopy Hx of colonoscopy (~06/26/22) H/O: hysterectomy Family History Father Heart problem Stroke Mother Diabetes Kidney problem Social History Household Members: Family Housing: Condominium Are you a primary animal care attendant to a significant other at home: No Do you presently have visiting nurse or other home services: No Alcohol intake: never Patient Tobacco Use Status: Never used Tobacco e-Cigarette/Vaping Use: Never Used Second Hand Smoke Exposure: No service: No Current occupational status: retired 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 She has no significant swelling no drainage. Neurovascularly intact. Results Reviewed Results Reviewed: Brief Operative Note Date of Service: 09/11/24 Pre-op diagnosis: Left shoulder impingement syndrome, left shoulder acromioclavicular joint arthritis, left shoulder adhesive capsulitis Post-op diagnosis: same Procedure: Left shoulder arthroscopic distal clavicle excision, left shoulder arthroscopic acromioplasty, left shoulder arthroscopic capsular release, left shoulder manipulation under anesthesia Implants: None Surgeon: Darrell Figueroa MD Assessment & Plan Assessment & Plan (1) Impingement syndrome of left shoulder: Code(s): M75.42 - Impingement syndrome of left shoulder Category: Medical Plan: Sutures removed today Steri-Strips applied. I placed an order for physical therapy to work on range of motion, rotator cuff and periscapular stabilization. She was given the information to call and make an appointment. I stressed the importance of avoiding excessive lifting or reaching overhead for the next 4-6 weeks. She will see us back in [address] Figueroa, sooner if needed. Coding Level of Care Code Global (14674) Diagnoses Impingement syndrome of left shoulder M75.42
--- OUTSIDE RECORDS SUMMARY | 2024-09-24 09:39 | XMS_ITS | Clinical Summary ---
Author Organization [employer] [facility] it Address [address] [place] [address] Care Team Providers Care Route Driver Coin Machines Name Role Phone Nasim Ryan MD Primary Care Provider [phone] Surgical History Surgery Date Site/Laterality Comments OTHER [...] disea se) stage 3, GFR 30-59 ml/min ([facility]) HTN (hypertension) 03/19/2014 DX:HTN (hyper [...] Recently Relevant to Health Maintenance Care Teams Route Driver Coin Machines Relationship Specialty Start Date End Date Nasim Ryan MD [address] [place] [address] Dr Ferguson [place] PCP - General 11/12/23
--- OUTSIDE RECORDS SUMMARY | 2024-09-24 09:39 | XMS_ITS | Patient Health Record ---
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 service (current) use of oral hypoglycemic drugs (Z79.84) Active confirmed Plan Of Treatment Future Test Test Name Order Date COLONOSCOPY 05/31/2022 Insurance Providers Payer Name Payer Address Payer Phone Subscriber Number Group Number Insured Name Patient Relationship to Insured Coverage Start Date Coverage End Date [facility] [address] [place] [address] [id number] ADRIA HOGAN Self - patient is the insured Medical (General) History Medical History History ICD Code Nephrolithiasis Diabetes mellitus type 2 hypertension Elevated cholesterol Surgical History Surgery Date(Month/Year) hysterectomy
--- OUTSIDE RECORDS SUMMARY | 2024-09-24 09:39 | XMS_ITS | Patient Health Record ---
Author [facility] Address [address] [place] [address] Care Team Providers Care Book Trimmer Name Role Phone Nasim Ryan MD Primary Care Provider Daniel Claire Unavailable [phone] Allergies No Known Allergies Reason For Referral [...] Problem Acquired hammer toe of right foot (8154958966670853 ) Other hammer toe(s) (acquired), right foot (M20.41) Active confirmed Problem Acquired hammer toe of left foot (5258191434267915 ) Other hammer toe(s) (acquired), left foot (M20.42) Active confirmed Problem Polyneuropathy due to type 2 diabetes mellitus (137902038) Type 2 diabetes mellitus with diabetic polyneuropathy (E11.42) Active confirmed Problem Type II diabetes mellitus without complication (620502623) Type 2 diabetes mellitus without complication, without long-term current use of insulin (E11.9) Active confirmed Plan Of Treatment Pending Test Test Name Order Date X ray : Foot, left 3V 07/06/2022 [id number] SKIN LESIONS, 2 TO 4 08/25/19 23 Insurance Providers Payer Name Payer Address Payer Phone Subscriber Number Group Number Insured Name Patient Relationship to Insured Coverage Start Date Coverage End Date [facility] [address] [place] [address] [id number] Minerva Szymanski Self - patient is the insured Medicare National [employer] [address] [place] [address] [id number] Minerva Szymanski Self - patient is the insured 3 Medical (General) History Medical History History ICD Code Back,Hip,and Knee pain Cholesterol Diabetic High blood pressure Kidney disease Chicken pox Surgical History Surgery Date(Month/Year) hysterectomy
--- OUTSIDE RECORDS SUMMARY | 2024-09-24 09:39 | XMS_ITS | Encounter Summary ---
Author Organization [facility] Address [address] [place] [address] Phone Care Team Providers Care Manager Video Name Role Phone Nasim Ryan MD Primary Care Provider [phone] Encounter Details Date Type Department Care Team (Late st Contact Info) Description 06/12/2022 Telephone [facility] [address] [place] [address] Caro Rios Social History Tobacco [...] requesting the script [facility] [place]. documented in this encounter Plan of Treatment Not on file documented as of this encounter Visit Diagnoses Not on filedocumented in this encounter Care Teams Manager Video Relationship Specialty Start Date End Date Nasim Ryan MD [address] [place] PCP - General 02/29/20 documented as of this encounter
== END 2024-09-24 09:38 | disposition home or self-care (01) ==
LOC: HO.HOS 09:16
PROVIDERS: PCP Internal Medicine; Visit Provider Physician Assistant
DX: M75.42 Impingement syndrome of left shoulder (principal)
CPT/HCPCS: 99024

== ENCOUNTER → 2024-09-24 09:15 | Outpatient (BNVA) | payer MEDICARE, SELFPAY | PROVIDERS: PCP Internal Medicine; Visit Provider Physician Assistant | DX: Z47.89 Encounter for other orthopedic aftercare (principal); M75.42 Impingement syndrome of left shoulder | CPT/HCPCS: 99212 ==

== ENCOUNTER 2024-10-27 09:59 | Outpatient (AMB) | payer MEDICARE, SELFPAY ==
--- NOTE | 2024-10-27 10:02 | A.OFFVIS_ITS ---
Vital Signs 10/27/24 10:04 Height 5 ft 8 in Weight 215 lb BMI 32.7 Intake Visit Reasons: 6wks PO-Lt Shld 09/11/24 DR Intake Note: Minerva is a 69 year old female who presents with complaints of mild to moderate discomfort in her left shoulder after undergoing left shoulder arthroscopic surgery on 09/11/2024. She continues to go to physical therapy. She denies any fevers or chills. She does not take any narcotics for her discomfort. Allergies No Known Allergies Allergy (Verified 10/27/24 10:04) Medication List - Last Reconciled 10/27/24 by Darrell Figueroa MD amlodipine 5 mg PO DAILY atorvastatin 1 tab PO BEDTIME cholecalciferol (vitamin D3) 50 mcg PO DAILY diclofenac sodium 1% (Voltaren Arthritis Pain) 2 grams topical QID PRN glipizide ER 1 tab PO DAILY lisinopril 10 mg PO DAILY pioglitazone 30 mg PO DAILY pyridoxine (vitamin B6) 100 mg PO DAILY PFSH Medical History Arthritis CKD (chronic kidney disease) stage 3, GFR 30-59 ml/min Elevated cholesterol Nephrolithiasis Diabetes mellitus, type 2 Pre-diabetes High blood pressure Surgical History Hx of cystoscopy Hx of colonoscopy (~06/26/22) H/O: hysterectomy Family History Father Heart problem Stroke Mother Diabetes Kidney problem Social History [facility] Members: [facility] Are you a primary eye care professional to a significant other at home: No Do you presently have visiting nurse or other home services: No Alcohol intake: never Patient Tobacco Use Status: Never used Tobacco e-Cigarette/Vaping Use: Never Used Second Hand Smoke Exposure: No service: No Current occupational status: retired 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 Murray continues to do well after undergoing left shoulder arthroscopic surgery on 09/11/2024. She will continue with her physical therapy exercises. The do's and don'ts of lifting were discussed at length with the patient. She will contact me prior to her follow-up appointment in 3 months should any questions or concerns arise. Feel free to call me at any time should questions regarding her orthopedic management arise. Coding Level of Care Code Global (96701) Diagnoses Acute pain of left shoulder M25.512 Chronicity: acute
[2024-10-27 10:04] VITALS: BMI 32.7
--- OUTSIDE RECORDS SUMMARY | 2024-10-27 11:44 | XMS_ITS | Encounter Summary ---
Author Organization [facility] Address [address] [place] [address] Phone Care Team Providers Care Lens Cleaner Name Role Phone Nasim Ryan MD Primary Care Provider [phone] Encounter Details Date Type Department Care Team (Late st Contact Info) Description 06/12/2022 Telephone [facility] [address] [place] [address] Caro Rios Social History Tobacco [...] requesting the script tot be sent to [facility] in [place]. documented in this encounter Plan of Treatment Not on file documented as of this encounter Visit Diagnoses Not on filedocumented in this encounter Care Teams Lens Cleaner Relationship Specialty Start Date End Date Nasim Ryan MD [address] [place] PCP - General 02/29/20 documented as of this encounter
--- OUTSIDE RECORDS SUMMARY | 2024-10-27 11:44 | XMS_ITS | Clinical Summary ---
Author Organization [facility] Address [address] [facility] [address] [place] [address] Phone Care Team Providers Care Bulb Sorter Name Role Phone Nasim Ryan MD Primary Care Provider Allergies No known active allergies Medications amLODIPine [...] Vaccine: 50+ Years (2 of 2 - PPSV23, PCV20, or PCV21) 01/10/2016 11/15/2015 Diabetes: Ophthalmology Exam 03/18/2020 Diabetes: Pedal Pulse Checked 03/18/2020 Diabetes: Sensory Foot Exam 03/18/2020 Diabetes: Visual Foot Exam 03/18/2020 Diabetes: Hemoglobin A1C 09/04/2022 023, 08/18/2021 Influenza Vaccine (#1) 2024 7, 11/15/2015, 11/22/2014 Pneumococcal Vaccine: Peds ( 0 [...] AM EDT) Hemoglobin A1C 8.5(H) (4.0-5.6) % [facility] Comment: MONITORING: In known diabetic patients, hemoglobin A1c targets should be discussed with health care provider. DIAGNOSTIC USE: The [place] Diabetes Association (ADA) and the World Health [...] Supplement 1 Testing performed or reported by [facility], a Service of [facility], [address] [place] [address] Vamsi Magaña MD, Electrical Designer Drafter [facility]# [id number] Blood specimen (specimen) Venous blood / Unknown 06/05/2022 8:31 AM EDT 06/05/2022 8:33 AM EDT us Michael Barnes MD LAB BLOOD ORDERABLES Final Re sult [facility] from Last 3 Months or Most Recently Relevant to Health Maintenance Insurance Medicare [facility] Medicare [facility] Care Teams Bulb Sorter Relationship Specialty Start Date End Date Nasim Ryan MD [address] [place] PCP - General 02/29/20
--- OUTSIDE RECORDS SUMMARY | 2024-10-27 11:44 | XMS_ITS | Encounter Summary ---
Author Organization [facility] Address [address] [place] [address] Phone Care Team Providers Care Neuroscience Specialist Name Role Phone Nasim Ryan MD Primary Care Provider [phone] Encounter Details Date Type Department Care Team ([facility] Contact Info) Description 06/12/2022 Telephone [facility] [address] [place] [address] Caro Rios Social History Tobacco [...] 10:10 AM EDT Please call Inessa from [facility] on [facility], , she says she has a couple of questions she needs to run by you. documented in this encounter Plan of Treatment Not on file documented as of this encounter Visit Diagnoses Not on filedocumented in this encounter Care Teams Neuroscience Specialist Relationship Specialty Start Date End Date Nasim Ryan MD [address] [place] PCP - General 02/29/20 documented as of this encounter
--- OUTSIDE RECORDS SUMMARY | 2024-10-27 11:44 | XMS_ITS | Patient Health Record ---
[facility] Address [address] [place] [address] Care Team Providers Care Visitor Services Specialist Name Role Phone Nasim Ryan MD Primary Care Provider Daniel Claire Unavailable [phone] Allergies No Known Allergies Reason For Referral [...] Problem Acquired hammer toe of right foot (0787575339135000 ) Other hammer toe(s) (acquired), right foot (M20.41) Active confirmed Problem Acquired hammer toe of left foot (5656346835244357 ) Other hammer toe(s) (acquired), left foot (M20.42) Active confirmed Problem Polyneuropathy due to type 2 diabetes mellitus (205058242) Type 2 diabetes mellitus with diabetic polyneuropathy (E11.42) Active confirmed Problem Type II diabetes mellitus without complication (531169304) Type 2 diabetes mellitus without complication, without long-term current use of insulin (E11.9) Active confirmed Plan Of Treatment Pending Test Test Name Order Date X ray : Foot, left 3V 07/06/2022 [id number] SKIN LESIONS, 2 TO 4 08/25/19 23 Insurance Providers Payer Name Payer Address Payer Phone Subscriber Number Group Number Insured Name Patient Relationship to Insured Coverage Start Date Coverage End Date [facility] [address] [place] [address] [id number] Minerva Szymanski Self - patient is the insured Medicare National [employer] [address] [place] [address] [id number] Minerva Szymanski Self - patient is the insured 3 Medical (General) History Medical History History ICD Code Back,Hip,and Knee pain Cholesterol Diabetic High blood pressure Kidney disease Chicken pox Surgical History Surgery Date(Month/Year) hysterectomy
--- OUTSIDE RECORDS SUMMARY | 2024-10-27 11:44 | XMS_ITS | Patient Health Record ---
Author Organization [facility] Address [address] [place] [address] Care Team Providers Care Trades Helper Name Role Phone Connor (RETIRED) Nasim JEFF Primary Care Provide r Unavailable Juan Rizvi Jr Unavailable [phone] Allergies No Known Allergies Reason For Referral [...] Problem Status W/U Status Risk Notes Problem [id number] Colon cancer screening (Z12.11) Active confirmed Problem 269801731 Encounter for other preprocedural examination (Z01.818) Active confirmed Problem [id number] long-term (current) use of oral hypoglycemic drugs (Z79.84) Active confirmed Plan Of Treatment Future Test Test Name Order Date COLONOSCOPY 05/31/2022 Insurance Providers Payer Name Payer Address Payer Phone Subscriber Number Group Number Insured Name Patient Relationship to Insured Coverage Start Date Coverage End Date [facility] [address] [place] [address] [id number] ADRIA HOGAN Self - patient is the insured Medical (General) History Medical History History ICD Code Nephrolithiasis Diabetes mellitus type 2 hypertension Elevated cholesterol Surgical History Surgery Date(Month/Year) hysterectomy
== END 2024-10-27 10:30 | disposition home or self-care (01) ==
LOC: HO.HOS 10:00
PROVIDERS: PCP Internal Medicine; Visit Provider Orthopaedic Surgery
DX: M25.512 Pain in left shoulder (principal)
CPT/HCPCS: 99024

== ENCOUNTER → 2024-10-27 09:59 | Outpatient (BNVA) | payer MEDICARE, SELFPAY | PROVIDERS: PCP Internal Medicine; Visit Provider Orthopaedic Surgery | DX: M25.512 Pain in left shoulder (principal); Z98.890 Other specified postprocedural states | CPT/HCPCS: 99212 ==

== ENCOUNTER 2024-11-02 11:00 | Outpatient (RCR) | payer MEDICARE, SELFPAY ==
--- NOTE | 2024-10-07 11:35 | MHC.PT.EP ---
[facility] [place] Office [place] [facility] [place] [facility] [address] [place] [address] [phone] F: [phone] F: [phone] F: [phone] F: [phone] Physical Therapy Plan of Care Date of Evaluation: 10/07/24 Date of Surgery: 09/11/2024 Diagnosis: s/p impingement syndrome L shoulder 09/11/2024 Assessment: Patient is a 69 year old female presenting to PT s/p L shoulder on 09/11/2024. She presents today with impairments in pain, ROM, shoulder strength, posture. Pt's current occupation is retired, with baseline physical activities including reaching, lifting, ADLs. 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 Clinical presentation today is most consistent with signs and sx associated with s/p L shoulder on 09/11/2024 and pt will benefit from skilled PT 2 x week x 4 weeks to address the following problems and impairments noted upon evaluation: pain, ROM, shoulder strength, posture. These problems limit the patient with the following functional activities: reaching, lifting, ADLs. The prescribed treatment plan of care is medically necessary. Co-morbidities of DM were identified and taken into considerations of plan of care. Pt was educated on HEP, role of PT, prognosis, POC. Frequency and Duration: The patient will be seen 2 x week x 4 weeks Short Term Goals: Pt will demonstrate improved ROM to equal B in 2 weeks. Pt will demonstrate improved L shoulder MMT strength to at least 4-/5 in 2 weeks. Biomedical Instrument Technician Goals: Pt will demonstrate improved SPADI score by 13 points in 4 weeks for improved functional mobility. Pt will demonstrate ability to reach with min to no pain or limitation in 4 weeks for return to PLOF. Pt will demonstrate ability to complete ADLs with min to no pain in 4 weeks for improved functional mobility. Treatment Plan: Modalities to reduce pain, spasms and effusion. Manual therapy to restore motion and function. Therapeutic exercise to improve strength and flexibility. Neuromuscular re-education for posture and balance. Therapeutic activities to return to functional activities of daily living. Electronically signed by: Estefany Prescott, PT, DPT, ATC Please sign and return to therapist. Thank you for your referral.
--- NOTE | 2024-12-01 10:03 | MHC.PT.DC ---
[facility] [place] [facility] [place] [facility] [address] [place] [address] [facility] [phone] F: [phone] F: [phone] F: [phone] F: [phone] Physical Therapy Discharge Report Diagnosis: s/p impingement syndrome L shoulder 09/11/2024 Date of Surgery: 09/11/2024 Date of Evaluation: 10/07/24 Date of Discharge: 12/01/24 Treatments to Date: 4 Cancellations to Date: 5 No Shows to Date: 0 Discharge Status: Discharge Summary: Pt cancelled her last few appointments and has not called to be scheduled in nearly 30 days so therefore we will d/c. Electronically signed by: Estefany Prescott, PT, DPT, ATC Please sign and return to therapist. Thank you for your referral.
== END 2024-12-01 10:03 | disposition home or self-care (01) ==
LOC: HO.PTCHIC 11:00
PROVIDERS: PCP Internal Medicine; Visit Provider Physician Assistant
DX: M75.42 Impingement syndrome of left shoulder (principal); M25.312 Other instability, left shoulder
CPT/HCPCS: 97110; 97140; 97161

== ENCOUNTER 2024-11-04 13:16 | Outpatient (AMB) | payer MEDICARE, SELFPAY ==
--- NOTE | 2024-11-04 13:27 | MHC.PC.OV ---
Vital Signs 11/04/24 13:31 Height 5 ft 8 in BP 124/78 Respiration 16 Pulse 72 Pulse Source Pulse Oximeter Temp 97.5 F Temp Source Temporal Artery Scan Pulse Oximetry (%) 98 Oxygen Delivery Method Room Air Intake Visit Reasons: Routine / Dr Ryan Death Clearance Coordinator Required: No Accompanied by: Self / Same As Patient Allergies No Known Allergies Allergy (Verified 11/04/24 13:27) Tobacco use date assessed: 06/26/24 Dental Screening Dental Screen Date: 06/26/24 HPI HPI Comments History of Present Illness Details The patient is a 69 year old female with a past medical history of diabetes, hypertension, hyperlipidemia, nephrolithiasis, left shoulder impingement for management of chronic conditions. Non insulin diabetes-last A1C 7.9%. Glucose control is optimal at present-fasting levels 88-90s, highest 156. Due for repeat labs including A1c. Compliant with glipizide, pioglitazone very compliant with diabetic diet. Eye exam is up-to-date CKD stage 3-related to type 2 diabetes. Last GFR 36 Hypertension-on amlodipine 5 mg and lisinopril 10 mg daily. Blood pressure in the office 124/78 Hyperlipidemia-on atorvastatin. Last LDL 122 Urology: 06/2024--History of left hydronephrosis and left pyelonephritis. Left ureteral stent was placed. She states she has had recurrent UTI's and pyelo in the past. Cystoscopy left ureteral stent removed without difficulty. Plan renal US pending. Following with Urology Concerns: none Health maintenance: Mammo 01/2024 Colonoscopy 06/2022-Dr Dmitri DU- overdue. Taking 1000mcg vit d ROS: General: No fevers, malaise, unintentional weight loss HEENT: No blurred vision, diplopia. No sore throat, nasal congestion, rhinorrhea, sinus pain, ear pain Cardiovascular: No chest pain, palpitations, or leg edema Respiratory: No shortness of breath, wheezing, cough GI: No abdominal pain, nausea, vomiting, diarrhea, constipation, melena, hematochezia : No dysuria, hematuria, increased urinary frequency, decreased urinary output MSK: No myalgia, back pain Neuro: No headaches, weakness, paresthesias Skin: No rashes or lesions EXAM: Constitutional - Awake and Alert, No apparent distress Eyes - PERRL Cardiovascular - S1S2, RRR, No edema Respiratory - Normal lung expansion, Normal respiratory effort, No respiratory distress, CTA bilaterally Extremities - no calf tenderness bilaterally, no swelling Skin - Warm/Dry Neurological - Alert & oriented x3 Psychological - Appropriate affect PFSH Medical History (Updated 11/04/24 @ 13:49 by LINA Ashford) Arthritis CKD (chronic kidney disease) stage 3, GFR 30-59 ml/min Elevated cholesterol Nephrolithiasis Diabetes mellitus, type 2 Pre-diabetes High blood pressure Surgical History Hx of cystoscopy Hx of colonoscopy (~06/26/22) H/O: hysterectomy Family History Father Heart problem Stroke Mother Diabetes Kidney problem Social History Household Members: [facility] Are you a primary daycare teacher to a significant other at home: No Do you presently have visiting nurse or other home services: No Alcohol intake: never Patient Tobacco Use Status: Never used Tobacco e-Cigarette/Vaping Use: Never Used Second Hand Smoke Exposure: No service: No Current occupational status: retired 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 Herb Patton, Margy Palmer, Ren Bowen and colleagues, with an educational brenda from [employer]. Physical exam (Primary Care) Vital Signs: Last Vital Signs Temp 97.5 F 11/04/24 13:31 Pulse 72 11/04/24 13:31 Resp 16 11/04/24 13:31 BP 124/78 11/04/24 13:31 Pulse Ox 98 11/04/24 13:31 Oxygen Delivery Method Room Air 11/04/24 13:31 Tobacco/Smoking Status: Tobacco use Status Tobacco use date assessed 06/26/24 11/04/24 13:27 Patient Tobacco Use Status Never used Tobacco 11/04/24 13:27 e-Cigarette/Vaping Use Never Used 11/04/24 13:27 Thrive Assessment: Date of Thrive Assessment Date Thrive assessed 06/26/24 11/04/24 13:27 Coding Level of Care Code Est Pt Level 4 (42486) Complex EM visit Add On G2211 Diagnoses 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 Will repeat hemoglobin A1c. Continue glipizide and Actos as prescribed. Continue with diabetic diet. Eye exams are up-to-date, continue following annually Will also recheck renal function and electrolyte levels (2) HLD (hyperlipidemia): Code(s): E78.5 - Hyperlipidemia, unspecified Category: Medical Plan: Lipid panel ordered. Not at goal with last LDL 122, goal less than 70. Continue atorvastatin, dose to be adjusted pending results (3) High blood pressure: Code(s): I10 - Essential (primary) hypertension Category: Medical Plan: Controlled. Continue amlodipine and lisinopril Plan Follow-up in the office in 4 months, labs to be completed following visit today. Referred for DEXA scan. Recommend calcium and vitamin-D as well as weight-bearing exercise Orders: Orders Basic Metabolic Panel Today E11.65 - Type 2 diabetes mellitus with hyperglycemia, E78.5 - Hyperlipidemia, unspecified, N18.30 - Chronic kidney disease, stage 3 unspecified Liver Panel Today E11.65 - Type 2 diabetes mellitus with hyperglycemia, E78.5 - Hyperlipidemia, unspecified, N18.30 - Chronic kidney disease, stage 3 unspecified Vitamin D 25-OH Total Today E11.65 - Type 2 diabetes mellitus with hyperglycemia, E78.5 - Hyperlipidemia, unspecified, N18.30 - Chronic kidney disease, stage 3 unspecified XR DEXA axial skeleton Today M89.8X9 - Other specified disorders of bone, unspecified site, Z78.0 - Asymptomatic menopausal state Hemoglobin A1c Today E11.65 - Type 2 diabetes mellitus with hyperglycemia, E78.5 - Hyperlipidemia, unspecified, N18.30 - Chronic kidney disease, stage 3 unspecified Lipid Panel Today E11.65 - Type 2 diabetes mellitus with hyperglycemia, E78.5 - Hyperlipidemia, unspecified, N18.30 - Chronic kidney disease, stage 3 unspecified
[2024-11-04 13:31] VITALS: BP 124/78; PULSE 72; RESP 16; TEMP 36.4; O2SAT 98
--- OUTSIDE RECORDS SUMMARY | 2024-11-04 16:59 | XMS_ITS | Patient Health Record ---
[facility] Address [address] [place] [address] Care Team Providers Care Shingle Catcher Name Role Phone Nasim Ryan MD Primary Care Provider Daniel Claire Unavailable [phone] Allergies No Known Allergies Reason For Referral [...] Problem Acquired hammer toe of right foot (7013224236103355 ) Other hammer toe(s) (acquired), right foot (M20.41) Active confirmed Problem Acquired hammer toe of left foot (2627794414358107 ) Other hammer toe(s) (acquired), left foot (M20.42) Active confirmed Problem Polyneuropathy due to type 2 diabetes mellitus (545502416) Type 2 diabetes mellitus with diabetic polyneuropathy (E11.42) Active confirmed Problem Type II diabetes mellitus without complication (134136811) Type 2 diabetes mellitus without complication, without long-term current use of insulin (E11.9) Active confirmed Plan Of Treatment Pending Test Test Name Order Date X ray : Foot, left 3V 07/06/2022 [id number] SKIN LESIONS, 2 TO 4 08/25/19 23 Insurance Providers Payer Name Payer Address Payer Phone Subscriber Number Group Number Insured Name Patient Relationship to Insured Coverage Start Date Coverage End Date [facility] [address] [place] [address] [id number] Minerva Szymanski Self - patient is the insured Medicare National [employer] [address] [place] [address] [id number] Minerva Szymanski Self - patient is the insured 3 Medical (General) History Medical History History ICD Code Back,Hip,and Knee pain Cholesterol Diabetic High blood pressure Kidney disease Chicken pox Surgical History Surgery Date(Month/Year) hysterectomy
--- OUTSIDE RECORDS SUMMARY | 2024-11-04 16:59 | XMS_ITS | Clinical Summary ---
Author Organization [facility] Address [address] [facility] [address] [place] [address] Phone Care Team Providers Care Gluten Settling Tender Name Role Phone Nasim Ryan MD Primary Care Provider [phone] Allergies No known active allergies Medications amLODIPine [...] AM EDT) Hemoglobin A1C 8.5(H) (4.0-5.6) % [facility] Comment: MONITORING: In known diabetic patients, hemoglobin A1c targets should be discussed with health care provider. DIAGNOSTIC USE: The [place] Diabetes Association (ADA) and the World Health [...] Supplement 1 Testing performed or reported by [facility], a Service of [facility], [address] [place] [address] Vamsi Magaña MD, Mussel Farmer [facility]# [id number] Blood specimen (specimen) Venous blood / Unknown 06/05/2022 8:31 AM EDT 06/05/2022 8:33 AM EDT us Michael Barnes MD LAB BLOOD ORDERABLES Final Re sult [facility] from Last 3 Months or Most Recently Relevant to Health Maintenance Insurance Medicare [facility] Medicare [facility] Care Teams Gluten Settling Tender Relationship Specialty Start Date End Date Nasim Ryan MD [address] [place] PCP - General 02/29/20
--- OUTSIDE RECORDS SUMMARY | 2024-11-04 16:59 | XMS_ITS | Encounter Summary ---
Author Organization [facility] Address [address] [place] [address] Care Team Providers Care Sheet Metal Superintendent Name Role Phone Gerard Mcdermott MD Primary Care Provider Un available Frieda Beckford DO Primary Care Pro vider Unavailable Community, Pcp Primary Care Provider Unavailabl e Nasim Ryan MD Primary Care Provider Unava ilable Encounter Details Date Type Department Care Team Description 03/20/2016 Orders Only Adult Medicine [address] [address] Gerard Mcdermott MD Social History Tobacco Use [...] on filedocumented in this encounter Care Teams Sheet Metal Superintendent Relationship Specialty Start Date End Date Gearrd Mcdermott MD PCP - General Internal Medicine 10/26/15 9 Frieda Beckford DO PCP - General Internal Medicine 09/19/18 12/07/21 Replaced By [facility], Pcp PCP - General Internal Medicine 12/08/21 11/11/23 Nasim Ryan MD PCP - General Internal Medicine 11/12/23 documented as of this encounter
--- OUTSIDE RECORDS SUMMARY | 2024-11-04 16:59 | XMS_ITS | Encounter Summary ---
Author Organization [facility] Address [address] [place] [address] Phone Care Team Providers Care Software Design Manager Name Role Phone Nasim Ryan MD Primary Care Provider [phone] Encounter Details Date Type Department Care Team ([facility] Contact Info) Description 06/12/2022 Telephone [facility] [address] [place] [address] Caro Rios Social History Tobacco [...] 10:10 AM EDT Please call Inessa from [facility] on [facility], , she says she has a couple of questions she needs to run by you. documented in this encounter Plan of Treatment Not on file documented as of this encounter Visit Diagnoses Not on filedocumented in this encounter Care Teams Software Design Manager Relationship Specialty Start Date End Date Nasim Ryan MD [address] [place] PCP - General 02/29/20 documented as of this encounter
--- OUTSIDE RECORDS SUMMARY | 2024-11-04 16:59 | XMS_ITS | Patient Health Record ---
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
--- OUTSIDE RECORDS SUMMARY | 2024-11-04 16:59 | XMS_ITS | Encounter Summary ---
Author Organization [facility] Address [address] [place] [address] Phone Care Team Providers Care Production Line Solderer Name Role Phone Nasim Ryan MD Primary Care Provider [phone] Encounter Details Date Type Department Care Team (Late st Contact Info) Description 06/12/2022 Telephone [facility] [address] [place] [address] Caro Rios Social History Tobacco [...] requesting the script tot be sent to [facility] in [place]. documented in this encounter Plan of Treatment Not on file documented as of this encounter Visit Diagnoses Not on filedocumented in this encounter Care Teams Production Line Solderer Relationship Specialty Start Date End Date Nasim Ryan MD [address] [place] PCP - General 02/29/20 documented as of this encounter
--- OUTSIDE RECORDS SUMMARY | 2024-11-04 17:00 | XMS_ITS | Encounter Summary ---
Author Organization [facility] Address [address] [place] [address] Care Team Providers Care Hot Mill Observer Name Role Phone Chucho Lam MD Primary [...] Department Care Team Description 03/19/2014 Telephone Adult [address] [address] Chucho Lam MD Work note Social History [...] like note to be: Placed in patient garbage pick up worker documented in this encounter Plan of Treatment Not on file documented as of this encounter Visit Diagnoses Not on filedocumented in this encounter Care Teams Hot Mill Observer Relationship Specialty Start Date End Date Name, MD Chucho PCP - General Internal Medicine 06/26/12 06/13/15 [facility], Pcp PCP - General Internal Medicine 06/14/15 [...]
--- OUTSIDE RECORDS SUMMARY | 2024-11-04 17:00 | XMS_ITS | Encounter Summary ---
Author Organization [facility] Address [address] [place] [address] Care Team Providers Care Stenciler Name Role Phone Gerard Mcdermott MD Primary Care Provider Un available Krakowichar Colasacco, Frieda DO Primary Care Pro vider Unavailable Community, Pcp Primary Care Provider Nasim Mireles MD Primary Care Provider Unava ilable Encounter Details Date Type Department Care Team Description 05/26/2018 Orders Only Adult Medicine [address] [address] Gerard Mcdermott MD Type 2 diabetes mellitus [...] AM EDT Gerard Mcdermott MD LAB [facility] [employer] * (ABNORMAL) BASIC METABOLIC PANEL (10/27/2018 [...] EDT [facility] Comment: If patient is -English, multiply result by 1.21 Chronic Kidney Disease: [...] AM EDT Gerard Mcdermott MD LAB [facility] [employer] documented in this encounter Visit Diagnoses Diagnosis Type 2 diabetes mellitus with stage 3 chronic kidney disease, without long-term current use of insulin (HCC)- Primary documented in this encounter Care Teams Stenciler Relationship Specialty Start Date End Date Gerard Mcdermott MD PCP - General Internal Medicine 10/26/15 9 Frieda Beckford DO PCP - General Internal Medicine 09/19/18 12/07/21 [facility], Pcp PCP - General Internal Medicine 12/08/21 11/11/23 Nasim Ryan MD PCP - General Internal Medicine 11/12/23 documented as of this encounter
--- OUTSIDE RECORDS SUMMARY | 2024-11-04 17:00 | XMS_ITS | Encounter Summary ---
Author Organization [facility] Address [address] [place] [address] Care Team Providers Care Office Support Associate Name Role Phone Name, Chucho JEFF Primary [...] Team Description 03/09/2014 Hospital Medical Records [address] [place] [address] Thang Floyd MD [address] [place] [address] Social History Tobacco Use Types Packs/Day Years [...] on filedocumented in this encounter Care Teams Office Support Associate Relationship Specialty Start Date End Date Name, MD Chucho PCP - General Internal Medicine 06/26/12 06/13/15 Community, Pcp PCP - General Internal Medicine 06/14/15 08/02/15 Frieda Beckford DO PCP - General Internal Medicine 08/03/15 10/25/15 Gerard Mcdermott MD PCP - General Internal Medicine 10/26/15 9 Frieda Beckford DO PCP - General Internal Medicine 09/19/18 12/07/21 [facility], Pcp PCP - General Internal Medicine 12/08/21 11/11/23 Nasim Ryan MD PCP - General Internal Medicine 11/12/23 documented as of this encounter
--- OUTSIDE RECORDS SUMMARY | 2024-11-04 17:00 | XMS_ITS | Encounter Summary ---
Author Organization [facility] Address [address] [place] [address] Care Team Providers Care Treating Engineer Helper Name Role Phone Name, Chucho JEFF Primary [...] Team Description 03/10/2014 Hospital Medical Records [address] [place] [address] Thang Floyd MD [address] [place] [address] Social History Tobacco Use Types Packs/Day Years [...] on filedocumented in this encounter Care Teams Treating Engineer Helper Relationship Specialty Start Date End Date Name, MD Chucho PCP - General Internal Medicine 06/26/12 06/13/15 [facility], Pcp PCP - General Internal Medicine 06/14/15 08/02/15 Frieda Beckford DO PCP - General Internal Medicine 08/03/15 10/25/15 Gerard Mcdermott MD PCP - General Internal Medicine 10/26/15 9 Frieda Beckford DO PCP - General Internal Medicine 09/19/18 12/07/21 [facility], Pcp PCP - General Internal Medicine 12/08/21 11/11/23 Nasim Ryan MD PCP - General Internal Medicine 11/12/23 documented as of this encounter
== END 2024-11-04 13:50 | disposition home or self-care (01) ==
LOC: HO.HMCHD 13:17
PROVIDERS: PCP Internal Medicine; Visit Provider Physician Assistant
DX: E11.21 Type 2 diabetes mellitus with diabetic nephropathy (principal); E78.5 Hyperlipidemia, unspecified; I10 Essential (primary) hypertension

== ENCOUNTER → 2024-11-04 13:16 | Outpatient (BNVA) | payer MEDICARE, SELFPAY | PROVIDERS: PCP Internal Medicine; Visit Provider Physician Assistant | DX: E11.22 Type 2 diabetes mellitus with diabetic chronic kidney disease (principal); I12.9 Hypertensive chronic kidney disease with stage 1 through stage 4 chronic kidney disease, or unspecified chronic kidney disease; N18.30 Chronic kidney disease, stage 3 unspecified; E78.5 Hyperlipidemia, unspecified; Z79.84 Long term (current) use of oral hypoglycemic drugs; Z79.899 Other long term (current) drug therapy | CPT/HCPCS: 99212 ==

== ENCOUNTER 2024-11-06 11:08 | Outpatient (REF) | payer MEDICARE, SELFPAY ==
--- OUTSIDE RECORDS SUMMARY | 2024-11-06 11:54 | XMS_ITS | Patient Health Record ---
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 (Z79.84) Active confirmed Plan Of Treatment Future Test Test Name Order Date COLONOSCOPY 05/31/2022 Insurance Providers Payer Name Payer Address Payer Phone Subscriber Number Group Number Insured Name Patient Relationship to Insured Coverage Start Date Coverage End Date [facility] [address] [place] [address] [id number] ADRIA HOGAN Self - patient is the insured Medical (General) History Medical History History ICD Code Nephrolithiasis Diabetes mellitus type 2 hypertension Elevated cholesterol Surgical History Surgery Date(Month/Year) hysterectomy
--- OUTSIDE RECORDS SUMMARY | 2024-11-06 11:54 | XMS_ITS | Clinical Summary ---
Author Organization [facility] it Address [address] [place] [address] Care Team Providers Care Senior Stock Plan Administrator Name Role Phone Nasim Ryan MD Primary Care Provider [phone] Surgical History Surgery Date Site/Laterality Comments OTHER SURGICAL HISTORY PROCEDURE: HISTORICAL VAGINAL HYSTERECTOMY WITH BSO Medical History Medical History Date Comments Type 2 diabetes mellitus wit h renal manifestations (CMS/HCC V24, CMS/HCC V28) 07/23/2014 DX:Type 2 diabetes mellitus with renal manifestations ([facility]) Proteinuria 09/09/2018 DX:Proteinuria CKD (chronic kidney disease) stage 3, GFR 30-59 ml/min (CMS/HCC V24, CMS/HCC V28) 03/19/2014 DX:CKD (chronic kidney disea se) stage 3, GFR 30-59 ml/min ([facility]) HTN (hypertension) 03/19/2014 DX:HTN (hyper tension) Hyperlipidemia [...] (2 - Td or Tdap) 10/07/2022 10/07/2012 Depression Screening 02/19/2024 COVID-19 Vaccine ( - season) 2024 Influenza Vaccine (#1) 2024 7, 11/15/2015, 11/22/2014 [...] Recently Relevant to Health Maintenance Care Teams Senior Stock Plan Administrator Relationship Specialty Start Date End Date Nasim Ryan MD [address] [place] [address] Dr Ferguson [place] PCP - General 11/12/23
--- OUTSIDE RECORDS SUMMARY | 2024-11-06 11:54 | XMS_ITS | Patient Health Record ---
[facility] Address [address] [place] [address] Care Team Providers Care Engineer Design And Construction Name Role Phone Nasim Ryan MD Primary Care Provider Daniel Claire Unavailable [phone] Allergies No Known Allergies Reason For Referral [...] Problem Acquired hammer toe of right foot (2115075708598450 ) Other hammer toe(s) (acquired), right foot (M20.41) Active confirmed Problem Acquired hammer toe of left foot (2400214256370622 ) Other hammer toe(s) (acquired), left foot (M20.42) Active confirmed Problem Polyneuropathy due to type 2 diabetes mellitus (167070985) Type 2 diabetes mellitus with diabetic polyneuropathy (E11.42) Active confirmed Problem Type II diabetes mellitus without complication (555871123) Type 2 diabetes mellitus without complication, without long-term current use of insulin (E11.9) Active confirmed Plan Of Treatment Pending Test Test Name Order Date X ray : Foot, left 3V 07/06/2022 [id number] SKIN LESIONS, 2 TO 4 08/25/19 23 Insurance Providers Payer Name Payer Address Payer Phone Subscriber Number Group Number Insured Name Patient Relationship to Insured Coverage Start Date Coverage End Date [facility] [address] [place] [address] [id number] Minerva Szymanski Self - patient is the insured Medicare [employer] [address] [place] [address] [id number] Minerva Szymanski Self - patient is the insured 3 Medical (General) History Medical History History ICD Code Back,Hip,and Knee pain Cholesterol Diabetic High blood pressure Kidney disease Chicken pox Surgical History Surgery Date(Month/Year) hysterectomy
--- OUTSIDE RECORDS SUMMARY | 2024-11-06 11:54 | XMS_ITS | Encounter Summary ---
Author Organization [facility] Address [address] [place] [address] Phone Care Team Providers Care Brilliandeer Looper Name Role Phone Nasim Ryan MD Primary Care Provider Encounter Details Date Type Department Care Team ([facility] Contact Info) Description 06/12/2022 Telephone [facility] [address] [place] [address] Caro Rios Social History Tobacco [...] 10:10 AM EDT Please call Inessa from [facility] on [facility], , she says she has a couple of questions she needs to run by you. documented in this encounter Plan of Treatment Not on file documented as of this encounter Visit Diagnoses Not on filedocumented in this encounter Care Teams Brilliandeer Looper Relationship Specialty Start Date End Date Nasim Ryan MD [address] [place] PCP - General 02/29/20 documented as of this encounter
--- OUTSIDE RECORDS SUMMARY | 2024-11-06 11:54 | XMS_ITS | Encounter Summary ---
Author Organization [facility] Address [address] [place] [address] Phone Care Team Providers Care Deicer Repairer Name Role Phone Nasim Ryan MD Primary Care Provider [phone] Encounter Details Date Type Department Care Team (Late st Contact Info) Description 06/12/2022 Telephone [facility] [address] [place] [address] Caro Rios Social History Tobacco [...] the script tot be sent to [facility] in [place]. documented in this encounter Plan of Treatment Not on file documented as of this encounter Visit Diagnoses Not on filedocumented in this encounter Care Teams Deicer Repairer Relationship Specialty Start Date End Date Nasim Ryan MD [address] [place] PCP - General 02/29/20 documented as of this encounter
--- OUTSIDE RECORDS SUMMARY | 2024-11-06 11:54 | XMS_ITS | Clinical Summary ---
Author Organization [facility] Address [address] [facility] [address] [place] [address] Phone Care Team Providers Care Public Information Relations Manager Name Role Phone Nasim Ryan MD Primary Care Provider [phone] Allergies No known active allergies Medications amLODIPine [...] AM EDT) Hemoglobin A1C 8.5(H) (4.0-5.6) % [facility] Comment: MONITORING: In known diabetic patients, hemoglobin A1c targets should be discussed with health care provider. DIAGNOSTIC USE: The [place] [employer] (ADA) and the World Health [...] Supplement 1 Testing performed or reported by [facility], a Service of [facility], [address] [place] [address] Vamsi Magaña MD, Chemical Lab Technician [facility]# [id number] Blood specimen (specimen) Venous blood / Unknown 06/05/2022 8:31 AM EDT 06/05/2022 8:33 AM EDT us Michael Barnes MD LAB BLOOD ORDERABLES Final Re sult [facility] from Last 3 Months or Most Recently Relevant to Health Maintenance Insurance Medicare [facility] Medicare [facility] Care Teams Public Information Relations Manager Relationship Specialty Start Date End Date Nasim Ryan MD [address] [place] PCP - General 02/29/20
[2024-11-06 12:04] LABS: Hemoglobin A1C 147.9961 umol/L; Total Hemoglobin (HGBA1C) 3365.9908 umol/L
[2024-11-06 12:45] LABS: Alanine Aminotransferase 33 U/L (0-31); Albumin Level 4.3 g/dL (3.5-5.0); Alkaline Phosphatase 60 U/L (39-117); Anion Gap 11 (12-20); Aspartate Amino Transferase 51 U/L (5-31); Blood Urea Nitrogen 24 mg/dL (9-16); Calcium 9.3 mg/dL (8.4-10.2); Carbon Dioxide 26 mmol/L (22-29); Chloride 110 mmol/L (96-108); Cholesterol 187 mg/dL (<200); Estimated Glomerular Filt Rate 36; HDL Cholesterol 40 mg/dL (>40); Potassium 4.0 mmol/L (3.3-5.1); Sodium 143 mmol/L (135-145); Total Protein 7.6 g/dL (6.5-8.0); Triglycerides 272 mg/dL (<150)
== END 2024-11-06 11:09 | disposition home or self-care (01) ==
LOC: HO.LAB 11:08
PROVIDERS: PCP Physician Assistant; Visit Provider Physician Assistant
DX: E11.22 Type 2 diabetes mellitus with diabetic chronic kidney disease (principal); N18.30 Chronic kidney disease, stage 3 unspecified; E11.65 Type 2 diabetes mellitus with hyperglycemia; E78.5 Hyperlipidemia, unspecified
CPT/HCPCS: 36415; 80048; 80061; 80076; 82306; 83036

== ENCOUNTER 2024-12-08 08:55 | Outpatient (REF) | payer MEDICARE, SELFPAY ==
--- NOTE | ~2024-12-08 | MM_ITS ---
EXAMINATION: DXA BONE DENSITY AXIAL HISTORY: M89.8X9 - Other specified disorders of bone, unspecified site TECHNIQUE: H5 Dual energy absorptiometry (DEXA) of the lumbar spine, total left hip, and femoral neck was performed. COMPARISON: There are no prior studies for comparison. FINDINGS: The bone mineral density of the lumbar spine is 1.192 g/cm2, corresponding to a T-score of 0.1, and a Z-score of 0.6. This is indicative of normal bone mineral density. The bone mineral density of the left total hip is 1.002 g/cm2, corresponding to a T-score of 0.0, and a Z-score of 0.5. This is indicative of normal bone mineral density. The bone mineral density of the left femoral neck is 0.964 g/cm2, corresponding to a T-score of -0.5, and a Z-score of 0.3. This is indicative of normal bone mineral density. FRACTURE RISK: The FRAX index suggests a risk of major osteoporotic fracture of 4.1%, and of hip fracture 0.2%. MM/XR DEXA axial skeleton IMPRESSION: Based on bone mineral density, and according to World Health Organization (WHO) criteria, the diagnosis is consistent with normal bone mineral density. Statistically, 68% of repeat scans fall within 1 SD (+/- 0.010 g/cm2 for AP spine L1-L4) and 1 SD (+/- 0.012 g/cm2 for femur total) FRAX is a trademark of the [employer] [place] [employer] Met[employer] Disease, a World Health Organization (WHO) Collaborating Center. Electronically signed by: Herb Jacobs MD 12/08/2024 09:37 AM EDT
--- OUTSIDE RECORDS SUMMARY | 2024-12-08 09:25 | XMS_ITS | Patient Health Record ---
[facility] Address [address] [place] [address] Care Team Providers Care Provider Relations Rep Name Role Phone Nasim Ryan MD Primary Care Provider Daniel Quezada Unavailable [phone] Allergies No Known Allergies Reason For Referral [...] Problem Acquired hammer toe of right foot ([id number] ) Other hammer toe(s) (acquired), right foot (M20.41) Active confirmed Problem Acquired hammer toe of left foot (9185519523094220 ) Other hammer toe(s) (acquired), left foot (M20.42) Active confirmed Problem Polyneuropathy due to type 2 diabetes mellitus (048353700) Type 2 diabetes mellitus with diabetic polyneuropathy (E11.42) Active confirmed Problem Type II diabetes mellitus without complication (833962172) Type 2 diabetes mellitus without complication, without long-term current use of insulin (E11.9) Active confirmed Plan Of Treatment Pending Test Test Name Order Date X ray : Foot, left 3V 07/06/2022 [id number] SKIN LESIONS, 2 TO 4 08/25/19 23 Insurance Providers Payer Name Payer Address Payer Phone Subscriber Number Group Number Insured Name Patient Relationship to Insured Coverage Start Date Coverage End Date [facility] [address] [place] [address] [id number] Minerva Szymanski Self - patient is the insured Medicare [employer] [address] [place] [address] [id number] Minerva Szymanski Self - patient is the insured 3 Medical (General) History Medical History History ICD Code Back,Hip,and Knee pain Cholesterol Diabetic High blood pressure Kidney disease Chicken pox Surgical History Surgery Date(Month/Year) hysterectomy
--- OUTSIDE RECORDS SUMMARY | 2024-12-08 09:25 | XMS_ITS | Patient Health Record ---
Author Organization [facility] Address [address] [place] [address] Care Team Providers Care Laundry Operator Name Role Phone Connor (RETIRED) Nasim JEFF Primary Care Provide r Unavailable Juan Rizvi Jr Unavailable Allergies No Known Allergies Reason For Referral No Information Medications Medication SIG (Take, Route, Frequency, Duration) Notes Start Date End Date Status glipiZIDE ER 5 MG Oral; Duration: 90 Active amLODIPine Besylate 5 MG Oral; Duration: 90 Active Vitamin D 50 MCG (1999) TAKE 1 TABLET BY MOUTH EVERY DAY Oral; Duration: 30 Active MiraLax (colon prep) 17 GM/SCOOP mixed with Gatorade or Crystal Light Orally begin at 5:00 p.m. the day before the procedure; Duration: 1 day 05/31/2022 Active Lisinopril 10 MG Oral; Duration: 90 Active Atorvastatin Calcium 40 MG TAKE 1 TABLET BY MOUTH EVERYDAY AT BEDTIME Oral; Duration: 90 Active metFORMIN HCl ER 500 MG TAKE 1 TABLET BY MOUTH TWICE A DAY Oral; Duration: 90 Active Social History Tobacco Use: Social [...] Problem Status W/U Status Risk Notes Problem Colon cancer screening (443774983) Colon cancer screening (Z12.11) Active confirmed Problem Pre-procedure evaluation check (209697540) Encounter for other preprocedural examination (Z01.818) Active confirmed Problem Long-term current use of drug therapy (969643634) shelter (current) use of oral hypoglycemic drugs (Z79.84) Active confirmed Plan Of Treatment Future Test Test Name Order Date COLONOSCOPY 05/31/2022 Insurance Providers Payer Name Payer Address Payer Phone Subscriber Number Group Number Insured Name Patient Relationship to Insured Coverage Start Date Coverage End Date [facility] [address] [facility] [place] [phone] [id number] ADRIA HOGAN Self - patient is the insured Medical (General) History Medical History History ICD Code Nephrolithiasis Diabetes mellitus type 2 hypertension Elevated cholesterol Surgical History Surgery Date(Month/Year) hysterectomy
== END 2024-12-08 08:56 | disposition home or self-care (01) ==
LOC: HO.MAMMO 08:55
PROVIDERS: PCP Physician Assistant; Visit Provider Physician Assistant
DX: Z13.820 Encounter for screening for osteoporosis (principal); M89.8X9 Other specified disorders of bone, unspecified site; Z78.0 Asymptomatic menopausal state
CPT/HCPCS: 77080

== ENCOUNTER → 2024-12-08 09:15 | Outpatient (BNV) | payer MEDICARE, SELFPAY | PROVIDERS: PCP Physician Assistant; Visit Provider Radiology Diagnostic Radiology | DX: E28.39 Other primary ovarian failure (principal) | CPT/HCPCS: 77080 ==

== ENCOUNTER 2025-01-21 14:15 | Outpatient (AMB) | payer MEDICARE, SELFPAY ==
--- NOTE | 2025-01-21 14:23 | A.OFFPC_ITS ---
Vital Signs 01/21/25 14:28 Height 5 ft 8.5 in Weight 214 lb BMI 32.1 BP 128/82 Blood Pressure Location Lt brachial Position Sitting Respiration 18 Pulse 96 Pulse Source Pulse Oximeter Temp 97.5 F Temp Source Temporal Artery Scan Pulse Oximetry (%) 96 Oxygen Delivery Method Room Air Intake Visit Reasons: ? [facility]ingles [facility] Manager Required: No Accompanied by: Self / Same As Patient Allergies No Known Allergies Allergy (Verified 01/21/25 14:23) Medication List - Last Reconciled 01/21/25 by Harris Olivier MD amlodipine 5 mg PO DAILY atorvastatin 40 mg PO BEDTIME 90 days cholecalciferol (vitamin D3) 50 mcg PO DAILY diclofenac sodium 1% (Voltaren Arthritis Pain) 2 grams topical QID PRN glipizide ER 5 mg PO DAILY lisinopril 10 mg PO DAILY 90 days pioglitazone 30 mg PO DAILY pyridoxine (vitamin B6) 100 mg PO DAILY Tobacco use date assessed: 06/26/24 Fall risk assessment: No Falls in past year Last assessed Fall Risk: 01/21/25 Dental Screening Dental Screen Date: 06/26/24 HPI HPI Comments History of Present Illness Details History of Present Illness The patient is a 69-year-old female presenting with a painful, burning rash on her hairline. The symptoms began with pain along her hairline, which she described as a burning and tingling sensation, evolving into a rash. The pain was severe enough that she could not comb her hair. She has been applying calamine lotion for relief. Associated symptoms include chills and a fever, which measured 101??F yesterday and 99.8-99.9??F the day before. She denies any recent changes in bed sheets or clothing detergents. She has never had shingles before and has not received the shingles vaccine. The patient's past medical history is significant for type 2 diabetes, hypertension, hyperlipidemia, and stage 3 chronic kidney disease. Her HbA1c has recently improved to 6.2% from 7.9%. Her current medications include amlodipine 5 mg, atorvastatin 40 mg, glipizide 5 mg, lisinopril 10 mg, and pioglitazone 30 mg, for which she needed a refill. Medical History: - Type 2 diabetes mellitus - Hypertension - Hyperlipidemia - Chronic kidney disease, stage 3 Medications: - Amlodipine 5 mg for hypertension - Atorvastatin 40 mg for hypercholestero lemia - Glipizide 5 mg once a day for diabetes - Lisinopril 10 mg for hypertension - Pioglitazone 30 mg for diabetes Diagnostic Results: - HbA1c: 6.2% (previously 7.9%) - Creatinine: 1.44 mg/dL [facility] Medical History (Updated 01/21/25 @ 14:49 by Harris Olivier MD) Hypertension, essential, benign Skin rash Arthritis CKD (chronic kidney disease) stage 3, GFR 30-59 ml/min Elevated cholesterol Nephrolithiasis Diabetes mellitus, type 2 Pre-diabetes High blood pressure Surgical History Hx of cystoscopy Hx of colonoscopy (~06/26/22) H/O: hysterectomy Family History Father Heart problem Stroke Mother Diabetes Kidney problem Social History Household Members: [facility] Are you a primary healthcare consulting manager to a significant other at home: No Do you presently have visiting nurse or other home services: No Alcohol intake: never Patient Tobacco Use Status: Never used Tobacco e-Cigarette/Vaping Use: Never Used Second Hand Smoke Exposure: No service: No Current occupational status: retired 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 Herb Patton, Margy Palmer, Ren Bowen and colleagues, with an educational brenda from [employer]. Review of Systems Narrative Review of Systems - Constitutional: Reports fever up to 101??F and chills. - Dermatologic: Reports a painful, burning, and tingling rash on her hairline. - She has been applying calamine lotion. - Denies insect bites or new exposures to detergents or bedding. All systems reviewed & are unremarkable except as reviewed in HPI and above Physical exam (Primary Care) Vital Signs: Last Vital Signs Temp 97.5 F 01/21/25 14:28 Pulse 96 01/21/25 14:28 Resp 18 01/21/25 14:28 BP 128/82 01/21/25 14:28 Pulse Ox 96 01/21/25 14:28 Oxygen Delivery Method Room Air 01/21/25 14:28 BMI result Body Mass Index 32.1 Tobacco/Smoking Status: Tobacco use Status Tobacco use date assessed 06/26/24 01/21/25 14:30 Patient Tobacco Use Status Never used Tobacco 01/21/25 14:30 e-Cigarette/Vaping Use Never Used 01/21/25 14:30 Thrive Assessment: Date of Thrive Assessment Date Thrive assessed 06/26/24 01/21/25 14:30 Narrative Physical Exam General: +Alert and oriented, Well nourished, No acute distress. Eye: Pupils are equal, round and reactive to light, Intact accommodation, Extraocular movements are intact, Normal conjunctiva, Vision unchanged. HENT: Normocephalic, Atraumatic, Tympanic membranes are clear, Normal hearing, Oral mucosa is moist, No pharyngeal erythema, Ear canals patent. Respiratory: Lungs CTA bilaterally, No wheeze, Respirations are non-labored. Cardiovascular: Regular rate, Regular rhythm, S1 auscultated, S2 auscultated, No murmur, Good pulses equal in all extremities, Normal peripheral perfusion, No edema. Gastrointestinal: Soft, Non-tender, Non-distended, Normal bowel sounds, No organomegaly. Musculoskeletal: Normal range of motion, Normal strength, No tenderness, No swelling, No deformity, Normal gait. Integumentary: Warm, Dry, Clarks[place], Intact, Rash noted at hairline, no lesions or bumps observed. Neurologic: Alert, Oriented, Normal sensory, Normal motor function, No focal defects, Cranial Nerves II-XII are grossly intact, Normal deep tendon reflexes. Psychiatric: Cooperative, Appropriate mood & affect, Normal judgment. 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 - Although the physical exam lacks typical vesicular lesions, empiric treatment is warranted due to her diabetes. - She will be prescribed Valacyclovir, dosed appropriately for her stage 3 chronic kidney disease, to be taken one pill every 12 hours for 7 days. Code(s): R21 - Rash and other nonspecific skin eruption Category: Medical (2) Diabetes mellitus, type 2: Comment: - Her condition is well-controlled, with a recent HbA1c of 6.2%, improved from 7.9%. - A refill for pioglitazone 30 mg will be provided. - She will continue her current medications and follow up with Maru in February. Code(s): E11.9 - Type 2 diabetes mellitus without complications Category: Medical Qualifiers: Diabetes mellitus snf insulin use: without watermelon harvesting supervisor use Diabetes mellitus complication status: with hyperglycemia Qualified Code(s): E11.65 - Type 2 diabetes mellitus with hyperglycemia (3) Hypertension, essential, benign: Comment: - The patient's blood pressure is well-managed on her current regimen of amlodipine 5 mg and lisinopril 10 mg. - She will continue her current medications. Code(s): I10 - Essential (primary) hypertension Category: Medical (4) HLD (hyperlipidemia): Comment: - The patient is managed on atorvastatin 40 mg. - She will continue her current medication. Code(s): E78.5 - Hyperlipidemia, unspecified Category: Medical Qualifiers: Hyperlipidemia type: other hyperlipidemia Qualified Code(s): E78.49 - Other hyperlipidemia (5) CKD (chronic kidney disease) stage 3, GFR 30-59 ml/min: Comment: - Her condition is noted, with a creatinine of 1.44 mg/dL. - This was taken into consideration for medication dosing. Code(s): N18.30 - Chronic kidney disease, stage 3 unspecified Category: Medical Qualifiers: Chronic kidney disease stage 3 subtype: unspecified whether 3a or 3b Qualified Code(s): N18.30 - Chronic kidney disease, stage 3 unspecified Plan: Health Maintenance: - The patient has not received the shingles vaccine. - A follow-up appointment is scheduled with Maru in February. Patient was informed and verbally consented to the use of an ambient scribe for clinic note documentation during this visit. Plan I discussed with the patient that while her rash on the hairline does not display the classic vesicular appearance of shingles, I am opting to treat her empirically due to her comorbid diabetes, which is a risk factor for complications. I explained that the prescription, Valacyclovir, has been dose- adjusted for her stage 3 kidney disease, and she should take one pill every 12 hours for seven days. We reviewed her chronic conditions, noting her blood pressure is well-controlled and her HbA1c has improved significantly. A refill for her pioglitazone was provided, and I advised her to postpone her flu shot for now. She has a scheduled follow-up with Maru in February. Medications: New valacyclovir 1,000 mg PO BID 14 tabs 0RF 7 days Refilled pioglitazone 30 mg PO DAILY 90 tabs 1RF Patient Instructions: - Take one pill of Valacyclovir every 12 hours for a total of 7 days for the rash. - Continue to monitor the rash on your hairline. - A prescription refill for your pioglitazone has been sent to your pharmacy. - Continue taking your other medications for blood pressure, cholesterol, and diabetes as prescribed. - Hold off on getting a flu shot for now; you can get it at a later visit. - Keep your follow-up appointment with Maru in February.
[2025-01-21 14:28] VITALS: BP 128/82; PULSE 96; RESP 18; TEMP 36.4; O2SAT 96; BMI 32.1
--- OUTSIDE RECORDS SUMMARY | 2025-01-21 19:53 | XMS_ITS | Clinical Summary ---
Author Organization [facility] it Address [address] [place] [address] Care Team Providers Care Occupational Analyst Name Role Phone Nasim Ryan MD Primary Care Provider Surgical History Surgery Date Site/Laterality Comments OTHER SURGICAL HISTORY PROCEDURE: HISTORICAL VAGINAL HYSTERECTOMY WITH BSO Medical History Medical History Date Comments Type 2 diabetes mellitus wit h renal manifestations (CMS/HCC V24, CMS/HCC V28) 07/23/2014 DX:Type 2 diabetes mellitus with renal manifestations ([facility]) Proteinuria 09/09/2018 DX:Proteinuria CKD (chronic kidney disease) stage 3, GFR 30-59 ml/min (CMS/HCC V24, CMS/HCC V28) 03/19/2014 DX:CKD (chronic kidney disea se) stage 3, GFR 30-59 ml/min ([facility]) HTN (hypertension) 03/19/2014 DX:HTN (hyper [...] Health Maintenance Due Date Last Done Comments Colorectal Cancer Screening: Colonoscopy 1957 Diabetes: Annual GFR (Glomerular Filtration Rate) 1957 Diabetes: Annual Foot Exam 1967 Diabetes: Annual Retina Eye Exam 1967 RSV Immunization Adult Patients (1 - Risk 50-74 years 1-dose series) 2007 Zoster Vaccines (1 of 2) 2007 Pneumococcal Vaccine: 50+ Years (2 of 2 - PCV20 or PCV21) 11/14/2016 11/15/2015 Breast Cancer Screening 12/11/2021 12/12/19, 12/06/2018, 11/30/2017, Additional history exists Cholesterol Screening (Lipid Panel) 01/21/2022 Hepatitis C Screening 01/21/2022 Osteoporosis Screening [...] Recently Relevant to Health Maintenance Care Teams Occupational Analyst Relationship Specialty Start Date End Date Nasim Ryan MD [address] [place] [address] Dr [place] PCP - General 11/12/23
== END 2025-01-21 14:46 | disposition home or self-care (01) ==
LOC: HO.HMCHD 14:16
PROVIDERS: PCP Physician Assistant; Visit Provider Student in an Organized Health Care Education/Training Program
DX: R21 Rash and other nonspecific skin eruption (principal); E11.65 Type 2 diabetes mellitus with hyperglycemia; I10 Essential (primary) hypertension; E78.49 Other hyperlipidemia; N18.30 Chronic kidney disease, stage 3 unspecified

== ENCOUNTER → 2025-01-21 14:15 | Outpatient (BNVA) | payer MEDICARE, SELFPAY | PROVIDERS: PCP Physician Assistant; Visit Provider Student in an Organized Health Care Education/Training Program | DX: R21 Rash and other nonspecific skin eruption (principal); E11.65 Type 2 diabetes mellitus with hyperglycemia; I10 Essential (primary) hypertension; E78.49 Other hyperlipidemia; N18.30 Chronic kidney disease, stage 3 unspecified; E78.00 Pure hypercholesterolemia, unspecified | CPT/HCPCS: 99212 ==

== ENCOUNTER 2025-01-26 09:23 | Outpatient (AMB) | payer MEDICARE, SELFPAY ==
--- NOTE | 2025-01-26 09:26 | A.OFFVIS_ITS ---
Vital Signs 01/26/25 09:30 Height 5 ft 8 in Weight 214 lb BMI 32.5 Intake Visit Reasons: OV-Lt Shld 09/11/24 3 Month F/U Intake Note: Minerva is a 69 year old female who presents with complaints of mild to moderate intermittent discomfort in her left shoulder after undergoing left shoulder arthroscopic surgery on 09/11/2024. She continues with her home stretching p rogram. She denies any fevers or chills. Allergies No Known Allergies Allergy (Verified 01/21/25 14:23) Medication List - Last Reconciled 01/26/25 by Darrell Figueroa MD amlodipine 5 mg PO DAILY atorvastatin 40 mg PO BEDTIME 90 days cholecalciferol (vitamin D3) 50 mcg PO DAILY diclofenac sodium 1% (Voltaren Arthritis Pain) 2 grams topical QID PRN glipizide ER 5 mg PO DAILY lisinopril 10 mg PO DAILY 90 days pioglitazone 30 mg PO DAILY pyridoxine (vitamin B6) 100 mg PO DAILY valacyclovir 1,000 mg PO BID 7 days [facility] Medical History (Updated 01/21/25 @ 14:49 by Harris Olivier MD) Hypertension, essential, benign Skin rash Arthritis CKD (chronic kidney disease) stage 3, GFR 30-59 ml/min Elevated cholesterol Nephrolithiasis Diabetes mellitus, type 2 Pre-diabetes High blood pressure Surgical History Hx of cystoscopy Hx of colonoscopy (~06/26/22) H/O: hysterectomy Family History Father Heart problem Stroke Mother Diabetes Kidney problem Social History Household Members: Family Housing: Condominium Are you a primary healthcare administration internship to a significant other at home: No Do you presently have visiting nurse or other home services: No Alcohol intake: never Patient Tobacco Use Status: Never used Tobacco e-Cigarette/Vaping Use: Never Used Second Hand Smoke Exposure: No service: No Current occupational status: retired 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 Murray continues to do well after undergoing left shoulder arthroscopic surgery on 09/11/2024. She will continue with her home stretching program. At this point the patient's discomfort is tolerable to her. We will hold off on a cortisone injection. She will contact me prior to her follow-up appointment in 3 months should any questions or concerns arise. Feel free to call me at any time should questions regarding her orthopedic management arise. I spent 21 minutes in reviewing the patient's records and imaging studies, seeing the patient and documenting in the medical record. Coding Level of Care Code Est Pt Level 3 (44672) Complex visit Add On G2211 Diagnoses Acute pain of left shoulder M25.512 Chronicity: acute
[2025-01-26 09:30] VITALS: BMI 32.5
== END 2025-01-26 09:42 | disposition home or self-care (01) ==
LOC: HO.HOS 09:24
PROVIDERS: PCP Internal Medicine; Visit Provider Orthopaedic Surgery
DX: M25.512 Pain in left shoulder (principal)
CPT/HCPCS: 99213; G2211

== ENCOUNTER → 2025-01-26 09:23 | Outpatient (BNVA) | payer MEDICARE, SELFPAY | PROVIDERS: PCP Internal Medicine; Visit Provider Orthopaedic Surgery | DX: M25.512 Pain in left shoulder (principal) | CPT/HCPCS: 99212 ==

== ENCOUNTER 2025-02-08 09:55 | Outpatient (REF) | payer MEDICARE, SELFPAY ==
--- NOTE | ~2025-02-08 | MM_ITS ---
EXAMINATION: MM SCREENING DIGITAL BREAST TOMOSYNTHESIS, BILATERAL CLINICAL INFORMATION: Screening. Asymptomatic. COMPARISON: Mammography: Comparison is made with available priors TECHNIQUE: Digital breast mammography with tomosynthesis is performed in both the craniocaudal and mediolateral oblique views along with computer-aided detection (CAD). FINDINGS: There are scattered areas of fibroglandular density. There are no significant masses, abnormal calcifications, or other abnormalities. MM/MM tomosynthesis screening BI IMPRESSION: No mammographic evidence of malignancy. ASSESSMENT: BI-RADS Category 1: Negative RECOMMENDATION: Routine annual mammography screening. 1 year F/U This examination should not preclude the clinical evaluation of a suspicious palpable abnormality. This patient's information was entered into a reminder system with a target due date for their next mammogram. Electronically signed by: Radha Fiore DO 02/10/2025 03:26 PM [place]
--- OUTSIDE RECORDS SUMMARY | 2025-02-08 11:46 | XMS_ITS | Encounter Summary ---
Author Organization [facility] Prior to 12/20/2023 Address [address] [place] [address] Care Team Providers Care Newspaper Distributor Supervisor Name Role Phone Name, Chucho JEFF Primary Care Provider Unavailabl e Community, Pcp Primary Care Provider Unavailabl e Francisco Beckfordabela DO Primary Care Pro vider Unavailable Gerard Mcdermott MD Primary Care Provider Un available Todkoelieser Carrasquillo Frieda DO Primary Care Pro vider Unavailable [facility], Pcp Primary Care Provider Unavailabl e Nasim Ryan MD Primary Care Provider Unava ilable Encounter Details Date Type Department Care Team Description 03/10/2014 [facility] Medical Records [address] [place] [address] Thang Floyd MD [address] [place] [address] Social History Tobacco Use Types Packs/Day Years [...] on filedocumented in this encounter Care Teams Newspaper Distributor Supervisor Relationship Specialty Start Date End Date Name, MD Chucho PCP - General Internal Medicine 06/26/12 06/13/15 [facility], Pcp PCP - General Internal Medicine 06/14/15 08/02/15 Frieda Beckford DO PCP - General Internal Medicine 08/03/15 10/25/15 Gerard Mcdermott MD PCP - General Internal Medicine 10/26/15 9 Frieda Beckford DO PCP - General Internal Medicine 09/19/18 12/07/21 [facility], Pcp PCP - General Internal Medicine 12/08/21 11/11/23 Nasim Ryan MD PCP - General Internal Medicine 11/12/23 documented as of this encounter
--- OUTSIDE RECORDS SUMMARY | 2025-02-08 11:46 | XMS_ITS | Encounter Summary ---
Author Organization [facility] Prior to 12/20/2023 Address [address] [place] [address] Care Team Providers Care Retort Load Expediter Name Role Phone Gerard Mcdermott MD Primary Care Provider Un available Frieda Beckford DO Primary Care Pro vider Unavailable [facility], Pcp Primary Care Provider Nasim Mireles MD Primary Care Provider Unava ilable Reason for Visit * Reason Comments E-prescribe Rx Request Encounter Details Date Type Department Care Team Description 04/02/2018 Refill Adult Medicine [address] [address] Albino Le PA-C [address] [place] [id number] E-prescribe Rx Request Social History Tobacco Use [...] 04/04/2018 1:03 PM EST Ok to fill. Tamir, Antoinette * Telephone Encounter - Jessica Horta M.A. [...] N/A Patients current insurance carrier is: Payor: [employer] / Plan: PPO $20 ALFONOS [id number] / Product Type: MEDICARE SUPPLEMENTAL documented in this encounter Plan of Treatment Not on file documented as of this encounter Visit Diagnoses Not on filedocumented in this encounter Care Teams Retort Load Expediter Relationship Specialty Start Date End Date Gerard Mcdermott MD PCP - General Internal Medicine 10/26/15 9 Frieda Beckford DO PCP - General Internal Medicine 09/19/18 12/07/21 [facility] PCP - General Internal Medicine 12/08/21 11/11/23 Nasim Ryan MD PCP - General Internal Medicine 11/12/23 documented as of this encounter
--- OUTSIDE RECORDS SUMMARY | 2025-02-08 11:46 | XMS_ITS | Clinical Summary ---
Author Organization [facility] Address [address] [facility] [address] [place] [address] Phone Care Team Providers Care Metal Finisher Name Role Phone Nasim Ryan MD Primary Care Provider [phone] Allergies No known active allergies Medications amLODIPine [...] AM EDT) Hemoglobin A1C 8.5(H) (4.0-5.6) % [facility] Comment: MONITORING: In known diabetic patients, hemoglobin A1c targets should be discussed with health care provider. DIAGNOSTIC USE: The [place] Diabetes Association (ADA) and the World Health [...] 1 Testing performed or reported by [facility], a Service of [facility], [address] [place] [address] Vamsi Magaña MD, Public Health Nutritionist [facility]# [id number] Blood specimen (specimen) Venous blood / Unknown 06/05/2022 8:31 AM EDT 06/05/2022 8:33 AM EDT us Michael Barnes MD LAB BLOOD ORDERABLES Final Re sult [facility] from Last 3 Months or Most Recently Relevant to Health Maintenance Insurance Medicare [facility] Medicare [facility] Care Teams Metal Finisher Relationship Specialty Start Date End Date Nasim Ryan MD [address] [place] PCP - General 02/29/20
--- OUTSIDE RECORDS SUMMARY | 2025-02-08 11:46 | XMS_ITS | Clinical Summary ---
Author Organization [facility] it Address [address] [place] [address] Care Team Providers Care Automation Machine Builder Name Role Phone Nasim Ryan MD Primary Care Provider [phone] Surgical History Surgery Date Site/Laterality Comments OTHER SURGICAL HISTORY PROCEDURE: HISTORICAL VAGINAL HYSTERECTOMY WITH BSO Medical History Medical History Date Comments Type 2 diabetes mellitus wit h renal manifestations (CMS/HCC V24, CMS/HCC V28) 07/23/2014 DX:Type 2 diabetes mellitus with renal manifestations ([facility]) Proteinuria 09/09/2018 DX:Proteinuria CKD (chronic kidney disease) stage 3, GFR 30-59 ml/min (CMS/HCC V24, CMS/HCC V28) 03/19/2014 DX:CKD (chronic kidney disea se) stage 3, GFR 30-59 ml/min ([facility]) HTN (hypertension) 03/19/2014 DX:HTN (hyper tension) Hyperlipidemia [...] on file Sexual Orientation Not on file Plan of Treatment Health Maintenance Due Date [...] 10/07/2022 10/07/2012 Depression Screening 02/19/2024 COVID-19 Vaccine (1 - season) 2024 Influenza Vaccine (#1) 2024 [...] Recently Relevant to Health Maintenance Care Teams Automation Machine Builder Relationship Specialty Start Date End Date Nasim Ryan MD [address] [place] [address] Dr Ferguson [place] PCP - General 11/12/23
--- OUTSIDE RECORDS SUMMARY | 2025-02-08 11:46 | XMS_ITS | Encounter Summary ---
Author Organization [facility] Address [address] [place] [address] Phone Care Team Providers Care Stopper Maker Name Role Phone Nasim Ryan MD Primary Care Provider [phone] Encounter Details Date Type Department Care Team (Late st Contact Info) Description 06/12/2022 Telephone [facility] [address] [place] [address] Caro Rios Social History Tobacco [...] [facility] in [place]. documented in this encounter Plan of Treatment Not on file documented as of this encounter Visit Diagnoses Not on filedocumented in this encounter Care Teams Stopper Maker Relationship Specialty Start Date End Date Nasim Ryan MD [address] [place] PCP - General 02/29/20 documented as of this encounter
--- OUTSIDE RECORDS SUMMARY | 2025-02-08 11:46 | XMS_ITS | Encounter Summary ---
Author Organization [facility] Address [address] [place] [address] Phone Care Team Providers Care Underpresser Hand Name Role Phone Nasim Ryan MD Primary Care Provider [phone] Encounter Details Date Type Department Care Team ([facility] Contact Info) Description 06/12/2022 Telephone [facility] [address] [place] [address] Caro Rios Social History Tobacco [...] 10:10 AM EDT Please call Inessa from [facility] on [facility], , she says she has a couple of questions she needs to run by you. documented in this encounter Plan of Treatment Not on file documented as of this encounter Visit Diagnoses Not on filedocumented in this encounter Care Teams Underpresser Hand Relationship Specialty Start Date End Date Nasim Ryan MD [address] [place] PCP - General 02/29/20 documented as of this encounter
--- OUTSIDE RECORDS SUMMARY | 2025-02-08 11:46 | XMS_ITS | Encounter Summary ---
Author Organization [facility] Prior to 12/20/2023 Address [address] [place] [address] Care Team Providers Care Churn Drill Operator Name Role Phone [facility], Pcp Primary Care Provider Unavailabl e Isael Canchola Primary Care Provider [phone] Ling Morgan NP Primary Care Provider Malinda Savage MD Primary Care Provider Un available Name, Chucho JEFF Primary Care Provider Unavailabl e [facility], Pcp Primary Care Provider Unavailabl e [place] Colasacco, Frieda DO Primary Care Pro vider Unavailable Gerard Mcdermott MD Primary Care Provider Un available [place] Colasacco, Frieda DO Primary Care Pro vider Unavailable [facility], Pcp Primary Care Provider Unavailgarcia e Nasim Ryan MD Primary Care Provider Unava ilable Reason for Visit * Reason Comments Information Security Consultant Feedback [facility] Encounter Details Date Type Department Care Team Description 11/05/2003 Telephone Adult Medicine [facility] [address] [place] [address] Isael Canchola [address] [place] [address] [phone] Information Security Consultant Feedback ([facility]) Social History Tobacco Use Types Packs/Day Years Used Date Smoking Tobacco: Never Assessed Sex Assigned at Date Recorded Not on file documented as of this encounter Miscellaneous Notes * Telephone Encounter - 11/05/2003 3:03 PM EDTCALL RECEIVED. Contact: DOCUMENTING SENT LETTER TO PATIENT TO BOOK OWN APPT WITH [facility] AND GET BACK TO [place] WITH PROVIDER AND DATE TO PROCESS REFERRAL DX CALLUS LITTLE TOE LEFT documented in this encounter Plan of Treatment Not on file documented as of this encounter Visit Diagnoses Not on filedocumented in this encounter Care Teams Churn Drill Operator Relationship Specialty Start Date End Date Community, Pcp PCP - General 03/09/06 11/05/11 Jesika Isael [address] [place] [id number] PCP - General 09/13/03 03/08/06 Ling Morgan NP [address] [place] [id number] PCP - General Internal Medicine 11/06/11 04/07/12 Tay, Malinda Linda MD [address] [place] [id number] PCP - General Pediatrics 04/08/12 06/25/12 Name, MD Chucho [address] [place] [address] [id number] PCP - General Internal Medicine 06/26/12 06/13/15 [facility], Pcp [address] [place] [address] [id number] PCP - General Internal Medicine 06/14/15 08/02/15 Frieda Beckford, [address] [place] [id number] PCP - General Internal Medicine 08/03/15 10/25/15 Gerard Mcdermott MD [address] [place] [address] [id number] PCP - General Internal Medicine 10/26/15 09/18/18 Frieda Beckford, [address] [place] [id number] PCP - General Internal Medicine 09/19/18 12/07/21 [facility], Pcp [address] [place] [address] [id number] PCP - General Internal Medicine 12/08/21 11/11/23 Nasim Ryan MD [address] [place] [id number] PCP - General Internal Medicine 11/12/23 documented as of this encounter
--- OUTSIDE RECORDS SUMMARY | 2025-02-08 11:46 | XMS_ITS | Encounter Summary ---
Author Organization [facility] Prior to 12/20/2023 Address [address] [place] [address] Care Team Providers Care Strategic Sourcing Specialist Name Role Phone Gerard Mcdermott MD Primary Care Provider Un available Frieda Beckford DO Primary Care Pro vider Unavailable Community, Pcp Primary Care Provider Unavailabl e Nasim Ryan MD Primary Care Provider Unava ilable Encounter Details Date Type Department Care Team Description 03/20/2016 Orders Only Adult Medicine [address] [address] Gerard Mcdermott MD Social History Tobacco Use [...] on filedocumented in this encounter Care Teams Strategic Sourcing Specialist Relationship Specialty Start Date End Date Gerard Mcdermott MD PCP - General Internal Medicine 10/26/15 9 Frieda Beckford DO PCP - General Internal Medicine 09/19/18 12/07/21 Community, Pcp PCP - General Internal Medicine 12/08/21 11/11/23 Nasim Ryan MD PCP - General Internal Medicine 11/12/23 documented as of this encounter
== END 2025-02-08 09:56 | disposition home or self-care (01) ==
LOC: HO.MAMMO 09:55
PROVIDERS: PCP Physician Assistant; Visit Provider Physician Assistant
DX: Z12.31 Encounter for screening mammogram for malignant neoplasm of breast (principal)
CPT/HCPCS: 77063; 77067

== ENCOUNTER → 2025-02-08 10:15 | Outpatient (BNV) | payer MEDICARE, SELFPAY | PROVIDERS: PCP Physician Assistant; Visit Provider Internal Medicine | DX: Z12.31 Encounter for screening mammogram for malignant neoplasm of breast (principal) | CPT/HCPCS: 77063; 77067 ==